=== PATIENT | male | born 1955 | race American Indian/Alaskan Native ===

== ENCOUNTER 2021-01-30 19:09 | Inpatient (IN) | payer MEDICARE, MEDICAID ==
[2021-01-30 21:48] LABS: Basophils % (Auto) 0.2 % (0.0-1.8); Eosinophils % (Auto) 0.3 % (0.0-4.3); Hematocrit 38.9 % (35.5-45.6); Hemoglobin 13.5 gm/dl (11.8-15.2); Lymphocytes # (Auto) 1.5 K/mm3 (1.2-5.4); Mean Corpuscular HGB Conc 35 % (32-34); Mean Corpuscular Volume 99 fl (84-94); Monocytes # (Auto) 0.8 K/mm3 (0.0-0.8); Monocytes % (Auto) 10.4 % (0.0-7.3); Platelet Count 109 K/mm3 (140-440); Red Blood Count 3.95 M/mm3 (3.65-5.03); Red Cell Distribution Width 14.7 % (13.2-15.2)
[2021-01-30 22:08] LABS: Albumin 2.4 g/dL (3.9-5); Calcium 9.3 mg/dL (8.4-10.2)
[2021-01-31] MEDS ORDERED: SODIUM POLYSTYRENE 15 GM/60 ML ORAL LIQD PO ONE (01:15)
[2021-01-31] MEDS ORDERED: SODIUM BICARB 8.4% 50 MEQ/50 ML SYRINGE IV ONE (01:15)
[2021-01-31] MEDS ORDERED: DEXTROSE 50% IN WATER (25GM) 50 ML SYRINGE IV ONE ×2 (01:15→11:23)
[2021-01-31] MEDS ORDERED: CALCIUM GLUCONATE 1,000 MG in SODIUM CHLORIDE 0.9% 100 ML IV ONE ×2 (01:15→10:30)
[2021-01-31] MEDS ORDERED: INSULIN REGULAR, HUMAN 100 UNITS/1 ML IV ONE (01:15)
--- NOTE | 2021-01-31 01:32 | Emergency Department Report ---
HPI - General Chief Complaint: Abdominal Pain Time Seen by Provider: 01/31/21 01:14 - [facility] HPI: Room 21 The patient is a 65-year-old male present with a chief complaint of abdominal swelling and peripheral edema. The patient states she has noticed abdominal swelling and bilateral lower extremity edema for the past 2 to 3 weeks. Patient states she developed shortness of breath over the past week. Patient states he believes he has been urinating more than normal and his urine has been darker than normal for the past 2 days. Patient denies history of fever. Patient states she has had a cough that is nonproductive and when he coughs it causes so reness in his abdomen. Patient denies any previous history of kidney disease. ED Past Medical Hx - Past Medical History Previous Medical History?: No - Surgical History Past Surgical History?: No - Family History Family history: no significant - Social History Smoking Status: Current Every Day Smoker (1/7 pack/day) Substance Use Type: None (Denies illicit drug use), Alcohol ("A couple shots" daily) ED Review of Systems ROS: Stated complaint: LEG SWELLING LT Other details as noted in HPI Constitutional: denies: fever Eyes: denies: eye pain ENT: denies: throat pain Respiratory: cough, shortness of breath Cardiovascular: denies: chest pain Endocrine: no symptoms reported Gastrointestinal: abdominal pain Genitourinary: frequency Musculoskeletal: denies: back pain Neurological: denies: headache Hematological/Lymphatic: other (Bilateral lower extremity edema) Physical Exam - Physical Exam Vital Signs: Vital Signs 01/30/21 21:06 Temperature 97.9 F Pulse Rate 104 H Respiratory 18 Rate Blood Pressure 150/71 O2 Sat by Pulse 98 Oximetry Physical Exam: GENERAL: The patient is well-developed well-nourished male lying on stretcher not appearing to be in acute distress. [] HEENT: Normocephalic. Atraumatic. Extraocular motions are intact. Icteric sc michael NECK: Supple. Trachea midline CHEST/LUNGS: Clear to auscultation. There is no respiratory distress noted. HEART/CARDIOVASCULAR: Regular. There is no tachycardia. There is no gallop rub or murmur. ABDOMEN: Abdomen is ascitic. Normoactive bowel sounds. SKIN: There is no rash. There is 2-3+ right lower extremity pitting edema. Patient has a left BKA but exhibits edema to the left thigh edema. There is no diaphoresis. NEURO: The patient is awake, alert, and oriented. The patient is cooperative. The patient has no focal neurologic deficits. The patient has normal speech. GCS 15 MUSCULOSKELETAL: There is no evidence of acute injury. ED Course Vital Signs 01/30/21 21:06 Temperature 97.9 F Pulse Rate 104 H Respiratory 18 Rate Blood Pressure 150/71 O2 Sat by Pulse 98 Oximetry ED Medical Decision Making - Lab Data Result diagrams: 01/30/21 21:35 01/30/21 21:35 Laboratory Tests 01/30/21 01/30/21 01/31/21 21:35 21:35 00:00 WBC 7.3 RBC 3.95 Hgb 13.5 Hct 38.9 MCV 99 H MCH 34 H MCHC 35 H RDW 14.7 Plt Count 109 L Lymph % (Auto) 20.0 Kinney % (Auto) 10.4 H Eos % (Auto) 0.3 Baso % (Auto) 0.2 Lymph # (Auto) 1.5 Kinney # (Auto) 0.8 Eos # (Auto) 0.0 Baso # (Auto) 0.0 Seg Neutrophils % 69.1 Seg Neutrophils # 5.0 Sodium 132 L Potassium 5.7 H Chloride 98.1 Carbon Dioxide 20 L Anion Gap 20 BUN 29 H Creatinine 2.6 H Estimated GFR 25 BUN/Creatinine Ratio 11 Glucose 69 L Calcium 9.3 Total Bilirubin 10.70 H AST 323 H ALT 90 H Alkaline Phosphatase 236 H Total Creatine Kinase 141 NT-Pro-B Natriuret Pep 616.0 Total Protein 8.7 H Albumin 2.4 L Albumin/Globulin Ratio 0.4 - Radiology Data Radiology results: report reviewed (Chest x-ray, CT abdomen pelvis), image reviewed (Chest x-ray, CT abdomen pelvis) interpreted by me: Chest x-ray-no focal infiltrates, no pneumothorax. No foreign body seen [facility] [address] [place] [address] Cat Scan Report Signed Patient: KOSTA YE MR#: [id number] : 1955 Acct:[id number] Age/Sex: 65 / M ADM Date: 01/30/21 Loc: ED Attending Dr: Ordering Physician: ARI MCCLELLAND MD Date of Service: 01/31/21 Procedure(s): CT abdomen pelvis wo con Accession Number(s): [id number] cc: ARI MCCLELLAND MD CT abdomen pelvis wo con INDICATION / CLINICAL INFORMATION: Abdominal swelling, peripheral edema elevated bili. TECHNIQUE: Axial CT imaging of abdomen and pelvis was obtained without contrast. Coronal and sagittal reformatted imaging obtained and reviewed. All CT scans at this location are performed using CT dose reduction for ALARA by means of automated exposure control. COMPARISON: None available. FINDINGS: CT abdomen without IV contrast was obtained and is grossly abnormal. The liver is sclerotic in appearance and there is suggestion of ill- defined masses within the liver. Spleen is of normal size. Moderate amount of ascites is seen throughout the upper abdomen. The gallbladder is collapsed but does contain several gallstones. Pancreas, kidneys, and adrenal glands are grossly unremarkable. Small hiatal hernia is present. The omentum is congested and somewhat nodular. This could be due to omental congestion given the appearance of the cirrhotic liver and the amount of ascites present. CT pelvis without contrast demonstrates large amount of free fluid throughout the pelvis. No pelvic mass or focal inflammatory changes noted. GI tract is grossly unremarkable. The appendix is not identified. Her graft visualized lung bases demonstrate a small left pleural effusion and a tiny right pleural effusion. No focal parenchymal disease noted in the visualized lung bases. Anasarca is noted throughout the soft tissues of the abdomen and pelvis. Review of skeletal structures demonstrates diffuse spondylytic change throughout the lumbar spine but no acute significant osseous abnormality. IMPRESSION: 1. Cirrhotic appearing liver. There is suggestion of possible multiple masses throughout the liver parenchyma although this is difficult to confidently identify without IV contrast. Moderate/large amount of ascites is noted throughout the abdomen and pelvis. CT with IV contrast or abdominal ultrasound is recommended to further evaluate the liver. 2. Cholelithiasis without CT evidence of acute cholecystitis. Line small left pleural effusion. Trace right pleural effusion. Signer Name: Naomi Barger MD Signed: 01/31/2021 2:20 AM Workstation Name: [id number] Transcribed By: Dictated By: Naomi Barger MD Electronically Authenticated By: Naomi Barger MD Signed Date/Time: 01/31/21219 DD/ 4 TD/TT: Print Cancel [facility] [address] [place] [address] XRay Report Signed Patient: KOSTA YE MR#: [id number] : 1955 Acct:[id number] Age/Sex: 65 / M ADM Date: 01/30/21 Loc: ED Attending Dr: Ordering Physician: ARI MCCLELLAND MD Date of Service: 01/31/21 Procedure(s): XR chest 1V ap Accession Number(s): [id number] cc: ARI MCCLELLAND MD Fluoro Time In Minutes: CHEST 1 VIEW INDICATION / CLINICAL INFORMATION: Shortness of breath. COMPARISON: None available. FINDINGS: SUPPORT DEVICES: None. HEART / MEDIASTINUM: No significant abnormality. LUNGS / PLEURA: Low lung volumes. No acute pulmonary or pleural disease. No interstitial pulmonary edema. Small left pleural effusion was noted on CT abdomen earlier today. No pneumothorax. ADDITIO NAL FINDINGS: No significant additional findings. IMPRESSION: 1. Small left pleural effusion. This was identified on earlier CT abdomen. 2. No additional abnormal finding. Signer Name: Naomi Barger MD Signed: 01/31/2021 2:25 AM Workstation Name: [id number] Transcribed By: JR Dictated By: Naomi Barger MD Electronically Authenticated By: Naomi Barger MD Signed Date/Time: 01/31/21224 DD/ 3 TD/TT: Print Cancel - Differential Diagnosis CHF, acute renal failure, hepatic failure, Critical care attestation.: If time is entered above; I have spent that time in minutes in the direct care of this critically ill patient, excluding procedure time. ED Disposition Clinical Impression: Renal insufficiency, Hyperkalemia, Hypoalbuminemia, Hyperbilirubinemia Disposition: OP ADMIT IP TO THIS HOSP Is pt being admited?: Yes Does the pt Need Aspirin: No Condition: Fair Time of Disposition: 02:35 (Hospitalist notified (Dr Leong))
--- NOTE | 2021-01-31 02:25 | Cat Scan Report ---
CT abdomen pelvis wo con INDICATION / CLINICAL INFORMATION: Abdominal swelling, peripheral edema elevated bili. TECHNIQUE: Axial CT imaging of abdomen and pelvis was obtained without contrast. Coronal and sagittal reformatte d imaging obtained and reviewed. All CT scans at this location are performed using CT dose reduction for ALARA by means of automated exposure control. COMPARISON: None available. FINDINGS: CT abdomen without IV contrast was obtained and is grossly abnormal. The liver is sclerotic in appear ance and there is suggestion of ill-defined masses within the liver. Spleen is of normal size. Modera te amount of ascites is seen throughout the upper abdomen. The gallbladder is collapsed but does cont ain several gallstones. Pancreas, kidneys, and adrenal glands are grossly unremarkable. Small hiatal hernia is present. The omentum is congested and somewhat nodular. This could be due to omental conges tion given the appearance of the cirrhotic liver and the amount of ascites present. CT pelvis without contrast demonstrates large amount of free fluid throughout the pelvis. No pelvic m ass or focal inflammatory changes noted. GI tract is grossly unremarkable. The appendix is not identified. Her graft visualized lung bases dem onstrate a small left pleural effusion and a tiny right pleural effusion. No focal parenchymal diseas e noted in the visualized lung bases. Anasarca is noted throughout the soft tissues of the abdomen and pelvis. Review of skeletal structures demonstrates diffuse spondylytic change throughout the lumbar spine but no acute significant osseous abnormality. IMPRESSION: 1. Cirrhotic appearing liver. There is suggestion of possible multiple masses throughout the liver pa renchyma although this is difficult to confidently identify without IV contrast. Moderate/large amoun t of ascites is noted throughout the abdomen and pelvis. CT with IV contrast or abdominal ultrasound is recommended to further evaluate the liver. 2. Cholelithiasis without CT evidence of acute cholecystitis. Line small left pleural effusion. Trace right pleural effusion. Signer Name: Naomi Barger MD Signed: 01/31/2021 2:20 AM Workstation Name: [id number]
--- NOTE | 2021-01-31 02:29 | XRay Report ---
CHEST 1 VIEW INDICATION / CLINICAL INFORMATION: Shortness of breath. COMPARISON: None available. FINDINGS: SUPPORT DEVICES: None. HEART / MEDIASTINUM: No significant abnormality. LUNGS / PLEURA: Low lung volumes. No acute pulmonary or pleural disease. No interstitial pulmonary ed demetrio. Small left pleural effusion was noted on CT abdomen earlier today. No pneumothorax. ADDITIONAL FINDINGS: No significant additional findings. IMPRESSION: 1. Small left pleural effusion. This was identified on earlier CT abdomen. 2. No additional abnormal finding. Signer Name: Naomi Barger MD Signed: 01/31/2021 2:25 AM Workstation Name: [id number]
[2021-01-31] MEDS ORDERED: MORPHINE 2 MG/1 ML INJ IV PRN (03:30)
[2021-01-31] MEDS ORDERED: MAGNESIUM HYDROXIDE (MOM) ORAL LIQD UDC PO PRN (03:30)
--- NOTE | 2021-01-31 03:45 | History and Physical Report ---
History of Present Illness Date of examination: 01/31/21 Date of admission: 01/31/21 02:37 Chief complaint: Lower Extremity swelling History of present illness: 65-year-old male with no significant past medical history presents to the emergency room today complaining of abdominal pain and lower extremity edema. This has been ongoing for the past 2 to 3 weeks. He denies any fever or chills, no chest pain, no nausea vomiting, no headache or dizziness. He however has had some shortness of breath over the past 1 week. He has had some mild cough which is nonproductive. Patient denies any recent travel, no sick contacts and no contact with anyone with COVID-19. Work-up in the emergency room today reveals elevated creatinine of 2.6, abnormal Sg elevated liver enzymes. Elevated bilirubin. Hyperkalemia of 5.7. He received partial gluconate, insulin and glucose, sodium bicarb and Kayexalate in the emergency room for the hyperkalemia. Chest x-ray reveals small left pleural effusion. CT of the abdomen and pelvis shows a cirrhotic appearing liver there is also suggestion of possible multiple masses throughout the liver parenchyma. Moderate/large amount of ascites is noted throughout the abdomen and pelvis. Cholelithiasis without CT evidence of acute cholecystitis. Patient is being admitted with abdominal pain possibly secondary to cirrhotic liver with accompanying ascites, cholelithiasis and hyperkalemia. Past History Past Medical History: No medical history Past Surgical History: No surgical history Social history: smoking (Current daily smoker), alcohol abuse Family history: no significant family history Medications and Allergies Allergies Allergy/AdvReac Type Severity Reaction Status Date / Time Penicillins Allergy Hives Verified 01/30/21 21:16 Active Meds: Active Medications Acetaminophen (Acetaminophen 325 Mg Tab) 650 mg PO Q4H PRN PRN Reason: Pain MILD(1-3)/Fever >100.5/BUTCHER Magnesium Hydroxide (Magnesium Hydroxide (Mom) Oral Liqd Udc) 30 ml PO Q4H PRN PRN Reason: Constipation Morphine Sulfate (Morphine 2 Mg/1 Ml Inj) 2 mg IV Q4H PRN PRN Reason: Pain, Moderate (4-6) Ondansetron HCl (Ondansetron 4 Mg/2 Ml Inj) 4 mg IV Q8H PRN PRN Reason: Nausea And Vomiting Sodium Chloride (Sodium Chloride 0.9% 10 Ml Flush Syringe) 10 ml IV BID TAQUERIA Sodium Chloride (Sodium Chloride 0.9% 10 Ml Flush Syringe) 10 ml IV PRN PRN PRN Reason: LINE FLUSH Review of Systems Constitutional: no fever, no chills Ears, nose, mouth and throat: no nasal congestion, no sore throat Cardiovascular: no chest pain, no palpitations Respiratory: no cough, no shortness of breath Gastrointestinal: no abdominal pain, no nausea, no vomiting, no diarrhea Genitourinary Male: no dysuria, no hematuria, no nocturia Musculoskeletal: no neck pain, no low back pain Integumentary: no rash, no pruritis Neurological: no headaches, no confusion Psychiatric: no anxiety, no depression Endocrine: no polyphagia, no polydipsia, no polyuria, no nocturia Exam - Constitutional Vitals: Temp Pulse Resp BP Pulse Ox 97.9 F 88 15 136/68 97 01/30/21 21:06 01/31/21 03:10 01/31/21 03:10 01/31/21 03:10 01/31/21 03:10 General appearance: Present: no acute distress, well-nourished - EENT Eyes: Present: PERRL, EOM intact, scleral icterus ENT: hearing intact, clear oral mucosa, dentition normal - Neck Neck: Present: supple, normal ROM - Respiratory Respiratory effort: normal Respiratory: bilateral: CTA - Cardiovascular Rhythm: regular Heart Sounds: Present: S1 & S2. Absent: gallop, systolic murmur, diastolic murmur, rub, click - Extremities Extremities: no ischemia, pulses intact, pulses symmetrical, normal temperature, normal color, Full ROM, abnormal (Left BKA) Extremity abnormal: edema (2+ bilateral lower extremity edema) Peripheral Pulses: within normal limits - Abdominal General gastrointestinal: Present: soft, non-tender, non-distended, normal bowel sounds. Absent: mass - Integumentary Integumentary: Present: clear, warm, dry. Absent: rash - Musculoskeletal Musculoskeletal: strength equal bilaterally - Psychiatric Psychiatric: appropriate mood/affect, intact judgment & insight, memory intact, cooperative - Neurologic Neurologic: CNII-XII intact, no focal deficits, moves all extremities Results - Labs CBC & Chem 7: 01/30/21 21:35 01/30/21 21:35 Labs: Abnormal lab results 01/30/21 01/30/21 Range/Units 21:35 21:35 MCV 99 H (84-94) fl MCH 34 H (28-32) pg MCHC 35 H (32-34) % Plt Count 109 L (140-440) K/mm3 Rankin % (Auto) 10.4 H (0.0-7.3) % Sodium 132 L (137-145) mmol/L Potassium 5.7 H (3.6-5.0) mmol/L Carbon Dioxide 20 L (22-30) mmol/L BUN 29 H (9-20) mg/dL Creatinine 2.6 H (0.8-1.3) mg/dL Glucose 69 L (75-100) mg/dL Total Bilirubin 10.70 H (0.1-1.2) mg/dL AST 323 H (5-40) units/L ALT 90 H (7-56) units/L Alkaline Phosphatase 236 H (35-129) units/L Total Protein 8.7 H (6.3-8.2) g/dL Albumin 2.4 L (3.9-5) g/dL Assessment and Plan - Patient Problems (1) Hyperbilirubinemia Current Visit: Yes Status: Acute Plan to address problem: Possibly related to the cirrhotic liver. We place consult to gastroenterology for evaluation. Will monitor liver enzymes. (2) Hyperkalemia Current Visit: Yes Status: Acute Plan to address problem: Patient has received insulin and glucose, sodium bicarbonate, calcium gluconate and Kayexalate in the ER. Will monitor potassium levels. (3) Renal insufficiency Current Visit: Yes Status: Acute Plan to address problem: Consult placed to nephrology for evaluation and recommendations. We will monitor BUN and creatinine. (4) DVT prophylaxis Current Visit: Yes Status: Acute Plan to address problem: Patient placed on subcutaneous heparin. (5) Full code status Current Visit: Yes Status: Acute Plan to address problem: Patient is full code.
--- NOTE | 2021-01-31 07:36 | Consultation ---
History of Present Illness - Reason for Consult Consult date: 01/31/21 acute renal failure, hyperkalemia - History of Present Illness 65-year-old male with no significant past medical history presents to the emergency room today complaining of abdominal pain and lower extremity edema for the past 2 to 3 weeks. Denies any prior known kidney disease history. Noted to have creatinine 2.6 on arrival with abnormal liver testing. K was 5.7. Also spoke with emergency contact who confirms no prior renal history. No history of HTN, DM per patient. CT of the abdomen and pelvis shows a cirrhotic appearing liver there is also suggestion of possible multiple masses throughout the liver parenchyma. Moderate/large amount of ascites is noted throughout the abdomen and pelvis. Currently notes edema, abdominal swelling, mild dyspnea. No chest pain. Ongoing abdominal pain, nausea, but no vomiting. Past History Past Medical History: No medical history Past Surgical History: No surgical history Social history: smoking (Current daily smoker), alcohol abuse Family history: no significant family history Medications and Allergies Allergies Allergy/AdvReac Type Severity Reaction Status Date / Time Penicillins Allergy Hives Verified 01/30/21 21:16 Active Meds: Active Medications Acetaminophen (Acetaminophen 325 Mg Tab) 650 mg PO Q4H PRN PRN Reason: Pain MILD(1-3)/Fever >100.5/BUTCHER Heparin Sodium (Porcine) (Heparin 5,000 Unit/1 Ml Vial) 5,000 unit SUB-Q Q8HR TAQUERIA Magnesium Hydroxide (Magnesium Hydroxide (Mom) Oral Liqd Udc) 30 ml PO Q4H PRN PRN Reason: Constipation Morphine Sulfate (Morphine 2 Mg/1 Ml Inj) 2 mg IV Q4H PRN PRN Reason: Pain, Moderate (4-6) Ondansetron HCl (Ondansetron 4 Mg/2 Ml Inj) 4 mg IV Q8H PRN PRN Reason: Nausea And Vomiting Sodium Chloride (Sodium Chloride 0.9% 10 Ml Flush Syringe) 10 ml IV BID TAQUERIA Sodium Chloride (Sodium Chloride 0.9% 10 Ml Flush Syringe) 10 ml IV PRN PRN PRN Reason: LINE FLUSH Review of Systems All systems: negative (as per HPI) Exam - Vital Signs Vital signs: Vital Signs Temp Pulse Resp BP Pulse Ox 97.9 F 104 H 18 150/71 98 01/30/21 21:06 01/30/21 21:06 01/30/21 21:06 01/30/21 21:06 01/30/21 21:06 - Physical Exam Narrative exam: General appearance: obese - EENT Eyes: scleral icterus ENT: hearing intact - Neck Neck: supple - Respiratory Respiratory effort: normal - Cardiovascular Rhythm: regular Heart Sounds: Present: systolic murmur - Gastrointestinal General gastrointestinal: Present: distended, note fluid wave - Integumentary Integumentary: Present: warm, dry - Neurologic Neurological: alert and oriented x3, asterixis, lethargic - Psychiatric Psychiatric: lethargic) Results - Lab Results 01/31/21 08:23 01/31/21 16:12 Most recent lab results Calcium 9.3 mg/dL (8.4-10.2) 01/30/21 21:35 Assessment and Plan # LILLIAM: creatinine 2.6->2.8 since admission. No baseline. Likely with hepatore nal physiology vs pre-renal, consider mass effect on kidney function given potential masses. However, concerning given hyperkalemia and acidosis and minimal urine output - checking urine studies - imaging reviewed - serologies sent, HCV + - suspect will need renal replacement therapy given hyperkalemia (did improve to 4.2 from >6), have placed consult to vascular for line placement in anticipation of RN VASCULAR - avoid nephrotoxins - renally dose meds - small fluid challenge given this AM, will continue to challenge cautiously given edema - consider HRS treatment with octreotide, albumin, midodrine; current BP is reasonable however so likely no active benefit # Hyperkalemia: medical management so far, last K at goal # Hyperbilirubinemia/Cirrhosis/Concern for HCC: appreciate GI input, agree with paracentesis. Alcohol cessation # Hypoalbuminemia
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
[2021-01-31 08:54] LABS: Basophils # (Auto) 0.1 K/mm3 (0.0-0.1); Basophils % (Auto) 0.8 % (0.0-1.8); Eosinophils % (Auto) 0.5 % (0.0-4.3); Hematocrit 38.1 % (35.5-45.6); Hemoglobin 13.1 gm/dl (11.8-15.2); Lymphocytes # (Auto) 1.5 K/mm3 (1.2-5.4); Lymphocytes % (Auto) 20.7 % (13.4-35.0); Mean Corpuscular HGB Conc 34 % (32-34); Mean Corpuscular Volume 98 fl (84-94); Monocytes # (Auto) 0.6 K/mm3 (0.0-0.8); Monocytes % (Auto) 8.1 % (0.0-7.3); Platelet Count 200 K/mm3 (140-440); Red Cell Distribution Width 15.4 % (13.2-15.2)
[2021-01-31 09:08] LABS: Albumin 2.5 g/dL (3.9-5); Bilirubin,Direct 6.2 mg/dL (0-0.2); Calcium 9.5 mg/dL (8.4-10.2)
[2021-01-31] MEDS ORDERED: SODIUM BICARB 8.4% 50 MEQ/50 ML SYRINGE IV NR (09:39)
[2021-01-31] MEDS ORDERED: SODIUM POLYSTYRENE 15 GM/60 ML ORAL LIQD PO NR (09:39)
[2021-01-31] MEDS ORDERED: SODIUM CHLORIDE 0.9% 500 ML 500 ML IV ONE (09:51)
[2021-01-31 11:04] LABS: INR 1.88 (0.87-1.13)
[2021-01-31] MEDS ORDERED: D5W/0.9% NACL 1,000 ML IV SCH (12:00)
[2021-01-31] MEDS ORDERED: DEXTROSE 50% IN WATER (25GM) 50 ML VIAL IV SCH (12:00)
[2021-01-31] MEDS: LACTULOSE 20 GM/30 ML ORAL LIQD PO SCH ×2 (14:20→23:05)
[2021-01-31] MEDS: HEPARIN 5,000 UNIT/1 ML VIAL SUB-Q SCH ×2 (14:29→23:07)
[2021-01-31 15:25] LABS: Calcium 9.2 mg/dL (8.4-10.2)
--- NOTE | 2021-01-31 16:06 | Event Note ---
Date: 01/31/21 Patient seen and examined This is the second visit after midnight Persistently hyperkalemic despite of medical management Spoke with industrial boilermaker on plan for hemodialysis Vascular consulted for Vas-Cath placement Continue gentle hydration and follow BMP Avoid nephrotoxins
[2021-01-31] MEDS ORDERED: SODIUM BICARBONATE 100 MEQ in DEXTROSE 5% IN WATER 1,000 ML IV SCH (17:00)
--- NOTE | 2021-01-31 18:00 | Ultrasound Report ---
ULTRASOUND-GUIDED PARACENTESIS INDICATION: Ascites. PROCEDURE: The risks (including but not limited to bleeding, infection, and bowel injury) and benefits were expl ained to the patient and signed, informed consent was obtained. A time out procedure was performed. Ultrasound was used to evaluate the abdomen and locate the largest ascites fluid pocket. Once the sk in was marked, the procedure site was prepped and draped in the usual sterile fashion and lidocaine w as used for local anesthesia. A skin ja was made and a 6-[place] paracentesis catheter was placed. The patient was monitored closely throughout the procedure, and a total of 5500 mL of straw-colored fluid was aspirated. Samples were sent to the lab for further evaluation per the primary clinicians orders. The patient tolerated the procedure well with no complications. IMPRESSION: 1. Successful ultrasound-guided paracentesis. Signer Name: Dakota Augustin MD Signed: 01/31/2021 5:55 PM Workstation Name: [id number]
[2021-01-31 18:47] LABS: Total Cells Counted 100 /mm3
[2021-02-01 05:40] LABS: Hematocrit 33.6 % (35.5-45.6); Hemoglobin 11.7 gm/dl (11.8-15.2); Mean Corpuscular HGB Conc 35 % (32-34); Mean Corpuscular Volume 98 fl (84-94); Red Blood Count 3.44 M/mm3 (3.65-5.03); Red Cell Distribution Width 14.7 % (13.2-15.2)
[2021-02-01 05:44] LABS: Platelet Count 92 K/mm3 (140-440)
[2021-02-01 05:49] LABS: INR 1.96 (0.87-1.13)
[2021-02-01] MEDS: HEPARIN 5,000 UNIT/1 ML VIAL SUB-Q SCH ×3 (05:53→23:04)
[2021-02-01] MEDS: ACETAMINOPHEN 325 MG TAB PO PRN (06:03)
[2021-02-01 06:10] LABS: Calcium 8.6 mg/dL (8.4-10.2)
[2021-02-01 06:14] LABS: Albumin 1.9 g/dL (3.9-5); Bilirubin,Direct 5.2 mg/dL (0-0.2)
[2021-02-01 06:43] LABS: Bacteria,Urine 1+ /HPF (Negative); Bilirubin,Urine MOD (Negative); Blood,Urine SM (Negative); Color,Urine Amber (Yellow); Mucus,Urine FEW /HPF
[2021-02-01 06:53] LABS: Ictotest,Urine Positive (Negative)
[2021-02-01 06:58] LABS: Total Cells Counted 100
[2021-02-01 06:59] LABS: Anisocytosis 1+; Macrocytosis 1+; Platelet Estimate Consistent w Auto
[2021-02-01 09:05] LABS: Creatinine,Urine 413.9 mg/dL (0.1-20.0); Protein/Creatinine Ratio,Urine 0.13
--- NOTE | 2021-02-01 09:16 | Progress Note ---
Assessment and Plan # LILLIAM: creatinine 2.6->2.8->2.9 since admission. No baseline. Likely with hepatorenal physiology vs pre-renal, consider mass effect on kidney function given potential masses. Noting minimal urine output but need better documentation - reviewed urine studies, minimal blood/protein noted - imaging reviewed - serologies sent and pending given urinalysis, HCV + - can hold off on line placement and HD at this time given stable lytes, remains at high risk for LILLIAM progression to require renal replacement therapy - avoid nephrotoxins - renally dose meds - additional small fluid challenge todays - consider HRS treatment with octreotide, albumin, midodrine; current BP is reasonable however so likely no active benefit # Hyperkalemia: medical management so far, last K at goal # Hyperbilirubinemia/Cirrhosis/Concern for HCC: appreciate GI input, s/p paracentesis. Alcohol cessation # Hypoalbuminemia Subjective Date of service: 02/01/21 Interval history: K improved, likely with hemolyzed sample previously. Remains lethargic this AM Objective - Exam Narrative Exam: General appearance: obese - EENT Eyes: scleral icterus ENT: hearing intact - Neck Neck: supple - Respiratory Respiratory effort: normal - Cardiovascular Rhythm: regular Heart Sounds: Present: systolic murmur - Gastrointestinal General gastrointestinal: Present: distended, note fluid wave - Integumentary Integumentary: Present: warm, dry - Neurologic Neurological: alert and oriented x3, asterixis, lethargic - Psychiatric Psychiatric: lethargic) - Vital Signs Vital signs: Vital Signs - 12hr 01/31/21 01/31/21 02/01/21 23:00 23:30 04:02 Temperature 98.3 F 98.4 F Pulse Rate 81 87 93 H Respiratory 18 18 Rate Blood Pressure 123/58 113/30 O2 Sat by Pulse 95 94 Oximetry - Lab 02/01/21 05:04 02/01/21 05:04 Most recent lab results Calcium 8.6 mg/dL (8.4-10.2) 02/01/21 05:04 Urine Creatinine 413.9 mg/dL (0.1-20.0) H 02/01/21 06:08 Urine Total Protein 55 mg/dL (5-11.8) H 02/01/21 06:08 Medications & Allergies - Medications Allergies/Adverse Reactions: Allergies Penicillins Allergy (Verified 01/30/21 21:16) Hives Active Medications: Generic Name Dose Route Start Last Admin Trade Name Freq PRN Reason Stop Dose Admin Acetaminophen 650 mg 01/31/21 03:30 02/01/21 06:03 Acetaminophen 325 Mg Tab PO 650 mg Q4H PRN Administration Pain MILD(1-3)/Fever >100.5/BUTCHER Dextrose 25 ml 01/31/21 13:00 Dextrose 50% In Water (25gm) 50 Ml Syringe IV Q30MIN PRN Hypoglycemia Protocol Heparin Sodium (Porcine) 5,000 unit 01/31/21 14:00 02/01/21 05:53 Heparin 5,000 Unit/1 Ml Vial SUB-Q 5,000 unit Q8HR [place]IA Administration Sodium Bicarbonate 100 meq/ 1,100 mls @ 75 mls/hr 01/31/21 17:00 01/31/21 23:09 Dextrose IV 75 mls/hr DIRECT [place]QU[place]IA Administration Lactulose 20 gm 01/31/21 14:00 01/31/21 23:05 Lactulose 20 Gm/30 Ml Oral Liqd PO Not Given TID [place] Magnesium Hydroxide 30 ml 01/31/21 03:30 Magnesium Hydroxide (Mom) Oral Liqd Udc PO Q4H PRN Constipation Morphine Sulfate 2 mg 01/31/21 03:30 Morphine 2 Mg/1 Ml Inj IV Q4H PRN Pain, Moderate (4-6) Ondansetron HCl 4 mg 01/31/21 03:30 Ondansetron 4 Mg/2 Ml Inj IV Q8H PRN Nausea And Vomiting Sodium Chloride 10 ml 01/31/21 10:00 01/31/21 23:07 Sodium Chloride 0.9% 10 Ml Flush Syringe IV 10 ml BID [place] Administration Sodium Chloride 10 ml 01/31/21 03:30 Sodium Chloride 0.9% 10 Ml Flush Syringe IV PRN PRN LINE FLUSH
[2021-02-01] MEDS ORDERED: ALBUMIN HUMAN 25% (25 GM/100 ML) INJ IV NR (09:18)
[2021-02-01] MEDS: LACTULOSE 20 GM/30 ML ORAL LIQD PO SCH ×2 (09:25→13:28)
--- NOTE | 2021-02-01 09:54 | Gastroenterology Progress Note ---
Assessment and Plan - Patient Problems (1) Abnormal CT of liver Current Visit: Yes Status: Acute Plan to address problem: - Will assess after final read of US today; if inconclusive, will attempt non- contrast MRI of the liver. - If AFP markedly elevated, then no need for MRI. - Given multifocal "masses" this would more likely be metastatic disease from other location than primary HCC, though the history of Hep C increases risk of HCC. (2) Alcoholic cirrhosis of liver with ascites Current Visit: Yes Status: Acute Plan to address problem: - Continue current supportive care. - Agree with Nephro recs; will try short course of albumin since level <2, as this will decrease risk of SBP. - Hold lasix/aldactone for now, and monitor urine OP and abdominal distention. - Poor prognosis discussed with patient. Not a candidate for liver transplant given active EtOH and liver masses. Subjective Date of service: 02/01/21 Principal diagnosis: Cirrhosis Interval history: The patient denies abdominal pain, and states that he is hungry. No bleeding, and remains oriented without tremors. Minimal urine output noted. Objective - Constitutional Vitals: Temp Pulse Resp BP Pulse Ox 98.4 F 93 H 18 113/30 94 02/01/21 04:02 02/01/21 04:02 02/01/21 04:02 02/01/21 04:02 02/01/21 04:02 General appearance: no acute distress - EENT Eyes: scleral icterus - Respiratory Respiratory effort: normal Respiratory: bilateral: CTA - Cardiovascular Rhythm: regular Heart Sounds: Present: S1 & S2 - Gastrointestinal General gastrointestinal: Present: soft, non-tender, distended (Mild ascites) - Labs CBC & Chem 7: 02/01/21 05:04 02/01/21 05:04 Labs: Laboratory Results - last 24 hr 01/31/21 01/31/21 01/31/21 08:23 08:23 10:17 WBC RBC Hgb Hct MCV MCH MCHC RDW Plt Count Add Manual Diff Total Counted Seg Neuts % (Manual) Lymphocytes % (Manual) Reactive Lymphs % (Man) Monocytes % (Manual) Basophils % (Manual) Nucleated RBC % Seg Neutrophils # Man Band Neutrophils # Lymphocytes # (Manual) Abs React Lymphs (Man) Monocytes # (Manual) Eosinophils # (Manual) Basophils # (Manual) Metamyelocytes # Myelocytes # Promyelocytes # Blast Cells # WBC Morphology Hypersegmented Neuts Hyposegmented Neuts Hypogranular Neuts Smudge Cells Toxic Granulation Toxic Vacuolation Dohle Bodies Pelger-Huet Anomaly Tita Rods Platelet Estimate Clumped Platelets Plt Clumps, EDTA Large Platelets Giant Platelets Platelet Satelliting Plt Morphology Comment RBC Morphology Dimorphic RBCs Polychromasia Hypochromasia Poikilocytosis Anisocytosis Microcytosis Macrocytosis Spherocytes Pappenheimer Bodies Sickle Cells Target Cells Tear Drop Cells Ovalocytes Helmet Cells [place] Bodies [place] Rings [place] Cells Bite Cells Crenated Cell Elliptocytes Acanthocytes (Spur) Rouleaux Hemoglobin C Crystals Schistocytes Malaria parasites Jeffrey Bodies Hem Pathologist Commnt PT 22.2 H INR 1.88 H Sodium Potassium Chloride Carbon Dioxide Anion Gap BUN Creatinine Estimated GFR BUN/Creatinine Ratio Glucose POC Glucose Calcium Iron TIBC Total Bilirubin Direct Bilirubin Indirect Bilirubin AST ALT Alkaline Phosphatase Total Protein Albumin Albumin/Globulin Ratio Folate Urine Color Urine Turbidity Urine pH Ur Specific Pitcher Urine Protein Urine Glucose (UA) Urine Ketones Urine Blood Urine Nitrite Urine Bilirubin Urine Ictotest Urine Urobilinogen Ur Leukocyte Esterase Urine WBC (Auto) Urine RBC (Auto) U Epithel Cells (Auto) Urine Bacteria (Auto) Ur Transition Epith Cell Urine Mucus Urine Creatinine Protein/Creatinin Ratio Urine Total Protein Fluid Type Fluid Color Fluid Appearance Fluid WBC Fluid RBC Fluid Seg Neutrophils Fluid Lymphocytes Fluid Reactive Lymphs Fluid Monocytes Fluid Eosinophils Fluid Basophils Hep Bs Antigen Non-reactive Hepatitis C Antibody Reactive A 01/31/21 01/31/21 01/31/21 11:21 11:47 12:13 WBC RBC Hgb Hct MCV MCH MCHC RDW Plt Count Add Manual Diff Total Counted Seg Neuts % (Manual) Lymphocytes % (Manual) Reactive Lymphs % (Man) Monocytes % (Manual) Basophils % (Manual) Nucleated RBC % Seg Neutrophils # Man Band Neutrophils # Lymphocytes # (Manual) Abs React Lymphs (Man) Monocytes # (Manual) Eosinophils # (Manual) Basophils # (Manual) Metamyelocytes # Myelocytes # Promyelocytes # Blast Cells # WBC Morphology Hypersegmented Neuts Hyposegmented Neuts Hypogranular Neuts Smudge Cells Toxic Granulation Toxic Vacuolation Dohle Bodies Pelger-Huet Anomaly [place]ita Rods Platelet Estimate Clumped Platelets Plt Clumps, EDTA Large Platelets Giant Platelets Platelet Satelliting Plt Morphology Comment RBC Morphology Dimorphic RBCs Polychromasia Hypochromasia Poikilocytosis Anisocytosis Microcytosis Macrocytosis Spherocytes Pappenheimer Bodies Sickle Cells Target Cells Tear Drop Cells Ovalocytes Helmet Cells [place] Bodies [place] Rings [place] Cells Bite Cells Crenated Cell Elliptocytes Acanthocytes (Spur) Rouleaux Hemoglobin C Crystals Schistocytes Malaria parasites Jeffrey Bodies Hem Pathologist Commnt PT INR Sodium Potassium Chloride Carbon Dioxide Anion Gap BUN Creatinine Estimated GFR BUN/Creatinine Ratio Glucose POC Glucose 51 L 60 L 97 Calcium Iron TIBC Total Bilirubin Direct Bilirubin Indirect Bilirubin AST ALT Alkaline Phosphatase Total Protein Albumin Albumin/Globulin Ratio Folate Urine Color Urine Turbidity Urine pH Ur Specific Pitcher Urine Protein Urine Glucose (UA) Urine Ketones Urine Blood Urine Nitrite Urine Bilirubin Urine Ictotest Urine Urobilinogen Ur Leukocyte Esterase Urine WBC (Auto) Urine RBC (Auto) U Epithel Cells (Auto) Urine Bacteria (Auto) Ur Transition Epith Cell Urine Mucus Urine Creatinine Protein/Creatinin Ratio Urine Total Protein Fluid Type Fluid Color Fluid Appearance Fluid WBC Fluid RBC Fluid Seg Neutrophils Fluid Lymphocytes Fluid Reactive Lymphs Fluid Monocytes Fluid Eosinophils Fluid Basophils Hep Bs Antigen Hepatitis C Antibody 01/31/21 01/31/21 01/31/21 14:15 14:25 14:33 WBC RBC Hgb Hct MCV MCH MCHC RDW Plt Count Add Manual Diff Total Counted Seg Neuts % (Manual) Lymphocytes % (Manual) Reactive Lymphs % (Man) Monocytes % (Manual) Basophils % (Manual) Nucleated RBC % Seg Neutrophils # Man Band Neutrophils # Lymphocytes # (Manual) Abs React Lymphs (Man) Monocytes # (Manual) Eosinophils # (Manual) Basophils # (Manual) Metamyelocytes # Myelocytes # Promyelocytes # Blast Cells # WBC Morphology Hypersegmented Neuts Hyposegmented Neuts Hypogranular Neuts Smudge Cells Toxic Granulation Toxic Vacuolation Dohle Bodies Pelger-Huet Anomaly [place]ita Rods Platelet Estimate Clumped Platelets Plt Clumps, EDTA Large Platelets Giant Platelets Platelet Satelliting Plt Morphology Comment RBC Morphology Dimorphic RBCs Polychromasia Hypochromasia Poikilocytosis Anisocytosis Microcytosis Macrocytosis Spherocytes Pappenheimer Bodies Sickle Cells Target Cells Tear Drop Cells Ovalocytes Helmet Cells [place] Bodies [place] Rings [place] Cells Bite Cells Crenated Cell Elliptocytes Acanthocytes (Spur) Rouleaux Hemoglobin C Crystals Schistocytes Malaria parasites Jeffrey Bodies Hem Pathologist Commnt PT INR Sodium 129 L Potassium 6.5 H* Chloride 96.0 L Carbon Dioxide 16 L Anion Gap 24 BUN 34 H Creatinine 2.8 H Estimated GFR 27 BUN/Creatinine Ratio 12 Glucose 134 H POC Glucose 123 H Calcium 9.2 Iron TIBC Total Bilirubin Direct Bilirubin Indirect Bilirubin AST ALT Alkaline Phosphatase Total Protein Albumin Albumin/Globulin Ratio Folate Urine Color Urine Turbidity Urine pH Ur Specific [place]cher Urine Protein Urine Glucose (UA) Urine Ketones Urine Blood Urine Nitrite Urine Bilirubin Urine Ictotest Urine Urobilinogen Ur Leukocyte Esterase Urine WBC (Auto) Urine RBC (Auto) U Epithel Cells (Auto) Urine Bacteria (Auto) Ur Transition Epith Cell Urine Mucus Urine Creatinine Protein/Creatinin Ratio Urine Total Protein Fluid Type Ascitic Fluid Color Yellow Fluid Appearance Hazy Fluid WBC 203 Fluid RBC 513 Fluid Seg Neutrophils 2.0 Fluid Lymphocytes 55.0 Fluid Reactive Lymphs 0 Fluid Monocytes 43.0 Fluid Eosinophils 0 Fluid Basophils 0 Hep Bs Antigen Hepatitis C Antibody 01/31/21 01/31/21 02/01/21 15:33 16:12 05:04 WBC 5.6 RBC 3.44 L Hgb 11.7 L Hct 33.6 L MCV 98 H MCH 34 H MCHC 35 H RDW 14.7 Plt Count 92 L Add Manual Diff Complete Total Counted 100 Seg Neuts % (Manual) 75.0 H Lymphocytes % (Manual) 13.0 L Reactive Lymphs % (Man) 1.0 Monocytes % (Manual) 10.0 H Basophils % (Manual) 1.0 Nucleated RBC % Not Reportable Seg Neutrophils # Man 4.2 Band Neutrophils # 0.0 Lymphocytes # (Manual) 0.7 L Abs React Lymphs (Man) 0.1 Monocytes # (Manual) 0.6 Eosinophils # (Manual) 0.0 Basophils # (Manual) 0.1 Metamyelocytes # 0.0 Myelocytes # 0.0 Promyelocytes # 0.0 Blast Cells # 0.0 WBC Morphology Not Reportable Hypersegmented Neuts Not Reportable Hyposegmented Neuts Not Reportable Hypogranular Neuts Not Reportable Smudge Cells Not Reportable Toxic Granulation Not Reportable Toxic Vacuolation Not Reportable Dohle Bodies Not Reportable Pelger-Huet Anomaly Not Reportable Tita Rods Not Reportable Platelet Estimate Consistent w auto Clumped Platelets Not Reportable Plt Clumps, EDTA Not Reportable Large Platelets Not Reportable Giant Platelets Not Reportable Platelet Satelliting Not Reportable Plt Morphology Comment Not Reportable RBC Morphology Not Reportable Dimorphic RBCs Not Reportable Polychromasia Not Reportable Hypochromasia Not Reportable Poikilocytosis Not Reportable Anisocytosis 1+ Microcytosis Not Reportable Macrocytosis 1+ Spherocytes Not Reportable Pappenheimer Bodies Not Reportable Sickle Cells Not Reportable Target Cells Not Reportable Tear Drop Cells Not Reportable Ovalocytes Not Reportable Helmet Cells Not Reportable [place] Bodies Not Reportable [place] Rings Not Reportable Ming Cells Not Reportable Bite Cells Not Reportable Crenated Cell Not Reportable Elliptocytes Not Reportable Acanthocytes (Spur) Not Reportable Rouleaux Not Reportable Hemoglobin C Crystals Not Reportable Schistocytes Not Reportable Malaria parasites Not Reportable Jeffrey Bodies Not Reportable Hem Pathologist Commnt No PT INR Sodium Potassium 4.7 D Chloride Carbon Dioxide Anion Gap BUN Creatinine Estimated GFR BUN/Creatinine Ratio Glucose POC Glucose 131 H Calcium Iron TIBC Total Bilirubin Direct Bilirubin Indirect Bilirubin AST ALT Alkaline Phosphatase Total Protein Albumin Albumin/Globulin Ratio Folate Urine Color Urine Turbidity Urine pH Ur Specific [place]cher Urine Protein Urine Glucose (UA) Urine Ketones Urine Blood Urine Nitrite Urine Bilirubin Urine Ictotest Urine Urobilinogen Ur Leukocyte Esterase Urine WBC (Auto) Urine RBC (Auto) U Epithel Cells (Auto) Urine Bacteria (Auto) Ur Transition Epith Cell Urine Mucus Urine Creatinine Protein/Creatinin Ratio Urine Total Protein Fluid Type Fluid Color Fluid Appearance Fluid WBC Fluid RBC Fluid Seg Neutrophils Fluid Lymphocytes Fluid Reactive Lymphs Fluid Monocytes Fluid Eosinophils Fluid Basophils Hep Bs Antigen Hepatitis C Antibody 02/01/21 02/01/21 02/01/21 05:04 05:04 05:04 WBC RBC Hgb Hct MCV MCH MCHC RDW Plt Count Add Manual Diff Total Counted Seg Neuts % (Manual) Lymphocytes % (Manual) Reactive Lymphs % (Man) Monocytes % (Manual) Basophils % (Manual) Nucleated RBC % Seg Neutrophils # Man Band Neutrophils # Lymphocytes # (Manual) Abs React Lymphs (Man) Monocytes # (Manual) Eosinophils # (Manual) Basophils # (Manual) Metamyelocytes # Myelocytes # Promyelocytes # Blast Cells # WBC Morphology Hypersegmented Neuts Hyposegmented Neuts Hypogranular Neuts Smudge Cells Toxic Granulation Toxic Vacuolation Dohle Bodies Pelger-Huet Anomaly Tita Rods Platelet Estimate Clumped Platelets Plt Clumps, EDTA Large Platelets Giant Platelets Platelet Satelliting Plt Morphology Comment RBC Morphology Dimorphic RBCs Polychromasia Hypochromasia Poikilocytosis Anisocytosis Microcytosis Macrocytosis Spherocytes Pappenheimer Bodies Sickle Cells Target Cells Tear Drop Cells Ovalocytes Helmet Cells [place] Bodies [place] Rings [place] Cells Bite Cells Crenated Cell Elliptocytes Acanthocytes (Spur) Rouleaux Hemoglobin C Crystals Schistocytes Malaria parasites Jeffrey Bodies Hem Pathologist Commnt PT 22.9 H INR 1.96 H Sodium 134 L Potassium 3.5 L D Chloride 100.3 Carbon Dioxide 23 D Anion Gap 14 BUN 34 H Creatinine 2.9 H Estimated GFR 26 BUN/Creatinine Ratio 12 Glucose 117 H POC Glucose Calcium 8.6 Iron 71 TIBC 97 L Total Bilirubin 7.50 H Direct Bilirubin 5.2 H Indirect Bilirubin 2.3 AST 270 H ALT 79 H Alkaline Phosphatase 180 H Total Protein 7.0 D Albumin 1.9 L Albumin/Globulin Ratio 0.4 Folate Urine Color Urine Turbidity Urine pH Ur Specific [place]cher Urine Protein Urine Glucose (UA) Urine Ketones Urine Blood Urine Nitrite Urine Bilirubin Urine Ictotest Urine Urobilinogen Ur Leukocyte Esterase Urine WBC (Auto) Urine RBC (Auto) U Epithel Cells (Auto) Urine Bacteria (Auto) Ur Transition Epith Cell Urine Mucus Urine Creatinine Protein/Creatinin Ratio Urine Total Protein Fluid Type Fluid Color Fluid Appearance Fluid WBC Fluid RBC Fluid Seg Neutrophils Fluid Lymphocytes Fluid Reactive Lymphs Fluid Monocytes Fluid Eosinophils Fluid Basophils Hep Bs Antigen Hepatitis C Antibody 02/01/21 02/01/21 02/01/21 05:04 06:08 06:08 WBC RBC Hgb Hct MCV MCH MCHC RDW Plt Count Add Manual Diff Total Counted Seg Neuts % (Manual) Lymphocytes % (Manual) Reactive Lymphs % (Man) Monocytes % (Manual) Basophils % (Manual) Nucleated RBC % Seg Neutrophils # Man Band Neutrophils # Lymphocytes # (Manual) Abs React Lymphs (Man) Monocytes # (Manual) Eosinophils # (Manual) Basophils # (Manual) Metamyelocytes # Myelocytes # Promyelocytes # Blast Cells # WBC Morphology Hypersegmented Neuts Hyposegmented Neuts Hypogranular Neuts Smudge Cells Toxic Granulation Toxic Vacuolation Dohle Bodies Pelger-Huet Anomaly Tita Rods Platelet Estimate Clumped Platelets Plt Clumps, EDTA Large Platelets Giant Platelets Platelet Satelliting Plt Morphology Comment RBC Morphology Dimorphic RBCs Polychromasia Hypochromasia Poikilocytosis Anisocytosis Microcytosis Macrocytosis Spherocytes Pappenheimer Bodies Sickle Cells Target Cells Tear Drop Cells Ovalocytes Helmet Cells [place] Bodies [place] Rings [place] Cells Bite Cells Crenated Cell Elliptocytes Acanthocytes (Spur) Rouleaux Hemoglobin C Crystals Schistocytes Malaria parasites Jeffrey Bodies Hem Pathologist Commnt PT INR Sodium Potassium Chloride Carbon Dioxide Anion Gap BUN Creatinine Estimated GFR BUN/Creatinine Ratio Glucose POC Glucose Calcium Iron TIBC Total Bilirubin Direct Bilirubin Indirect Bilirubin AST ALT Alkaline Phosphatase Total Protein Albumin Albumin/Globulin Ratio Folate 8.23 Urine Color Debbie Urine Turbidity Slightly-cloudy Urine pH 5.0 Ur Specific Pitcher 1.017 Urine Protein 30 mg/dl Urine Glucose (UA) 50 Urine Ketones Neg Urine Blood Sm Urine Nitrite Neg Urine Bilirubin Mod Urine Ictotest Positive Urine Urobilinogen 4.0 Ur Leukocyte Esterase Neg Urine WBC (Auto) 23.0 H Urine RBC (Auto) 4.0 U Epithel Cells (Auto) 3.0 Urine Bacteria (Auto) 1+ Ur Transition Epith Cell 1 Urine Mucus Few Urine Creatinine 413.9 H Protein/Creatinin Ratio 0.13 Urine Total Protein 55 H Fluid Type Fluid Color Fluid Appearance Fluid WBC Fluid RBC Fluid Seg Neutrophils Fluid Lymphocytes Fluid Reactive Lymphs Fluid Monocytes Fluid Eosinophils Fluid Basophils Hep Bs Antigen Hepatitis C Antibody
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
[2021-02-01] MEDS: MULTIVITAMINS ,THERAPEUTIC TAB PO SCH (13:34)
--- NOTE | 2021-02-01 14:16 | Ultrasound Report ---
LIMITED RUQ ABDOMINAL ULTRASOUND INDICATION / CLINICAL INFORMATION: r/o liver masses and r/o portal vein thrombosis. COMPARISON: CT abdomen pelvis one day prior FINDINGS: PANCREAS: The majority is obscured by bowel gas. Visualized pancreatic neck is unremarkable. ABDOMINAL AORTA: No significant abnormality in the proximal portion; the mid to distal portion are ob scured. IVC: No significant abnormality.. LIVER: The liver measures 14.4 cm in length. Cirrhotic morphology of the liver. The hepatic parenchy ma is diffusely heterogeneous. There are several more nodular areas of increased echogenicity seen wi thin the liver. Normal hepatopedal blood flow in the main portal vein. GALLBLADDER: Cholelithiasis. The gallbladder wall is borderline in thickness, measuring up to 4 mm. BILE DUCTS: No significant abnormality. Common bile duct measures 8 mm. RIGHT KIDNEY: Right lower pole cyst measuring up to 2 cm. FREE FLUID: Small ascites. ADDITIONAL FINDINGS: None. IMPRESSION: 1. Cirrhotic liver. The hepatic parenchyma is diffusely heterogeneous with several more nodular areas of increased echogenicity. It is difficult to say if this represents more focal areas of hepatic taisha atosis or an underlying hepatic lesion, and multi phase CT or MRI of the abdomen is recommended for f urther evaluation. 2. The portal vein is patent. 3. Cholelithiasis without convincing evidence for acute cholecystitis. Signer Name: Ally Klein MD Signed: 02/01/2021 2:11 PM Workstation Name: [id number]
[2021-02-01] MEDS: ALBUMIN HUMAN 25% (25 GM/100 ML) INJ IV SCH (14:45)
--- NOTE | 2021-02-01 15:21 | Progress Note ---
Assessment and Plan 65-year-old male with no significant past medical history presented to the emergency room complaining of abdominal pain and lower extremity edema for the past 2 to 3 weeks. Work-up in the emergency room showed elevated creatinine of 2.6, elevated liver enzymes,Elevated bilirubin. Hyperkalemia of 5.7. He received calcium gluconate, insulin and glucose, sodium bicarb and Kayexalate in the emergency room for the hyperkalemia. Chest x-ray reveals small left pleural effusion. CT of the abdomen and pelvis shows a cirrhotic appearing liver there is also suggestion of possible multiple masses throughout the liver parenchyma. Moderate/large amount of ascites is noted throughout the abdomen and pelvis. Cholelithiasis without CT evidence of acute cholecystitis. Patient wasadmitted with abdominal pain possibly secondary to cirrhotic liver with accompanying ascites, cholelithiasis and hyperkalemia. A/P -- Hyperbilirubinemia with elevated LFT Possibly related to the cirrhotic liver. CT of the abdomen and pelvis shows a cirrhotic appearing liver there is also suggestion of possible multiple masses throughout the liver parenchyma. Cannot rule out hepatic malignancy Consulted GI, ordered for AFP Will monitor liver enzymes. --Alcoholic cirrhosis of liver with ascites Continue current supportive care. s/p paracentesis which drained about 5.5 L of acetic fluid Plan to initiate Albumin, continue lactulose, follow ammonia level -- Hyperkalemia Patient has received insulin and glucose, sodium bicarbonate, calcium gluconate and Kayexalate Potassium level now stable --LILLIAM likely due to ATN with possible underlying CKD Consulted nephrology and continue to monitor BUN and creatinine. Renal function currently stable, avoid nephrotoxins No plan for hemodialysis now --Coagulopathy, likely due to hepatic cirrhosis INR 1.8 Continue to monitor, no sign of active bleeding --Positive hepatitis C, follow LFT, GI following -- DVT prophylaxis, SCD -- Full code status Daily clinical course: 02/01/21: K level improved, no plan to start HD now. cont to follow BMP. Had paracentesis yesterday and drained about 5.5 L of ascitic fluid. Patient also initiated on albumin. Ordered for AFP. Abdominal ultrasound and CT abdomen suggestive of possible underlying hepatic malignancy. Will follow GI recommendation. Abdomen US: 1. Cirrhotic liver. The hepatic parenchyma is diffusely heterogeneous with several more nodular areas of increased echogenicity. It is difficult to say if this represents more focal areas of hepatic steatosis or an underlying hepatic lesion, and multi phase CT or MRI of the abdomen is recommended for further evaluation. 2. The portal vein is patent. 3. Cholelithiasis without convincing evidence for acute cholecystitis. Subjective Date of service: 02/01/21 Principal diagnosis: Cirrhosis Interval history: Patient seen and examined Denies any chest pain or shortness of breath Had paracentesis yesterday Potassium and creatinine level improved Discussed with lockstitch sleeve maker and dialysis now on hold Discussed with patient's at the bedside Objective - Exam Narrative Exam: GENERAL: Obese -[place]ir[place] male lying on bed appeared to be slightly lethargic HEENT: Normocephalic. Atraumatic. No conjunctival congestion or icterus. Patient has moist mucous membranes. NECK: Supple. Trachea midline. CHEST/LUNGS: Clear to auscultated bilaterally, breathing nonlabored. No wheezes crackles or rhonchi. HEART/CARDIOVASCULAR: Regular in rate and rhythm. S1 and S2 positive. ABDOMEN: Abdomen is soft, obese. Patient has normal bowel sounds. SKIN: There is no rash. Warm and dry. NEURO: No focal motor deficit. Follows command. MUSCULOSKELETAL: No joint effusion or tenderness. EXTRIMITY: No edema, no cyanosis or clubbing. PSYCH: Cooperative. - Constitutional Vitals: Vital Signs - 12hr 02/01/21 04:02 Temperature 98.4 F Pulse Rate 93 H Respiratory 18 Rate Blood Pressure 113/30 O2 Sat by Pulse 94 Oximetry - Labs CBC & Chem 7: 02/03/21 04:18 02/03/21 07:30 Labs: Abnormal lab results 01/31/21 01/31/21 01/31/21 Range/Units 14:25 14:33 15:33 RBC (3.65-5.03) M/mm3 Hgb (11.8-15.2) gm/dl Hct (35.5-45.6) % MCV (84-94) fl MCH (28-32) pg MCHC (32-34) % Plt Count (140-440) K/mm3 Seg Neuts % (Manual) (40.0-70.0) % Lymphocytes % (Manual) (13.4-35.0) % Monocytes % (Manual) (0.0-7.3) % Lymphocytes # (Manual) (1.2-5.4) K/mm3 PT (12.2-14.9) Sec. INR (0.87-1.13) Sodium 129 L (137-145) mmol/L Potassium 6.5 H* (3.6-5.0) mmol/L Chloride 96.0 L (98-107) mmol/L Carbon Dioxide 16 L (22-30) mmol/L BUN 34 H (9-20) mg/dL Creatinine 2.8 H (0.8-1.3) mg/dL Glucose 134 H (75-100) mg/dL POC Glucose 123 H 131 H (70-105) mg/dL TIBC (250-450) mcg/dL Total Bilirubin (0.1-1.2) mg/dL Direct Bilirubin (0-0.2) mg/dL AST (5-40) units/L ALT (7-56) units/L Alkaline Phosphatase (35-129) units/L Albumin (3.9-5) g/dL Urine WBC (Auto) (0.0-6.0) /HPF Urine Creatinine (0.1-20.0) mg/dL Urine Total Protein (5-11.8) mg/dL 02/01/21 02/01/21 02/01/21 Range/Units 05:04 05:04 05:04 RBC 3.44 L (3.65-5.03) M/mm3 Hgb 11.7 L (11.8-15.2) gm/dl Hct 33.6 L (35.5-45.6) % MCV 98 H (84-94) fl MCH 34 H (28-32) pg MCHC 35 H (32-34) % Plt Count 92 L (140-440) K/mm3 Seg Neuts % (Manual) 75.0 H (40.0-70.0) % Lymphocytes % (Manual) 13.0 L (13.4-35.0) % Monocytes % (Manual) 10.0 H (0.0-7.3) % Lymphocytes # (Manual) 0.7 L (1.2-5.4) K/mm3 PT 22.9 H (12.2-14.9) Sec. INR 1.96 H (0.87-1.13) Sodium 134 L (137-145) mmol/L Potassium 3.5 L D (3.6-5.0) mmol/L Chloride (98-107) mmol/L Carbon Dioxide (22-30) mmol/L BUN 34 H (9-20) mg/dL Creatinine 2.9 H (0.8-1.3) mg/dL Glucose 117 H (75-100) mg/dL POC Glucose (70-105) mg/dL TIBC 97 L (250-450) mcg/dL Total Bilirubin (0.1-1.2) mg/dL Direct Bilirubin (0-0.2) mg/dL AST (5-40) units/L ALT (7-56) units/L Alkaline Phosphatase (35-129) units/L Albumin (3.9-5) g/dL Urine WBC (Auto) (0.0-6.0) /HPF Urine Creatinine (0.1-20.0) mg/dL Urine Total Protein (5-11.8) mg/dL 02/01/21 02/01/21 02/01/21 Range/Units 05:04 06:08 06:08 RBC (3.65-5.03) M/mm3 Hgb (11.8-15.2) gm/dl Hct (35.5-45.6) % MCV (84-94) fl MCH (28-32) pg MCHC (32-34) % Plt Count (140-440) K/mm3 Seg Neuts % (Manual) (40.0-70.0) % Lymphocytes % (Manual) (13.4-35.0) % Monocytes % (Manual) (0.0-7.3) % Lymphocytes # (Manual) (1.2-5.4) K/mm3 PT (12.2-14.9) Sec. INR (0.87-1.13) Sodium (137-145) mmol/L Potassium (3.6-5.0) mmol/L Chloride (98-107) mmol/L Carbon Dioxide (22-30) mmol/L BUN (9-20) mg/dL Creatinine (0.8-1.3) mg/dL Glucose (75-100) mg/dL POC Glucose (70-105) mg/dL TIBC (250-450) mcg/dL Total Bilirubin 7.50 H (0.1-1.2) mg/dL Direct Bilirubin 5.2 H (0-0.2) mg/dL AST 270 H (5-40) units/L ALT 79 H (7-56) units/L Alkaline Phosphatase 180 H (35-129) units/L Albumin 1.9 L (3.9-5) g/dL Urine WBC (Auto) 23.0 H (0.0-6.0) /HPF Urine Creatinine 413.9 H (0.1-20.0) mg/dL Urine Total Protein 55 H (5-11.8) mg/dL
[2021-02-02] MEDS: ALBUMIN HUMAN 25% (25 GM/100 ML) INJ IV SCH ×4 (00:18→22:17)
[2021-02-02] MEDS: PANTOPRAZOLE 40 MG INJ IV SCH ×3 (02:41→21:58)
[2021-02-02] MEDS: HEPARIN 5,000 UNIT/1 ML VIAL SUB-Q SCH ×4 (06:06→22:24)
[2021-02-02 06:12] LABS: Hematocrit 28.4 % (35.5-45.6); Mean Corpuscular HGB Conc 35 % (32-34); Mean Corpuscular Volume 98 fl (84-94); Red Blood Count 2.91 M/mm3 (3.65-5.03); Red Cell Distribution Width 15.2 % (13.2-15.2)
[2021-02-02 06:18] LABS: Platelet Count 93 K/mm3 (140-440)
[2021-02-02] MEDS: MULTIVITAMINS ,THERAPEUTIC TAB PO SCH (10:06)
[2021-02-02] MEDS: LACTULOSE 20 GM/30 ML ORAL LIQD PO SCH (10:06)
--- NOTE | 2021-02-02 13:06 | Progress Note ---
Assessment and Plan # LILLIAM: creatinine 2.6->2.8->2.9 since admission. No new labs today. No baseline. Likely with hepatorenal physiology vs pre-renal. Noting minimal urine output but need better documentation - reviewed urine studies, minimal blood/protein noted - imaging reviewed - serologies sent and pending given urinalysis, HCV + - can hold off on line placement and HD at this time given stable lytes, remains at high risk for LILLIAM progression to require renal replacement therapy, appreciate vascular assistance - avoid nephrotoxins - renally dose meds - will continue IV albumin bolus if albumin <2 to encourage renal perfusion - consider HRS treatment with octreotide, midodrine; current BP is reasonable however so less likely to have benefit # Hyperkalemia: medical management so far, last K at goal # Hyperbilirubinemia/Cirrhosis/Concern for HCC: appreciate GI input, s/p paracentesis. Alcohol cessation # Hypoalbuminemia Subjective Date of service: 02/02/21 Principal diagnosis: Cirrhosis Interval history: Resting in bed, no acute changes noted Objective - Exam Narrative Exam: General appearance: obese, AKA noted - EENT Eyes: scleral icterus ENT: hearing intact - Neck Neck: supple - Respiratory Respiratory effort: normal - Cardiovascular Rhythm: regular Heart Sounds: Present: systolic murmur - Gastrointestinal General gastrointestinal: Present: distended, note fluid wave - Integumentary Integumentary: Present: warm, dry - Neurologic Neurological: alert and oriented x3, asterixis, lethargic - Psychiatric Psychiatric: lethargic) - Vital Signs Vital signs: Vital Signs - 12hr 02/02/21 02/02/21 02/02/21 04:32 08:02 09:00 Temperature 98.5 F 98.1 F Pulse Rate 101 H 102 H Respiratory 18 18 18 Rate Blood Pressure 118/54 119/52 Blood Pressure [Left] O2 Sat by Pulse 98 97 96 Oximetry 02/02/21 12:23 Temperature 98.2 F Pulse Rate 100 H Respiratory 18 Rate Blood Pressure Blood Pressure 120/60 [Left] O2 Sat by Pulse 98 Oximetry - Lab 02/02/21 05:16 02/01/21 05:04 Most recent lab results Calcium 8.6 mg/dL (8.4-10.2) 02/01/21 05:04 Urine Creatinine 413.9 mg/dL (0.1-20.0) H 02/01/21 06:08 Urine Total Protein 55 mg/dL (5-11.8) H 02/01/21 06:08 Medications & Allergies - Medications Allergies/Adverse Reactions: Allergies Penicillins Allergy (Verified 01/30/21 21:16) Hives Active Medications: Generic Name Dose Route Start Last Admin Trade Name Freq PRN Reason Stop Dose Admin Acetaminophen 650 mg 01/31/21 03:30 02/01/21 06:03 Acetaminophen 325 Mg Tab PO 650 mg Q4H PRN Administration Pain MILD(1-3)/Fever >100.5/BUTCHER Albumin Human 25 gm 02/01/21 14:00 02/02/21 06:07 Albumin Human 25% (25 Gm/100 Ml) Inj IV 02/03/21 06:01 25 gm Q8HR TAQUERIA Administration Dextrose 25 ml 01/31/21 13:00 Dextrose 50% In Water (25gm) 50 Ml Syringe IV Q30MIN PRN Hypoglycemia Protocol Heparin Sodium (Porcine) 5,000 unit 01/31/21 14:00 02/02/21 06:06 Heparin 5,000 Unit/1 Ml Vial SUB-Q 5,000 unit Q8HR TAQUERIA Administration Lactulose 20 gm 02/01/21 10:00 02/02/21 10:06 Lactulose 20 Gm/30 Ml Oral Liqd PO Not Given QDAY TAQUERIA Magnesium Hydroxide 30 ml 01/31/21 03:30 Magnesium Hydroxide (Mom) Oral Liqd Udc PO Q4H PRN Constipation Multivitamins 1 each 02/01/21 10:00 02/02/21 10:06 Multivitamins ,Therapeutic Tab PO 1 each QDAY TAQUERIA Administration Ondansetron HCl 4 mg 01/31/21 03:30 Ondansetron 4 Mg/2 Ml Inj IV Q8H PRN Nausea And Vomiting Pantoprazole Sodium 40 mg 02/02/21 02:00 02/02/21 10:06 Pantoprazole 40 Mg Inj IV 40 mg QDAY TAQUERIA Administration Sodium Chloride 10 ml 01/31/21 10:00 02/02/21 10:06 Sodium Chloride 0.9% 10 Ml Flush Syringe IV 10 ml BID TAQUERIA Administration Sodium Chloride 10 ml 01/31/21 03:30 Sodium Chloride 0.9% 10 Ml Flush Syringe IV PRN PRN LINE FLUSH
[2021-02-02] MEDS: ONDANSETRON 4 MG/2 ML INJ IV PRN (14:28)
[2021-02-02] MEDS: ACETAMINOPHEN 325 MG TAB PO PRN (14:28)
--- NOTE | 2021-02-02 14:53 | Gastroenterology Progress Note ---
Assessment and Plan - Patient Problems (1) Abnormal CT of liver Current Visit: Yes Status: Acute Plan to address problem: - The US is inconclusive, but abnormal (masses seen, but may be regenerative nodules). - If AFP markedly elevated, then no need for MRI. - If the AFP is normal, then will get an MRI without contrast (would prefer with contrast, but renal status at present precludes). - Given multifocal "masses" this would more likely be metastatic disease from other location than primary HCC, though the history of Hep C increases risk of HCC. (2) Alcoholic cirrhosis of liver with ascites Current Visit: Yes Status: Acute Plan to address problem: - Continue current supportive care. - Agree with Nephro recs; will try short course of albumin since level <2, as this will decrease risk of SBP. - Hold lasix/aldactone for now, and monitor urine OP and abdominal distention. - If distention is worse tomorrow, will consider a repeat LVP, but renal status has worsened; will need further albumin. Lasix/aldactone may be better choice depending on the creatinine and sodium. - Poor prognosis discussed with patient. Not a candidate for liver transplant given active EtOH and liver masses. (3) Hematemesis Current Visit: Yes Status: Acute Plan to address problem: - EGD planned for tomorrow (ate today). - Will add Vitamin K, and patient getting serial hct; transfuse for hct <24. - Will check INR, and add FFP if needed. - Since nauseated, will convert to sips of liquids only, and NPO after Mn. - Will add octreotide gtt to his protonix. Subjective Date of service: 02/02/21 Principal diagnosis: Cirrhosis Interval history: The patient had blood in his stools today, and vomited x 1 with blood. He says his appetite is poor, but is keeping liquids down. He has no fevers, but says his abdomen feels swollen again, and tight (despite recent LVP). Objective - Constitutional Vitals: Temp Pulse Resp BP Pulse Ox 98.2 F 100 H 18 120/60 98 02/02/21 12:23 02/02/21 12:23 02/02/21 12:23 02/02/21 12:23 02/02/21 12:23 General appearance: no acute distress - Neck Neck: supple, normal ROM - Respiratory Respiratory effort: normal Respiratory: bilateral: CTA - Cardiovascular Rhythm: regular Heart Sounds: Present: S1 & S2 - Gastrointestinal General gastrointestinal: Present: soft, non-tender, distended (Moderate ascites) - Labs CBC & Chem 7: 02/02/21 05:16 02/01/21 05:04 Labs: Laboratory Results - last 24 hr 02/02/21 05:16 WBC 7.3 RBC 2.91 L Hgb 10.0 L Hct 28.4 L MCV 98 H MCH 34 H MCHC 35 H RDW 15.2 Plt Count 93 L
[2021-02-02] MEDS ORDERED: PHYTONADIONE(ADULT ONLY) 10 MG in SODIUM CHLORIDE 0.9% 50 ML IV ONE (15:48)
[2021-02-02 16:14] LABS: Albumin 2.9 g/dL (3.9-5); Bilirubin,Direct 5.8 mg/dL (0-0.2); Calcium 8.3 mg/dL (8.4-10.2)
--- NOTE | 2021-02-02 16:15 | Progress Note ---
Assessment and Plan 65-year-old male with no significant past medical history presented to the emergency room complaining of abdominal pain and lower extremity edema for the past 2 to 3 weeks. Work-up in the emergency room showed elevated creatinine of 2.6, elevated liver enzymes,Elevated bilirubin. Hyperkalemia of 5.7. He received calcium gluconate, insulin and glucose, sodium bicarb and Kayexalate in the emergency room for the hyperkalemia. Chest x-ray reveals small left pleural effusion. CT of the abdomen and pelvis shows a cirrhotic appearing liver there is also suggestion of possible multiple masses throughout the liver parenchyma. Moderate/large amount of ascites is noted throughout the abdomen and pelvis. Cholelithiasis without CT evidence of acute cholecystitis. Patient wasadmitted with abdominal pain possibly secondary to cirrhotic liver with accompanying ascites, cholelithiasis and hyperkalemia. A/P -- Hyperbilirubinemia with elevated LFT Possibly related to the cirrhotic liver and underlying hepatic malignancy. CT of the abdomen and pelvis shows a cirrhotic appearing liver there is also suggestion of possible multiple masses throughout the liver parenchyma. Cannot rule out hepatic malignancy. Abdomen US: 1. Cirrhotic liver. The hepatic parenchyma is diffusely heterogeneous with several more nodular areas of increased echogenicity. It is difficult to say if this represents more focal areas of hepatic steatosis or an underlying hepatic lesion, and multi phase CT or MRI of the abdomen is recommended for further evaluation. 2. The portal vein is patent. 3. Cholelithiasis without convincing evidence for acute cholecystitis. Consulted GI, ordered for AFP Will monitor liver enzymes. --Alcoholic cirrhosis of liver with ascites Continue current supportive care. s/p paracentesis which drained about 5.5 L of acetic fluid Plan to initiate Albumin, continue lactulose, follow ammonia level -- Hyperkalemia Patient has received insulin and glucose, sodium bicarbonate, calcium gluconate and Kayexalate Potassium level now stable --LILLIAM likely due to ATN with possible underlying CKD Consulted nephrology and continue to monitor BUN and creatinine. Serum creatinine trending up, avoid nephrotoxins Plan to initiate hemodialysis, vascular consulted for placement of dialysis access --Coagulopathy, likely due to hepatic cirrhosis INR 1.96, Continue to monitor Patient noted to have bloody stool today, ordered for vitamin K --GI bleed, acute Likely due to hepatic pathology cannot rule out variceal bleed Patient placed on octreotide, ordered for vitamin K Monitor H&H, if continue to have active bleeding will order for FFP --Positive hepatitis C, follow LFT, GI following -- DVT prophylaxis, SCD -- Full code status Daily clinical course: 02/01/21: K level improved, no plan to start HD now. cont to follow BMP. Had paracentesis yesterday and drained about 5.5 L of ascitic fluid. Patient also initiated on albumin. Ordered for AFP. Abdominal ultrasound and CT abdomen suggestive of possible underlying hepatic malignancy. Will follow GI recommendation. Abdomen US: 1. Cirrhotic liver. The hepatic parenchyma is diffusely heterogeneous with several more nodular areas of increased echogenicity. It is difficult to say if this represents more focal areas of hepatic steatosis or an underlying hepatic lesion, and multi phase CT or MRI of the abdomen is recommended for further evaluation. 2. The portal vein is patent. 3. Cholelithiasis without convincing evidence for acute cholecystitis. 02/02/21: Discussed with patient and patient daughter at the bedside. Patient complains of lethargy, reduced appetite and generalized weakness. Patient did not receive COVID-19 vaccine. We will also order for Covid 19 PCR. Continue to follow LFT which remains elevated. Patient had blood in the stool today. Patient initiated on albumin, octreotide. Plan for endoscopy tomorrow. Subjective Date of service: 02/02/21 Principal diagnosis: Cirrhosis Interval history: Patient seen and examined Patient complains of bloody stool Potassium level stable but creatinine level increased today Discussed with attorney recruiter and patient will be started on dialysis Vascular consulted for PermCath placement Plan for endoscopy tomorrow Discussed with patient and with his daughter at the bedside Objective - Exam Narrative Exam: GENERAL: Obese -[place] male lying on bed appeared to be slightly lethargic HEENT: Normocephalic. Atraumatic. No conjunctival congestion or icterus. Patient has moist mucous membranes. NECK: Supple. Trachea midline. CHEST/LUNGS: Clear to auscultated bilaterally, breathing nonlabored. No wheezes crackles or rhonchi. HEART/CARDIOVASCULAR: Regular in rate and rhythm. S1 and S2 positive. ABDOMEN: Abdomen is soft, obese. Patient has normal bowel sounds. SKIN: There is no rash. Warm and dry. NEURO: No focal motor deficit. Follows command. MUSCULOSKELETAL: No joint effusion or tenderness. EXTRIMITY: No edema, no cyanosis or clubbing. PSYCH: Cooperative. - Constitutional Vitals: Vital Signs - 12hr 02/02/21 02/02/21 02/02/21 04:32 07:00 08:02 Temperature 98.5 F 98.1 F Pulse Rate 101 H 91 H 102 H Respiratory 18 18 Rate Blood Pressure 118/54 119/52 Blood Pressure [Left] O2 Sat by Pulse 98 97 Oximetry 02/02/21 02/02/21 09:00 12:23 Temperature 98.2 F Pulse Rate 100 H Respiratory 18 18 Rate Blood Pressure Blood Pressure 120/60 [Left] O2 Sat by Pulse 96 98 Oximetry - Labs CBC & Chem 7: 02/03/21 04:18 02/03/21 07:30 Labs: Abnormal lab results 02/02/21 Range/Units 05:16 RBC 2.91 L (3.65-5.03) M/mm3 Hgb 10.0 L (11.8-15.2) gm/dl Hct 28.4 L (35.5-45.6) % MCV 98 H (84-94) fl MCH 34 H (28-32) pg MCHC 35 H (32-34) % Plt Count 93 L (140-440) K/mm3
[2021-02-02] MEDS: OCTREOTIDE 500 MCG in SODIUM CHLORIDE 0.9% 100 ML IV SCH (16:25)
[2021-02-02 20:44] LABS: Myeloperoxidase Antibody <1.0 AI (<1.0)
--- NOTE | 2021-02-02 21:40 | Event Note ---
Date: 02/02/21 The patient is n.p.o after midnight for planned EGD. If his renal failure worsens and nephrology request a permacath, will plan to place tomorrow.
[2021-02-03] MEDS: OCTREOTIDE 500 MCG in SODIUM CHLORIDE 0.9% 100 ML IV SCH ×3 (01:46→22:23)
[2021-02-03 04:13] LABS: Albumin 2.8 g/dL (3.8-4.8); Gamma Globulin 3.7 g/dL (0.8-1.7)
[2021-02-03 05:21] LABS: Basophils % (Auto) 0.3 % (0.0-1.8); Eosinophils % (Auto) 0.3 % (0.0-4.3); Hemoglobin 6.5 gm/dl (11.8-15.2); Lymphocytes # (Auto) 1.8 K/mm3 (1.2-5.4); Lymphocytes % (Auto) 19.1 % (13.4-35.0); Mean Corpuscular HGB Conc 35 % (32-34); Mean Corpuscular Volume 100 fl (84-94); Monocytes # (Auto) 1.1 K/mm3 (0.0-0.8); Monocytes % (Auto) 11.4 % (0.0-7.3); Platelet Count 105 K/mm3 (140-440); Red Blood Count 1.87 M/mm3 (3.65-5.03); Red Cell Distribution Width 15.8 % (13.2-15.2)
[2021-02-03 05:36] LABS: INR 2.43 (0.87-1.13)
[2021-02-03 05:40] LABS: Hematocrit 18.7 % (35.5-45.6)
[2021-02-03 05:42] LABS: Hemolysis Index 130
[2021-02-03] MEDS ORDERED: SODIUM CHLORIDE 0.9% 500 ML 500 ML IV ONE ×2 (05:51→17:00)
[2021-02-03 05:56] LABS: BUN/Creatinine Ratio TNR; Blood Urea Nitrogen TNR mg/dL (9-20); Calcium TNR mg/dL (8.4-10.2)
[2021-02-03 05:57] LABS: Alanine Aminotransferase TNR units/L (7-56); Albumin TNR g/dL (3.9-5)
[2021-02-03] MEDS: HEPARIN 5,000 UNIT/1 ML VIAL SUB-Q SCH (06:10)
[2021-02-03] MEDS: ALBUMIN HUMAN 25% (25 GM/100 ML) INJ IV SCH (06:10)
[2021-02-03 08:08] LABS: Albumin 2.8 g/dL (3.9-5); Calcium 8.8 mg/dL (8.4-10.2)
[2021-02-03] MEDS ORDERED: SODIUM POLYSTYRENE 15 GM/60 ML ORAL LIQD PO NR (08:53)
[2021-02-03] MEDS: PANTOPRAZOLE 40 MG INJ IV SCH (09:30)
[2021-02-03] MEDS ORDERED: INSULIN REGULAR, HUMAN 100 UNITS/1 ML IV NR (09:40)
[2021-02-03] MEDS ORDERED: DEXTROSE 50% IN WATER (25GM) 50 ML VIAL IV NR (09:40)
[2021-02-03] MEDS ORDERED: SODIUM BICARB 8.4% 50 MEQ/50 ML SYRINGE IV NR (09:41)
[2021-02-03] MEDS ORDERED: CALCIUM GLUCONATE 2,000 MG in SODIUM CHLORIDE 0.9% 100 ML IV NR (10:00)
[2021-02-03] MEDS ORDERED: SODIUM CHLORIDE 0.9% 500 ML 500 ML IV NR (10:06)
--- NOTE | 2021-02-03 10:08 | Event Note ---
Date: 02/03/21 Worsening ATN with hyperkalemia, asked by Dr. Davis, Report Checker, to place Vascath. Will schedule for placement today.
[2021-02-03] MEDS ORDERED: SODIUM CHLORIDE 0.9% 1000 ML 0 ML ONE (10:14)
[2021-02-03] MEDS: LACTULOSE 20 GM/30 ML ORAL LIQD PO SCH (10:17)
[2021-02-03] MEDS: ONDANSETRON 4 MG/2 ML INJ IV PRN (10:18)
[2021-02-03] MEDS: DEXTROSE 50% IN WATER (25GM) 50 ML SYRINGE IV PRN (10:35)
[2021-02-03] MEDS ORDERED: SODIUM CHLORIDE 0.9% 100 ML IV PRN (11:00)
[2021-02-03] MEDS ORDERED: PHYTONADIONE(ADULT ONLY) 10 MG in SODIUM CHLORIDE 0.9% 50 ML IV ONE (11:00)
[2021-02-03 12:31] LABS: ANA Screen, IFA Negative (Negative)
[2021-02-03 12:49] LABS: Calcium 8.6 mg/dL (8.4-10.2)
[2021-02-03] MEDS: MULTIVITAMINS ,THERAPEUTIC TAB PO SCH (13:17)
[2021-02-03] MEDS ORDERED: SODIUM CHLORIDE 0.9% 500 ML 0 ML ONE (13:55)
[2021-02-03] MEDS ORDERED: SODIUM CHLORIDE 0.9% 250ML 250 ML ONE (14:17)
--- NOTE | 2021-02-03 14:52 | Anesthesia Day of Surgery ---
Anesthesia Day of Surgery - Day of Surgery Patient Examined: Yes Patient H&P Reviewed: Yes Patient is NPO: Yes
--- NOTE | 2021-02-03 14:52 | Anesthesia Consultation ---
Anesthesia Consult and Med Hx Date of service: 02/03/21 - Airway Anesthetic Teeth Evaluation: Good ROM Head & Neck: Adequate Mental/Hyoid Distance: Adequate Mallampati Class: Class III Intubation Access Assessment: Possibly Difficult - Pre-Operative Health Status ASA Pre-Surgery Classification: ASA4, Emergency Proposed Anesthetic Plan: MAC - Pulmonary Hx Smoking: Yes Hx Respiratory Symptoms: No - Cardiovascular System Hx Hypertension: No Hx Heart Attack/AMI: No Hx Percutaneous Transluminal Coronary Angioplasty (PTCA): No Hx Cardia Arrhythmia: No - Central Nervous System CVA: No - Endocrine Hx Renal Disease: Yes (acute renal failure) Hx Cirrhosis: Yes (2/2 EtOH) Hx Liver Disease: Yes (HCV, EtOH cirrhosis, liver masses) Hx Insulin Dependent Diabetes: No Hx Non-Insulin Dependent Diabetes: No Hx Thyroid Disease: No - Hematic Hx Anemia: Yes (blood transfusing on arrival to endoscopy suite) - Other Systems Hx Alcohol Use: Yes (6-12 beers/day) - Additional Comments Anesthesia Medical History Comments: No hx anesthetic complications. Patient in renal failure possibly 2/2 HRS. Plan for vascath placement and likely initiation of HD this afternoon. Hyperkalemic on morning labs with modest improvement after medical management. Will proceed with EGD for GI bleed after discussion with GI MD regarding urgency of planned procedure.
[2021-02-03] MEDS ORDERED: propofoL 200 MG/20 ML VIAL IV ONE ×3 (15:15→16:12)
[2021-02-03] MEDS ORDERED: ONDANSETRON 4 MG/2 ML INJ ONE ×2 (15:15→16:12)
[2021-02-03] MEDS ORDERED: LIDOCAINE MPF (2%) 20 MG/1 ML VIAL 5 ML ONE (15:15)
[2021-02-03] MEDS ORDERED: SODIUM CHLORIDE 0.9% 1000 ML 1,000 ML ONE ×2 (15:57→16:17)
--- NOTE | 2021-02-03 15:59 | Post Operative Note ---
Pre-op diagnosis: GI BLeed Post-op diagnosis: other (Ulcer, Varices) Findings: 1. Normal duodenum 2. 5mm cratered in the antrum - Visible vessel at the base - Attempted clip x 4 (Conmed 16mm, 11mm clips) but mucosal defect would not close 3. Huge amount of blood/clots in stomach, and proimal body/fundus not seen, but does not appear to have varices in the cardia 4. Grade I esophageal varices (3 columns) that had no stigmata of bleeding, and flattened on insufflation Procedure: EGD with clips for bleeding control Anesthesia: MAC Surgeon: HAILEY HERNANDEZ Estimated blood loss: minimal Pathology: none Specimen disposition: other (N/A) Condition: critical Disposition: ICU (Recs: 1. Intubate the patient for airway control given massive blood in stomach/active GI bleed. 2. Interventional Radiology to attempt embolization of gastric ulcer. 3. Transfer to ICU after embolization given comorbids and need for dialysis/octreotide gtt/protonix gtt.)
[2021-02-03] MEDS: LIDOCAINE 1%/EPINEPHRINE 1:100,000 VIAL (20 ML) INFILTRATI ONE ×2 (16:10→17:10)
[2021-02-03] MEDS ORDERED: ROCURONIUM 50 MG/5 ML INJ IV ONE (16:12)
[2021-02-03] MEDS ORDERED: fentaNYL 100 MCG/2 ML INJ ONE (16:12)
[2021-02-03] MEDS ORDERED: GELATIN SPONGE SIZE 50 TP ONE (16:13)
[2021-02-03] MEDS ORDERED: VERAPAMIL 5 MG/2 ML INJ ONE ×2 (16:14)
[2021-02-03] MEDS ORDERED: NITROGLYCERIN SYRINGE 3 ML ONE (16:14)
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
[2021-02-03] MEDS: CLINDAMYCIN 600 MG/50 mL 600 MG/50 ML BAG IV NR ×2 (16:40→16:42)
--- NOTE | 2021-02-03 16:59 | Event Note ---
Date: 02/03/21 Endoscopic procedure was not successful in controlling GI bleed so IR consulted by GI post-procedure. Patient briefly recovered in GI suite until easily arousable to voice and was HD stable w/ SpO2 >90% on room air. Patient transported to cathode builder and intubated via RSI for airway protection prior to IR procedure. See anesthesia record for intubation procedure note. Will keep intubated post-procedure with transfer to ICU.
--- NOTE | 2021-02-03 17:09 | Progress Note ---
Assessment and Plan # LILLIAM: Likely with hepatorenal physiology +/- ATN from active bleed - reviewed urine studies, minimal blood/protein noted - imaging reviewed - serologies sent and pending, HCV + - plan for HD today following vasc cath placement, discussed with vascular. Plan explained to patient at bedside. - avoid nephrotoxins - renally dose meds - continue IV albumin bolus if albumin <2 to encourage renal perfusion - Keep MAP>65 - Transfuse for hgb < 7 # Acute blood loss anemia, s/p endoscopy today, plans for intervention by IR noted. Transfuse for hgb < 7 # Hyperkalemia: plan for HD today for clearnace following access placement. Low k diet when diet permitted. # Hyperbilirubinemia/Cirrhosis/Concern for HCC: GI following, s/p paracentesis. Alcohol cessation # Hypoalbuminemia Subjective Date of service: 02/03/21 Principal diagnosis: Cirrhosis Interval history: Patient notes ongoing bleeding. Objective - Exam Narrative Exam: General: No acute distress HEENT: Oral mucosa moist Neck: Supple, no JVD Chest: Clear to auscultation bilaterally Heart: RRR, S1 and S2, no pericardial rub Abdomen: Soft, nontender, no renal bruit Extremity: No peripheral cyanosis, edema Neurological: Alert, awake, no asterixis Dermatology: No skin rash Psych: No agitation Musculoskeletal: No joint effusion - Vital Signs Vital signs: Vital Signs - 12hr 02/03/21 02/03/21 02/03/21 05:52 07:52 09:00 Temperature 98.0 F Pulse Rate 96 H 95 H Respiratory 18 18 Rate Blood Pressure 110/53 O2 Sat by Pulse 100 96 Oximetry 02/03/21 02/03/21 02/03/21 10:08 12:32 12:46 Temperature 97.6 F Pulse Rate 98 H Respiratory 16 18 Rate Blood Pressure 123/53 132/56 O2 Sat by Pulse 95 90 Oximetry 02/03/21 02/03/21 02/03/21 12:47 13:00 14:45 Temperature 98.2 F 98.1 F Pulse Rate 97 H 100 H 94 H Respiratory 12 10 L Rate Blood Pressure 135/55 134/44 O2 Sat by Pulse 97 97 Oximetry 02/03/21 15:15 Temperature 97.7 F Pulse Rate 98 H Respiratory 19 Rate Blood Pressure 117/51 O2 Sat by Pulse 100 Oximetry - Lab 02/03/21 04:18 02/03/21 12:14 Most recent lab results Calcium 8.6 mg/dL (8.4-10.2) 02/03/21 12:14 Urine Creatinine 413.9 mg/dL (0.1-20.0) H 02/01/21 06:08 Urine Total Protein 55 mg/dL (5-11.8) H 02/01/21 06:08 Medications & Allergies - Medications Allergies/Adverse Reactions: Allergies Penicillins Allergy (Verified 01/30/21 21:16) Hives Active Medications: Generic Name Dose Route Start Last Admin Trade Name Freq PRN Reason Stop Dose Admin Acetaminophen 650 mg 01/31/21 03:30 02/02/21 14:28 Acetaminophen 325 Mg Tab PO 650 mg Q4H PRN Administration Pain MILD(1-3)/Fever >100.5/BUTCHER Dextrose 25 ml 01/31/21 13:00 02/03/21 10:35 Dextrose 50% In Water (25gm) 50 Ml Syringe IV 25 ml Q30MIN PRN Administration Hypoglycemia Protocol Octreotide Acetate 500 mcg/ 101 mls @ 10.1 mls/hr 02/02/21 16:00 02/03/21 12:21 Sodium Chloride IV 02/05/21 15:59 50 mcg/hr TITR TAQUERIA 10.1 mls/hr Administration Protocol 50 MCG/HR Sodium Chloride 500 mls @ 0 mls/hr 02/03/21 10:06 Nacl 0.9% 500 Ml IV 02/03/21 20:00 ONCE NR As Directed Sodium Chloride 100 mls @ 999 mls/hr 02/03/21 11:00 Nacl 0.9% IV MARCIO PRN Hypotension Pantoprazole Sodium 80 mg/ 100 mls @ 10 mls/hr 02/03/21 17:00 Sodium Chloride IV DIRECT TAQUERIA 8 MG/HR Clindamycin HCl 600 mg in 50 mls @ 100 mls/hr 02/03/21 17:00 02/03/21 16:40 Cleocin 600 Mg/50 Ml IV 02/03/21 23:59 50 mls PREOP NR Administration Protocol Lactulose 20 gm 02/01/21 10:00 02/03/21 10:17 Lactulose 20 Gm/30 Ml Oral Liqd PO Not Given QDAY TAQUERIA Multivitamins 1 each 02/01/21 10:00 02/03/21 13:17 Multivitamins ,Therapeutic Tab PO Not Given QDAY TAQUERIA Ondansetron HCl 4 mg 01/31/21 03:30 02/03/21 10:18 Ondansetron 4 Mg/2 Ml Inj IV 4 mg Q8H PRN Administration Nausea And Vomiting Sodium Chloride 10 ml 01/31/21 10:00 02/03/21 09:31 Sodium Chloride 0.9% 10 Ml Flush Syringe IV 10 ml BID TAQUERIA Administration Sodium Chloride 10 ml 01/31/21 03:30 Sodium Chloride 0.9% 10 Ml Flush Syringe IV PRN PRN LINE FLUSH
[2021-02-03] MEDS: HEPARIN 10,000 UNITS/10 ML VIAL ONE ×2 (17:15→17:16)
--- NOTE | 2021-02-03 17:26 | Progress Note ---
Assessment and Plan 65-year-old male with alcoholic cirrhosis with massive upper GI bleed status post endoscopy which failed to control bleeding source with a large antral ulcer and inability to clip ulcer with overlying thrombus in the area. Also noted are esophageal varices, but there is no stigmata of bleeding associated with these. Vascular consulted for angiography and possible embolization. Attempted to contact family, but no family available. Was able to discuss situation with patient and he agreed, but had been recently intubated for endoscopy. He had previously agreed to dialysis. Per GI, plan would be for intubation to prevent aspiration secondary to large amount of thrombus in the stomach as patient is actively having hematemesis with old thrombus. Emergency consent obtained for GI angiography and embolization. Patient provided consent for dialysis as this was obtained prior to intubation for GI procedure. Subjective Date of service: 02/03/21 Principal diagnosis: Cirrhosis Interval history: Cirrhosis with large antral ulcer covered with thrombus, multiple small varices without stigmata of bleeding with massive GI bleed and decrease in hemoglobin with need for renal replacement therapy and GI embolization. Objective - Constitutional Vitals: Vital Signs - 12hr 02/03/21 02/03/21 02/03/21 05:52 07:52 09:00 Temperature 98.0 F Pulse Rate 96 H 95 H Respiratory 18 18 Rate Blood Pressure 110/53 O2 Sat by Pulse 100 96 Oximetry 02/03/21 02/03/21 02/03/21 10:08 12:32 12:46 Temperature 97.6 F Pulse Rate 98 H Respiratory 16 18 Rate Blood Pressure 123/53 132/56 O2 Sat by Pulse 95 90 Oximetry 02/03/21 02/03/21 02/03/21 12:47 13:00 14:45 Temperature 98.2 F 98.1 F Pulse Rate 97 H 100 H 94 H Respiratory 12 10 L Rate Blood Pressure 135/55 134/44 O2 Sat by Pulse 97 97 Oximetry 02/03/21 15:15 Temperature 97.7 F Pulse Rate 98 H Respiratory 19 Rate Blood Pressure 117/51 O2 Sat by Pulse 100 Oximetry General appearance: Present: mild distress - EENT Eyes: EOM intact ENT: hearing intact - Respiratory Respiratory effort: normal Extremities: normal temperature, normal color, abnormal (BKA noted) - Psychiatric Psychiatric: appropriate mood/affect, cooperative - Labs CBC & Chem 7: 02/03/21 04:18 02/03/21 12:14 Labs: Abnormal lab results 01/31/21 01/31/21 01/31/21 Range/Units 08:23 08:23 08:23 RBC (3.65-5.03) M/mm3 Hgb (11.8-15.2) gm/dl Hct (35.5-45.6) % MCV (84-94) fl MCH (28-32) pg MCHC (32-34) % RDW (13.2-15.2) % Plt Count (140-440) K/mm3 [place] % (Auto) (0.0-7.3) % [place] # (Auto) (0.0-0.8) K/mm3 PT (12.2-14.9) Sec. INR (0.87-1.13) Potassium (3.6-5.0) mmol/L Carbon Dioxide (22-30) mmol/L BUN (9-20) mg/dL Creatinine (0.8-1.3) mg/dL Glucose (75-100) mg/dL Total Bilirubin (0.1-1.2) mg/dL AST (5-40) units/L ALT (7-56) units/L Serum Total Protein 9.5 H (6.1-8.1) g/dL Total Protein (6.3-8.2) g/dL Albumin 2.8 L (3.8-4.8) g/dL Beta Globulins 1.5 H (0.2-0.5) g/dL Gamma Globulins 3.7 H (0.8-1.7) g/dL PEP Interpretation see below H Complement C3 73 L (82-185) mg/dL Hepatitis A Ab Total Reactive H (Nonreactive) Crossmatch 02/03/21 02/03/21 02/03/21 Range/Units 04:18 04:18 07:30 RBC 1.87 L (3.65-5.03) M/mm3 Hgb 6.5 L D (11.8-15.2) gm/dl Hct 18.7 L* D (35.5-45.6) % MCV 100 H (84-94) fl MCH 35 H (28-32) pg MCHC 35 H (32-34) % RDW 15.8 H (13.2-15.2) % Plt Count 105 L (140-440) K/mm3 [place] % (Auto) 11.4 H (0.0-7.3) % [place] # (Auto) 1.1 H (0.0-0.8) K/mm3 PT 26.9 H (12.2-14.9) Sec. INR 2.43 H (0.87-1.13) Potassium (3.6-5.0) mmol/L Carbon Dioxide (22-30) mmol/L BUN (9-20) mg/dL Creatinine (0.8-1.3) mg/dL Glucose (75-100) mg/dL Total Bilirubin (0.1-1.2) mg/dL AST (5-40) units/L ALT (7-56) units/L Serum Total Protein (6.1-8.1) g/dL Total Protein (6.3-8.2) g/dL Albumin (3.8-4.8) g/dL Beta Globulins (0.2-0.5) g/dL Gamma Globulins (0.8-1.7) g/dL PEP Interpretation Complement C3 (82-185) mg/dL Hepatitis A Ab Total (Nonreactive) Crossmatch See Detail 02/03/21 02/03/21 Range/Units 07:30 12:14 RBC (3.65-5.03) M/mm3 Hgb (11.8-15.2) gm/dl Hct (35.5-45.6) % MCV (84-94) fl MCH (28-32) pg MCHC (32-34) % RDW (13.2-15.2) % Plt Count (140-440) K/mm3 [place] % (Auto) (0.0-7.3) % [place] # (Auto) (0.0-0.8) K/mm3 PT (12.2-14.9) Sec. INR (0.87-1.13) Potassium 6.2 H* D 5.8 H (3.6-5.0) mmol/L Carbon Dioxide 21 L (22-30) mmol/L BUN 57 H 57 H (9-20) mg/dL Creatinine 5.5 H 5.9 H (0.8-1.3) mg/dL Glucose 101 H 121 H (75-100) mg/dL Total Bilirubin 11.00 H (0.1-1.2) mg/dL AST 674 H (5-40) units/L ALT 210 H (7-56) units/L Serum Total Protein (6.1-8.1) g/dL Total Protein 6.0 L (6.3-8.2) g/dL Albumin 2.8 L (3.8-4.8) g/dL Beta Globulins (0.2-0.5) g/dL Gamma Globulins (0.8-1.7) g/dL PEP Interpretation Complement C3 (82-185) mg/dL Hepatitis A Ab Total (Nonreactive) Crossmatch Medications & Allergies - Medications Allergies/Adverse Reactions: Allergies Penicillins Allergy (Verified 01/30/21 21:16) Hives Active Medications: Generic Name Dose Route Start Last Admin Trade Name Freq PRN Reason Stop Dose Admin Acetaminophen 650 mg 01/31/21 03:30 02/02/21 14:28 Acetaminophen 325 Mg Tab PO 650 mg Q4H PRN Administration Pain MILD(1-3)/Fever >100.5/BUTCHER Dextrose 25 ml 01/31/21 13:00 02/03/21 10:35 Dextrose 50% In Water (25gm) 50 Ml Syringe IV 25 ml Q30MIN PRN Administration Hypoglycemia Protocol Octreotide Acetate 500 mcg/ 101 mls @ 10.1 mls/hr 02/02/21 16:00 02/03/21 12:21 Sodium Chloride IV 02/05/21 15:59 50 mcg/hr TITR TAQUERIA 10.1 mls/hr Administration Protocol 50 MCG/HR Sodium Chloride 500 mls @ 0 mls/hr 02/03/21 10:06 Nacl 0.9% 500 Ml IV 02/03/21 20:00 ONCE NR As Directed Sodium Chloride 100 mls @ 999 mls/hr 02/03/21 11:00 Nacl 0.9% IV MARCIO PRN Hypotension Pantoprazole Sodium 80 mg/ 100 mls @ 10 mls/hr 02/03/21 17:00 Sodium Chloride IV DIRECT TAQUERIA 8 MG/HR Clindamycin HCl 600 mg in 50 mls @ 100 mls/hr 02/03/21 17:00 02/03/21 16:40 Cleocin 600 Mg/50 Ml IV 02/03/21 23:59 50 mls PREOP NR Administration Protocol Lactulose 20 gm 02/01/21 10:00 02/03/21 10:17 Lactulose 20 Gm/30 Ml Oral Liqd PO Not Given QDAY [facility] Multivitamins 1 each 02/01/21 10:00 02/03/21 13:17 Multivitamins ,Therapeutic Tab PO Not Given QDAY [facility] Ondansetron HCl 4 mg 01/31/21 03:30 02/03/21 10:18 Ondansetron 4 Mg/2 Ml Inj IV 4 mg Q8H PRN Administration Nausea And Vomiting Sodium Chloride 10 ml 01/31/21 10:00 02/03/21 09:31 Sodium Chloride 0.9% 10 Ml Flush Syringe IV 10 ml BID TAQUERIA Administration Sodium Chloride 10 ml 01/31/21 03:30 Sodium Chloride 0.9% 10 Ml Flush Syringe IV PRN PRN LINE FLUSH
--- NOTE | 2021-02-03 17:29 | Post Operative Note ---
Date of procedure: 02/03/21 Pre-op diagnosis: Massive GI bleeding, acute renal failure Post-op diagnosis: same Findings: Coil embolization performed with empiric embolization of GDA and clip targeting embolization of the right proximal gastroepiploic artery Procedure: 1. Ultrasound-guided access of the left radial artery. 2. Selection of the celiac artery with angiography. 3. Selection of the common hepatic artery with angiography. 4. Selection of the gastroduodenal artery and right gastroepiploic artery with angiography. 5. Coil embolization of the proximal right gastroepiploic artery with a 3 mm x 12 cm coil, 4 mm x 15 cm coil (x2) 6. Coil embolization of the gastroduodenal artery with a 5 mm x 15 cm coil, and 6 mm x 20 cm coil 7. Repeat angiography of the celiac artery. 8. Selection of the SMA with angiography. 9. Ultrasound-guided access of the left internal jugular vein 10. Fluoroscopic guided placement of a 13 [place] dialysis triple-lumen hemodialysis catheter Anesthesia: MAC Surgeon: XOCHITL CENTENO Estimated blood loss: minimal Condition: stable Disposition: ICU
--- NOTE | 2021-02-03 17:29 | Operative Report ---
Operative Report Operative Report: EXAM: 1. Ultrasound-guided access of the left radial artery. 2. Selection of the celiac artery with angiography. 3. Selection of the common hepatic artery with angiography. 4. Selection of the gastroduodenal artery and right gastroepiploic artery with angiography. 5. Coil embolization of the proximal right gastroepiploic artery with a 3 mm x 12 cm coil, 4 mm x 15 cm coil (x2) 6. Coil embolization of the gastroduodenal artery with a 5 mm x 15 cm coil, and 6 mm x 20 cm coil 7. Repeat angiography of the celiac artery. 8. Selection of the SMA with angiography. 9. Ultrasound-guided access of the left internal jugular vein 10. Fluoroscopic guided placement of a 13 Hebrew dialysis triple-lumen hemo dialysis catheter DATE: 02/03/2021 ELECTRIC REFRIGERATOR SERVICER: XOCHITL CENTENO MD INDICATION: Massive upper GI bleed with failure to control ulcer endoscopically secondary to clips falling off ulceration in a patient with hepatorenal syndrome requiring hemodialysis. MEDICATIONS: Please see nursing report for full details. ANESTHESIA: MAC/Intubated per GI request DEVICES: Interlock coils as described in the exam CONTRAST: Please see Open Claims Representative report for full details PROCEDURE: The risks, benefits, and alternatives for dialysis were discussed with the patient; written informed consent was obtained. Unfortunately, patient had endoscopy after this was obtained, and afterwards was unable to provide consent and no family could be contacted. Emergency consent was obtained for the embolization portion of the procedure with Dr. Barksdale. The patient did agree with the procedure, but due to recent sedation, could not provide consent. Patient was brought to the [facility] Representative urgently in the left wrist and left neck were prepped and draped in a sterile fashion. At this point, anesthesia anesthetized the patient and intubated the patient per planned intubation per GI request. Ultrasound was used to evaluate the left radial artery which was patent. Under direct ultrasound guidance, the left radial artery was accessed with a 21-gauge micropuncture needle. 0.018 inch wire was passed into the radial artery. Needle was exchanged for a 4/5 glide sheath slender. Radial cocktail without heparin was administered. 0.035 inch wire was then passed into the descending thoracic aorta and the abdominal aorta and a Monroe catheter was then advanced over the wire and used to select the celiac artery. Angiography was performed confirming selection, and then the Monroe catheter was used to select the common hepatic artery. Digital subtraction angiography was performed demonstrating a normal branching pattern of the common hepatic artery with numerous clips in the distribution of the right proximal gastroepiploic artery. Given the nature of the ulcer, plan was for empiric embolization of the gastroduodenal artery, and given the clips, I now plan to perform targeted embolization of the right proximal gastroepiploic artery. I then used an STC renegade and 0.014 inch Choice PT floppy wire were passed coaxially through the base catheter to select the gastroduodenal artery and the right proximal gastroepiploic artery. Digital subtraction angiography was performed confirming position in the right gastroepiploic artery. No extravasation or pseudoaneurysm noted. 1 cm beyond the endoscopically placed clips, a 3 mm x 12 cm coil was deployed and this was followed by two 4 mm x 15 cm coils resulting in occlusion of the right proximal gastroepiploic artery. This was then followed by coil embolization of the gastroduodenal artery with a 5 mm x 15 mm coil and 6 mm x 20 mm coil. Digital subtraction angiography was performed demonstrating occlusion of the gastroduodenal artery and right proximal gastroepiploic artery. The right gastric artery was allowed to remain patent as this would provide collateralization to the area. No extravasation or pseudoaneurysm from the right gastric artery. At this point, the catheter was then retracted to the celiac artery base and power injection was performed demonstrating no extravasation or pseudoaneurysm arising from the distal gastric ulcer. The gastroduodenal artery and proximal right gastroepiploic artery were occluded. This was the area overlying the endoscopically placed clips. At this point, the base catheter was used to select the SMA and digital subtraction angiography was performed demonstrating no extravasation or pseudoaneurysm. I consider doing a power injection of this vessel block, but in order to limit contrast use given the acute renal failure, I decided to not perform the power injection. At this point, all wires, and catheters were retracted and removed. Sheath was then removed and TR band was applied. The patient's left internal jugular vein was assessed with ultrasound and determined to be patent prior to procedure. The patient was prepped and draped in a sterile fashion. The puncture site was anesthetized. The left internal jugular vein was patent on ultrasound. Under sonographic guidance, the left internal jugular vein was punctured with a 21-gauge micropuncture needle and a 0.018 inch wire was advanced through the needle. Needle was exchanged for transitional dilator. The inner dilator and wire was removed and a 0.035 inch wire was advanced through the transitional dilator into the inferior vena cava. Over the 0.035 inch wire, serial dilatation was performed. The 13 Hebrew x 20 cm triple-lumen hemodialysis catheter was advanced over the wire and positioned centrally under fluoroscopic guidance. Excellent flow was obtained through the dialysis catheter with 20 mL syringes. The catheter tip is in the right atrium. 2-0 Ethilon suture was used to secure the catheter. The catheter was charged with heparin 1000 units/mL of space. The central lumen was flushed with saline. Biopatch and sterile dressing applied. The patient was transferred from the angiography suite back to the floor in stable condition. FINDINGS: Please see procedure note above. IMPRESSION: 1. Successful coil embolization of the right proximal gastroepiploic artery. 2. Successful coil embolization of the gastroduodenal artery. 3. Successful selection of the right proximal gastroepiploic artery, gastroduodenal artery, common hepatic artery, celiac artery, and SMA. 4. Successful angiography of the celiac artery and SMA 5. Successful ultrasound-guided access of the left radial artery and the left internal jugular vein 6. Successful fluoroscopic guided placement of a triple-lumen left internal jugular vein dialysis catheter.
--- NOTE | 2021-02-03 17:56 | Progress Note ---
Assessment and Plan 65-year-old male with no significant past medical history presented to the emergency room complaining of abdominal pain and lower extremity edema for the past 2 to 3 weeks. Work-up in the emergency room showed elevated creatinine of 2.6, elevated liver enzymes,Elevated bilirubin. Hyperkalemia of 5.7. He received calcium gluconate, insulin and glucose, sodium bicarb and Kayexalate in the emergency room for the hyperkalemia. Chest x-ray reveals small left pleural effusion. CT of the abdomen and pelvis shows a cirrhotic appearing liver there is also suggestion of possible multiple masses throughout the liver parenchyma. Moderate/large amount of ascites is noted throughout the abdomen and pelvis. Cholelithiasis without CT evidence of acute cholecystitis. Patient was admitted with abdominal pain possibly secondary to cirrhotic liver with accompanying ascites, cholelithiasis and hyperkalemia with acute renal failure. A/P --Acute hypoxic respiratory failure Patient intubated for airway protection as noted to have huge amount of blood/clot in the stomach Critical care consulted, transfer patient to ICU Start on scheduled nebulizer breathing treatment, continue to monitor with ventilator and wean off as tolerated -- Hyperbilirubinemia with elevated LFT and hepatic mass Possibly related to the cirrhotic liver and underlying hepatic malignancy. Consulted GI, ordered for AFP: Pending Will monitor liver enzymes. CT of the abdomen and pelvis shows a cirrhotic appearing liver there is also suggestion of possible multiple masses throughout the liver parenchyma. Cannot rule out hepatic malignancy. Abdomen US: 1. Cirrhotic liver. The hepatic parenchyma is diffusely heterogeneous with several more nodular areas of increased echogenicity. It is difficult to say if this represents more focal areas of hepatic steatosis or an underlying hepatic lesion, and multi phase CT or MRI of the abdomen is recommended for further evaluation. 2. The portal vein is patent. 3. Cholelithiasis without convincing evidence for acute cholecystitis. --Alcoholic cirrhosis of liver with ascites Continue current supportive care. s/p paracentesis which drained about 5.5 L of acetic fluid Started on Albumin, continue lactulose, follow ammonia level -- Hyperkalemia Patient has received insulin and glucose, sodium bicarbonate, calcium gluconate and Kayexalate Potassium level still continue to rise, plan to initiate on hemodialysis today --LILLIAM likely due to ATN with possible underlying CKD now most likely progressed to end-stage renal disease Consulted nephrology and continue to monitor BUN and creatinine. Serum creatinine and potassium trending up, avoid nephrotoxins Plan to initiate hemodialysis, vascular consulted for placement of dialysis access --Coagulopathy, likely due to hepatic cirrhosis INR 2.4, Continue to monitor Patient noted to have bloody stool and bloody vomiting today, ordered for vitamin K, FFP Continue to follow --GI bleed, acute Likely due to large gastric ulcer and also presence of esophageal varices Patient placed on octreotide, PPI, ordered for vitamin K Monitor H&H, order for FFP S/p EGD and coil embolization performed with empiric embolization of GDA and clip targeting embolization of the right proximal gastroepiploic artery --Positive hepatitis C, follow LFT, GI following -- DVT prophylaxis, SCD -- Full code status The high probability of a clinically significant, sudden or life threatening deterioration of the system(respiratory, GI, renal, hematology) required my full and direct attention, intervention and personal management. The aggregate critical care time was [45] minutes. This time is in addition to time spent performing reported procedures but includes the following: [x] Data Review and interpretation [x] Patient assessment and monitoring of vital signs [x] Documentation [x] Medication orders and management Daily clinical course: 02/01/21: K level improved, no plan to start HD now. cont to follow BMP. Had paracentesis yesterday and drained about 5.5 L of ascitic fluid. Patient also initiated on albumin. Ordered for AFP. Abdominal ultrasound and CT abdomen suggestive of possible underlying hepatic malignancy. Will follow GI recommendation. Abdomen US: 1. Cirrhotic liver. The hepatic parenchyma is diffusely heterogeneo us with several more nodular areas of increased echogenicity. It is difficult to say if this represents more focal areas of hepatic steatosis or an underlying hepatic lesion, and multi phase CT or MRI of the abdomen is recommended for further evaluation. 2. The portal vein is patent. 3. Cholelithiasis without convincing evidence for acute cholecystitis. 02/02/21: Discussed with patient and patient daughter at the bedside. Patient complains of lethargy, reduced appetite and generalized weakness. Patient did not receive COVID-19 vaccine. We will also order for Covid 19 PCR. Continue to follow LFT which remains elevated. Patient had blood in the stool today. Patient initiated on albumin, octreotide. Plan for endoscopy tomorrow. 02/03/21; serum creatinine and potassium further increased today. Patient noted to have bloody vomitus and bloody bowel movement today. Hemoglobin dropped to 6.5. Ordered for stat packed RBC transfusion, FFP and vitamin K. Patient was taken for EGD which showed following findings. EGD: 1. Normal duodenum 2. 5mm cratered in the antrum - Visible vessel at the base - Attempted clip x 4 (Conmed 16mm, 11mm clips) but mucosal defect would not close 3. Huge amount of blood/clots in stomach, and proimal body/fundus not seen, but does not appear to have varices in the cardia 4. Grade I esophageal varices (3 columns) that had no stigmata of bleeding, and flattened on insufflation Following EGD patient was taken for catheterization for vascular procedure. Triallysis catheter was placed by vascular and s/p Coil embolization performed with empiric embolization of GDA and clip targeting embolization of the right proximal gastroepiploic artery. Patient will also remain intubated for airway protection. Consulted critical care and transfer the patient to ICU. Updated patient's family by phone and at the bedside with all clinical details. 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 Atraumatic. +ve conjunctival icterus. Patient has moist mucous membranes. NECK: Supple. Trachea midline. CHEST/LUNGS: Coarse breath sounds auscultated bilaterally, breathing on vent HEART/CARDIOVASCULAR: Regular in rate and rhythm. S1 and S2 positive. ABDOMEN: Abdomen is soft, obese. Patient has normal bowel sounds. SKIN: There is no rash. Warm and dry. NEURO: Intubated MUSCULOSKELETAL: No joint effusion or tenderness. EXTRIMITY: No edema, no cyanosis or clubbing. PSYCH: Intubated - Constitutional Vitals: Vital Signs - 12hr 02/03/21 02/03/21 02/03/21 05:52 07:52 09:00 Temperature 98.0 F Pulse Rate 96 H 95 H Respiratory 18 18 Rate Blood Pressure 110/53 O2 Sat by Pulse 100 96 Oximetry 02/03/21 02/03/21 02/03/21 10:08 12:32 12:46 Temperature 97.6 F Pulse Rate 98 H Respiratory 16 18 Rate Blood Pressure 123/53 132/56 O2 Sat by Pulse 95 90 Oximetry 02/03/21 02/03/21 02/03/21 12:47 13:00 14:45 Temperature 98.2 F 98.1 F Pulse Rate 97 H 100 H 94 H Respiratory 12 19 Rate Blood Pressure 135/55 134/44 O2 Sat by Pulse 97 97 Oximetry 02/03/21 15:15 Temperature 97.7 F Pulse Rate 98 H Respiratory 19 Rate Blood Pressure 117/51 O2 Sat by Pulse 100 Oximetry - Labs CBC & Chem 7: 02/03/21 04:18 02/03/21 12:14 Labs: Abnormal lab results 01/31/21 01/31/21 01/31/21 Range/Units 08:23 08:23 08:23 RBC (3.65-5.03) M/mm3 Hgb (11.8-15.2) gm/dl Hct (35.5-45.6) % MCV (84-94) fl MCH (28-32) pg MCHC (32-34) % RDW (13.2-15.2) % Plt Count (140-440) K/mm3 [place] % (Auto) (0.0-7.3) % [place] # (Auto) (0.0-0.8) K/mm3 PT (12.2-14.9) Sec. INR (0.87-1.13) Potassium (3.6-5.0) mmol/L Carbon Dioxide (22-30) mmol/L BUN (9-20) mg/dL Creatinine (0.8-1.3) mg/dL Glucose (75-100) mg/dL Total Bilirubin (0.1-1.2) mg/dL AST (5-40) units/L ALT (7-56) units/L Serum Total Protein 9.5 H (6.1-8.1) g/dL Total Protein (6.3-8.2) g/dL Albumin 2.8 L (3.8-4.8) g/dL Beta Globulins 1.5 H (0.2-0.5) g/dL Gamma Globulins 3.7 H (0.8-1.7) g/dL PEP Interpretation see below H Complement C3 73 L (82-185) mg/dL Hepatitis A Ab Total Reactive H (Nonreactive) Crossmatch 02/03/21 02/03/21 02/03/21 Range/Units 04:18 04:18 07:30 RBC 1.87 L (3.65-5.03) M/mm3 Hgb 6.5 L D (11.8-15.2) gm/dl Hct 18.7 L* D (35.5-45.6) % MCV 100 H (84-94) fl MCH 35 H (28-32) pg MCHC 35 H (32-34) % RDW 15.8 H (13.2-15.2) % Plt Count 105 L (140-440) K/mm3 [place] % (Auto) 11.4 H (0.0-7.3) % [place] # (Auto) 1.1 H (0.0-0.8) K/mm3 PT 26.9 H (12.2-14.9) Sec. INR 2.43 H (0.87-1.13) Potassium (3.6-5.0) mmol/L Carbon Dioxide (22-30) mmol/L BUN (9-20) mg/dL Creatinine (0.8-1.3) mg/dL Glucose (75-100) mg/dL Total Bilirubin (0.1-1.2) mg/dL AST (5-40) units/L ALT (7-56) units/L Serum Total Protein (6.1-8.1) g/dL Total Protein (6.3-8.2) g/dL Albumin (3.8-4.8) g/dL Beta Globulins (0.2-0.5) g/dL Gamma Globulins (0.8-1.7) g/dL PEP Interpretation Complement C3 (82-185) mg/dL Hepatitis A Ab Total (Nonreactive) Crossmatch See Detail 02/03/21 02/03/21 Range/Units 07:30 12:14 RBC (3.65-5.03) M/mm3 Hgb (11.8-15.2) gm/dl Hct (35.5-45.6) % MCV (84-94) fl MCH (28-32) pg MCHC (32-34) % RDW (13.2-15.2) % Plt Count (140-440) K/mm3 [place] % (Auto) (0.0-7.3) % [place] # (Auto) (0.0-0.8) K/mm3 PT (12.2-14.9) Sec. INR (0.87-1.13) Potassium 6.2 H* D 5.8 H (3.6-5.0) mmol/L Carbon Dioxide 21 L (22-30) mmol/L BUN 57 H 57 H (9-20) mg/dL Creatinine 5.5 H 5.9 H (0.8-1.3) mg/dL Glucose 101 H 121 H (75-100) mg/dL Total Bilirubin 11.00 H (0.1-1.2) mg/dL AST 674 H (5-40) units/L ALT 210 H (7-56) units/L Serum Total Protein (6.1-8.1) g/dL Total Protein 6.0 L (6.3-8.2) g/dL Albumin 2.8 L (3.8-4.8) g/dL Beta Globulins (0.2-0.5) g/dL Gamma Globulins (0.8-1.7) g/dL PEP Interpretation Complement C3 (82-185) mg/dL Hepatitis A Ab Total (Nonreactive) Crossmatch
[2021-02-03] MEDS ORDERED: SODIUM CHLORIDE 0.9% 1000 ML 1,000 ML IV SCH (18:00)
--- NOTE | 2021-02-03 18:11 | Post Anesthesia Evaluation ---
- Post Anesthesia Evaluation Patient Participated: No (sedated) Airway Patent: Yes (intubated) Stable Respiratory Function: Yes Nausea/Vomiting: No (unable to assess) Temp > 96.8F: Yes Pain Manageable: Yes (unable to assess; analgesic given during procedure as appropriate) Adequeate Hydration: Yes Anesthesia Complications: No Patient on Ventilator: Yes Other Comments: Patient to receive additional blood products per IR MD orders.
[2021-02-03] MEDS ORDERED: PHENYLEPHRINE/NS 1,000 MCG/10 ML SYRINGE (OR USE) IV ONE (18:29)
[2021-02-03] MEDS ORDERED: MINERAL OIL/PETROLATUM, WHITE OPHTH OINT 3.5 GM OU PRN ×2 (18:39→18:45)
[2021-02-03] MEDS ORDERED: LIP THERAPY VASELINE TP PRN ×2 (18:39→18:45)
[2021-02-03] MEDS ORDERED: fentaNYL 100 MCG/2 ML INJ IV PRN (18:42)
--- NOTE | 2021-02-03 19:09 | Operative Report ---
DATE OF SURGERY: 02/03/2021 ENDOSCOPY DOCUMENT PROCEDURE PERFORMED: Esophagogastroduodenoscopy with endoscopic clipping for bleeding control. PREOPERATIVE DIAGNOSIS: Gastrointestinal hemorrhage. POSTOPERATIVE DIAGNOSES: Gastric ulcer and esophageal varices. ENDOSCOPIST: Shen Barksdale MD INSTRUMENT: The Olympus video endoscope. MEDICATIONS: MAC anesthesia by Anesthesia services. COMPLICATIONS: No apparent complications. ESTIMATED BLOOD LOSS: Minimal. SPECIMENS: None. IMPLANTS: Endoscopic clip, ConMed x4, ranging in size from 11 mm to 16 mm, MR conditional. ASSISTANTS: None. CONDITION AT COMPLETION: Critical. TECHNIQUE: The patient was informed of the risks and benefits of the procedure. He signed the informed consent to proceed. He was placed in the left lateral decubitus position. The above sedative medications were given. His vital signs remained stable throughout the procedure, but critical. The endoscope was advanced from the mouth to the second portion of the duodenum under direct visualization. The bowel was then insufflated. The endoscope was withdrawn into the antrum of the stomach. FINDINGS: 1. A 15 mm cratered gastric ulcer was noted in the antrum near the pylorus. A. There was a visible vessel with overlying clot at the base. B. We attempted endoscopic clipping x4 using ConMed 11 mm and 16 mm clips, but the mucosal defect would not close. 2. Huge amount of blood and blood clots in the stomach and the proximal body and fundus were not seen, but he did not appear to have varices in the gastric cardia. 3. Grade I esophageal varices, three columns, in the distal esophagus that had no stigmata of bleeding and flattened on insufflation. RECOMMENDATIONS: 1. Intubate the patient for airway control given the massive amount of blood in the stomach and active gastrointestinal bleeding. 2. Interventional Radiology to attempt embolization of the gastric ulcer. 3. Transfer to the intensive care unit after embolization given his comorbid and need for dialysis as well as octreotide GTT and Protonix GTT. 4. Continue aggressive supportive care. 5. Repeat upper endoscopy in a few days to put bands on the esophageal varices, pending his clinical course. 6. Avoid nasogastric tube at present unless absolutely necessary given esophageal varices. TID: [id number] RECEIPT: [id number] REMY/ANNIE
--- NOTE | 2021-02-03 19:34 | XRay Report ---
CHEST 1 VIEW INDICATION: ETT placement. COMPARISON: 01/31/2021 FINDINGS: SUPPORT DEVICES: New endotracheal tube tip at the level the clavicles and left-sided catheter with ti p at the cavoatrial junction. HEART: Within normal limits. LUNGS/PLEURA: Mild interstitial edema. No pneumothorax. Questionable trace layering effusion on the l eft. ADDITIONAL FINDINGS: None. IMPRESSION: 1. New support devices without complication. 2. Mild interstitial edema. Signer Name: Fredy Mari MD Signed: 02/03/2021 7:29 PM Workstation Name: [id number]
[2021-02-03 19:47] LABS: Hematocrit 20.6 % (35.5-45.6); Hemoglobin 7.1 gm/dl (11.8-15.2)
[2021-02-03] MEDS: PANTOPRAZOLE 80 MG in SODIUM CHLORIDE 0.9% 100 ML IV SCH (20:25)
[2021-02-03] MEDS ORDERED: SENNOSIDES/DOCUSATE SODIUM 8.6/50 MG TAB FEEDTUBE SCH (22:00)
[2021-02-03] MEDS: SENNOSIDES/DOCUSATE SODIUM 8.6/50 MG TAB FEEDTUBE SCH (23:02)
[2021-02-04 00:10] LABS: Hemoglobin 6.6 gm/dl (11.8-15.2)
[2021-02-04 00:40] LABS: Hematocrit 19.3 % (35.5-45.6)
[2021-02-04] MEDS ORDERED: LACTATED RINGERS 1,000 ML IV ONE (04:06)
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
[2021-02-04] MEDS: VASOPRESSIN 20 UNIT in SODIUM CHLORIDE 0.9% 100 ML IV SCH ×2 (05:50→18:49)
[2021-02-04] MEDS: PANTOPRAZOLE 80 MG in SODIUM CHLORIDE 0.9% 100 ML IV SCH ×3 (05:52→20:33)
[2021-02-04 06:34] LABS: Albumin 3.1 g/dL (3.9-5); Calcium 8.3 mg/dL (8.4-10.2)
--- NOTE | 2021-02-04 06:55 | XRay Report ---
CHEST 1 VIEW, 02/04/2021 1:51 AM CLINICAL INFORMATION/INDICATION: Respiratory failure COMPARISON: Chest radiograph, 02/03/2021 at 7:23 PM FINDINGS: SUPPORT DEVICES: Support tubes and lines remain in stable position. HEART: The cardiac silhouette is normal in size. LUNGS/PLEURA: Faint bilateral interstitial opacities are again noted and have not significantly ferro ed. No pneumothorax is identified. ADDITIONAL FINDINGS: No additional acute findings. IMPRESSION: 1. Stable faint interstitial opacities suggesting mild pulmonary edema. Signer Name: Eva Phillips MD Signed: 02/04/2021 6:51 AM Workstation Name: [id number]
[2021-02-04] MEDS: SENNOSIDES/DOCUSATE SODIUM 8.6/50 MG TAB FEEDTUBE SCH ×2 (09:20→21:24)
[2021-02-04] MEDS: LACTULOSE 20 GM/30 ML ORAL LIQD PO SCH (09:20)
[2021-02-04] MEDS: MULTIVITAMINS ,THERAPEUTIC TAB PO SCH (09:20)
[2021-02-04] MEDS: OCTREOTIDE 500 MCG in SODIUM CHLORIDE 0.9% 100 ML IV SCH ×2 (09:52→21:18)
[2021-02-04 10:25] LABS: Basophils % (Auto) 0.1 % (0.0-1.8); Eosinophils % (Auto) 0.1 % (0.0-4.3); Hematocrit 24.5 % (35.5-45.6); Hemoglobin 8.4 gm/dl (11.8-15.2); Lymphocytes # (Auto) 1.1 K/mm3 (1.2-5.4); Lymphocytes % (Auto) 8.1 % (13.4-35.0); Mean Corpuscular HGB Conc 35 % (32-34); Mean Corpuscular Volume 94 fl (84-94); Monocytes # (Auto) 1.8 K/mm3 (0.0-0.8); Monocytes % (Auto) 13.2 % (0.0-7.3); Red Cell Distribution Width 16.8 % (13.2-15.2)
[2021-02-04 10:26] LABS: Platelet Count 57 K/mm3 (140-440)
[2021-02-04] MEDS ORDERED: SODIUM CHLORIDE 0.9% IV ONE (11:00)
[2021-02-04] MEDS ORDERED: DESMOPRESSIN ACETATE IV ONE (11:00)
[2021-02-04] MEDS ORDERED: SODIUM CHLORIDE 0.9% 500 ML 500 ML IV NR (11:10)
--- NOTE | 2021-02-04 11:28 | Gastroenterology Progress Note ---
Assessment and Plan - Patient Problems (1) Abnormal CT of liver Current Visit: Yes Status: Acute Plan to address problem: - The US is inconclusive, but abnormal (masses seen, but may be regenerative nodules). - If AFP markedly elevated, then no need for MRI. - If the AFP is normal, then will get an MRI without contrast (would prefer with contrast, but renal status at present precludes). - Given multifocal "masses" this would more likely be metastatic disease from other location than primary HCC, though the history of Hep C increases risk of HCC. (2) Alcoholic cirrhosis of liver with ascites Current Visit: Yes Status: Acute Plan to address problem: - Continue current supportive care. - Agree with Nephro recs. - Hold lasix/aldactone for now, and monitor urine OP and abdominal distention. Currently on PRN HD. - Poor prognosis discussed with patient. Not a candidate for liver transplant given active EtOH and liver masses. - Will continue PPI and octreotide gtt. Repeat EGD tomorrow if further severe hemorrhage; if stable can extubate. - Needs repeat EGD for banding of varices. (3) Gastric ulcer with hemorrhage Current Visit: Yes Status: Acute Plan to address problem: - Noted at EGD 02/03. Failed endoscopic clip; IR with embolization 02/03. - Still passing stool with blood, but hct improved as are the vital signs. - Continue protonix and octreotide gtt. Subjective Date of service: 02/04/21 Principal diagnosis: Cirrhosis, Ulcer Interval history: The patient has been stable on the vent overnight. He still has blood in the BMs, but his hct is better, and he tolerated HD after the procedure yesterday. He is on PPI and octreotide gtt. His ventilator settings are minimal, and he has stable LFTs. Objective - Constitutional Vitals: Temp Pulse Resp BP Pulse Ox 98.7 F 87 17 127/59 99 02/04/21 08:00 02/04/21 10:30 02/04/21 10:30 02/04/21 10:30 02/04/21 10:30 General appearance: no acute distress - EENT ENT: other (ET tube present) - Neck Neck: supple, normal ROM - Respiratory Respiratory effort: normal Respiratory: bilateral: CTA - Cardiovascular Rhythm: regular Heart Sounds: Present: S1 & S2 - Gastrointestinal General gastrointestinal: Present: soft, non-tender, distended (Moderate ascites) - Labs CBC & Chem 7: 02/04/21 09:55 02/04/21 05:59 Labs: Laboratory Results - last 24 hr 01/31/21 01/31/21 01/31/21 08:23 08:23 08:23 WBC RBC Hgb Hct MCV MCH MCHC RDW Plt Count Lymph % (Auto) Donley % (Auto) Eos % (Auto) Baso % (Auto) Lymph # (Auto) Donley # (Auto) Eos # (Auto) Baso # (Auto) Seg Neutrophils % Seg Neutrophils # ABG pH POC ABG pCO2 POC ABG pO2 POC ABG HCO3 ABG O2 Saturation POC ABG Base Excess ABG Hemoglobin ABG Oxyhemoglobin ABG Methemoglobin ABG Sodium ABG Potassium ABG Chloride ABG Glucose Carboxyhemoglobin FiO2 % Sodium Potassium Chloride Carbon Dioxide Anion Gap BUN Creatinine Estimated GFR BUN/Creatinine Ratio Glucose POC Glucose Calcium Total Bilirubin AST ALT Alkaline Phosphatase Total Protein Albumin Albumin/Globulin Ratio Arterial Blood Glucose Arterial Blood Ionized Calcium SHARON Screen Negative Complement C3 73 L Coronavirus (PCR) Hep Bs Antibody, Quant 5 L Blood Type Antibody Screen Crossmatch 02/02/21 02/03/21 02/03/21 Unknown 07:30 12:14 WBC RBC Hgb Hct MCV MCH MCHC RDW Plt Count Lymph % (Auto) Donley % (Auto) Eos % (Auto) Baso % (Auto) Lymph # (Auto) Donley # (Auto) Eos # (Auto) Baso # (Auto) Seg Neutrophils % Seg Neutrophils # ABG pH POC ABG pCO2 POC ABG pO2 POC ABG HCO3 ABG O2 Saturation POC ABG Base Excess ABG Hemoglobin ABG Oxyhemoglobin ABG Methemoglobin ABG Sodium ABG Potassium ABG Chloride ABG Glucose Carboxyhemoglobin FiO2 % Sodium 137 Potassium 5.8 H Chloride 99.9 Carbon Dioxide 21 L Anion Gap 22 BUN 57 H Creatinine 5.9 H Estimated GFR 12 BUN/Creatinine Ratio 10 Glucose 121 H POC Glucose Calcium 8.6 Total Bilirubin AST ALT Alkaline Phosphatase Total Protein Albumin Albumin/Globulin Ratio Arterial Blood Glucose Arterial Blood Ionized Calcium SHARON Screen Complement C3 Coronavirus (PCR) Negative Hep Bs Antibody, Quant Blood Type B POSITIVE Antibody Screen Negative Crossmatch See Detail 02/03/21 02/03/21 02/03/21 19:05 23:07 23:33 WBC RBC Hgb 7.1 L 6.6 L Hct 20.6 L 19.3 L* MCV MCH MCHC RDW Plt Count Lymph % (Auto) Donley % (Auto) Eos % (Auto) Baso % (Auto) Lymph # (Auto) Donley # (Auto) Eos # (Auto) Baso # (Auto) Seg Neutrophils % Seg Neutrophils # ABG pH POC ABG pCO2 POC ABG pO2 POC ABG HCO3 ABG O2 Saturation POC ABG Base Excess ABG Hemoglobin ABG Oxyhemoglobin ABG Methemoglobin ABG Sodium ABG Potassium ABG Chloride ABG Glucose Carboxyhemoglobin FiO2 % Sodium Potassium Chloride Carbon Dioxide Anion Gap BUN Creatinine Estimated GFR BUN/Creatinine Ratio Glucose POC Glucose 126 H Calcium Total Bilirubin AST ALT Alkaline Phosphatase Total Protein Albumin Albumin/Globulin Ratio Arterial Blood Glucose Arterial Blood Ionized Calcium SHARON Screen Complement C3 Coronavirus (PCR) Hep Bs Antibody, Quant Blood Type Antibody Screen Crossmatch 02/04/21 02/04/21 02/04/21 04:09 05:09 05:59 WBC RBC Hgb Hct MCV MCH MCHC RDW Plt Count Lymph % (Auto) Donley % (Auto) Eos % (Auto) Baso % (Auto) Lymph # (Auto) Donley # (Auto) Eos # (Auto) Baso # (Auto) Seg Neutrophils % Seg Neutrophils # ABG pH 7.412 POC ABG pCO2 26.9 L POC ABG pO2 47.6 L POC ABG HCO3 16.7 ABG O2 Saturation 84.1 POC ABG Base Excess -7.0 ABG Hemoglobin 7.6 L ABG Oxyhemoglobin 82.8 L ABG Methemoglobin 0.3 ABG Sodium 132.0 L ABG Potassium 4.3 ABG Chloride 99.0 ABG Glucose 111 H Carboxyhemoglobin 1.3 FiO2 % 40.0 Sodium 138 Potassium 4.6 D Chloride 96.3 L Carbon Dioxide 23 Anion Gap 23 BUN 31 H Creatinine 3.4 H Estimated GFR 22 BUN/Creatinine Ratio 9 Glucose 108 H POC Glucose 103 Calcium 8.3 L Total Bilirubin 12.30 H AST 781 H ALT 261 H Alkaline Phosphatase 110 Total Protein 5.9 L Albumin 3.1 L Albumin/Globulin Ratio 1.1 Arterial Blood Glucose 111 H Arterial Blood Ionized Calcium 4.0 L SHARON Screen Complement C3 Coronavirus (PCR) Hep Bs Antibody, Quant Blood Type Antibody Screen Crossmatch 02/04/21 09:55 WBC 13.4 H RBC 2.60 L Hgb 8.4 L Hct 24.5 L MCV 94 MCH 33 H MCHC 35 H RDW 16.8 H Plt Count 57 L Lymph % (Auto) 8.1 L Donley % (Auto) 13.2 H Eos % (Auto) 0.1 Baso % (Auto) 0.1 Lymph # (Auto) 1.1 L Donley # (Auto) 1.8 H Eos # (Auto) 0.0 Baso # (Auto) 0.0 Seg Neutrophils % 78.5 H Seg Neutrophils # 10.5 H ABG pH POC ABG pCO2 POC ABG pO2 POC ABG HCO3 ABG O2 Saturation POC ABG Base Excess ABG Hemoglobin ABG Oxyhemoglobin ABG Methemoglobin ABG Sodium ABG Potassium ABG Chloride ABG Glucose Carboxyhemoglobin FiO2 % Sodium Potassium Chloride Carbon Dioxide Anion Gap BUN Creatinine Estimated GFR BUN/Creatinine Ratio Glucose POC Glucose Calcium Total Bilirubin AST ALT Alkaline Phosphatase Total Protein Albumin Albumin/Globulin Ratio Arterial Blood Glucose Arterial Blood Ionized Calcium SHARON Screen Complement C3 Coronavirus (PCR) Hep Bs Antibody, Quant Blood Type Antibody Screen Crossmatch
--- NOTE | 2021-02-04 13:25 | Progress Note ---
Assessment and Plan 65-year-old male with cirrhosis and active GI bleeding from large antral ulceration. Status post endoscopy and IR coil embolization. Also has hepatorenal syndrome and Vas-Cath was recently placed. Hemodynamically stable. Hopefully can wean off pressors soon. Hemoglobin appropriately responded to blood transfusion. Hopefully this will maintain itself and patient require no further blood products. Still has coagulopathy which will be difficult to correct giving underlying cirrhosis. Having some blood which, according to nurse, is brighter than she expects. Hopefully this will decline over the next few days and hopefully this represents older blood. Left hand without issues. Prognosis guarded given multitude of issues. Subjective Date of service: 02/04/21 Principal diagnosis: Cirrhosis, Ulcer Interval history: On Levophed. On propofol. Transfused 3 units of bugged with partial response. Last hemoglobin 8.4. Hemodynamically stable. Having GI bleeding which may represent old blood, although some of it is brighter than expected per nursing. Objective - Constitutional Vitals: Vital Signs - 12hr 02/04/21 02/04/21 02/04/21 01:30 01:40 01:50 Temperature Pulse Rate 96 H 99 H 100 H Pulse Rate [ From Monitor] Respiratory 20 22 20 Rate Blood Pressure 104/48 104/48 114/51 O2 Sat by Pulse 99 99 99 Oximetry 02/04/21 02/04/21 02/04/21 02:00 02:15 02:19 Temperature 97.9 F Pulse Rate 100 H 105 H 105 H Pulse Rate [ From Monitor] Respiratory 24 24 21 Rate Blood Pressure 114/51 108/50 108/50 O2 Sat by Pulse 98 97 96 Oximetry 02/04/21 02/04/21 02/04/21 02:30 02:45 02:49 Temperature 97.9 F Pulse Rate 104 H 104 H 114 H Pulse Rate [ From Monitor] Respiratory 21 18 16 Rate Blood Pressure 108/47 111/39 100/44 O2 Sat by Pulse 97 97 96 Oximetry 02/04/21 02/04/21 02/04/21 03:00 03:10 03:19 Temperature 98 F Pulse Rate 100 H 113 H 113 H Pulse Rate [ From Monitor] Respiratory 19 22 25 H Rate Blood Pressure 100/44 100/44 97/41 O2 Sat by Pulse 96 96 96 Oximetry 02/04/21 02/04/21 02/04/21 03:20 03:24 03:30 Temperature 99.1 F Pulse Rate 112 H 112 H Pulse Rate [ From Monitor] Respiratory 27 H 27 H Rate Blood Pressure 98/37 97/41 O2 Sat by Pulse 95 96 Oximetry 02/04/21 02/04/21 02/04/21 03:40 03:49 03:50 Temperature 98.2 F Pulse Rate 114 H 113 H 115 H Pulse Rate [ From Monitor] Respiratory 28 H 20 21 Rate Blood Pressure 97/41 99/39 99/39 O2 Sat by Pulse 95 95 96 Oximetry 02/04/21 02/04/21 02/04/21 04:00 04:02 04:10 Temperature 98 F Pulse Rate 116 H 113 H 113 H Pulse Rate [ 116 H From Monitor] Respiratory 28 H 27 H 21 Rate Blood Pressure 95/33 108/39 97/41 O2 Sat by Pulse 97 97 96 Oximetry 02/04/21 02/04/21 02/04/21 04:20 04:30 04:34 Temperature Pulse Rate 115 H 113 H 113 H Pulse Rate [ From Monitor] Respiratory 30 H 28 H 27 H Rate Blood Pressure 99/51 108/39 108/39 O2 Sat by Pulse 96 95 97 Oximetry 02/04/21 02/04/21 02/04/21 04:45 05:00 05:04 Temperature 97.5 F L Pulse Rate 113 H 113 H 113 H Pulse Rate [ From Monitor] Respiratory 26 H 27 H 25 H Rate Blood Pressure 96/43 100/42 100/42 O2 Sat by Pulse 98 98 99 Oximetry 02/04/21 02/04/21 02/04/21 05:15 05:30 05:34 Temperature 97.1 F L Pulse Rate 113 H 111 H 112 H Pulse Rate [ From Monitor] Respiratory 27 H 28 H 27 H Rate Blood Pressure 110/40 110/40 114/43 O2 Sat by Pulse 100 100 Oximetry 02/04/21 02/04/21 02/04/21 05:45 05:58 06:00 Temperature Pulse Rate 114 H 113 H 110 H Pulse Rate [ From Monitor] Respiratory 26 H 26 H Rate Blood Pressure 114/43 106/69 123/47 O2 Sat by Pulse 98 100 97 Oximetry 02/04/21 02/04/21 02/04/21 06:04 06:10 06:20 Temperature 97.7 F Pulse Rate 109 H 109 H 108 H Pulse Rate [ From Monitor] Respiratory 26 H 24 24 Rate Blood Pressure 113/54 123/47 113/54 O2 Sat by Pulse 96 97 96 Oximetry 02/04/21 02/04/21 02/04/21 06:30 06:40 06:50 Temperature Pulse Rate 108 H 107 H 105 H Pulse Rate [ From Monitor] Respiratory 23 23 23 Rate Blood Pressure 113/51 123/47 124/53 O2 Sat by Pulse 96 96 95 Oximetry 02/04/21 02/04/21 02/04/21 07:00 07:10 07:20 Temperature Pulse Rate 104 H 103 H 102 H Pulse Rate [ From Monitor] Respiratory 22 22 21 Rate Blood Pressure 119/59 124/53 122/60 O2 Sat by Pulse 97 98 98 Oximetry 02/04/21 02/04/21 02/04/21 07:30 07:40 07:50 Temperature Pulse Rate 104 H 104 H 104 H Pulse Rate [ From Monitor] Respiratory 21 23 22 Rate Blood Pressure 127/55 127/55 122/58 O2 Sat by Pulse 98 99 98 Oximetry 02/04/21 02/04/21 02/04/21 08:00 08:15 08:23 Temperature 98.7 F Pulse Rate 102 H 100 H 98 H Pulse Rate [ From Monitor] Respiratory 19 19 Rate Blood Pressure 111/58 113/55 117/53 O2 Sat by Pulse 99 100 98 Oximetry 02/04/21 02/04/21 02/04/21 08:30 08:45 09:00 Temperature Pulse Rate 99 H 91 H Pulse Rate [ From Monitor] Respiratory 20 18 Rate Blood Pressure 117/53 125/55 129/56 O2 Sat by Pulse 98 99 97 Oximetry 02/04/21 02/04/21 02/04/21 09:15 09:30 09:45 Temperature Pulse Rate 92 H 89 88 Pulse Rate [ From Monitor] Respiratory 21 17 17 Rate Blood Pressure 113/56 119/58 110/54 O2 Sat by Pulse 98 98 98 Oximetry 02/04/21 02/04/21 02/04/21 10:00 10:15 10:30 Temperature Pulse Rate 88 86 87 Pulse Rate [ From Monitor] Respiratory 18 17 17 Rate Blood Pressure 125/56 132/55 127/59 O2 Sat by Pulse 98 99 99 Oximetry 02/04/21 02/04/21 02/04/21 10:45 11:00 11:15 Temperature Pulse Rate 84 86 85 Pulse Rate [ From Monitor] Respiratory 16 17 15 Rate Blood Pressure 129/54 129/54 130/56 O2 Sat by Pulse 99 100 99 Oximetry 02/04/21 02/04/21 02/04/21 11:30 11:45 12:00 Temperature 97.7 F Pulse Rate 87 83 83 Pulse Rate [ 85 From Monitor] Respiratory 16 16 17 Rate Blood Pressure 137/65 131/53 131/53 O2 Sat by Pulse 100 99 99 Oximetry 02/04/21 02/04/21 02/04/21 12:15 12:30 12:43 Temperature Pulse Rate 84 82 86 Pulse Rate [ From Monitor] Respiratory 15 17 Rate Blood Pressure 128/54 126/51 O2 Sat by Pulse 99 99 99 Oximetry 02/04/21 02/04/21 12:45 13:00 Temperature Pulse Rate 85 85 Pulse Rate [ From Monitor] Respiratory 16 17 Rate Blood Pressure 130/54 122/50 O2 Sat by Pulse 98 99 Oximetry General appearance: Present: other (Intubated) - EENT ENT: other (Intubated) - Respiratory Respiratory effort: other (Intubated) Extremities: normal temperature, normal color - Psychiatric Psychiatric: other (Intubated) - Labs CBC & Chem 7: 02/04/21 09:55 02/04/21 05:59 Labs: Abnormal lab results 01/31/21 01/31/21 01/31/21 Range/Units 08:23 08:23 08:23 WBC (4.5-11.0) K/mm3 RBC (3.65-5.03) M/mm3 Hgb (11.8-15.2) gm/dl Hct (35.5-45.6) % MCH (28-32) pg MCHC (32-34) % RDW (13.2-15.2) % Plt Count (140-440) K/mm3 Lymph % (Auto) (13.4-35.0) % [place] % (Auto) (0.0-7.3) % Lymph # (Auto) (1.2-5.4) K/mm3 [place] # (Auto) (0.0-0.8) K/mm3 Seg Neutrophils % (40.0-70.0) % Seg Neutrophils # (1.8-7.7) K/mm3 POC ABG pCO2 (32.0-48.0) mmHg POC ABG pO2 (83-108) mmHg ABG Hemoglobin (12.0-17.5) ABG Oxyhemoglobin (94-98) ABG Sodium (136.0-145.0) mmol/L ABG Glucose (65-95) mg/dL Chloride (98-107) mmol/L BUN (9-20) mg/dL Creatinine (0.8-1.3) mg/dL Glucose (75-100) mg/dL POC Glucose (70-105) mg/dL Calcium (8.4-10.2) mg/dL Total Bilirubin (0.1-1.2) mg/dL AST (5-40) units/L ALT (7-56) units/L Total Protein (6.3-8.2) g/dL Albumin (3.9-5) g/dL Arterial Blood Glucose (65-95) mg/dL Arterial Blood Ionized Calcium (4.6-5.3) mg/dL Complement C3 73 L (82-185) mg/dL Complement C4 5 L (15-53) mg/dL Hep Bs Antibody, Quant 5 L (>=10) mIU/mL Crossmatch 02/03/21 02/03/21 02/03/21 Range/Units 07:30 19:05 23:07 WBC (4.5-11.0) K/mm3 RBC (3.65-5.03) M/mm3 Hgb 7.1 L (11.8-15.2) gm/dl Hct 20.6 L (35.5-45.6) % MCH (28-32) pg MCHC (32-34) % RDW (13.2-15.2) % Plt Count (140-440) K/mm3 Lymph % (Auto) (13.4-35.0) % [place] % (Auto) (0.0-7.3) % Lymph # (Auto) (1.2-5.4) K/mm3 [place] # (Auto) (0.0-0.8) K/mm3 Seg Neutrophils % (40.0-70.0) % Seg Neutrophils # (1.8-7.7) K/mm3 POC ABG pCO2 (32.0-48.0) mmHg POC ABG pO2 (83-108) mmHg ABG Hemoglobin (12.0-17.5) ABG Oxyhemoglobin (94-98) ABG Sodium (136.0-145.0) mmol/L ABG Glucose (65-95) mg/dL Chloride (98-107) mmol/L BUN (9-20) mg/dL Creatinine (0.8-1.3) mg/dL Glucose (75-100) mg/dL POC Glucose 126 H (70-105) mg/dL Calcium (8.4-10.2) mg/dL Total Bilirubin (0.1-1.2) mg/dL AST (5-40) units/L ALT (7-56) units/L Total Protein (6.3-8.2) g/dL Albumin (3.9-5) g/dL Arterial Blood Glucose (65-95) mg/dL Arterial Blood Ionized Calcium (4.6-5.3) mg/dL Complement C3 (82-185) mg/dL Complement C4 (15-53) mg/dL Hep Bs Antibody, Quant (>=10) mIU/mL Crossmatch See Detail 02/03/21 02/04/21 02/04/21 Range/Units 23:33 04:09 05:59 WBC (4.5-11.0) K/mm3 RBC (3.65-5.03) M/mm3 Hgb 6.6 L (11.8-15.2) gm/dl Hct 19.3 L* (35.5-45.6) % MCH (28-32) pg MCHC (32-34) % RDW (13.2-15.2) % Plt Count (140-440) K/mm3 Lymph % (Auto) (13.4-35.0) % [place] % (Auto) (0.0-7.3) % Lymph # (Auto) (1.2-5.4) K/mm3 [place] # (Auto) (0.0-0.8) K/mm3 Seg Neutrophils % (40.0-70.0) % Seg Neutrophils # (1.8-7.7) K/mm3 POC ABG pCO2 26.9 L (32.0-48.0) mmHg POC ABG pO2 47.6 L (83-108) mmHg ABG Hemoglobin 7.6 L (12.0-17.5) ABG Oxyhemoglobin 82.8 L (94-98) ABG Sodium 132.0 L (136.0-145.0) mmol/L ABG Glucose 111 H (65-95) mg/dL Chloride 96.3 L (98-107) mmol/L BUN 31 H (9-20) mg/dL Creatinine 3.4 H (0.8-1.3) mg/dL Glucose 108 H (75-100) mg/dL POC Glucose (70-105) mg/dL Calcium 8.3 L (8.4-10.2) mg/dL Total Bilirubin 12.30 H (0.1-1.2) mg/dL AST 781 H (5-40) units/L ALT 261 H (7-56) units/L Total Protein 5.9 L (6.3-8.2) g/dL Albumin 3.1 L (3.9-5) g/dL Arterial Blood Glucose 111 H (65-95) mg/dL Arterial Blood Ionized Calcium 4.0 L (4.6-5.3) mg/dL Complement C3 (82-185) mg/dL Complement C4 (15-53) mg/dL Hep Bs Antibody, Quant (>=10) mIU/mL Crossmatch 02/04/21 02/04/21 Range/Units 09:55 11:33 WBC 13.4 H (4.5-11.0) K/mm3 RBC 2.60 L (3.65-5.03) M/mm3 Hgb 8.4 L (11.8-15.2) gm/dl Hct 24.5 L (35.5-45.6) % MCH 33 H (28-32) pg MCHC 35 H (32-34) % RDW 16.8 H (13.2-15.2) % Plt Count 57 L (140-440) K/mm3 Lymph % (Auto) 8.1 L (13.4-35.0) % [place] % (Auto) 13.2 H (0.0-7.3) % Lymph # (Auto) 1.1 L (1.2-5.4) K/mm3 [place] # (Auto) 1.8 H (0.0-0.8) K/mm3 Seg Neutrophils % 78.5 H (40.0-70.0) % Seg Neutrophils # 10.5 H (1.8-7.7) K/mm3 POC ABG pCO2 (32.0-48.0) mmHg POC ABG pO2 (83-108) mmHg ABG Hemoglobin (12.0-17.5) ABG Oxyhemoglobin (94-98) ABG Sodium (136.0-145.0) mmol/L ABG Glucose (65-95) mg/dL Chloride (98-107) mmol/L BUN (9-20) mg/dL Creatinine (0.8-1.3) mg/dL Glucose (75-100) mg/dL POC Glucose 112 H (70-105) mg/dL Calcium (8.4-10.2) mg/dL Total Bilirubin (0.1-1.2) mg/dL AST (5-40) units/L ALT (7-56) units/L Total Protein (6.3-8.2) g/dL Albumin (3.9-5) g/dL Arterial Blood Glucose (65-95) mg/dL Arterial Blood Ionized Calcium (4.6-5.3) mg/dL Complement C3 (82-185) mg/dL Complement C4 (15-53) mg/dL Hep Bs Antibody, Quant (>=10) mIU/mL Crossmatch Medications & Allergies - Medications Allergies/Adverse Reactions: Allergies Penicillins Allergy (Verified 01/30/21 21:16) Hives Active Medications: Generic Name Dose Route Start Last Admin Trade Name Freq PRN Reason Stop Dose Admin Acetaminophen 650 mg 01/31/21 03:30 02/02/21 14:28 Acetaminophen 325 Mg Tab PO 650 mg Q4H PRN Administration Pain MILD(1-3)/Fever >100.5/BUTCHER Dextrose 25 ml 01/31/21 13:00 02/03/21 10:35 Dextrose 50% In Water (25gm) 50 Ml Syringe IV 25 ml Q30MIN PRN Administration Hypoglycemia Protocol Fentanyl 50 mcg 02/03/21 18:42 Fentanyl 100 Mcg/2 Ml Inj IV Q2H PRN Pain , Severe (7-10) Hydrophilic Ointment 1 applic 02/03/21 18:45 Lip Therapy Vaseline TP Q2H PRN Dry Lips Octreotide Acetate 500 mcg/ 101 mls @ 10.1 mls/hr 02/02/21 16:00 02/04/21 09:52 Sodium Chloride IV 02/05/21 15:59 50 mcg/hr TITR TAQUERIA 10.1 mls/hr Administration Protocol 50 MCG/HR Sodium Chloride 100 mls @ 999 mls/hr 02/03/21 11:00 Nacl 0.9% IV MARCIO PRN Hypotension Pantoprazole Sodium 80 mg/ 100 mls @ 10 mls/hr 02/03/21 17:00 02/04/21 09:52 Sodium Chloride IV 8 mg/hr DIRECT TAQUERIA 10 mls/hr Administration 8 MG/HR Sodium Chloride 1,000 mls @ 50 mls/hr 02/03/21 18:00 Nacl 0.9% 1000 Ml IV DIRECT TAQUERIA Propofol 1,000 mg in 100 mls @ 2.955 mls/hr 02/03/21 19:00 02/04/21 11:32 Diprivan 10 Mg/Ml IV 20 mcg/kg/min TITR TAQUERIA 11.82 mls/hr Administration Protocol 5 MCG/KG/MIN Vasopressin 20 unit/ Sodium 101 mls @ 9.09 mls/hr 02/04/21 05:00 02/04/21 05:50 Chloride IV 0.03 units/min TITR TAQUERIA 9.09 mls/hr Administration Protocol 0.03 UNITS/MIN Sodium Chloride 500 mls @ 0 mls/hr 02/04/21 11:10 Nacl 0.9% 500 Ml IV 02/04/21 23:59 ONCE NR As Directed Lactulose 20 gm 02/01/21 10:00 02/04/21 09:20 Lactulose 20 Gm/30 Ml Oral Liqd PO Not Given QDAY [facility] Multi-Ingred Cream/Lotion/Oil/Oint 1 applic 02/03/21 18:45 Mineral Oil/Petrolatum, White Ophth Oint 3.5 Gm OU Q4H PRN Dry Eye(s) Multivitamins 1 each 02/01/21 10:00 02/04/21 09:20 Multivitamins ,Therapeutic Tab PO Not Given QDAY [facility] Ondansetron HCl 4 mg 01/31/21 03:30 02/03/21 10:18 Ondansetron 4 Mg/2 Ml Inj IV 4 mg Q8H PRN Administration Nausea And Vomiting Senna/Docusate Sodium 1 tab 02/03/21 22:00 02/04/21 09:20 Sennosides/Docusate Sodium 8.6/50 Mg Tab FEEDTUBE Not Given BID [facility] Sodium Chloride 10 ml 01/31/21 10:00 02/04/21 09:52 Sodium Chloride 0.9% 10 Ml Flush Syringe IV 10 ml BID TAQUERIA Administration Sodium Chloride 10 ml 01/31/21 03:30 Sodium Chloride 0.9% 10 Ml Flush Syringe IV PRN PRN LINE FLUSH
--- NOTE | 2021-02-04 16:27 | Progress Note ---
Assessment and Plan # LILLIAM: Likely with hepatorenal physiology +/- ATN from active bleed - reviewed urine studies, minimal blood/protein noted - imaging reviewed - serologies sent and pending, HCV + - Started HD 02/03, continue MWF. Assess daily for needs of additional sessions - avoid nephrotoxins - renally dose meds - continue IV albumin bolus if albumin <2 to encourage renal perfusion - Keep MAP>65 - Transfuse for hgb < 7 # Acute blood loss anemia, s/p endoscopy and IR embolization. Transfuse for hgb < 7 # Hyperkalemia: controlled with HD. Low k diet when diet permitted. # Hyperbilirubinemia/Cirrhosis/Concern for HCC: GI following, s/p paracentesis. Alcohol cessation # Hypoalbuminemia Subjective Date of service: 02/04/21 Principal diagnosis: Cirrhosis, Ulcer Interval history: Transfer to the ICU. Intubated. Objective - Exam Narrative Exam: General: Sedated. Intubated. HEENT: Oral mucosa moist Neck: Supple, no JVD Chest: Intubated. Mechanical breath sounds. Heart: RRR, S1 and S2, no pericardial rub Abdomen: Soft, nontender, no renal bruit Extremity: No peripheral cyanosis, edema Neurological: Sedated Dermatology: No skin rash Psych: Unable to assess Musculoskeletal: No joint effusion - Vital Signs Vital signs: Vital Signs - 12hr 02/04/21 02/04/21 02/04/21 04:30 04:34 04:45 Temperature Pulse Rate 113 H 113 H 113 H Pulse Rate [ From Monitor] Respiratory 28 H 27 H 26 H Rate Blood Pressure 108/39 108/39 96/43 O2 Sat by Pulse 95 97 98 Oximetry 02/04/21 02/04/21 02/04/21 05:00 05:04 05:15 Temperature 97.5 F L Pulse Rate 113 H 113 H 113 H Pulse Rate [ From Monitor] Respiratory 27 H 25 H 27 H Rate Blood Pressure 100/42 100/42 110/40 O2 Sat by Pulse 98 99 100 Oximetry 02/04/21 02/04/21 02/04/21 05:30 05:34 05:45 Temperature 97.1 F L Pulse Rate 111 H 112 H 114 H Pulse Rate [ From Monitor] Respiratory 28 H 27 H 26 H Rate Blood Pressure 110/40 114/43 114/43 O2 Sat by Pulse 100 98 Oximetry 02/04/21 02/04/21 02/04/21 05:58 06:00 06:04 Temperature 97.7 F Pulse Rate 113 H 110 H 109 H Pulse Rate [ From Monitor] Respiratory 26 H 26 H Rate Blood Pressure 106/69 123/47 113/54 O2 Sat by Pulse 100 97 96 Oximetry 02/04/21 02/04/21 02/04/21 06:10 06:20 06:30 Temperature Pulse Rate 109 H 108 H 108 H Pulse Rate [ From Monitor] Respiratory 24 24 23 Rate Blood Pressure 123/47 113/54 113/51 O2 Sat by Pulse 97 96 96 Oximetry 02/04/21 02/04/21 02/04/21 06:40 06:50 07:00 Temperature Pulse Rate 107 H 105 H 104 H Pulse Rate [ From Monitor] Respiratory 23 23 22 Rate Blood Pressure 123/47 124/53 119/59 O2 Sat by Pulse 96 95 97 Oximetry 02/04/21 02/04/21 02/04/21 07:10 07:20 07:30 Temperature Pulse Rate 103 H 102 H 104 H Pulse Rate [ From Monitor] Respiratory 22 21 21 Rate Blood Pressure 124/53 122/60 127/55 O2 Sat by Pulse 98 98 98 Oximetry 02/04/21 02/04/21 02/04/21 07:40 07:50 08:00 Temperature 98.7 F Pulse Rate 104 H 104 H 102 H Pulse Rate [ From Monitor] Respiratory 23 22 19 Rate Blood Pressure 127/55 122/58 111/58 O2 Sat by Pulse 99 98 99 Oximetry 02/04/21 02/04/21 02/04/21 08:15 08:23 08:30 Temperature Pulse Rate 100 H 98 H 99 H Pulse Rate [ From Monitor] Respiratory 19 20 Rate Blood Pressure 113/55 117/53 117/53 O2 Sat by Pulse 100 98 98 Oximetry 02/04/21 02/04/21 02/04/21 08:45 09:00 09:15 Temperature Pulse Rate 91 H 92 H Pulse Rate [ From Monitor] Respiratory 18 21 Rate Blood Pressure 125/55 129/56 113/56 O2 Sat by Pulse 99 97 98 Oximetry 02/04/21 02/04/21 02/04/21 09:30 09:45 10:00 Temperature Pulse Rate 89 88 88 Pulse Rate [ From Monitor] Respiratory 17 17 18 Rate Blood Pressure 119/58 110/54 125/56 O2 Sat by Pulse 98 98 98 Oximetry 02/04/21 02/04/21 02/04/21 10:15 10:30 10:45 Temperature Pulse Rate 86 87 84 Pulse Rate [ From Monitor] Respiratory 17 17 16 Rate Blood Pressure 132/55 127/59 129/54 O2 Sat by Pulse 99 99 99 Oximetry 02/04/21 02/04/21 02/04/21 11:00 11:15 11:30 Temperature Pulse Rate 86 85 87 Pulse Rate [ From Monitor] Respiratory 17 15 16 Rate Blood Pressure 129/54 130/56 137/65 O2 Sat by Pulse 100 99 100 Oximetry 02/04/21 02/04/21 02/04/21 11:45 12:00 12:15 Temperature 97.7 F Pulse Rate 83 83 84 Pulse Rate [ 85 From Monitor] Respiratory 16 17 15 Rate Blood Pressure 131/53 131/53 128/54 O2 Sat by Pulse 99 99 99 Oximetry 02/04/21 02/04/21 02/04/21 12:30 12:43 12:45 Temperature Pulse Rate 82 86 85 Pulse Rate [ From Monitor] Respiratory 17 16 Rate Blood Pressure 126/51 130/54 O2 Sat by Pulse 99 99 98 Oximetry 02/04/21 02/04/21 02/04/21 13:00 13:15 13:30 Temperature Pulse Rate 85 84 83 Pulse Rate [ From Monitor] Respiratory 17 16 16 Rate Blood Pressure 122/50 127/53 126/52 O2 Sat by Pulse 99 99 99 Oximetry 02/04/21 02/04/21 02/04/21 13:45 14:00 14:15 Temperature Pulse Rate 82 82 82 Pulse Rate [ From Monitor] Respiratory 14 18 16 Rate Blood Pressure 119/51 115/52 132/54 O2 Sat by Pulse 99 99 100 Oximetry 02/04/21 02/04/21 02/04/21 14:30 14:45 15:00 Temperature Pulse Rate 81 83 83 Pulse Rate [ From Monitor] Respiratory 17 17 15 Rate Blood Pressure 123/55 137/53 135/53 O2 Sat by Pulse 100 100 100 Oximetry 02/04/21 02/04/21 02/04/21 15:10 15:20 15:30 Temperature Pulse Rate 82 83 81 Pulse Rate [ From Monitor] Respiratory 18 16 16 Rate Blood Pressure 135/53 133/53 133/50 O2 Sat by Pulse 100 100 100 Oximetry 02/04/21 02/04/21 02/04/21 15:40 15:50 16:00 Temperature Pulse Rate 84 85 86 Pulse Rate [ From Monitor] Respiratory 16 17 18 Rate Blood Pressure 133/50 133/50 140/52 O2 Sat by Pulse 100 100 99 Oximetry 02/04/21 16:16 Temperature Pulse Rate 91 H Pulse Rate [ From Monitor] Respiratory 19 Rate Blood Pressure 140/52 O2 Sat by Pulse 98 Oximetry - Lab 02/04/21 09:55 02/04/21 05:59 Most recent lab results ABG pH 7.410 (7.320-7.450) 02/04/21 08:24 ABG O2 Saturation 98.6 (0-100) 02/04/21 08:24 Calcium 8.3 mg/dL (8.4-10.2) L 02/04/21 05:59 Urine Creatinine 413.9 mg/dL (0.1-20.0) H 02/01/21 06:08 Urine Total Protein 55 mg/dL (5-11.8) H 02/01/21 06:08 Medications & Allergies - Medications Allergies/Adverse Reactions: Allergies Penicillins Allergy (Verified 01/30/21 21:16) Hives Active Medications: Generic Name Dose Route Start Last Admin Trade Name Freq PRN Reason Stop Dose Admin Acetaminophen 650 mg 01/31/21 03:30 02/02/21 14:28 Acetaminophen 325 Mg Tab PO 650 mg Q4H PRN Administration Pain MILD(1-3)/Fever >100.5/BUTCHER Dextrose 25 ml 01/31/21 13:00 02/03/21 10:35 Dextrose 50% In Water (25gm) 50 Ml Syringe IV 25 ml Q30MIN PRN Administration Hypoglycemia Protocol Fentanyl 50 mcg 02/03/21 18:42 Fentanyl 100 Mcg/2 Ml Inj IV Q2H PRN Pain , Severe (7-10) Hydrophilic Ointment 1 applic 02/03/21 18:45 Lip Therapy Vaseline TP Q2H PRN Dry Lips Octreotide Acetate 500 mcg/ 101 mls @ 10.1 mls/hr 02/02/21 16:00 02/04/21 09:52 Sodium Chloride IV 02/05/21 15:59 50 mcg/hr TITR TAQUERIA 10.1 mls/hr Administration Protocol 50 MCG/HR Sodium Chloride 100 mls @ 999 mls/hr 02/03/21 11:00 Nacl 0.9% IV MARCIO PRN Hypotension Pantoprazole Sodium 80 mg/ 100 mls @ 10 mls/hr 02/03/21 17:00 02/04/21 09:52 Sodium Chloride IV 8 mg/hr DIRECT TAQUERIA 10 mls/hr Administration 8 MG/HR Sodium Chloride 1,000 mls @ 50 mls/hr 02/03/21 18:00 Nacl 0.9% 1000 Ml IV DIRECT TAQUERIA Propofol 1,000 mg in 100 mls @ 2.955 mls/hr 02/03/21 19:00 02/04/21 11:32 Diprivan 10 Mg/Ml IV 20 mcg/kg/min TITR TAQUERIA 11.82 mls/hr Administration Protocol 5 MCG/KG/MIN Vasopressin 20 unit/ Sodium 101 mls @ 9.09 mls/hr 02/04/21 05:00 02/04/21 05:50 Chloride IV 0.03 units/min TITR TAQUERIA 9.09 mls/hr Administration Protocol 0.03 UNITS/MIN Sodium Chloride 500 mls @ 0 mls/hr 02/04/21 11:10 Nacl 0.9% 500 Ml IV 02/04/21 23:59 ONCE NR As Directed Lactulose 20 gm 02/01/21 10:00 02/04/21 09:20 Lactulose 20 Gm/30 Ml Oral Liqd PO Not Given QDAY [facility] Multi-Ingred Cream/Lotion/Oil/Oint 1 applic 02/03/21 18:45 Mineral Oil/Petrolatum, White Ophth Oint 3.5 Gm OU Q4H PRN Dry Eye(s) Multivitamins 1 each 02/01/21 10:00 02/04/21 09:20 Multivitamins ,Therapeutic Tab PO Not Given QDAY [facility] Ondansetron HCl 4 mg 01/31/21 03:30 02/03/21 10:18 Ondansetron 4 Mg/2 Ml Inj IV 4 mg Q8H PRN Administration Nausea And Vomiting Senna/Docusate Sodium 1 tab 02/03/21 22:00 02/04/21 09:20 Sennosides/Docusate Sodium 8.6/50 Mg Tab FEEDTUBE Not Given BID TAQUERIA Sodium Chloride 10 ml 01/31/21 10:00 02/04/21 09:52 Sodium Chloride 0.9% 10 Ml Flush Syringe IV 10 ml BID TAQUERIA Administration Sodium Chloride 10 ml 01/31/21 03:30 Sodium Chloride 0.9% 10 Ml Flush Syringe IV PRN PRN LINE FLUSH
[2021-02-04 18:04] LABS: Hematocrit 24.3 % (35.5-45.6); Hemoglobin 8.4 gm/dl (11.8-15.2)
[2021-02-04] MEDS ORDERED: NORepinephrine/NS 4 MG-250 ML 4 MG/250 ML BAG IV ONE (18:32)
--- NOTE | 2021-02-04 18:55 | Progress Note ---
Assessment and Plan Assessment and plan: Patient was admitted with abdominal pain possibly secondary to cirrhotic liver with accompanying ascites, cholelithiasis and hyperkalemia with acute renal failure. Acute kidney injury likely due to ATN with possible underlying CKD now most likely progressed to ESRD Acute blood loss anemia s/p endoscopy and IR Coil embolization Active GI bleeding from large antral ulceration Acute hypoxic respiratory failure Alcoholic cirrhosis of liver with ascites Ascites Coagulopathy Hepatic mass Hyperbilirubinemia with elevated LFTs Hepatitis C Leukocytosis current daily smoker EtOH abuse S/p traumatic left BKA -GI, nephrology, vascular surgery, CCM consulted, appreciate recommendations -Patient intubated on 02/03 for airway protection -S/p paracentesis with removal of 5.5 L of ascitic fluid -S/p EGD and call embolization with empiric embolization of GDA and clip to target embolization of the right proximal gastroepiploic artery -02/03 s/p vitamin K and FFP -01/31 CT abdomen/pelvis without contrast cirrhotic appearing liver, suggestion of possible multiple masses throughout the liver parenchyma although this is difficult to complete identify without contrast, mild large amount of ascites noted throughout the abdomen and pelvis, cholelithiasis without CT evidence of acute cholecystitis, small left pleural effusion, trace right pleural effusion -01/31 ultrasound-guided paracentesis with removal of 5500 amounts of straw- colored fluid -02/01 ultrasound abdomen revealed cirrhotic liver, diffusely heterogeneous hepatic parenchyma with several more nodular areas of increased echogenicity (difficult to say if this represents more focal areas of hepatic steatosis or underlying hepatic lesion, patent portal vein, cholelithiasis without convincing evidence of cholecystitis -Vasopressor support with vasopressin -Albumin as needed, lactulose -Hemodialysis per nephrology -Daily weights -Strict urine output -Avoid nephrotoxic medications -Initiate bleeding precautions -Octreotide drip, Protonix drip -Serial H/H -Fentanyl as needed, propofol for sedation -N.p.o. for now -VAP bundle, wean mechanical ventilation as tolerated -Transfuse for hemoglobin less than 7 -Monitor CBC, BMP, LFTs DVT/GI prophylaxis: SCDs to bilateral lower extremities while in bed, avoid chemical anticoagulation in setting of recent acute blood loss anemia, PPI Disposition: ICU The high probability of a clinically significant, sudden or life threatening deterioration of the system(respiratory, GI, renal, hematology) required my full and direct attention, intervention and personal management. The aggregate critical care time was [35] minutes. This time is in addition to time spent performing reported procedures but includes the following: [x] Data Review and interpretation [x] Patient assessment and monitoring of vital signs [x] Documentation [x] Medication orders and management History Interval history: 65-year-old male with no significant past medical history presented to the emergency room complaining of abdominal pain and lower extremity edema for the p ast 2 to 3 weeks. Work-up in the emergency room showed elevated creatinine of 2.6, elevated liver enzymes,Elevated bilirubin. Hyperkalemia of 5.7. He received calcium gluconate, insulin and glucose, sodium bicarb and Kayexalate in the emergency room for the hyperkalemia. Chest x-ray reveals small left pleural effusion. CT of the abdomen and pelvis shows a cirrhotic appearing liver there is also suggestion of possible multiple masses throughout the liver parenchyma. Moderate/large amount of ascites is noted throughout the abdomen and pelvis. Cholelithiasis without CT evidence of acute cholecystitis. Patient was admitted with abdominal pain possibly secondary to cirrhotic liver with accompanying ascites, cholelithiasis and hyperkalemia with acute renal failure. 02/01/21: K level improved, no plan to start HD now. cont to follow BMP. Had paracentesis yesterday and drained about 5.5 L of ascitic fluid. Patient also initiated on albumin. Ordered for AFP. Abdominal ultrasound and CT abdomen suggestive of possible underlying hepatic malignancy. Will follow GI recommendation. Abdomen US: 1. Cirrhotic liver. The hepatic parenchyma is diffusely heterogeneous with several more nodular areas of increased echogenicity. It is difficult to say if this represents more focal areas of hepatic steatosis or an underlying hepatic lesion, and multi phase CT or MRI of the abdomen is recomme nded for further evaluation. 2. The portal vein is patent. 3. Cholelithiasis without convincing evidence for acute cholecystitis. 02/02/21: Discussed with patient and patient daughter at the bedside. Patient complains of lethargy, reduced appetite and generalized weakness. Patient did not receive COVID-19 vaccine. We will also order for Covid 19 PCR. Continue to follow LFT which remains elevated. Patient had blood in the stool today. Patient initiated on albumin, octreotide. Plan for endoscopy tomorrow. 02/03/21; serum creatinine and potassium further increased today. Patient noted to have bloody vomitus and bloody bowel movement today. Hemoglobin dropped to 6.5. Ordered for stat packed RBC transfusion, FFP and vitamin K. Patient was taken for EGD which showed following findings. 1. Normal duodenum 2. 5mm cratered in the antrum - Visible vessel at the base - Attempted clip x 4 (Conmed 16mm, 11mm clips) but mucosal defect would not close 3. Huge amount of blood/clots in stomach, and proimal body/fundus not seen, but does not appear to have varices in the cardia 4. Grade I esophageal varices (3 columns) that had no stigmata of bleeding, and flattened on insufflation Following EGD patient was taken for catheterization for vascular procedure. Triallysis catheter was placed by vascular and s/p Coil embolization performed with empiric embolization of GDA and clip targeting embolization of the right proximal gastroepiploic artery. Patient will also remain intubated for airway protection. Consulted critical care and transfer the patient to ICU. Updated patient's family by phone and at the bedside with all clinical details. 02/04: Patient had EEG yesterday showed gastric ulcer with hemorrhage and failed endoscopic clipping and was embolized with IR. Patient was transferred to ICU postprocedure where he remains intubated on assist control tidal volume 450, rate of 12, PEEP of 6 and FiO2 of 30 sent. The time of examination patient had 1 unit of his ordered 3 units PRBC left to transfuse. Repeat H/H was 8.4/24.5. Patient is on serial H/H. Patient received hemodialysis today. Octreotide and Protonix drip and is on vasopressin due to hypotension overnight. Per RN patient had bloody however this is conveyed to GI and Given Stable H&H transfuse with 1 additional unit PRBC. Patient received DDAVP today. Hospitalist Physical - Constitutional Vitals: Temp Pulse Resp BP Pulse Ox 97.7 F 110 H 31 H 103/39 94 02/04/21 12:00 02/04/21 18:15 02/04/21 18:15 02/04/21 18:15 02/04/21 18:15 General appearance: Present: other (Intubated, sedated) - EENT Eyes: Present: PERRL ENT: poor dentition - Respiratory Respiratory effort: normal Respiratory: bilateral: CTA, diminished - Cardiovascular Rhythm: regular Heart Sounds: Present: S1 & S2. Absent: systolic murmur, diastolic murmur - Extremities Extremities: no ischemia, pulses intact, pulses symmetrical, normal temperature, normal color - Abdominal General gastrointestinal: soft, non-tender, non-distended, hypoactive bowel sounds - Integumentary Integumentary: Present: warm, dry - Psychiatric Psychiatric: other (sedated) - Neurologic Neurologic: other (sedated) - Allied Health Allied health notes reviewed: nursing, RT, social work Results - Labs CBC & Chem 7: 02/04/21 17:46 02/04/21 05:59 Labs: Laboratory Last Values WBC 13.4 K/mm3 (4.5-11.0) H 02/04/21 09:55 RBC 2.60 M/mm3 (3.65-5.03) L 02/04/21 09:55 Hgb 8.4 gm/dl (11.8-15.2) L 02/04/21 17:46 Hct 24.3 % (35.5-45.6) L 02/04/21 17:46 MCV 94 fl (84-94) 02/04/21 09:55 MCH 33 pg (28-32) H 02/04/21 09:55 MCHC 35 % (32-34) H 02/04/21 09:55 RDW 16.8 % (13.2-15.2) H 02/04/21 09:55 Plt Count 57 K/mm3 (140-440) L 02/04/21 09:55 Lymph % (Auto) 8.1 % (13.4-35.0) L 02/04/21 09:55 [place] % (Auto) 13.2 % (0.0-7.3) H 02/04/21 09:55 Eos % (Auto) 0.1 % (0.0-4.3) 02/04/21 09:55 Baso % (Auto) 0.1 % (0.0-1.8) 02/04/21 09:55 Lymph # (Auto) 1.1 K/mm3 (1.2-5.4) L 02/04/21 09:55 [place] # (Auto) 1.8 K/mm3 (0.0-0.8) H 02/04/21 09:55 Eos # (Auto) 0.0 K/mm3 (0.0-0.4) 02/04/21 09:55 Baso # (Auto) 0.0 K/mm3 (0.0-0.1) 02/04/21 09:55 Add Manual Diff Complete 02/01/21 05:04 Total Counted 100 02/01/21 05:04 Seg Neutrophils % 78.5 % (40.0-70.0) H 02/04/21 09:55 Seg Neuts % (Manual) 75.0 % (40.0-70.0) H 02/01/21 05:04 Lymphocytes % (Manual) 13.0 % (13.4-35.0) L 02/01/21 05:04 Reactive Lymphs % (Man) 1.0 % 02/01/21 05:04 Monocytes % (Manual) 10.0 % (0.0-7.3) H 02/01/21 05:04 Basophils % (Manual) 1.0 % (0.0-1.8) 02/01/21 05:04 Nucleated RBC % Not Reportable 02/01/21 05:04 Seg Neutrophils # 10.5 K/mm3 (1.8-7.7) H 02/04/21 09:55 Seg Neutrophils # Man 4.2 K/mm3 (1.8-7.7) 02/01/21 05:04 Band Neutrophils # 0.0 K/mm3 02/01/21 05:04 Lymphocytes # (Manual) 0.7 K/mm3 (1.2-5.4) L 02/01/21 05:04 Abs React Lymphs (Man) 0.1 K/mm3 02/01/21 05:04 Monocytes # (Manual) 0.6 K/mm3 (0.0-0.8) 02/01/21 05:04 Eosinophils # (Manual) 0.0 K/mm3 (0.0-0.4) 02/01/21 05:04 Basophils # (Manual) 0.1 K/mm3 (0.0-0.1) 02/01/21 05:04 Metamyelocytes # 0.0 K/mm3 02/01/21 05:04 Myelocytes # 0.0 K/mm3 02/01/21 05:04 Promyelocytes # 0.0 K/mm3 02/01/21 05:04 Blast Cells # 0.0 K/mm3 02/01/21 05:04 WBC Morphology Not Reportable 02/01/21 05:04 Hypersegmented Neuts Not Reportable 02/01/21 05:04 Hyposegmented Neuts Not Reportable 02/01/21 05:04 Hypogranular Neuts Not Reportable 02/01/21 05:04 Smudge Cells Not Reportable 02/01/21 05:04 Toxic Granulation Not Reportable 02/01/21 05:04 Toxic Vacuolation Not Reportable 02/01/21 05:04 Dohle Bodies Not Reportable 02/01/21 05:04 Pelger-Huet Anomaly Not Reportable 02/01/21 05:04 Tita Rods Not Reportable 02/01/21 05:04 Platelet Estimate Consistent w auto 02/01/21 05:04 Clumped Platelets Not Reportable 02/01/21 05:04 Plt Clumps, EDTA Not Reportable 02/01/21 05:04 Large Platelets Not Reportable 02/01/21 05:04 Giant Platelets Not Reportable 02/01/21 05:04 Platelet Satelliting Not Reportable 02/01/21 05:04 Plt Morphology Comment Not Reportable 02/01/21 05:04 RBC Morphology Not Reportable 02/01/21 05:04 Dimorphic RBCs Not Reportable 02/01/21 05:04 Polychromasia Not Reportable 02/01/21 05:04 Hypochromasia Not Reportable 02/01/21 05:04 Poikilocytosis Not Reportable 02/01/21 05:04 Anisocytosis 1+ 02/01/21 05:04 Microcytosis Not Reportable 02/01/21 05:04 Macrocytosis 1+ 02/01/21 05:04 Spherocytes Not Reportable 02/01/21 05:04 Pappenheimer Bodies Not Reportable 02/01/21 05:04 Sickle Cells Not Reportable 02/01/21 05:04 Target Cells Not Reportable 02/01/21 05:04 Tear Drop Cells Not Reportable 02/01/21 05:04 Ovalocytes Not Reportable 02/01/21 05:04 Helmet Cells Not Reportable 02/01/21 05:04 [place] Bodies Not Reportable 02/01/21 05:04 [place] Rings Not Reportable 02/01/21 05:04 [place] Cells Not Reportable 02/01/21 05:04 Bite Cells Not Reportable 02/01/21 05:04 Crenated Cell Not Reportable 02/01/21 05:04 Elliptocytes Not Reportable 02/01/21 05:04 Acanthocytes (Spur) Not Reportable 02/01/21 05:04 Rouleaux Not Reportable 02/01/21 05:04 Hemoglobin C Crystals Not Reportable 02/01/21 05:04 Schistocytes Not Reportable 02/01/21 05:04 Malaria parasites Not Reportable 02/01/21 05:04 [place] Bodies Not Reportable 02/01/21 05:04 Hem Pathologist Commnt No 02/01/21 05:04 PT 26.9 Sec. (12.2-14.9) H 02/03/21 04:18 INR 2.43 (0.87-1.13) H 02/03/21 04:18 ABG pH 7.410 (7.320-7.450) 02/04/21 08:24 POC ABG pCO2 30.6 mmHg (32.0-48.0) L 02/04/21 08:24 POC ABG pO2 111.2 mmHg (83-108) H 02/04/21 08:24 POC ABG HCO3 19.0 02/04/21 08:24 ABG O2 Saturation 98.6 (0-100) 02/04/21 08:24 POC ABG Base Excess -5.0 02/04/21 08:24 ABG Hemoglobin 8.4 (12.0-17.5) L 02/04/21 08:24 ABG Oxyhemoglobin 96.9 (94-98) 02/04/21 08:24 ABG Methemoglobin 0.3 (0.0-1.5) 02/04/21 08:24 ABG Sodium 134.1 mmol/L (136.0-145.0) L 02/04/21 08:24 ABG Potassium 4.8 mmol/L (3.40-4.50) H 02/04/21 08:24 ABG Chloride 100.0 mmol/L (98-107) 02/04/21 08:24 ABG Glucose 117 mg/dL (65-95) H 02/04/21 08:24 Carboxyhemoglobin 1.4 (0.5-1.5) 02/04/21 08:24 FiO2 % 30 02/04/21 08:24 Sodium 138 mmol/L (137-145) 02/04/21 05:59 Potassium 4.6 mmol/L (3.6-5.0) D 02/04/21 05:59 Chloride 96.3 mmol/L (98-107) L 02/04/21 05:59 Carbon Dioxide 23 mmol/L (22-30) 02/04/21 05:59 Anion Gap 23 mmol/L 02/04/21 05:59 BUN 31 mg/dL (9-20) H 02/04/21 05:59 Creatinine 3.4 mg/dL (0.8-1.3) H 02/04/21 05:59 Estimated GFR 22 ml/min 02/04/21 05:59 BUN/Creatinine Ratio 9 % 02/04/21 05:59 Glucose 108 mg/dL (75-100) H 02/04/21 05:59 POC Glucose 112 mg/dL (70-105) H 02/04/21 11:33 Calcium 8.3 mg/dL (8.4-10.2) L 02/04/21 05:59 Iron 71 ug/dL (49-181) 02/01/21 05:04 TIBC 97 mcg/dL (250-450) L 02/01/21 05:04 Total Bilirubin 12.30 mg/dL (0.1-1.2) H 02/04/21 05:59 Direct Bilirubin 5.8 mg/dL (0-0.2) H 02/02/21 15:33 Indirect Bilirubin 4.0 mg/dL 02/02/21 15:33 AST 781 units/L (5-40) H 02/04/21 05:59 ALT 261 units/L (7-56) H 02/04/21 05:59 Alkaline Phosphatase 110 units/L (35-129) 02/04/21 05:59 Total Creatine Kinase 141 units/L (55-170) 01/31/21 00:00 NT-Pro-B Natriuret Pep 616.0 pg/mL (0-900) 01/31/21 00:00 Serum Total Protein 9.5 g/dL (6.1-8.1) H 01/31/21 08:23 Total Protein 5.9 g/dL (6.3-8.2) L 02/04/21 05:59 Albumin 3.1 g/dL (3.9-5) L 02/04/21 05:59 Albumin/Globulin Ratio 1.1 % 02/04/21 05:59 Xyddc-9-Ojfjhtjoq 0.3 g/dL (0.2-0.3) 01/31/21 08:23 Vicop-0-Fjergxpdy 0.6 g/dL (0.5-0.9) 01/31/21 08:23 Beta Globulins 1.5 g/dL (0.2-0.5) H 01/31/21 08:23 Gamma Globulins 3.7 g/dL (0.8-1.7) H 01/31/21 08:23 Abnorm Protein Band 1 see below 01/31/21 08:23 PEP Interpretation see below H 01/31/21 08:23 Folate 8.23 ng/mL (7.3-26.0) 02/01/21 05:04 Arterial Blood Glucose 117 mg/dL (65-95) H 02/04/21 08:24 Arterial Blood Ionized Calcium 4.0 mg/dL (4.6-5.3) L 02/04/21 08:24 Urine Color Debbie (Yellow) 02/01/21 06:08 Urine Turbidity Slightly-cloudy (Clear) 02/01/21 06:08 Urine pH 5.0 (5.0-7.0) 02/01/21 06:08 Ur Specific [place] 1.017 (1.003-1.030) 02/01/21 06:08 Urine Protein 30 mg/dl mg/dL (Negative) 02/01/21 06:08 Urine Glucose (UA) 50 mg/dL (Negative) 02/01/21 06:08 Urine Ketones Neg mg/dL (Negative) 02/01/21 06:08 Urine Blood Sm (Negative) 02/01/21 06:08 Urine Nitrite Neg (Negative) 02/01/21 06:08 Urine Bilirubin Mod (Negative) 02/01/21 06:08 Urine Ictotest Positive (Negative) 02/01/21 06:08 Urine Urobilinogen 4.0 mg/dL (<2.0) 02/01/21 06:08 Ur Leukocyte Esterase Neg (Negative) 02/01/21 06:08 Urine WBC (Auto) 23.0 /HPF (0.0-6.0) H 02/01/21 06:08 Urine RBC (Auto) 4.0 /HPF (0.0-6.0) 02/01/21 06:08 U Epithel Cells (Auto) 3.0 /HPF (0-13.0) 02/01/21 06:08 Urine Bacteria (Auto) 1+ /HPF (Negative) 02/01/21 06:08 Ur Transition Epith Cell 1 /HPF 02/01/21 06:08 Urine Mucus Few /HPF 02/01/21 06:08 Urine Creatinine 413.9 mg/dL (0.1-20.0) H 02/01/21 06:08 Protein/Creatinin Ratio 0.13 02/01/21 06:08 Urine Total Protein 55 mg/dL (5-11.8) H 02/01/21 06:08 Fluid Type Ascitic 01/31/21 14:15 Fluid Color Yellow 01/31/21 14:15 Fluid Appearance Hazy 01/31/21 14:15 Fluid WBC 203 /mm3 01/31/21 14:15 Fluid RBC 513 /mm3 01/31/21 14:15 Fluid Seg Neutrophils 2.0 % 01/31/21 14:15 Fluid Lymphocytes 55.0 % 01/31/21 14:15 Fluid Reactive Lymphs 0 % 01/31/21 14:15 Fluid Monocytes 43.0 % 01/31/21 14:15 Fluid Eosinophils 0 % 01/31/21 14:15 Fluid Basophils 0 % 01/31/21 14:15 SHARON Screen Negative (Negative) 01/31/21 08:23 Proteinase 3 (PR3) Ab <1.0 AI (<1.0) 01/31/21 08:23 Myeloperoxidase Ab <1.0 AI (<1.0) 01/31/21 08:23 Complement C3 73 mg/dL (82-185) L 01/31/21 08:23 Complement C4 5 mg/dL (15-53) L 01/31/21 08:23 Coronavirus (PCR) Negative (Negative) 02/02/21 Unknown Hepatitis A Ab Total Reactive (Nonreactive) H 01/31/21 08:23 Hep Bs Antigen Non-reactive (Negative) 01/31/21 08:23 Hep Bs Antibody, Quant 5 mIU/mL (>=10) L 01/31/21 08:23 Hepatitis C Antibody Reactive (NonReactive) A 01/31/21 08:23 HIV 1&2 Antibody Rapid Non react (Non React) 01/31/21 08:23 HIV P24 Antigen Non react (Non React) 01/31/21 08:23 Blood Type B POSITIVE 02/03/21 07:30 Antibody Screen Negative 02/03/21 07:30 Crossmatch See Detail 02/03/21 07:30 Microbiology: Microbiology 01/31/21 14:15 Ascities Fluid Body Fluid Culture - Final Jensen/IV: Voiding Method Indwelling Catheter Active Medications - Current Medications Current Medications: Generic Name Dose Route Start Last Admin Trade Name Freq PRN Reason Stop Dose Admin Acetaminophen 650 mg 01/31/21 03:30 02/02/21 14:28 Acetaminophen 325 Mg Tab PO 650 mg Q4H PRN Administration Pain MILD(1-3)/Fever >100.5/BUTCHER Dextrose 25 ml 01/31/21 13:00 02/03/21 10:35 Dextrose 50% In Water (25gm) 50 Ml Syringe IV 25 ml Q30MIN PRN Administration Hypoglycemia Protocol Fentanyl 50 mcg 02/03/21 18:42 Fentanyl 100 Mcg/2 Ml Inj IV Q2H PRN Pain , Severe (7-10) Hydrophilic Ointment 1 applic 02/03/21 18:45 Lip Therapy Vaseline TP Q2H PRN Dry Lips Octreotide Acetate 500 mcg/ 101 mls @ 10.1 mls/hr 02/02/21 16:00 02/04/21 09:52 Sodium Chloride IV 02/05/21 15:59 50 mcg/hr TITR TAQUERIA 10.1 mls/hr Administration Protocol 50 MCG/HR Sodium Chloride 100 mls @ 999 mls/hr 02/03/21 11:00 Nacl 0.9% IV MARCIO PRN Hypotension Pantoprazole Sodium 80 mg/ 100 mls @ 10 mls/hr 02/03/21 17:00 02/04/21 09:52 Sodium Chloride IV 8 mg/hr DIRECT TAQUERIA 10 mls/hr Administration 8 MG/HR Sodium Chloride 1,000 mls @ 50 mls/hr 02/03/21 18:00 Nacl 0.9% 1000 Ml IV DIRECT TAQUERIA Propofol 1,000 mg in 100 mls @ 2.955 mls/hr 02/03/21 19:00 02/04/21 18:17 Diprivan 10 Mg/Ml IV 20 mcg/kg/min TITR TAQUERIA 11.82 mls/hr Titration Protocol 5 MCG/KG/MIN Vasopressin 20 unit/ Sodium 101 mls @ 9.09 mls/hr 02/04/21 05:00 02/04/21 18:49 Chloride IV 0.03 units/min TITR TAQUERIA 9.09 mls/hr Administration Protocol 0.03 UNITS/MIN Sodium Chloride 500 mls @ 0 mls/hr 02/04/21 11:10 Nacl 0.9% 500 Ml IV 02/04/21 23:59 ONCE NR As Directed Lactulose 20 gm 02/01/21 10:00 02/04/21 09:20 Lactulose 20 Gm/30 Ml Oral Liqd PO Not Given QDAY TAQUERIA Multi-Ingred Cream/Lotion/Oil/Oint 1 applic 02/03/21 18:45 Mineral Oil/Petrolatum, White Ophth Oint 3.5 Gm OU Q4H PRN Dry Eye(s) Multivitamins 1 each 02/01/21 10:00 02/04/21 09:20 Multivitamins ,Therapeutic Tab PO Not Given QDAY TAQUERIA Ondansetron HCl 4 mg 01/31/21 03:30 02/03/21 10:18 Ondansetron 4 Mg/2 Ml Inj IV 4 mg Q8H PRN Administration Nausea And Vomiting Senna/Docusate Sodium 1 tab 02/03/21 22:00 02/04/21 09:20 Sennosides/Docusate Sodium 8.6/50 Mg Tab FEEDTUBE Not Given BID TAQUERIA Sodium Chloride 10 ml 01/31/21 10:00 02/04/21 09:52 Sodium Chloride 0.9% 10 Ml Flush Syringe IV 10 ml BID TAQUERIA Administration Sodium Chloride 10 ml 01/31/21 03:30 Sodium Chloride 0.9% 10 Ml Flush Syringe IV PRN PRN LINE FLUSH Nutrition/Malnutrition Assess - Dietary Evaluation Nutrition/Malnutrition Findings: Nutrition Notes Start: 01/31/21 13:50 Freq: Status: Active Protocol: Document 02/04/21 09:36 VERNA (Rec: 02/04/21 09:46 VERNA [id number]) Nutrition Notes Need for Assessment generated from: MD Order Initial or Follow up Reassessment Current Diagnosis Acute Kidney Injury Other Pertinent Diagnosis alcoholic cirrhosis, hyperbilirubinemia, L BKA, GIB , esophageal varices Current Diet NPO Labs/Tests ALT 781 AST 261 Pertinent Medications Vasopressin Propofol at 11.82 ml/hr Height 5 ft 11 in Weight 98.5 kg [place] Body Weight (kg) 78.18 BMI 30.2 Weight change and time frame Wt change noted Weight Status Overweight Subjective/Other Information MD order to eval intakes. Pt now on vent and receiving HD. MD does not want NGT placed due to esophageal varices. Will await GI input. Per chart , pt with poor intakes. MD reports likely able to wean off vent tommorw and start PO. Burn Absent Trauma Absent GI Symptoms Vomiting Difficulty In Swallowing Current % PO Negligible Minimum of two criteria No physical signs of malnutrition #2 Nutrition Diagnosis Inadequate oral intake Etiology ARF As Evidenced by Signs and Symptoms pt on vent and unable to consume PO #1 Nutrition Diagnosis Altered nutrition-related laboratory values As Evidenced by Signs and Symptoms Bili 12.3 Diagnosis Progress(for reassessment Continues documentation) Is patient on ventilator? Yes Is Patient Ambulatory and/or Out of Bed Yes REE-([facility]-ambulatory/OOB) [ 2316.769 [id number]] Kcal/Kg value to use for calculation 21 Approximate Energy Requirements Using 2068 kcal/Kg Calculation Used for Recommendations Kcal/kg Additional Notes Protein: 105-176g (1.2-2g/kg AdjBW: 88kg) Fluid: 1ml/kcal Nutrition Intervention Change Diet Order: Start TF when medically able Nutrition Support: Nepro 1.8 at 50 ml/hr Flush 200 ml q4h or per MD Kcal 2,160 Protein (gm) 97 Fluid (mL) 872 Goal #1 Start TF when medically able Anticipated Discharge Needs: Unable to determine at this time Follow-Up By: 02/05/21 Additional Comments FU for plan of care or TF consult
[2021-02-05 00:56] LABS: Hematocrit 24.2 % (35.5-45.6); Hemoglobin 8.5 gm/dl (11.8-15.2)
[2021-02-05] MEDS: VASOPRESSIN 20 UNIT in SODIUM CHLORIDE 0.9% 100 ML IV SCH ×2 (03:11→15:48)
[2021-02-05] MEDS: PANTOPRAZOLE 80 MG in SODIUM CHLORIDE 0.9% 100 ML IV SCH ×3 (03:12→22:40)
[2021-02-05 03:29] LABS: Albumin 2.4 g/dL (3.9-5); Calcium 7.7 mg/dL (8.4-10.2)
--- NOTE | 2021-02-05 06:03 | XRay Report ---
CHEST 1 VIEW, 02/05/2021 1:30 AM CLINICAL INFORMATION/INDICATION: Respiratory failure COMPARISON: Chest radiograph, 02/04/2021 at 2:21 AM FINDINGS: SUPPORT DEVICES: Support tubes and lines project in stable position. HEART: There is stable enlargement of the cardiac silhouette. LUNGS/PLEURA: Perihilar interstitial opacities have slightly increased since the previous study. No p neumothorax is identified. ADDITIONAL FINDINGS: No additional acute findings. IMPRESSION: 1. Slight interval increase of perihilar interstitial opacities suggesting increasing pulmonary edema . Signer Name: Eva Phillips MD Signed: 02/05/2021 5:59 AM Workstation Name: [id number]
[2021-02-05] MEDS: OCTREOTIDE 500 MCG in SODIUM CHLORIDE 0.9% 100 ML IV SCH (07:24)
[2021-02-05 07:51] LABS: Hematocrit 23.3 % (35.5-45.6); Hemoglobin 8.1 gm/dl (11.8-15.2)
[2021-02-05] MEDS: SENNOSIDES/DOCUSATE SODIUM 8.6/50 MG TAB FEEDTUBE SCH ×2 (09:06→22:00)
[2021-02-05] MEDS: LACTULOSE 20 GM/30 ML ORAL LIQD PO SCH (09:06)
[2021-02-05] MEDS: MULTIVITAMINS ,THERAPEUTIC TAB PO SCH (09:06)
[2021-02-05 10:38] LABS: Hematocrit 23.1 % (35.5-45.6); Mean Corpuscular HGB Conc 35 % (32-34); Mean Corpuscular Volume 93 fl (84-94); Red Blood Count 2.48 M/mm3 (3.65-5.03)
[2021-02-05 10:39] LABS: Platelet Count 68 K/mm3 (140-440)
--- NOTE | 2021-02-05 11:30 | Progress Note ---
Assessment and Plan 65 y/o male with upper GI bleed, what appears to hepatorenal syndrome and acute respiratory failure secondary to EGD and blood in stomach 02/05/21: HD hopefully today by renal. Wean FiO2 for sats >88%. GI with no further plans to scope. Most likely will extubate tomorrow. 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 1. Needs q6 hour H/H's 2. Continue diprovan for sedation with pRN fent pushes for pain 3. Will order vasopressin drip given hypotension now, most likely just needs volume, ordered a bolus of LR and patient has 2 more units of blood to get 4. Suggested to IMS yesterday DDAVP, not sure why not done, will discuss with pharmacy later today. Patient did get vitamin K and 1 of FFP 5. Would not recommend placement of NG or OG at this time given esophageal varices, will speak with GI about this later today 6. Follow GI recs 7. Pulm li, stable and CXR was clear. If GI has no concerns and no further plans to look in his upper GI tract, would like to extubate later today. No Blood gas done since intubated. RT about to get a gas now and I will review. CCT 31 minutes. Subjective Date of service: 02/05/21 Principal diagnosis: Cirrhosis, Ulcer Interval history: H/H stable. Still passing old blood and some red. Slightly more hypoxic so fiO2 increased. CXR appears consistent with volume overload. Platelets improving Objective Vital Signs - 12hr 02/04/21 02/04/21 02/05/21 23:30 23:45 00:00 Temperature 98.6 F Pulse Rate 117 H 117 H 86 Pulse Rate [ 88 From Monitor] Respiratory 24 23 22 Rate Blood Pressure 137/60 135/54 135/54 O2 Sat by Pulse 97 98 98 Oximetry 02/05/21 02/05/21 02/05/21 00:15 00:30 00:45 Temperature Pulse Rate 86 87 91 H Pulse Rate [ From Monitor] Respiratory 22 22 23 Rate Blood Pressure 131/51 131/51 137/45 O2 Sat by Pulse 98 98 96 Oximetry 02/05/21 02/05/21 02/05/21 00:54 01:00 01:15 Temperature Pulse Rate 87 88 88 Pulse Rate [ From Monitor] Respiratory 23 23 Rate Blood Pressure 137/45 137/45 135/52 O2 Sat by Pulse 98 97 97 Oximetry 02/05/21 02/05/21 02/05/21 01:30 01:45 02:00 Temperature Pulse Rate 88 87 87 Pulse Rate [ From Monitor] Respiratory 26 H 24 23 Rate Blood Pressure 135/52 129/51 129/51 O2 Sat by Pulse 97 98 98 Oximetry 02/05/21 02/05/21 02/05/21 02:15 02:30 02:45 Temperature Pulse Rate 87 87 84 Pulse Rate [ From Monitor] Respiratory 24 24 25 H Rate Blood Pressure 135/54 135/54 132/49 O2 Sat by Pulse 98 96 99 Oximetry 02/05/21 02/05/21 02/05/21 03:00 03:15 03:30 Temperature Pulse Rate 87 86 89 Pulse Rate [ From Monitor] Respiratory 23 25 H 25 H Rate Blood Pressure 128/50 130/48 129/52 O2 Sat by Pulse 96 96 95 Oximetry 02/05/21 02/05/21 02/05/21 03:45 04:00 04:06 Temperature 98.8 F Pulse Rate 87 89 87 Pulse Rate [ 91 H From Monitor] Respiratory 25 H 26 H Rate Blood Pressure 134/50 134/50 130/48 O2 Sat by Pulse 95 95 95 Oximetry 02/05/21 02/05/21 02/05/21 04:15 04:30 04:45 Temperature Pulse Rate 92 H 87 87 Pulse Rate [ From Monitor] Respiratory 27 H 26 H 26 H Rate Blood Pressure 134/51 134/51 138/40 O2 Sat by Pulse 96 95 96 Oximetry 02/05/21 02/05/21 02/05/21 05:00 05:15 05:30 Temperature Pulse Rate 124 H 87 87 Pulse Rate [ From Monitor] Respiratory 26 H 26 H 26 H Rate Blood Pressure 138/40 122/49 122/49 O2 Sat by Pulse 98 97 97 Oximetry 02/05/21 02/05/21 02/05/21 05:46 06:08 06:15 Temperature Pulse Rate 85 90 89 Pulse Rate [ From Monitor] Respiratory 26 H 27 H 26 H Rate Blood Pressure 128/43 128/48 O2 Sat by Pulse 98 96 97 Oximetry 02/05/21 02/05/21 02/05/21 06:30 06:45 07:00 Temperature Pulse Rate 86 89 89 Pulse Rate [ From Monitor] Respiratory 26 H 27 H 27 H Rate Blood Pressure 123/42 128/50 128/50 O2 Sat by Pulse 97 96 96 Oximetry 02/05/21 02/05/21 02/05/21 07:15 07:30 07:45 Temperature Pulse Rate 86 88 124 H Pulse Rate [ From Monitor] Respiratory 26 H 27 H 29 H Rate Blood Pressure 126/44 125/47 110/55 O2 Sat by Pulse 97 96 96 Oximetry 02/05/21 02/05/21 02/05/21 08:00 08:15 08:30 Temperature 98.4 F Pulse Rate 96 H 128 H 128 H Pulse Rate [ 89 From Monitor] Respiratory 29 H 30 H 32 H Rate Blood Pressure 111/48 100/55 101/51 O2 Sat by Pulse 96 96 96 Oximetry 02/05/21 02/05/21 02/05/21 08:45 09:00 09:15 Temperature Pulse Rate 94 H 89 88 Pulse Rate [ From Monitor] Respiratory 30 H 29 H 29 H Rate Blood Pressure 106/39 97/46 102/48 O2 Sat by Pulse 96 96 98 Oximetry 02/05/21 02/05/21 02/05/21 09:30 09:45 10:00 Temperature Pulse Rate 123 H 123 H 123 H Pulse Rate [ From Monitor] Respiratory 27 H 28 H 27 H Rate Blood Pressure 114/53 115/48 118/52 O2 Sat by Pulse 98 98 98 Oximetry Constitutional: appears uncomfortable, other (intubated and sedated, but still moving) Eyes: non-icteric ENT: other (orally intubated) Neck: supple Effort: normal Ascultation: Bilateral: clear CBC and BMP: 02/05/21 09:00 02/05/21 02:40 ABG, PT/INR, D-dimer: ABG ABG pH 7.461 (7.320-7.450) H 02/05/21 03:15 POC ABG pCO2 28.7 mmHg (32.0-48.0) L 02/05/21 03:15 POC ABG pO2 94.4 mmHg (83-108) 02/05/21 03:15 POC ABG HCO3 20.0 02/05/21 03:15 ABG O2 Saturation 97.8 (0-100) 02/05/21 03:15 PT/INR, D-dimer PT 26.9 Sec. (12.2-14.9) H 02/03/21 04:18 INR 2.43 (0.87-1.13) H 02/03/21 04:18 Abnormal lab findings: Abnormal Labs 01/30/21 01/30/21 01/31/21 21:35 21:35 08:23 WBC RBC Hgb Hct MCV 99 H 98 H MCH 34 H 34 H MCHC 35 H RDW 15.4 H Plt Count 109 L Lymph % (Auto) [place] % (Auto) 10.4 H 8.1 H Lymph # (Auto) [place] # (Auto) Seg Neutrophils % Seg Neuts % (Manual) Lymphocytes % (Manual) Monocytes % (Manual) Seg Neutrophils # Lymphocytes # (Manual) PT INR ABG pH POC ABG pCO2 POC ABG pO2 ABG Hemoglobin ABG Oxyhemoglobin ABG Sodium ABG Potassium ABG Glucose Sodium 132 L Potassium 5.7 H Chloride Carbon Dioxide 20 L BUN 29 H Creatinine 2.6 H Glucose 69 L POC Glucose Calcium TIBC Total Bilirubin 10.70 H Direct Bilirubin AST 323 H ALT 90 H Alkaline Phosphatase 236 H Serum Total Protein Total Protein 8.7 H Albumin 2.4 L Beta Globulins Gamma Globulins PEP Interpretation Arterial Blood Glucose Arterial Blood Ionized Calcium Urine WBC (Auto) Urine Creatinine Urine Total Protein Complement C3 Complement C4 Hepatitis A Ab Total Hep Bs Antibody, Quant Hepatitis C Antibody Crossmatch 01/31/21 01/31/21 01/31/21 08:23 08:23 08:23 WBC RBC Hgb Hct MCV MCH MCHC RDW Plt Count Lymph % (Auto) [place] % (Auto) Lymph # (Auto) [place] # (Auto) Seg Neutrophils % Seg Neuts % (Manual) Lymphocytes % (Manual) Monocytes % (Manual) Seg Neutrophils # Lymphocytes # (Manual) PT INR ABG pH POC ABG pCO2 POC ABG pO2 ABG Hemoglobin ABG Oxyhemoglobin ABG Sodium ABG Potassium ABG Glucose Sodium Potassium Chloride Carbon Dioxide BUN Creatinine Glucose POC Glucose Calcium TIBC Total Bilirubin Direct Bilirubin AST ALT Alkaline Phosphatase Serum Total Protein 9.5 H Total Protein Albumin 2.8 L Beta Globulins 1.5 H Gamma Globulins 3.7 H PEP Interpretation see below H Arterial Blood Glucose Arterial Blood Ionized Calcium Urine WBC (Auto) Urine Creatinine Urine Total Protein Complement C3 73 L Complement C4 5 L Hepatitis A Ab Total Hep Bs Antibody, Quant Hepatitis C Antibody Crossmatch 01/31/21 01/31/21 01/31/21 08:23 08:23 08:23 WBC RBC Hgb Hct MCV MCH MCHC RDW Plt Count Lymph % (Auto) [place] % (Auto) Lymph # (Auto) [place] # (Auto) Seg Neutrophils % Seg Neuts % (Manual) Lymphocytes % (Manual) Monocytes % (Manual) Seg Neutrophils # Lymphocytes # (Manual) PT INR ABG pH POC ABG pCO2 POC ABG pO2 ABG Hemoglobin ABG Oxyhemoglobin ABG Sodium ABG Potassium ABG Glucose Sodium 128 L Potassium 6.8 H* Chloride 93.9 L Carbon Dioxide 19 L BUN 32 H Creatinine 2.6 H Glucose 57 L POC Glucose Calcium TIBC Total Bilirubin 11.00 H Direct Bilirubin 6.2 H AST 383 H ALT 97 H Alkaline Phosphatase 228 H Serum Total Protein Total Protein 9.7 H Albumin 2.5 L Beta Globulins Gamma Globulins PEP Interpretation Arterial Blood Glucose Arterial Blood Ionized Calcium Urine WBC (Auto) Urine Creatinine Urine Total Protein Complement C3 Complement C4 Hepatitis A Ab Total Reactive H Hep Bs Antibody, Quant 5 L Hepatitis C Antibody Crossmatch 01/31/21 01/31/21 01/31/21 08:23 10:17 11:21 WBC RBC Hgb Hct MCV MCH MCHC RDW Plt Count Lymph % (Auto) [place] % (Auto) Lymph # (Auto) [place] # (Auto) Seg Neutrophils % Seg Neuts % (Manual) Lymphocytes % (Manual) Monocytes % (Manual) Seg Neutrophils # Lymphocytes # (Manual) PT 22.2 H INR 1.88 H ABG pH POC ABG pCO2 POC ABG pO2 ABG Hemoglobin ABG Oxyhemoglobin ABG Sodium ABG Potassium ABG Glucose Sodium Potassium Chloride Carbon Dioxide BUN Creatinine Glucose POC Glucose 51 L Calcium TIBC Total Bilirubin Direct Bilirubin AST ALT Alkaline Phosphatase Serum Total Protein Total Protein Albumin Beta Globulins Gamma Globulins PEP Interpretation Arterial Blood Glucose Arterial Blood Ionized Calcium Urine WBC (Auto) Urine Creatinine Urine Total Protein Complement C3 Complement C4 Hepatitis A Ab Total Hep Bs Antibody, Quant Hepatitis C Antibody Reactive A Crossmatch 01/31/21 01/31/21 01/31/21 11:47 14:25 14:33 WBC RBC Hgb Hct MCV MCH MCHC RDW Plt Count Lymph % (Auto) [place] % (Auto) Lymph # (Auto) [place] # (Auto) Seg Neutrophils % Seg Neuts % (Manual) Lymphocytes % (Manual) Monocytes % (Manual) Seg Neutrophils # Lymphocytes # (Manual) PT INR ABG pH POC ABG pCO2 POC ABG pO2 ABG Hemoglobin ABG Oxyhemoglobin ABG Sodium ABG Potassium ABG Glucose Sodium 129 L Potassium 6.5 H* Chloride 96.0 L Carbon Dioxide 16 L BUN 34 H Creatinine 2.8 H Glucose 134 H POC Glucose 60 L 123 H Calcium TIBC Total Bilirubin Direct Bilirubin AST ALT Alkaline Phosphatase Serum Total Protein Total Protein Albumin Beta Globulins Gamma Globulins PEP Interpretation Arterial Blood Glucose Arterial Blood Ionized Calcium Urine WBC (Auto) Urine Creatinine Urine Total Protein Complement C3 Complement C4 Hepatitis A Ab Total Hep Bs Antibody, Quant Hepatitis C Antibody Crossmatch 01/31/21 02/01/21 02/01/21 15:33 05:04 05:04 WBC RBC 3.44 L Hgb 11.7 L Hct 33.6 L MCV 98 H MCH 34 H MCHC 35 H RDW Plt Count 92 L Lymph % (Auto) [place] % (Auto) Lymph # (Auto) [place] # (Auto) Seg Neutrophils % Seg Neuts % (Manual) 75.0 H Lymphocytes % (Manual) 13.0 L Monocytes % (Manual) 10.0 H Seg Neutrophils # Lymphocytes # (Manual) 0.7 L PT 22.9 H INR 1.96 H ABG pH POC ABG pCO2 POC ABG pO2 ABG Hemoglobin ABG Oxyhemoglobin ABG Sodium ABG Potassium ABG Glucose Sodium Potassium Chloride Carbon Dioxide BUN Creatinine Glucose POC Glucose 131 H Calcium TIBC Total Bilirubin Direct Bilirubin AST ALT Alkaline Phosphatase Serum Total Protein Total Protein Albumin Beta Globulins Gamma Globulins PEP Interpretation Arterial Blood Glucose Arterial Blood Ionized Calcium Urine WBC (Auto) Urine Creatinine Urine Total Protein Complement C3 Complement C4 Hepatitis A Ab Total Hep Bs Antibody, Quant Hepatitis C Antibody Crossmatch 02/01/21 02/01/21 02/01/21 05:04 05:04 06:08 WBC RBC Hgb Hct MCV MCH MCHC RDW Plt Count Lymph % (Auto) [place] % (Auto) Lymph # (Auto) [place] # (Auto) Seg Neutrophils % Seg Neuts % (Manual) Lymphocytes % (Manual) Monocytes % (Manual) Seg Neutrophils # Lymphocytes # (Manual) PT INR ABG pH POC ABG pCO2 POC ABG pO2 ABG Hemoglobin ABG Oxyhemoglobin ABG Sodium ABG Potassium ABG Glucose Sodium 134 L Potassium 3.5 L D Chloride Carbon Dioxide BUN 34 H Creatinine 2.9 H Glucose 117 H POC Glucose Calcium TIBC 97 L Total Bilirubin 7.50 H Direct Bilirubin 5.2 H AST 270 H ALT 79 H Alkaline Phosphatase 180 H Serum Total Protein Total Protein Albumin 1.9 L Beta Globulins Gamma Globulins PEP Interpretation Arterial Blood Glucose Arterial Blood Ionized Calcium Urine WBC (Auto) 23.0 H Urine Creatinine Urine Total Protein Complement C3 Complement C4 Hepatitis A Ab Total Hep Bs Antibody, Quant Hepatitis C Antibody Crossmatch 02/01/21 02/02/21 02/02/21 06:08 05:16 15:33 WBC RBC 2.91 L Hgb 10.0 L Hct 28.4 L MCV 98 H MCH 34 H MCHC 35 H RDW Plt Count 93 L Lymph % (Auto) [place] % (Auto) Lymph # (Auto) [place] # (Auto) Seg Neutrophils % Seg Neuts % (Manual) Lymphocytes % (Manual) Monocytes % (Manual) Seg Neutrophils # Lymphocytes # (Manual) PT INR ABG pH POC ABG pCO2 POC ABG pO2 ABG Hemoglobin ABG Oxyhemoglobin ABG Sodium ABG Potassium ABG Glucose Sodium 136 L Potassium Chloride Carbon Dioxide BUN 46 H Creatinine 4.7 H D Glucose POC Glucose Calcium 8.3 L TIBC Total Bilirubin 9.80 H Direct Bilirubin 5.8 H AST 259 H ALT 84 H Alkaline Phosphatase Serum Total Protein Total Protein 5.9 L Albumin 2.9 L Beta Globulins Gamma Globulins PEP Interpretation Arterial Blood Glucose Arterial Blood Ionized Calcium Urine WBC (Auto) Urine Creatinine 413.9 H Urine Total Protein 55 H Complement C3 Complement C4 Hepatitis A Ab Total Hep Bs Antibody, Quant Hepatitis C Antibody Crossmatch 02/03/21 02/03/21 02/03/21 04:18 04:18 07:30 WBC RBC 1.87 L Hgb 6.5 L D Hct 18.7 L* D MCV 100 H MCH 35 H MCHC 35 H RDW 15.8 H Plt Count 105 L Lymph % (Auto) [place] % (Auto) 11.4 H Lymph # (Auto) [place] # (Auto) 1.1 H Seg Neutrophils % Seg Neuts % (Manual) Lymphocytes % (Manual) Monocytes % (Manual) Seg Neutrophils # Lymphocytes # (Manual) PT 26.9 H INR 2.43 H ABG pH POC ABG pCO2 POC ABG pO2 ABG Hemoglobin ABG Oxyhemoglobin ABG Sodium ABG Potassium ABG Glucose Sodium Potassium Chloride Carbon Dioxide BUN Creatinine Glucose POC Glucose Calcium TIBC Total Bilirubin Direct Bilirubin AST ALT Alkaline Phosphatase Serum Total Protein Total Protein Albumin Beta Globulins Gamma Globulins PEP Interpretation Arterial Blood Glucose Arterial Blood Ionized Calcium Urine WBC (Auto) Urine Creatinine Urine Total Protein Complement C3 Complement C4 Hepatitis A Ab Total Hep Bs Antibody, Quant Hepatitis C Antibody Crossmatch See Detail 02/03/21 02/03/21 02/03/21 07:30 12:14 19:05 WBC RBC Hgb 7.1 L Hct 20.6 L MCV MCH MCHC RDW Plt Count Lymph % (Auto) [place] % (Auto) Lymph # (Auto) [place] # (Auto) Seg Neutrophils % Seg Neuts % (Manual) Lymphocytes % (Manual) Monocytes % (Manual) Seg Neutrophils # Lymphocytes # (Manual) PT INR ABG pH POC ABG pCO2 POC ABG pO2 ABG Hemoglobin ABG Oxyhemoglobin ABG Sodium ABG Potassium ABG Glucose Sodium Potassium 6.2 H* D 5.8 H Chloride Carbon Dioxide 21 L BUN 57 H 57 H Creatinine 5.5 H 5.9 H Glucose 101 H 121 H POC Glucose Calcium TIBC Total Bilirubin 11.00 H Direct Bilirubin AST 674 H ALT 210 H Alkaline Phosphatase Serum Total Protein Total Protein 6.0 L Albumin 2.8 L Beta Globulins Gamma Globulins PEP Interpretation Arterial Blood Glucose Arterial Blood Ionized Calcium Urine WBC (Auto) Urine Creatinine Urine Total Protein Complement C3 Complement C4 Hepatitis A Ab Total Hep Bs Antibody, Quant Hepatitis C Antibody Crossmatch 02/03/21 02/03/21 02/04/21 23:07 23:33 04:09 WBC RBC Hgb 6.6 L Hct 19.3 L* MCV MCH MCHC RDW Plt Count Lymph % (Auto) [place] % (Auto) Lymph # (Auto) [place] # (Auto) Seg Neutrophils % Seg Neuts % (Manual) Lymphocytes % (Manual) Monocytes % (Manual) Seg Neutrophils # Lymphocytes # (Manual) PT INR ABG pH POC ABG pCO2 26.9 L POC ABG pO2 47.6 L ABG Hemoglobin 7.6 L ABG Oxyhemoglobin 82.8 L ABG Sodium 132.0 L ABG Potassium ABG Glucose 111 H Sodium Potassium Chloride Carbon Dioxide BUN Creatinine Glucose POC Glucose 126 H Calcium TIBC Total Bilirubin Direct Bilirubin AST ALT Alkaline Phosphatase Serum Total Protein Total Protein Albumin Beta Globulins Gamma Globulins PEP Interpretation Arterial Blood Glucose 111 H Arterial Blood Ionized Calcium 4.0 L Urine WBC (Auto) Urine Creatinine Urine Total Protein Complement C3 Complement C4 Hepatitis A Ab Total Hep Bs Antibody, Quant Hepatitis C Antibody Crossmatch 02/04/21 02/04/21 02/04/21 05:59 08:24 09:55 WBC 13.4 H RBC 2.60 L Hgb 8.4 L Hct 24.5 L MCV MCH 33 H MCHC 35 H RDW 16.8 H Plt Count 57 L Lymph % (Auto) 8.1 L [place] % (Auto) 13.2 H Lymph # (Auto) 1.1 L [place] # (Auto) 1.8 H Seg Neutrophils % 78.5 H Seg Neuts % (Manual) Lymphocytes % (Manual) Monocytes % (Manual) Seg Neutrophils # 10.5 H Lymphocytes # (Manual) PT INR ABG pH POC ABG pCO2 30.6 L POC ABG pO2 111.2 H ABG Hemoglobin 8.4 L ABG Oxyhemoglobin ABG Sodium 134.1 L ABG Potassium 4.8 H ABG Glucose 117 H Sodium Potassium Chloride 96.3 L Carbon Dioxide BUN 31 H Creatinine 3.4 H Glucose 108 H POC Glucose Calcium 8.3 L TIBC Total Bilirubin 12.30 H Direct Bilirubin AST 781 H ALT 261 H Alkaline Phosphatase Serum Total Protein Total Protein 5.9 L Albumin 3.1 L Beta Globulins Gamma Globulins PEP Interpretation Arterial Blood Glucose 117 H Arterial Blood Ionized Calcium 4.0 L Urine WBC (Auto) Urine Creatinine Urine Total Protein Complement C3 Complement C4 Hepatitis A Ab Total Hep Bs Antibody, Quant Hepatitis C Antibody Crossmatch 02/04/21 02/04/21 02/05/21 11:33 17:46 00:47 WBC RBC Hgb 8.4 L 8.5 L Hct 24.3 L 24.2 L MCV MCH MCHC RDW Plt Count Lymph % (Auto) [place] % (Auto) Lymph # (Auto) [place] # (Auto) Seg Neutrophils % Seg Neuts % (Manual) Lymphocytes % (Manual) Monocytes % (Manual) Seg Neutrophils # Lymphocytes # (Manual) PT INR ABG pH POC ABG pCO2 POC ABG pO2 ABG Hemoglobin ABG Oxyhemoglobin ABG Sodium ABG Potassium ABG Glucose Sodium Potassium Chloride Carbon Dioxide BUN Creatinine Glucose POC Glucose 112 H Calcium TIBC Total Bilirubin Direct Bilirubin AST ALT Alkaline Phosphatase Serum Total Protein Total Protein Albumin Beta Globulins Gamma Globulins PEP Interpretation Arterial Blood Glucose Arterial Blood Ionized Calcium Urine WBC (Auto) Urine Creatinine Urine Total Protein Complement C3 Complement C4 Hepatitis A Ab Total Hep Bs Antibody, Quant Hepatitis C Antibody Crossmatch 02/05/21 02/05/21 02/05/21 02:40 03:15 07:36 WBC RBC Hgb 8.1 L Hct 23.3 L MCV MCH MCHC RDW Plt Count Lymph % (Auto) [place] % (Auto) Lymph # (Auto) [place] # (Auto) Seg Neutrophils % Seg Neuts % (Manual) Lymphocytes % (Manual) Monocytes % (Manual) Seg Neutrophils # Lymphocytes # (Manual) PT INR ABG pH 7.461 H POC ABG pCO2 28.7 L POC ABG pO2 ABG Hemoglobin 8.1 L ABG Oxyhemoglobin ABG Sodium 131.2 L ABG Potassium 5.0 H ABG Glucose 100 H Sodium 134 L Potassium 5.3 H Chloride 95.4 L Carbon Dioxide BUN 42 H Creatinine 5.2 H D Glucose POC Glucose Calcium 7.7 L TIBC Total Bilirubin 13.60 H Direct Bilirubin AST 1567 H ALT 605 H Alkaline Phosphatase 130 H Serum Total Protein Total Protein 5.4 L Albumin 2.4 L Beta Globulins Gamma Globulins PEP Interpretation Arterial Blood Glucose 100 H Arterial Blood Ionized Calcium 4.0 L Urine WBC (Auto) Urine Creatinine Urine Total Protein Complement C3 Complement C4 Hepatitis A Ab Total Hep Bs Antibody, Quant Hepatitis C Antibody Crossmatch 02/05/21 09:00 WBC 13.2 H RBC 2.48 L Hgb 8.0 L Hct 23.1 L MCV MCH 33 H MCHC 35 H RDW 17.0 H Plt Count 68 L Lymph % (Auto) [place] % (Auto) Lymph # (Auto) [place] # (Auto) Seg Neutrophils % Seg Neuts % (Manual) Lymphocytes % (Manual) Monocytes % (Manual) Seg Neutrophils # Lymphocytes # (Manual) PT INR ABG pH POC ABG pCO2 POC ABG pO2 ABG Hemoglobin ABG Oxyhemoglobin ABG Sodium ABG Potassium ABG Glucose Sodium Potassium Chloride Carbon Dioxide BUN Creatinine Glucose POC Glucose Calcium TIBC Total Bilirubin Direct Bilirubin AST ALT Alkaline Phosphatase Serum Total Protein Total Protein Albumin Beta Globulins Gamma Globulins PEP Interpretation Arterial Blood Glucose Arterial Blood Ionized Calcium Urine WBC (Auto) Urine Creatinine Urine Total Protein Complement C3 Complement C4 Hepatitis A Ab Total Hep Bs Antibody, Quant Hepatitis C Antibody Crossmatch
[2021-02-05 12:02] LABS: Band Neutrophils # (Manual) 0.9 K/mm3; Total Cells Counted 100
[2021-02-05 12:03] LABS: Anisocytosis 1+; Dohle Bodies Few; Platelet Estimate Consistent w Auto; Toxic Granulation 1+; Toxic Vacuolation Few
--- NOTE | 2021-02-05 12:09 | Gastroenterology Progress Note ---
Assessment and Plan - Patient Problems (1) Abnormal CT of liver Current Visit: Yes Status: Acute Plan to address problem: - The US is inconclusive, but abnormal (masses seen, but may be regenerative nodules). - If AFP markedly elevated, then no need for MRI. - If the AFP is normal, then will get an MRI without contrast (would prefer with contrast, but renal status at present precludes). - Given multifocal "masses" this would more likely be metastatic disease from other location than primary HCC, though the history of Hep C increases risk of HCC. (2) Alcoholic cirrhosis of liver with ascites Current Visit: Yes Status: Acute Plan to address problem: - Continue current supportive care. - Agree with Nephro recs. - Hold lasix/aldactone for now, and monitor urine OP and abdominal distention. Currently on PRN HD. - Poor prognosis discussed with patient. Not a candidate for liver transplant given active EtOH and liver masses. - Will continue PPI and octreotide gtt. Repeat EGD tomorrow if further severe hemorrhage; if stable can extubate. - Needs repeat EGD for banding of varices when clinically improved. (3) Gastric ulcer with hemorrhage Current Visit: Yes Status: Acute Plan to address problem: - Noted at EGD 02/03. Failed endoscopic clip; IR with embolization 02/03. - Still passing stool with blood, but hct improved as are the vital signs. - Continue protonix and octreotide gtt. (4) Moderate protein-calorie malnutrition Current Visit: Yes Status: Acute Plan to address problem: - Given varices, will avoid Dobhoff tube at present; anticipate extubation tomorrow if volume status better, and we will initiate PO feeds at that point. Subjective Date of service: 02/05/21 Principal diagnosis: Cirrhosis, Ulcer Interval history: The patient has been stable overnight with minimal BM output. Remains on the vent (for volume overload) and low-dose pressor support. No fevers. Objective - Constitutional Vitals: Temp Pulse Resp BP Pulse Ox 98.4 F 123 H 29 H 113/54 97 02/05/21 08:00 02/05/21 11:45 02/05/21 11:45 02/05/21 11:45 02/05/21 11:45 General appearance: no acute distress - Respiratory Respiratory effort: normal Respiratory: bilateral: CTA (Vent) - Cardiovascular Rhythm: regular Heart Sounds: Present: S1 & S2 - Gastrointestinal General gastrointestinal: Present: soft, non-tender, distended (Mild/Mod ascites) - Labs CBC & Chem 7: 02/05/21 09:00 02/05/21 02:40 Labs: Laboratory Results - last 24 hr 02/03/21 02/04/21 02/04/21 07:30 08:24 17:46 WBC RBC Hgb 8.4 L Hct 24.3 L MCV MCH MCHC RDW Plt Count Add Manual Diff Total Counted Seg Neuts % (Manual) Band Neutrophils % Lymphocytes % (Manual) Monocytes % (Manual) Metamyelocytes % Nucleated RBC % Seg Neutrophils # Man Band Neutrophils # Lymphocytes # (Manual) Abs React Lymphs (Man) Monocytes # (Manual) Eosinophils # (Manual) Basophils # (Manual) Metamyelocytes # Myelocytes # Promyelocytes # Blast Cells # WBC Morphology Hypersegmented Neuts Hyposegmented Neuts Hypogranular Neuts Smudge Cells Toxic Granulation Toxic Vacuolation Dohle Bodies Pelger-Huet Anomaly [place] Rods Platelet Estimate Clumped Platelets Plt Clumps, EDTA Large Platelets Giant Platelets Platelet Satelliting Plt Morphology Comment RBC Morphology Dimorphic RBCs Polychromasia Hypochromasia Poikilocytosis Anisocytosis Microcytosis Macrocytosis Spherocytes Pappenheimer Bodies Sickle Cells Target Cells Tear Drop Cells Ovalocytes Helmet Cells [place] Bodies [place] Rings Ming Cells Bite Cells Crenated Cell Elliptocytes Acanthocytes (Spur) Rouleaux Hemoglobin C Crystals Schistocytes Malaria parasites Jeffrey Bodies Hem Pathologist Commnt ABG pH 7.410 POC ABG pCO2 30.6 L POC ABG pO2 111.2 H POC ABG HCO3 19.0 ABG O2 Saturation 98.6 POC ABG Base Excess -5.0 ABG Hemoglobin 8.4 L ABG Oxyhemoglobin 96.9 ABG Methemoglobin 0.3 ABG Sodium 134.1 L ABG Potassium 4.8 H ABG Chloride 100.0 ABG Glucose 117 H Carboxyhemoglobin 1.4 FiO2 % 30 Sodium Potassium Chloride Carbon Dioxide Anion Gap BUN Creatinine Estimated GFR BUN/Creatinine Ratio Glucose POC Glucose Calcium Total Bilirubin AST ALT Alkaline Phosphatase Total Protein Albumin Albumin/Globulin Ratio Arterial Blood Glucose 117 H Arterial Blood Ionized Calcium 4.0 L Blood Type B POSITIVE Antibody Screen Negative Crossmatch See Detail 02/04/21 02/05/21 02/05/21 23:27 00:47 02:40 WBC RBC Hgb 8.5 L Hct 24.2 L MCV MCH MCHC RDW Plt Count Add Manual Diff Total Counted Seg Neuts % (Manual) Band Neutrophils % Lymphocytes % (Manual) Monocytes % (Manual) Metamyelocytes % Nucleated RBC % Seg Neutrophils # Man Band Neutrophils # Lymphocytes # (Manual) Abs React Lymphs (Man) Monocytes # (Manual) Eosinophils # (Manual) Basophils # (Manual) Metamyelocytes # Myelocytes # Promyelocytes # Blast Cells # WBC Morphology Hypersegmented Neuts Hyposegmented Neuts Hypogranular Neuts Smudge Cells Toxic Granulation Toxic Vacuolation Dohle Bodies Pelger-Huet Anomaly [place] Rods Platelet Estimate Clumped Platelets Plt Clumps, EDTA Large Platelets Giant Platelets Platelet Satelliting Plt Morphology Comment RBC Morphology Dimorphic RBCs Polychromasia Hypochromasia Poikilocytosis Anisocytosis Microcytosis Macrocytosis Spherocytes Pappenheimer Bodies Sickle Cells Target Cells Tear Drop Cells Ovalocytes Helmet Cells [place] Bodies [place] Rings [place] Cells Bite Cells Crenated Cell Elliptocytes Acanthocytes (Spur) Rouleaux Hemoglobin C Crystals Schistocytes Malaria parasites Jeffrey Bodies Hem Pathologist Commnt ABG pH POC ABG pCO2 POC ABG pO2 POC ABG HCO3 ABG O2 Saturation POC ABG Base Excess ABG Hemoglobin ABG Oxyhemoglobin ABG Methemoglobin ABG Sodium ABG Potassium ABG Chloride ABG Glucose Carboxyhemoglobin FiO2 % Sodium 134 L Potassium 5.3 H Chloride 95.4 L Carbon Dioxide 23 Anion Gap 21 BUN 42 H Creatinine 5.2 H D Estimated GFR 13 BUN/Creatinine Ratio 8 Glucose 97 POC Glucose 104 Calcium 7.7 L Total Bilirubin 13.60 H AST 1567 H ALT 605 H Alkaline Phosphatase 130 H Total Protein 5.4 L Albumin 2.4 L Albumin/Globulin Ratio 0.8 Arterial Blood Glucose Arterial Blood Ionized Calcium Blood Type Antibody Screen Crossmatch 02/05/21 02/05/21 02/05/21 03:15 05:23 07:36 WBC RBC Hgb 8.1 L Hct 23.3 L MCV MCH MCHC RDW Plt Count Add Manual Diff Total Counted Seg Neuts % (Manual) Band Neutrophils % Lymphocytes % (Manual) Monocytes % (Manual) Metamyelocytes % Nucleated RBC % Seg Neutrophils # Man Band Neutrophils # Lymphocytes # (Manual) Abs React Lymphs (Man) Monocytes # (Manual) Eosinophils # (Manual) Basophils # (Manual) Metamyelocytes # Myelocytes # Promyelocytes # Blast Cells # WBC Morphology Hypersegmented Neuts Hyposegmented Neuts Hypogranular Neuts Smudge Cells Toxic Granulation Toxic Vacuolation Dohle Bodies Pelger-Huet Anomaly [place] Rods Platelet Estimate Clumped Platelets Plt Clumps, EDTA Large Platelets Giant Platelets Platelet Satelliting Plt Morphology Comment RBC Morphology Dimorphic RBCs Polychromasia Hypochromasia Poikilocytosis Anisocytosis Microcytosis Macrocytosis Spherocytes Pappenheimer Bodies Sickle Cells Target Cells Tear Drop Cells Ovalocytes Helmet Cells [place] Bodies [place] Rings Ming Cells Bite Cells Crenated Cell Elliptocytes Acanthocytes (Spur) Rouleaux Hemoglobin C Crystals Schistocytes Malaria parasites Jeffrey Bodies Hem Pathologist Commnt ABG pH 7.461 H POC ABG pCO2 28.7 L POC ABG pO2 94.4 POC ABG HCO3 20.0 ABG O2 Saturation 97.8 POC ABG Base Excess -3.2 ABG Hemoglobin 8.1 L ABG Oxyhemoglobin 96.4 ABG Methemoglobin 0 ABG Sodium 131.2 L ABG Potassium 5.0 H ABG Chloride 100.0 ABG Glucose 100 H Carboxyhemoglobin 1.4 FiO2 % 45.0 Sodium Potassium Chloride Carbon Dioxide Anion Gap BUN Creatinine Estimated GFR BUN/Creatinine Ratio Glucose POC Glucose 104 Calcium Total Bilirubin AST ALT Alkaline Phosphatase Total Protein Albumin Albumin/Globulin Ratio Arterial Blood Glucose 100 H Arterial Blood Ionized Calcium 4.0 L Blood Type Antibody Screen Crossmatch 02/05/21 02/05/21 09:00 11:47 WBC 13.2 H RBC 2.48 L Hgb 8.0 L Hct 23.1 L MCV 93 MCH 33 H MCHC 35 H RDW 17.0 H Plt Count 68 L Add Manual Diff Complete Total Counted 100 Seg Neuts % (Manual) 80.0 H Band Neutrophils % 7.0 Lymphocytes % (Manual) 6.0 L Monocytes % (Manual) 6.0 Metamyelocytes % 1.0 Nucleated RBC % 1.0 H Seg Neutrophils # Man 10.6 H Band Neutrophils # 0.9 Lymphocytes # (Manual) 0.8 L Abs React Lymphs (Man) 0.0 Monocytes # (Manual) 0.8 Eosinophils # (Manual) 0.0 Basophils # (Manual) 0.0 Metamyelocytes # 0.1 Myelocytes # 0.0 Promyelocytes # 0.0 Blast Cells # 0.0 WBC Morphology Not Reportable Hypersegmented Neuts Not Reportable Hyposegmented Neuts Not Reportable Hypogranular Neuts Not Reportable Smudge Cells Not Reportable Toxic Granulation 1+ Toxic Vacuolation Few Dohle Bodies Few Pelger-Huet Anomaly Not Reportable [place] Rods Not Reportable Platelet Estimate Consistent w auto Clumped Platelets Not Reportable Plt Clumps, EDTA Not Reportable Large Platelets Not Reportable Giant Platelets Not Reportable Platelet Satelliting Not Reportable Plt Morphology Comment Not Reportable RBC Morphology Not Reportable Dimorphic RBCs Not Reportable Polychromasia Not Reportable Hypochromasia Not Reportable Poikilocytosis Not Reportable Anisocytosis 1+ Microcytosis Not Reportable Macrocytosis Not Reportable Spherocytes Not Reportable Pappenheimer Bodies Not Reportable Sickle Cells Not Reportable Target Cells Not Reportable Tear Drop Cells Not Reportable Ovalocytes Not Reportable Helmet Cells Not Reportable [place] Bodies Not Reportable [place] Rings Not Reportable [place] Cells Not Reportable Bite Cells Not Reportable Crenated Cell Not Reportable Elliptocytes Not Reportable Acanthocytes (Spur) Not Reportable Rouleaux Not Reportable Hemoglobin C Crystals Not Reportable Schistocytes Not Reportable Malaria parasites Not Reportable Jeffrey Bodies Not Reportable Hem Pathologist Commnt No ABG pH POC ABG pCO2 POC ABG pO2 POC ABG HCO3 ABG O2 Saturation POC ABG Base Excess ABG Hemoglobin ABG Oxyhemoglobin ABG Methemoglobin ABG Sodium ABG Potassium ABG Chloride ABG Glucose Carboxyhemoglobin FiO2 % Sodium Potassium Chloride Carbon Dioxide Anion Gap BUN Creatinine Estimated GFR BUN/Creatinine Ratio Glucose POC Glucose 71 Calcium Total Bilirubin AST ALT Alkaline Phosphatase Total Protein Albumin Albumin/Globulin Ratio Arterial Blood Glucose Arterial Blood Ionized Calcium Blood Type Antibody Screen Crossmatch
[2021-02-05 16:49] LABS: Hematocrit 23.2 % (35.5-45.6)
[2021-02-05] MEDS: NORepinephrine/NS 4 MG-250 ML 4 MG/250 ML BAG IV SCH ×2 (17:00→21:32)
[2021-02-05] MEDS: DEXTROSE 50% IN WATER (25GM) 50 ML SYRINGE IV PRN ×2 (17:00→20:43)
[2021-02-05] MEDS ORDERED: SODIUM CHLORIDE 0.9% 500 ML 500 ML ONE (17:13)
[2021-02-05] MEDS ORDERED: SODIUM CHLORIDE 0.9% 500 ML 500 ML IV ONE (17:30)
[2021-02-05] MEDS: DEXTROSE 10% IN WATER 1,000 ML IV SCH (17:37)
[2021-02-05] MEDS ORDERED: SODIUM CHLORIDE 0.9% 500 ML 500 ML IV NR ×2 (17:57→19:52)
[2021-02-05] MEDS ORDERED: SODIUM CHLORIDE 0.9% 1000 ML 500 ML IV ONE (18:00)
[2021-02-05] MEDS ORDERED: SODIUM CHLORIDE 0.9% 1000 ML 1,000 ML IV PRN (18:00)
[2021-02-05] MEDS ORDERED: NORepinephrine/NS 4 MG-250 ML 4 MG/250 ML BAG IV ONE (18:02)
--- NOTE | 2021-02-05 18:50 | Progress Note ---
Assessment and Plan # LILLIAM: Likely with hepatorenal physiology +/- ATN from active bleed - reviewed urine studies, minimal blood/protein noted - imaging reviewed - serologies sent and pending, HCV + - Started HD 02/03, tolerated only 1 hr today and was taken off due to hemodynamic instability - hypotension and tachycardia. - Will reassess tomorrow and dialyze if hemodynamically stable - avoid nephrotoxins - renally dose meds - continue IV albumin bolus if albumin <2 to encourage renal perfusion - Keep MAP>65 - Transfuse for hgb < 7 # Acute blood loss anemia, s/p endoscopy and IR embolization. Transfuse for hgb < 7 # Hyperkalemia: controlled with HD. Low k diet when diet permitted. # Hyperbilirubinemia/Cirrhosis/Concern for HCC: GI following, s/p paracentesis. Alcohol cessation # Hypoalbuminemia Subjective Date of service: 02/05/21 Principal diagnosis: Cirrhosis, Ulcer Interval history: Remains intubated. Unable to tolerate HD today, ran only for an hour and was taken off due to hypotension and tachycardia. Objective - Exam Narrative Exam: General: Sedated. Intubated. HEENT: Oral mucosa moist Neck: Supple, no JVD Chest: Intubated. Mechanical breath sounds. Heart: RRR, S1 and S2, no pericardial rub Abdomen: Soft, nontender, no renal bruit Extremity: No peripheral cyanosis, edema Neurological: Sedated Dermatology: No skin rash Psych: Unable to assess Musculoskeletal: No joint effusion - Vital Signs Vital signs: Vital Signs - 12hr 02/05/21 02/05/21 02/05/21 07:00 07:15 07:30 Temperature Pulse Rate 89 86 88 Pulse Rate [ From Monitor] Respiratory 27 H 26 H 27 H Rate Blood Pressure 128/50 126/44 125/47 O2 Sat by Pulse 96 97 96 Oximetry O2 Sat by Pulse Oximetry [ Throughout] 02/05/21 02/05/21 02/05/21 07:45 08:00 08:15 Temperature 98.4 F Pulse Rate 124 H 96 H 128 H Pulse Rate [ 89 From Monitor] Respiratory 29 H 29 H 30 H Rate Blood Pressure 110/55 111/48 100/55 O2 Sat by Pulse 96 96 96 Oximetry O2 Sat by Pulse Oximetry [ Throughout] 02/05/21 02/05/21 02/05/21 08:30 08:45 09:00 Temperature Pulse Rate 128 H 94 H 89 Pulse Rate [ From Monitor] Respiratory 32 H 30 H 29 H Rate Blood Pressure 101/51 106/39 97/46 O2 Sat by Pulse 96 96 96 Oximetry O2 Sat by Pulse Oximetry [ Throughout] 02/05/21 02/05/21 02/05/21 09:15 09:30 09:35 Temperature Pulse Rate 88 123 H 124 H Pulse Rate [ From Monitor] Respiratory 29 H 27 H Rate Blood Pressure 102/48 114/53 109/53 O2 Sat by Pulse 98 98 98 Oximetry O2 Sat by Pulse Oximetry [ Throughout] 02/05/21 02/05/21 02/05/21 09:45 10:00 10:15 Temperature Pulse Rate 123 H 123 H 88 Pulse Rate [ From Monitor] Respiratory 28 H 27 H 28 H Rate Blood Pressure 115/48 118/52 119/46 O2 Sat by Pulse 98 98 98 Oximetry O2 Sat by Pulse Oximetry [ Throughout] 02/05/21 02/05/21 02/05/21 10:30 10:45 11:00 Temperature Pulse Rate 123 H 122 H 122 H Pulse Rate [ From Monitor] Respiratory 28 H 28 H 28 H Rate Blood Pressure 107/50 115/55 110/47 O2 Sat by Pulse 98 97 97 Oximetry O2 Sat by Pulse Oximetry [ Throughout] 02/05/21 02/05/21 02/05/21 11:15 11:30 11:45 Temperature Pulse Rate 122 H 122 H 123 H Pulse Rate [ From Monitor] Respiratory 27 H 28 H 29 H Rate Blood Pressure 122/53 110/50 113/54 O2 Sat by Pulse 97 97 97 Oximetry O2 Sat by Pulse Oximetry [ Throughout] 02/05/21 02/05/21 02/05/21 12:00 12:13 12:15 Temperature 98.6 F Pulse Rate 124 H 123 H Pulse Rate [ 89 From Monitor] Respiratory 28 H 28 H Rate Blood Pressure 109/53 108/54 O2 Sat by Pulse 97 97 Oximetry O2 Sat by Pulse Oximetry [ Throughout] 02/05/21 02/05/21 02/05/21 12:30 12:45 13:00 Temperature Pulse Rate 122 H 123 H 119 H Pulse Rate [ From Monitor] Respiratory 27 H 28 H 27 H Rate Blood Pressure 100/47 102/48 115/52 O2 Sat by Pulse 97 97 97 Oximetry O2 Sat by Pulse Oximetry [ Throughout] 02/05/21 02/05/21 02/05/21 13:15 13:20 13:30 Temperature Pulse Rate 122 H 122 H 123 H Pulse Rate [ From Monitor] Respiratory 27 H 28 H Rate Blood Pressure 110/51 116/49 116/49 O2 Sat by Pulse 97 97 98 Oximetry O2 Sat by Pulse Oximetry [ Throughout] 02/05/21 02/05/21 02/05/21 13:45 13:53 14:00 Temperature 97.6 F Pulse Rate 122 H 119 H 89 Pulse Rate [ From Monitor] Respiratory 28 H 29 H Rate Blood Pressure 98/50 105/48 117/47 O2 Sat by Pulse 97 99 Oximetry O2 Sat by Pulse 96 Oximetry [ Throughout] 02/05/21 02/05/21 02/05/21 14:15 14:16 14:30 Temperature Pulse Rate 127 H 126 H 134 H Pulse Rate [ From Monitor] Respiratory 32 H 31 H Rate Blood Pressure 117/48 117/46 113/51 O2 Sat by Pulse 97 96 Oximetry O2 Sat by Pulse Oximetry [ Throughout] 02/05/21 02/05/21 02/05/21 14:45 15:00 15:15 Temperature 97.8 F Pulse Rate 139 H 140 H 94 H Pulse Rate [ From Monitor] Respiratory 32 H 31 H 28 H Rate Blood Pressure 108/55 115/53 95/45 O2 Sat by Pulse 96 96 96 Oximetry O2 Sat by Pulse 97 Oximetry [ Throughout] 02/05/21 02/05/21 02/05/21 15:30 15:45 16:00 Temperature 98.9 F Pulse Rate 92 H 91 H 92 H Pulse Rate [ 89 From Monitor] Respiratory 28 H 29 H 27 H Rate Blood Pressure 109/44 111/45 109/43 O2 Sat by Pulse 97 98 95 Oximetry O2 Sat by Pulse Oximetry [ Throughout] 02/05/21 02/05/21 02/05/21 16:15 16:30 16:46 Temperature Pulse Rate 129 H 130 H 131 H Pulse Rate [ From Monitor] Respiratory 30 H 32 H 32 H Rate Blood Pressure 103/49 93/52 106/47 O2 Sat by Pulse 96 96 96 Oximetry O2 Sat by Pulse Oximetry [ Throughout] 02/05/21 02/05/21 02/05/21 17:00 17:15 17:30 Temperature Pulse Rate 89 92 H 94 H Pulse Rate [ From Monitor] Respiratory 33 H 31 H 30 H Rate Blood Pressure 86/41 85/36 97/38 O2 Sat by Pulse 98 96 97 Oximetry O2 Sat by Pulse Oximetry [ Throughout] 02/05/21 02/05/21 02/05/21 17:45 17:50 18:00 Temperature Pulse Rate 97 H 126 H 99 H Pulse Rate [ From Monitor] Respiratory 30 H 30 H Rate Blood Pressure 103/37 106/44 96/40 O2 Sat by Pulse 97 100 96 Oximetry O2 Sat by Pulse Oximetry [ Throughout] 02/05/21 18:15 Temperature Pulse Rate 126 H Pulse Rate [ From Monitor] Respiratory 29 H Rate Blood Pressure 106/44 O2 Sat by Pulse 99 Oximetry O2 Sat by Pulse Oximetry [ Throughout] - Lab 02/05/21 16:15 02/05/21 02:40 Most recent lab results ABG pH 7.461 (7.320-7.450) H 02/05/21 03:15 ABG O2 Saturation 96.3 (0-100) 02/05/21 17:56 Calcium 7.7 mg/dL (8.4-10.2) L 02/05/21 02:40 Urine Creatinine 413.9 mg/dL (0.1-20.0) H 02/01/21 06:08 Urine Total Protein 55 mg/dL (5-11.8) H 02/01/21 06:08 Medications & Allergies - Medications Allergies/Adverse Reactions: Allergies Penicillins Allergy (Verified 01/30/21 21:16) Hives Active Medications: Generic Name Dose Route Start Last Admin Trade Name Freq PRN Reason Stop Dose Admin Acetaminophen 650 mg 01/31/21 03:30 02/02/21 14:28 Acetaminophen 325 Mg Tab PO 650 mg Q4H PRN Administration Pain MILD(1-3)/Fever >100.5/BUTCHER Dextrose 25 ml 01/31/21 13:00 02/05/21 17:00 Dextrose 50% In Water (25gm) 50 Ml Syringe IV 25 ml Q30MIN PRN Administration Hypoglycemia Protocol Fentanyl 50 mcg 02/03/21 18:42 Fentanyl 100 Mcg/2 Ml Inj IV Q2H PRN Pain , Severe (7-10) Hydrophilic Ointment 1 applic 02/03/21 18:45 Lip Therapy Vaseline TP Q2H PRN Dry Lips Sodium Chloride 100 mls @ 999 mls/hr 02/03/21 11:00 Nacl 0.9% IV MARCIO PRN Hypotension Pantoprazole Sodium 80 mg/ 100 mls @ 10 mls/hr 02/03/21 17:00 02/05/21 13:30 Sodium Chloride IV 8 mg/hr DIRECT TAQUERIA 10 mls/hr Administration 8 MG/HR Propofol 1,000 mg in 100 mls @ 2.955 mls/hr 02/03/21 19:00 02/05/21 10:18 Diprivan 10 Mg/Ml IV 10 mcg/kg/min TITR TAQUERIA 5.91 mls/hr Administration Protocol 5 MCG/KG/MIN Vasopressin 20 unit/ Sodium 101 mls @ 9.09 mls/hr 02/04/21 05:00 02/05/21 15:48 Chloride IV 0.03 units/min TITR TAQUERIA 9.09 mls/hr Administration Protocol 0.03 UNITS/MIN Dextrose 1,000 mls @ 10 mls/hr 02/05/21 18:00 02/05/21 17:37 D10w IV 10 mls/hr DIRECT TAQUERIA Administration Sodium Chloride 1,000 mls @ 10 mls/hr 02/05/21 18:00 02/05/21 17:35 Nacl 0.9% 1000 Ml IV 10 mls/hr ONCE PRN Administration sylvia Norepinephrine 4 mg in 250 mls @ 7.5 mls/hr 02/05/21 18:00 02/05/21 18:00 Levophed Drip 4 Mg/Ns 250 Ml IV 02/06/21 18:00 10 mcg/min TITR TAQUERIA 37.5 mls/hr Titration Protocol 2 MCG/MIN Sodium Chloride 500 mls @ 0 mls/hr 02/05/21 17:57 Nacl 0.9% 500 Ml IV 02/06/21 06:00 ONCE NR As Directed Lactulose 20 gm 02/01/21 10:00 02/05/21 09:06 Lactulose 20 Gm/30 Ml Oral Liqd PO Not Given QDAY TAQUERIA Multi-Ingred Cream/Lotion/Oil/Oint 1 applic 02/03/21 18:45 Mineral Oil/Petrolatum, White Ophth Oint 3.5 Gm OU Q4H PRN Dry Eye(s) Multivitamins 1 each 02/01/21 10:00 02/05/21 09:06 Multivitamins ,Therapeutic Tab PO Not Given QDAY TAQUERIA Ondansetron HCl 4 mg 01/31/21 03:30 02/03/21 10:18 Ondansetron 4 Mg/2 Ml Inj IV 4 mg Q8H PRN Administration Nausea And Vomiting Senna/Docusate Sodium 1 tab 02/03/21 22:00 02/05/21 09:06 Sennosides/Docusate Sodium 8.6/50 Mg Tab FEEDTUBE Not Given BID TAQUERIA Sodium Chloride 10 ml 01/31/21 10:00 02/05/21 10:02 Sodium Chloride 0.9% 10 Ml Flush Syringe IV 10 ml BID TAQUERIA Administration Sodium Chloride 10 ml 01/31/21 03:30 Sodium Chloride 0.9% 10 Ml Flush Syringe IV PRN PRN LINE FLUSH
[2021-02-05 18:55] LABS: Hematocrit 20.4 % (35.5-45.6); Hemoglobin 6.9 gm/dl (11.8-15.2)
--- NOTE | 2021-02-05 19:49 | Procedure Note ---
Date of procedure: 02/05/21 Post-op diagnosis: same Procedure: Right radial sylvia inserted using sterile technique. Ulnar pulse palpable. Bruno test completed. Area prepped with chlorhexidine and the site was infiltrated with 1ml 1% lidocaine. Arterial line was placed using ultrasound; catheter advanced without difficulty. Line was sutured, biopatch placed and tegaderm dressing applied. Arm board placed. Arterial waveform observed on bedside monitor. Line flushed and zeroed. RN at bedside. Pt tolerated procedure well. (time spent placing line not included in daily critical care time) Anesthesia: local Surgeon: ANU GALLARDO Smelter Liner: LA NENA REA Estimated blood loss: minimal Disposition: ICU
--- NOTE | 2021-02-05 20:05 | Progress Note ---
<PAULINAANU ZanderEphraim - Last Filed: 02/05/21 20:03> Assessment and Plan Assessment and plan: Patient was admitted with abdominal pain possibly secondary to cirrhotic liver with accompanying ascites, cholelithiasis and hyperkalemia with acute renal failure. Acute kidney injury likely due to ATN with possible underlying CKD now most likely progressed to ESRD Acute blood loss anemia s/p endoscopy and IR Coil embolization Active GI bleeding from large antral ulceration Acute hypoxic respiratory failure Alcoholic cirrhosis of liver with ascites Ascites Coagulopathy Hepatic mass Hyperbilirubinemia with elevated LFTs Hepatitis C Leukocytosis current daily smoker EtOH abuse S/p traumatic left BKA -GI, nephrology, vascular surgery, CCM consulted, appreciate recommendations -Patient intubated on 02/03 for airway protection -S/p paracentesis with removal of 5.5 L of ascitic fluid -S/p EGD and call embolization with empiric embolization of GDA and clip to target embolization of the right proximal gastroepiploic artery -02/03 s/p vitamin K and FFP -01/31 CT abdomen/pelvis without contrast cirrhotic appearing liver, suggestion of possible multiple masses throughout the liver parenchyma although this is difficult to complete identify without contrast, mild large amount of ascites noted throughout the abdomen and pelvis, cholelithiasis without CT evidence of acute cholecystitis, small left pleural effusion, trace right pleural effusion -01/31 ultrasound-guided paracentesis with removal of 5500 amounts of straw-col ored fluid -02/01 ultrasound abdomen revealed cirrhotic liver, diffusely heterogeneous hepatic parenchyma with several more nodular areas of increased echogenicity (difficult to say if this represents more focal areas of hepatic steatosis or underlying hepatic lesion, patent portal vein, cholelithiasis without convincing evidence of cholecystitis -Vasopressor support with vasopressin and Levophed -Albumin as needed, lactulose -Hemodialysis per nephrology -Daily weights -Strict urine output -Avoid nephrotoxic medications -Initiate bleeding precautions -Octreotide drip, Protonix drip -Serial H/H -Fentanyl as needed, propofol for sedation -N.p.o. for now -VAP bundle, wean mechanical ventilation as tolerated -Transfuse for hemoglobin less than 7 -Monitor CBC, BMP, LFTs DVT/GI prophylaxis: SCDs to bilateral lower extremities while in bed, avoid chemical anticoagulation in setting of recent acute blood loss anemia, PPI Disposition: ICU The high probability of a clinically significant, sudden or life threatening deterioration of the system(respiratory, GI, renal, hematology) required my full and direct attention, intervention and personal management. The aggregate critical care time was [35] minutes. This time is in addition to time spent performing reported procedures but includes the following: [x] Data Review and interpretation [x] Patient assessment and monitoring of vital signs [x] Documentation [x] Medication orders and management History Interval history: 65-year-old male with no significant past medical history presented to the emergency room complaining of abdominal pain and lower extremity edema for the past 2 to 3 weeks. Work-up in the emergency room showed elevated creatinine of 2.6, elevated liver enzymes,Elevated bilirubin. Hyperkalemia of 5.7. He received calcium gluconate, insulin and glucose, sodium bicarb and Kayexalate in the emergency room for the hyperkalemia. Chest x-ray reveals small left pleural effusion. CT of the abdomen and pelvis shows a cirrhotic appearing liver there is also suggestion of possible multiple masses throughout the liver parenchyma. Moderate/large amount of ascites is noted throughout the abdomen and pelvis. Cholelithiasis without CT evidence of acute cholecystitis. Patient was admitted with abdominal pain possibly secondary to cirrhotic liver with accompanying ascites, cholelithiasis and hyperkalemia with acute renal failure. 02/01/21: K level improved, no plan to start HD now. cont to follow BMP. Had paracentesis yesterday and drained about 5.5 L of ascitic fluid. Patient also initiated on albumin. Ordered for AFP. Abdominal ultrasound and CT abdomen suggestive of possible underlying hepatic malignancy. Will follow GI recommendation. Abdomen US: 1. Cirrhotic liver. The hepatic parenchyma is diffusely heterogeneous with several more nodular areas of increased echogenicity. It is difficult to say if this represents more focal areas of hepatic steatosis or an underlying hepatic lesion, and multi phase CT or MRI of the abdomen is recommended for further evaluation. 2. The portal vein is patent. 3. Cholelithiasis without convincing evidence for acute cholecystitis. 02/02/21: Discussed with patient and patient daughter at the bedside. Patient complains of lethargy, reduced appetite and generalized weakness. Patient did not receive COVID-19 vaccine. We will also order for Covid 19 PCR. Continue to follow LFT which remains elevated. Patient had blood in the stool today. Patient initiated on albumin, octreotide. Plan for endoscopy tomorrow. 02/03/21; serum creatinine and potassium further increased today. Patient noted to have bloody vomitus and bloody bowel movement today. Hemoglobin dropped to 6.5. Ordered for stat packed RBC transfusion, FFP and vitamin K. Patient was taken for EGD which showed following findings. 1. Normal duodenum 2. 5mm cratered in the antrum - Visible vessel at the base - Attempted clip x 4 (Conmed 16mm, 11mm clips) but mucosal defect would not close 3. Huge amount of blood/clots in stomach, and proimal body/fundus not seen, but does not appear to have varices in the cardia 4. Grade I esophageal varices (3 columns) that had no stigmata of bleeding, and flattened on insufflation Following EGD patient was taken for catheterization for vascular procedure. Triallysis catheter was placed by vascular and s/p Coil embolization performed with empiric embolization of GDA and clip targeting embolization of the right proximal gastroepiploic artery. Patient will also remain intubated for airway protection. Consulted critical care and transfer the patient to ICU. Updated patient's family by phone and at the bedside with all clinical details. 02/04: Patient had EEG yesterday showed gastric ulcer with hemorrhage and failed endoscopic clipping and was embolized with IR. Patient was transferred to ICU postprocedure where he remains intubated on assist control tidal volume 450, rate of 12, PEEP of 6 and FiO2 of 30 sent. The time of examination patient had 1 unit of his ordered 3 units PRBC left to transfuse. Repeat H/H was 8.4/24.5. Patient is on serial H/H. Patient received hemodialysis today. Octreotide and Protonix drip and is on vasopressin due to hypotension overnight. Per RN patient had bloody however this is conveyed to GI and Given Stable H&H transfuse with 1 additional unit PRBC. Patient received DDAVP today. 02/05: Patient received hemodialysis today, GI has no further plans to scope. We will continue to obtain serial H/H. At the time my examination patient was on assist control tidal volume 450, rate of 12, PEEP of 6 and 45% FiO2. Patient was slightly hyperkalemic today but he did received hemodialysis. Patient was on vasopressin support and sedated with propofol. This after noon patient was noted to be hypoglycemic and was started on D10 at 10. Patient received D50 IVP per hypoglycemia protocol. Patient was also noted to be hypotensive and Levop hed was started. 1 unit PRBC was also ordered. An ABG obtained in the evening showed hemoglobin of less than 6. One additional unit of PRBC was ordered. Hospitalist Physical - Constitutional Vitals: Temp Pulse Resp BP Pulse Ox 98.9 F 123 H 28 H 101/41 100 02/05/21 16:00 02/05/21 19:00 02/05/21 19:00 02/05/21 19:00 02/05/21 19:00 General appearance: Present: other (Intubated, sedated) - EENT Eyes: Present: PERRL ENT: poor dentition - Neck Neck: Present: normal ROM - Respiratory Respiratory effort: normal Respiratory: bilateral: diminished - Cardiovascular Rhythm: regular Heart Sounds: Present: S1 & S2. Absent: systolic murmur, diastolic murmur - Extremities Extremities: no ischemia, pulses intact, pulses symmetrical, normal temperature, normal color Peripheral Pulses: within normal limits - Abdominal General gastrointestinal: soft, non-tender, non-distended, hypoactive bowel sounds - Integumentary Integumentary: Present: warm, dry - Psychiatric Psychiatric: other (Sedated) - Neurologic Neurologic: other ( sedated) Results - Labs CBC & Chem 7: 02/05/21 Unknown 02/05/21 02:40 Labs: Laboratory Last Values WBC 13.2 K/mm3 (4.5-11.0) H 02/05/21 09:00 RBC 2.48 M/mm3 (3.65-5.03) L 02/05/21 09:00 Hgb 6.9 gm/dl (11.8-15.2) L 02/05/21 Unknown Hct 20.4 % (35.5-45.6) L 02/05/21 Unknown MCV 93 fl (84-94) 02/05/21 09:00 MCH 33 pg (28-32) H 02/05/21 09:00 MCHC 35 % (32-34) H 02/05/21 09:00 RDW 17.0 % (13.2-15.2) H 02/05/21 09:00 Plt Count 68 K/mm3 (140-440) L 02/05/21 09:00 Lymph % (Auto) 8.1 % (13.4-35.0) L 02/04/21 09:55 [place] % (Auto) 13.2 % (0.0-7.3) H 02/04/21 09:55 Eos % (Auto) 0.1 % (0.0-4.3) 02/04/21 09:55 Baso % (Auto) 0.1 % (0.0-1.8) 02/04/21 09:55 Lymph # (Auto) 1.1 K/mm3 (1.2-5.4) L 02/04/21 09:55 [place] # (Auto) 1.8 K/mm3 (0.0-0.8) H 02/04/21 09:55 Eos # (Auto) 0.0 K/mm3 (0.0-0.4) 02/04/21 09:55 Baso # (Auto) 0.0 K/mm3 (0.0-0.1) 02/04/21 09:55 Add Manual Diff Complete 02/05/21 09:00 Total Counted 100 02/05/21 09:00 Seg Neutrophils % 78.5 % (40.0-70.0) H 02/04/21 09:55 Seg Neuts % (Manual) 80.0 % (40.0-70.0) H 02/05/21 09:00 Band Neutrophils % 7.0 % 02/05/21 09:00 Lymphocytes % (Manual) 6.0 % (13.4-35.0) L 02/05/21 09:00 Reactive Lymphs % (Man) 1.0 % 02/01/21 05:04 Monocytes % (Manual) 6.0 % (0.0-7.3) 02/05/21 09:00 Basophils % (Manual) 1.0 % (0.0-1.8) 02/01/21 05:04 Metamyelocytes % 1.0 % 02/05/21 09:00 Nucleated RBC % 1.0 % (0.0-0.9) H 02/05/21 09:00 Seg Neutrophils # 10.5 K/mm3 (1.8-7.7) H 02/04/21 09:55 Seg Neutrophils # Man 10.6 K/mm3 (1.8-7.7) H 02/05/21 09:00 Band Neutrophils # 0.9 K/mm3 02/05/21 09:00 Lymphocytes # (Manual) 0.8 K/mm3 (1.2-5.4) L 02/05/21 09:00 Abs React Lymphs (Man) 0.0 K/mm3 02/05/21 09:00 Monocytes # (Manual) 0.8 K/mm3 (0.0-0.8) 02/05/21 09:00 Eosinophils # (Manual) 0.0 K/mm3 (0.0-0.4) 02/05/21 09:00 Basophils # (Manual) 0.0 K/mm3 (0.0-0.1) 02/05/21 09:00 Metamyelocytes # 0.1 K/mm3 02/05/21 09:00 Myelocytes # 0.0 K/mm3 02/05/21 09:00 Promyelocytes # 0.0 K/mm3 02/05/21 09:00 Blast Cells # 0.0 K/mm3 02/05/21 09:00 WBC Morphology Not Reportable 02/05/21 09:00 Hypersegmented Neuts Not Reportable 02/05/21 09:00 Hyposegmented Neuts Not Reportable 02/05/21 09:00 Hypogranular Neuts Not Reportable 02/05/21 09:00 Smudge Cells Not Reportable 02/05/21 09:00 Toxic Granulation 1+ 02/05/21 09:00 Toxic Vacuolation Few 02/05/21 09:00 Dohle Bodies Few 02/05/21 09:00 Pelger-Huet Anomaly Not Reportable 02/05/21 09:00 Tita Rods Not Reportable 02/05/21 09:00 Platelet Estimate Consistent w auto 02/05/21 09:00 Clumped Platelets Not Reportable 02/05/21 09:00 Plt Clumps, EDTA Not Reportable 02/05/21 09:00 Large Platelets Not Reportable 02/05/21 09:00 Giant Platelets Not Reportable 02/05/21 09:00 Platelet Satelliting Not Reportable 02/05/21 09:00 Plt Morphology Comment Not Reportable 02/05/21 09:00 RBC Morphology Not Reportable 02/05/21 09:00 Dimorphic RBCs Not Reportable 02/05/21 09:00 Polychromasia Not Reportable 02/05/21 09:00 Hypochromasia Not Reportable 02/05/21 09:00 Poikilocytosis Not Reportable 02/05/21 09:00 Anisocytosis 1+ 02/05/21 09:00 Microcytosis Not Reportable 02/05/21 09:00 Macrocytosis Not Reportable 02/05/21 09:00 Spherocytes Not Reportable 02/05/21 09:00 Pappenheimer Bodies Not Reportable 02/05/21 09:00 Sickle Cells Not Reportable 02/05/21 09:00 Target Cells Not Reportable 02/05/21 09:00 Tear Drop Cells Not Reportable 02/05/21 09:00 Ovalocytes Not Reportable 02/05/21 09:00 Helmet Cells Not Reportable 02/05/21 09:00 [place] Bodies Not Reportable 02/05/21 09:00 [place] Rings Not Reportable 02/05/21 09:00 Ming Cells Not Reportable 02/05/21 09:00 Bite Cells Not Reportable 02/05/21 09:00 Crenated Cell Not Reportable 02/05/21 09:00 Elliptocytes Not Reportable 02/05/21 09:00 Acanthocytes (Spur) Not Reportable 02/05/21 09:00 Rouleaux Not Reportable 02/05/21 09:00 Hemoglobin C Crystals Not Reportable 02/05/21 09:00 Schistocytes Not Reportable 02/05/21 09:00 Malaria parasites Not Reportable 02/05/21 09:00 Jeffrey Bodies Not Reportable 02/05/21 09:00 Hem Pathologist Commnt No 02/05/21 09:00 PT 26.9 Sec. (12.2-14.9) H 02/03/21 04:18 INR 2.43 (0.87-1.13) H 02/03/21 04:18 ABG pH 7.401 (7.320-7.450) 02/05/21 17:56 POC ABG pCO2 27.3 mmHg (32.0-48.0) L 02/05/21 17:56 POC ABG pO2 91.8 mmHg (83-108) 02/05/21 17:56 POC ABG HCO3 15.8 02/05/21 17:56 ABG O2 Saturation 96.3 (0-100) 02/05/21 17:56 POC ABG Base Excess Not Reportable 02/05/21 17:56 ABG Hemoglobin 6.9 (12.0-17.5) L 02/05/21 17:56 ABG Oxyhemoglobin 94.9 (94-98) 02/05/21 17:56 ABG Methemoglobin 0.1 (0.0-1.5) 02/05/21 17:56 ABG Sodium 132.4 mmol/L (136.0-145.0) L 02/05/21 17:56 ABG Potassium 4.4 mmol/L (3.40-4.50) 02/05/21 17:56 ABG Chloride 102.0 mmol/L (98-107) 02/05/21 17:56 ABG Glucose 77 mg/dL (65-95) 02/05/21 17:56 Carboxyhemoglobin 1.4 (0.5-1.5) 02/05/21 17:56 FiO2 % 45.0 02/05/21 17:56 Sodium 134 mmol/L (137-145) L 02/05/21 02:40 Potassium 5.3 mmol/L (3.6-5.0) H 02/05/21 02:40 Chloride 95.4 mmol/L (98-107) L 02/05/21 02:40 Carbon Dioxide 23 mmol/L (22-30) 02/05/21 02:40 Anion Gap 21 mmol/L 02/05/21 02:40 BUN 42 mg/dL (9-20) H 02/05/21 02:40 Creatinine 5.2 mg/dL (0.8-1.3) H D 02/05/21 02:40 Estimated GFR 13 ml/min 02/05/21 02:40 BUN/Creatinine Ratio 8 % 02/05/21 02:40 Glucose 97 mg/dL (75-100) 02/05/21 02:40 POC Glucose 58 mg/dL (70-105) L 02/05/21 16:54 Calcium 7.7 mg/dL (8.4-10.2) L 02/05/21 02:40 Iron 71 ug/dL (49-181) 02/01/21 05:04 TIBC 97 mcg/dL (250-450) L 02/01/21 05:04 Total Bilirubin 13.60 mg/dL (0.1-1.2) H 02/05/21 02:40 Direct Bilirubin 5.8 mg/dL (0-0.2) H 02/02/21 15:33 Indirect Bilirubin 4.0 mg/dL 02/02/21 15:33 AST 1567 units/L (5-40) H 02/05/21 02:40 ALT 605 units/L (7-56) H 02/05/21 02:40 Alkaline Phosphatase 130 units/L (35-129) H 02/05/21 02:40 Total Creatine Kinase 141 units/L (55-170) 01/31/21 00:00 NT-Pro-B Natriuret Pep 616.0 pg/mL (0-900) 01/31/21 00:00 Serum Total Protein 9.5 g/dL (6.1-8.1) H 01/31/21 08:23 Total Protein 5.4 g/dL (6.3-8.2) L 02/05/21 02:40 Albumin 2.4 g/dL (3.9-5) L 02/05/21 02:40 Albumin/Globulin Ratio 0.8 % 02/05/21 02:40 Rfxjw-1-Mfmbunpbl 0.3 g/dL (0.2-0.3) 01/31/21 08:23 Lnhrx-8-Eihwezdze 0.6 g/dL (0.5-0.9) 01/31/21 08:23 Beta Globulins 1.5 g/dL (0.2-0.5) H 01/31/21 08:23 Gamma Globulins 3.7 g/dL (0.8-1.7) H 01/31/21 08:23 Abnorm Protein Band 1 see below 01/31/21 08:23 PEP Interpretation see below H 01/31/21 08:23 Folate 8.23 ng/mL (7.3-26.0) 02/01/21 05:04 Arterial Blood Glucose 77 mg/dL (65-95) 02/05/21 17:56 Arterial Blood Ionized Calcium 3.8 mg/dL (4.6-5.3) L 02/05/21 17:56 Urine Color Debbie (Yellow) 02/01/21 06:08 Urine Turbidity Slightly-cloudy (Clear) 02/01/21 06:08 Urine pH 5.0 (5.0-7.0) 02/01/21 06:08 Ur Specific [place] 1.017 (1.003-1.030) 02/01/21 06:08 Urine Protein 30 mg/dl mg/dL (Negative) 02/01/21 06:08 Urine Glucose (UA) 50 mg/dL (Negative) 02/01/21 06:08 Urine Ketones Neg mg/dL (Negative) 02/01/21 06:08 Urine Blood Sm (Negative) 02/01/21 06:08 Urine Nitrite Neg (Negative) 02/01/21 06:08 Urine Bilirubin Mod (Negative) 02/01/21 06:08 Urine Ictotest Positive (Negative) 02/01/21 06:08 Urine Urobilinogen 4.0 mg/dL (<2.0) 02/01/21 06:08 Ur Leukocyte Esterase Neg (Negative) 02/01/21 06:08 Urine WBC (Auto) 23.0 /HPF (0.0-6.0) H 02/01/21 06:08 Urine RBC (Auto) 4.0 /HPF (0.0-6.0) 02/01/21 06:08 U Epithel Cells (Auto) 3.0 /HPF (0-13.0) 02/01/21 06:08 Urine Bacteria (Auto) 1+ /HPF (Negative) 02/01/21 06:08 Ur Transition Epith Cell 1 /HPF 02/01/21 06:08 Urine Mucus Few /HPF 02/01/21 06:08 Urine Creatinine 413.9 mg/dL (0.1-20.0) H 02/01/21 06:08 Protein/Creatinin Ratio 0.13 02/01/21 06:08 Urine Total Protein 55 mg/dL (5-11.8) H 02/01/21 06:08 Fluid Type Ascitic 01/31/21 14:15 Fluid Color Yellow 01/31/21 14:15 Fluid Appearance Hazy 01/31/21 14:15 Fluid WBC 203 /mm3 01/31/21 14:15 Fluid RBC 513 /mm3 01/31/21 14:15 Fluid Seg Neutrophils 2.0 % 01/31/21 14:15 Fluid Lymphocytes 55.0 % 01/31/21 14:15 Fluid Reactive Lymphs 0 % 01/31/21 14:15 Fluid Monocytes 43.0 % 01/31/21 14:15 Fluid Eosinophils 0 % 01/31/21 14:15 Fluid Basophils 0 % 01/31/21 14:15 SHARON Screen Negative (Negative) 01/31/21 08:23 Proteinase 3 (PR3) Ab <1.0 AI (<1.0) 01/31/21 08: Myeloperoxidase Ab <1.0 AI (<1.0) 01/31/21 08:23 Complement C3 73 mg/dL (82-185) L 01/31/21 08:23 Complement C4 5 mg/dL (15-53) L 01/31/21 08:23 Coronavirus (PCR) Negative (Negative) 02/02/21 Unknown Hepatitis A Ab Total Reactive (Nonreactive) H 01/31/21 08:23 Hep Bs Antigen Non-reactive (Negative) 01/31/21 08:23 Hep Bs Antibody, Quant 5 mIU/mL (>=10) L 01/31/21 08:23 Hepatitis C Antibody Reactive (NonReactive) A 01/31/21 08:23 HIV 1&2 Antibody Rapid Non react (Non React) 01/31/21 08:23 HIV P24 Antigen Non react (Non React) 01/31/21 08:23 Blood Type B POSITIVE 02/03/21 07:30 Antibody Screen Negative 02/03/21 07:30 Crossmatch See Detail 02/03/21 07:30 Microbiology: Microbiology 01/31/21 14:15 Ascities Fluid Body Fluid Culture - Final Jensen/IV: Voiding Method Condom Catheter Active Medications - Current Medications Current Medications: Generic Name Dose Route Start Last Admin Trade Name Freq PRN Reason Stop Dose Admin Acetaminophen 650 mg 01/31/21 03:30 02/02/21 14:28 Acetaminophen 325 Mg Tab PO 650 mg Q4H PRN Administration Pain MILD(1-3)/Fever >100.5/BUTCHER Dextrose 25 ml 01/31/21 13:00 02/05/21 17:00 Dextrose 50% In Water (25gm) 50 Ml Syringe IV 25 ml Q30MIN PRN Administration Hypoglycemia Protocol Fentanyl 50 mcg 02/03/21 18:42 Fentanyl 100 Mcg/2 Ml Inj IV Q2H PRN Pain , Severe (7-10) Hydrophilic Ointment 1 applic 02/03/21 18:45 Lip Therapy Vaseline TP Q2H PRN Dry Lips Sodium Chloride 100 mls @ 999 mls/hr 02/03/21 11:00 Nacl 0.9% IV MARCIO PRN Hypotension Pantoprazole Sodium 80 mg/ 100 mls @ 10 mls/hr 02/03/21 17:00 02/05/21 13:30 Sodium Chloride IV 8 mg/hr DIRECT TAQUERIA 10 mls/hr Administration 8 MG/HR Propofol 1,000 mg in 100 mls @ 2.955 mls/hr 02/03/21 19:00 02/05/21 10:18 Diprivan 10 Mg/Ml IV 10 mcg/kg/min TITR TAQUERIA 5.91 mls/hr Administration Protocol 5 MCG/KG/MIN Vasopressin 20 unit/ Sodium 101 mls @ 9.09 mls/hr 02/04/21 05:00 02/05/21 15:48 Chloride IV 0.03 units/min TITR TAQUERIA 9.09 mls/hr Administration Protocol 0.03 UNITS/MIN Dextrose 1,000 mls @ 10 mls/hr 02/05/21 18:00 02/05/21 17:37 D10w IV 10 mls/hr DIRECT TAQUERIA Administration Sodium Chloride 1,000 mls @ 10 mls/hr 02/05/21 18:00 02/05/21 17:35 Nacl 0.9% 1000 Ml IV 10 mls/hr ONCE PRN Administration sylvia Norepinephrine 4 mg in 250 mls @ 7.5 mls/hr 02/05/21 18:00 02/05/21 18:48 Levophed Drip 4 Mg/Ns 250 Ml IV 02/06/21 18:00 16 mcg/min TITR TAQUERIA 60 mls/hr Titration Protocol 2 MCG/MIN Sodium Chloride 500 mls @ 0 mls/hr 02/05/21 17:57 Nacl 0.9% 500 Ml IV 02/06/21 06:00 ONCE NR As Directed Sodium Chloride 500 mls @ 0 mls/hr 02/05/21 19:52 Nacl 0.9% 500 Ml IV 02/06/21 23:59 ONCE NR As Directed Lactulose 20 gm 02/01/21 10:00 02/05/21 09:06 Lactulose 20 Gm/30 Ml Oral Liqd PO Not Given QDAY TAQUERIA Multi-Ingred Cream/Lotion/Oil/Oint 1 applic 02/03/21 18:45 Mineral Oil/Petrolatum, White Ophth Oint 3.5 Gm OU Q4H PRN Dry Eye(s) Multivitamins 1 each 02/01/21 10:00 02/05/21 09:06 Multivitamins ,Therapeutic Tab PO Not Given QDAY TAQUERIA Ondansetron HCl 4 mg 01/31/21 03:30 02/03/21 10:18 Ondansetron 4 Mg/2 Ml Inj IV 4 mg Q8H PRN Administration Nausea And Vomiting Senna/Docusate Sodium 1 tab 02/03/21 22:00 02/05/21 09:06 Sennosides/Docusate Sodium 8.6/50 Mg Tab FEEDTUBE Not Given BID TAQUERIA Sodium Chloride 10 ml 01/31/21 10:00 02/05/21 10:02 Sodium Chloride 0.9% 10 Ml Flush Syringe IV 10 ml BID TAQUERIA Administration Sodium Chloride 10 ml 01/31/21 03:30 Sodium Chloride 0.9% 10 Ml Flush Syringe IV PRN PRN LINE FLUSH Nutrition/Malnutrition Assess - Dietary Evaluation Nutrition/Malnutrition Findings: Nutrition Notes Start: 01/31/21 13:50 Freq: Status: Active Protocol: Document 02/04/21 09:36 (Rec: 02/04/21 09:46 [email or web address]) Nutrition Notes Need for Assessment generated from: MD Order Initial or Follow up Reassessment Current Diagnosis Acute Kidney Injury Other Pertinent Diagnosis alcoholic cirrhosis, hyperbilirubinemia, L BKA, GIB , esophageal varices Current Diet NPO Labs/Tests ALT 781 AST 261 Pertinent Medications Vasopressin Propofol at 11.82 ml/hr Height 5 ft 11 in Weight 98.5 kg [place] Body Weight (kg) 78.18 BMI 30.2 Weight change and time frame Wt change noted Weight Status Overweight Subjective/Other Information MD order to eval intakes. Pt now on vent and receiving HD. MD does not want NGT placed due to esophageal varices. Will await GI input. Per chart , pt with poor intakes. MD reports likely able to wean off vent tommorw and start PO. Burn Absent Trauma Absent GI Symptoms Vomiting Difficulty In Swallowing Current % PO Negligible Minimum of two criteria No physical signs of malnutrition #2 Nutrition Diagnosis Inadequate oral intake Etiology ARF As Evidenced by Signs and Symptoms pt on vent and unable to consume PO #1 Nutrition Diagnosis Altered nutrition-related laboratory values As Evidenced by Signs and Symptoms Bili 12.3 Diagnosis Progress(for reassessment Continues documentation) Is patient on ventilator? Yes Is Patient Ambulatory and/or Out of Bed Yes [facility] [ 2316.769 [id number]] Kcal/Kg value to use for calculation 21 Approximate Energy Requirements Using 2068 kcal/Kg Calculation Used for Recommendations Kcal/kg Additional Notes Protein: 105-176g (1.2-2g/kg AdjBW: 88kg) Fluid: 1ml/kcal Nutrition Intervention Change Diet Order: Start TF when medically able Nutrition Support: Nepro 1.8 at 50 ml/hr Flush 200 ml q4h or per MD Kcal 2,160 Protein (gm) 97 Fluid (mL) 872 Goal #1 Start TF when medically able Anticipated Discharge Needs: Unable to determine at this time Follow-Up By: 02/06/21 Additional Comments FU for plan of care or TF consult <LILY CASTANO - Last Filed: 02/06/21 16:35> Assessment and Plan Assessment and plan: Agree with assessment and plan as outlined by nurse practitioner as above. Patient blood pressures low, placed on norepinephrine. Patient received 1 unit of blood, serial CBCs planned. Continue to transfuse if hemoglobin falls below 7.0. Patient has very poor prognosis. Hospitalist Physical - Constitutional Vitals: Temp Pulse Resp BP Pulse Ox 97.9 F 117 H 37 H 103/46 96 02/06/21 16:00 02/06/21 15:31 02/06/21 15:30 02/06/21 15:31 02/06/21 15:31 Results - Labs CBC & Chem 7: 02/06/21 14:32 02/06/21 10:00 Labs: Laboratory Last Values WBC 16.4 K/mm3 (4.5-11.0) H 02/06/21 14:32 RBC 2.12 M/mm3 (3.65-5.03) L 02/06/21 14:32 Hgb 6.8 gm/dl (11.8-15.2) L 02/06/21 14:32 Hct 21.0 % (35.5-45.6) L D 02/06/21 14:32 MCV 99 fl (84-94) H 02/06/21 14:32 MCH 32 pg (28-32) 02/06/21 14:32 MCHC 32 % (32-34) 02/06/21 14:32 RDW 19.2 % (13.2-15.2) H 02/06/21 14:32 Plt Count 61 K/mm3 (140-440) L 02/06/21 14:32 Lymph % (Auto) 8.1 % (13.4-35.0) L 02/04/21 09:55 [place] % (Auto) 13.2 % (0.0-7.3) H 02/04/21 09:55 Eos % (Auto) 0.1 % (0.0-4.3) 02/04/21 09:55 Baso % (Auto) 0.1 % (0.0-1.8) 02/04/21 09:55 Lymph # (Auto) 1.1 K/mm3 (1.2-5.4) L 02/04/21 09:55 [place] # (Auto) 1.8 K/mm3 (0.0-0.8) H 02/04/21 09:55 Eos # (Auto) 0.0 K/mm3 (0.0-0.4) 02/04/21 09:55 Baso # (Auto) 0.0 K/mm3 (0.0-0.1) 02/04/21 09:55 Add Manual Diff Complete 02/05/21 09:00 Total Counted 100 02/05/21 09:00 Seg Neutrophils % 78.5 % (40.0-70.0) H 02/04/21 09:55 Seg Neuts % (Manual) 80.0 % (40.0-70.0) H 02/05/21 09:00 Band Neutrophils % 7.0 % 02/05/21 09:00 Lymphocytes % (Manual) 6.0 % (13.4-35.0) L 02/05/21 09:00 Reactive Lymphs % (Man) 1.0 % 02/01/21 05:04 Monocytes % (Manual) 6.0 % (0.0-7.3) 02/05/21 09:00 Basophils % (Manual) 1.0 % (0.0-1.8) 02/01/21 05:04 Metamyelocytes % 1.0 % 02/05/21 09:00 Nucleated RBC % 1.0 % (0.0-0.9) H 02/05/21 09:00 Seg Neutrophils # 10.5 K/mm3 (1.8-7.7) H 02/04/21 09:55 Seg Neutrophils # Man 10.6 K/mm3 (1.8-7.7) H 02/05/21 09:00 Band Neutrophils # 0.9 K/mm3 02/05/21 09:00 Lymphocytes # (Manual) 0.8 K/mm3 (1.2-5.4) L 02/05/21 09:00 Abs React Lymphs (Man) 0.0 K/mm3 02/05/21 09:00 Monocytes # (Manual) 0.8 K/mm3 (0.0-0.8) 02/05/21 09:00 Eosinophils # (Manual) 0.0 K/mm3 (0.0-0.4) 02/05/21 09:00 Basophils # (Manual) 0.0 K/mm3 (0.0-0.1) 02/05/21 09:00 Metamyelocytes # 0.1 K/mm3 02/05/21 09:00 Myelocytes # 0.0 K/mm3 02/05/21 09:00 Promyelocytes # 0.0 K/mm3 02/05/21 09:00 Blast Cells # 0.0 K/mm3 02/05/21 09:00 WBC Morphology Not Reportable 02/05/21 09:00 Hypersegmented Neuts Not Reportable 02/05/21 09:00 Hyposegmented Neuts Not Reportable 02/05/21 09:00 Hypogranular Neuts Not Reportable 02/05/21 09:00 Smudge Cells Not Reportable 02/05/21 09:00 Toxic Granulation 1+ 02/05/21 09:00 Toxic Vacuolation Few 02/05/21 09:00 Dohle Bodies Few 02/05/21 09:00 Pelger-Huet Anomaly Not Reportable 02/05/21 09:00 Tita Rods Not Reportable 02/05/21 09:00 Platelet Estimate Consistent w auto 02/05/21 09:00 Clumped Platelets Not Reportable 02/05/21 09:00 Plt Clumps, EDTA Not Reportable 02/05/21 09:00 Large Platelets Not Reportable 02/05/21 09:00 Giant Platelets Not Reportable 02/05/21 09:00 Platelet Satelliting Not Reportable 02/05/21 09:00 Plt Morphology Comment Not Reportable 02/05/21 09:00 RBC Morphology Not Reportable 02/05/21 09:00 Dimorphic RBCs Not Reportable 02/05/21 09:00 Polychromasia Not Reportable 02/05/21 09:00 Hypochromasia Not Reportable 02/05/21 09:00 Poikilocytosis Not Reportable 02/05/21 09:00 Anisocytosis 1+ 02/05/21 09:00 Microcytosis Not Reportable 02/05/21 09:00 Macrocytosis Not Reportable 02/05/21 09:00 Spherocytes Not Reportable 02/05/21 09:00 Pappenheimer Bodies Not Reportable 02/05/21 09:00 Sickle Cells Not Reportable 02/05/21 09:00 Target Cells Not Reportable 02/05/21 09:00 Tear Drop Cells Not Reportable 02/05/21 09:00 Ovalocytes Not Reportable 02/05/21 09:00 Helmet Cells Not Reportable 02/05/21 09:00 [place] Bodies Not Reportable 02/05/21 09:00 [place] Rings Not Reportable 02/05/21 09:00 Ming Cells Not Reportable 02/05/21 09:00 Bite Cells Not Reportable 02/05/21 09:00 Crenated Cell Not Reportable 02/05/21 09:00 Elliptocytes Not Reportable 02/05/21 09:00 Acanthocytes (Spur) Not Reportable 02/05/21 09:00 Rouleaux Not Reportable 02/05/21 09:00 Hemoglobin C Crystals Not Reportable 02/05/21 09:00 Schistocytes Not Reportable 02/05/21 09:00 Malaria parasites Not Reportable 02/05/21 09:00 Jeffrey Bodies Not Reportable 02/05/21 09:00 Hem Pathologist Commnt No 02/05/21 09:00 PT 47.2 Sec. (12.2-14.9) H 02/06/21 10:00 INR 5.18 (0.87-1.13) H* 02/06/21 10:00 APTT 77.8 Sec. (24.2-36.6) H* 02/06/21 10:00 Fibrinogen 129 mg/dl (211-480) L* 02/06/21 10:00 ABG pH 7.241 (7.320-7.450) L 02/06/21 16:19 POC ABG pCO2 30.6 mmHg (32.0-48.0) L 02/06/21 16:19 POC ABG pO2 85.5 mmHg (83-108) 02/06/21 16: POC ABG HCO3 12.8 02/06/21 16:19 ABG O2 Saturation 93.3 (0-100) 02/06/21 16:19 POC ABG Base Excess -13.3 02/06/21 16:19 ABG Hemoglobin 6.3 (12.0-17.5) L 02/06/21 16:19 ABG Oxyhemoglobin 92.0 (94-98) L 02/06/21 16:19 ABG Methemoglobin 0.3 (0.0-1.5) 02/06/21 16:19 ABG Sodium 134.1 mmol/L (136.0-145.0) L 02/06/21 16:19 ABG Potassium 5.3 mmol/L (3.40-4.50) H 02/06/21 16:19 ABG Chloride 101.0 mmol/L (98-107) 02/06/21 16:19 ABG Glucose 94 mg/dL (65-95) 02/06/21 16:19 Carboxyhemoglobin 1.1 (0.5-1.5) 02/06/21 16:19 FiO2 % 100.0 02/06/21 16:19 Sodium 136 mmol/L (137-145) L 02/06/21 10:00 Potassium 5.6 mmol/L (3.6-5.0) H 02/06/21 10:00 Chloride 95.7 mmol/L (98-107) L 02/06/21 10:00 Carbon Dioxide 10 mmol/L (22-30) L 02/06/21 10:00 Anion Gap 36 mmol/L 02/06/21 10:00 BUN 43 mg/dL (9-20) H 02/06/21 10:00 Creatinine 6.6 mg/dL (0.8-1.3) H 02/06/21 10:00 Estimated GFR 10 ml/min 02/06/21 10:00 BUN/Creatinine Ratio 7 % 02/06/21 10:00 Glucose 78 mg/dL (75-100) 02/06/21 10:00 POC Glucose 80 mg/dL (70-105) 02/06/21 15:33 Lactic Acid 17.50 mmol/L (0.7-2.0) H* 02/06/21 11:00 Calcium 7.8 mg/dL (8.4-10.2) L 02/06/21 10:00 Iron 71 ug/dL (49-181) 02/01/21 05:04 TIBC 97 mcg/dL (250-450) L 02/01/21 05:04 Total Bilirubin 9.70 mg/dL (0.1-1.2) H 02/06/21 10:00 Direct Bilirubin 5.8 mg/dL (0-0.2) H 02/02/21 15:33 Indirect Bilirubin 4.0 mg/dL 02/02/21 15:33 AST 1837 units/L (5-40) H 02/06/21 10:00 ALT 812 units/L (7-56) H 02/06/21 10:00 Alkaline Phosphatase 158 units/L (35-129) H 02/06/21 10:00 Ammonia 289.0 umol/L (25-60) H 02/06/21 10:00 Total Creatine Kinase 141 units/L (55-170) 01/31/21 00:00 NT-Pro-B Natriuret Pep 616.0 pg/mL (0-900) 01/31/21 00:00 Serum Total Protein 9.5 g/dL (6.1-8.1) H 01/31/21 08:23 Total Protein 5.3 g/dL (6.3-8.2) L 02/06/21 10:00 Albumin 2.1 g/dL (3.9-5) L 02/06/21 10:00 Albumin/Globulin Ratio 0.7 % 02/06/21 10:00 Fburs-4-Zynwperca 0.3 g/dL (0.2-0.3) 01/31/21 08:23 Akjvs-4-Jbbxmqbmx 0.6 g/dL (0.5-0.9) 01/31/21 08:23 Beta Globulins 1.5 g/dL (0.2-0.5) H 01/31/21 08:23 Gamma Globulins 3.7 g/dL (0.8-1.7) H 01/31/21 08:23 Abnorm Protein Band 1 see below 01/31/21 08:23 PEP Interpretation see below H 01/31/21 08:23 Triglycerides 105 mg/dL (2-149) 02/06/21 05:52 Folate 8.23 ng/mL (7.3-26.0) 02/01/21 05:04 Arterial Blood Glucose 94 mg/dL (65-95) 02/06/21 16:19 Arterial Blood Ionized Calcium 4.1 mg/dL (4.6-5.3) L 02/06/21 16:19 Urine Color Debbie (Yellow) 02/01/21 06:08 Urine Turbidity Slightly-cloudy (Clear) 02/01/21 06:08 Urine pH 5.0 (5.0-7.0) 02/01/21 06:08 Ur Specific [place] 1.017 (1.003-1.030) 02/01/21 06:08 Urine Protein 30 mg/dl mg/dL (Negative) 02/01/21 06:08 Urine Glucose (UA) 50 mg/dL (Negative) 02/01/21 06:08 Urine Ketones Neg mg/dL (Negative) 02/01/21 06:08 Urine Blood Sm (Negative) 02/01/21 06:08 Urine Nitrite Neg (Negative) 02/01/21 06:08 Urine Bilirubin Mod (Negative) 02/01/21 06:08 Urine Ictotest Positive (Negative) 02/01/21 06:08 Urine Urobilinogen 4.0 mg/dL (<2.0) 02/01/21 06:08 Ur Leukocyte Esterase Neg (Negative) 02/01/21 06:08 Urine WBC (Auto) 23.0 /HPF (0.0-6.0) H 02/01/21 06:08 Urine RBC (Auto) 4.0 /HPF (0.0-6.0) 02/01/21 06:08 U Epithel Cells (Auto) 3.0 /HPF (0-13.0) 02/01/21 06:08 Urine Bacteria (Auto) 1+ /HPF (Negative) 02/01/21 06:08 Ur Transition Epith Cell 1 /HPF 02/01/21 06:08 Urine Mucus Few /HPF 02/01/21 06:08 Urine Creatinine 413.9 mg/dL (0.1-20.0) H 02/01/21 06:08 Protein/Creatinin Ratio 0.13 02/01/21 06:08 Urine Total Protein 55 mg/dL (5-11.8) H 02/01/21 06:08 Fluid Type Ascitic 01/31/21 14:15 Fluid Color Yellow 01/31/21 14:15 Fluid Appearance Hazy 01/31/21 14:15 Fluid WBC 203 /mm3 01/31/21 14:15 Fluid RBC 513 /mm3 01/31/21 14:15 Fluid Seg Neutrophils 2.0 % 01/31/21 14:15 Fluid Lymphocytes 55.0 % 01/31/21 14:15 Fluid Reactive Lymphs 0 % 01/31/21 14:15 Fluid Monocytes 43.0 % 01/31/21 14:15 Fluid Eosinophils 0 % 01/31/21 14:15 Fluid Basophils 0 % 01/31/21 14:15 SHARON Screen Negative (Negative) 01/31/21 08:23 Proteinase 3 (PR3) Ab <1.0 AI (<1.0) 01/31/21 08:23 Myeloperoxidase Ab <1.0 AI (<1.0) 01/31/21 08:23 Complement C3 73 mg/dL (82-185) L 01/31/21 08:23 Complement C4 5 mg/dL (15-53) L 01/31/21 08:23 Coronavirus (PCR) Negative (Negative) 02/02/21 Unknown Hepatitis A Ab Total Reactive (Nonreactive) H 01/31/21 08:23 Hep Bs Antigen Non-reactive (Negative) 01/31/21 08:23 Hep Bs Antibody, Quant 5 mIU/mL (>=10) L 01/31/21 08:23 Hepatitis C Antibody Reactive (NonReactive) A 01/31/21 08:23 HIV 1&2 Antibody Rapid Non react (Non React) 01/31/21 08:23 HIV P24 Antigen Non react (Non React) 01/31/21 08:23 Blood Type B POSITIVE 02/06/21 14:33 Antibody Screen Negative 02/03/21 07:30 Crossmatch See Detail 02/06/21 14:33 Jensen/IV: Voiding Method Toilet Active Medications - Current Medications Current Medications: Generic Name Dose Route Start Last Admin Trade Name Freq PRN Reason Stop Dose Admin Dextrose 25 ml 01/31/21 13:00 02/06/21 08:43 Dextrose 50% In Water (25gm) 50 Ml Syringe IV 25 ml Q30MIN PRN Administration Hypoglycemia Protocol Fentanyl 50 mcg 02/03/21 18:42 Fentanyl 100 Mcg/2 Ml Inj IV Q2H PRN Pain , Severe (7-10) Hydrophilic Ointment 1 applic 02/03/21 18:45 Lip Therapy Vaseline TP Q2H PRN Dry Lips Sodium Chloride 100 mls @ 999 mls/hr 02/03/21 11:00 Nacl 0.9% IV MARCIO PRN Hypotension Pantoprazole Sodium 80 mg/ 100 mls @ 10 mls/hr 02/03/21 17:00 02/06/21 11:14 Sodium Chloride IV 8 mg/hr DIRECT TAQUERIA 10 mls/hr Administration 8 MG/HR Propofol 1,000 mg in 100 mls @ 2.955 mls/hr 02/03/21 19:00 02/06/21 08:00 Diprivan 10 Mg/Ml IV 10 mcg/kg/min TITR TAQUERIA 5.91 mls/hr Titration Protocol 5 MCG/KG/MIN Vasopressin 20 unit/ Sodium 101 mls @ 9.09 mls/hr 02/04/21 05:00 02/06/21 13:52 Chloride IV 0.03 units/min TITR TAQUERIA 9.09 mls/hr Administration Protocol 0.03 UNITS/MIN Dextrose 1,000 mls @ 50 mls/hr 02/05/21 18:00 02/05/21 17:37 D10w IV 10 mls/hr DIRECT TAQUERIA Administration Sodium Chloride 1,000 mls @ 10 mls/hr 02/05/21 18:00 02/05/21 17:35 Nacl 0.9% 1000 Ml IV 10 mls/hr ONCE PRN Administration sylvia Norepinephrine 4 mg in 250 mls @ 7.5 mls/hr 02/05/21 18:00 02/06/21 11:45 Levophed Drip 4 Mg/Ns 250 Ml IV 02/06/21 18:00 Infused TITR TAQUERIA Titration Protocol 2 MCG/MIN Sodium Chloride 500 mls @ 0 mls/hr 02/05/21 19:52 Nacl 0.9% 500 Ml IV 02/06/21 23:59 ONCE NR As Directed Metronidazole 500 mg in 100 mls @ 100 mls/hr 02/06/21 12:00 02/06/21 12:01 Flagyl 500 Mg/100 Ml IV 100 mls/hr Q8H TAQUERIA Administration Protocol Sodium Bicarbonate 150 meq/ 1,150 mls @ 150 mls/hr 02/06/21 11:30 02/06/21 12:00 Dextrose IV 150 mls/hr DIRECT TAQUERIA Administration Sodium Chloride 500 mls @ 0 mls/hr 02/06/21 11:43 Nacl 0.9% 500 Ml IV 02/06/21 23:59 ONCE NR As Directed Sodium Chloride 500 mls @ 0 mls/hr 02/06/21 11:51 Nacl 0.9% 500 Ml IV 02/06/21 23:59 ONCE NR As Directed Cefepime HCl 1 gm in 100 mls @ 200 mls/hr 02/06/21 12:00 02/06/21 12:18 Cefepime/Ns 1 Gm/100 Ml IV 200 mls/hr Q24H TAQUERIA Administration Sodium Chloride 500 mls @ 0 mls/hr 02/06/21 12:01 Nacl 0.9% 500 Ml IV 02/06/21 23:59 ONCE NR As Directed Phenylephrine HCl 100 mg/ 100 mls @ 3 mls/hr 02/06/21 14:30 02/06/21 14:49 Sodium Chloride IV 50 mcg/min TITR TAQUERIA 3 mls/hr Administration Protocol 50 MCG/MIN Epinephrine 16 mg/ Sodium 250 mls @ 1.875 mls/hr 02/06/21 15:00 Chloride IV TITR TAQUERIA Protocol 2 MCG/MIN NORepinephrine/NS 8 MG-250 ML 8 mg in 250 mls @ 3.75 mls/hr 02/06/21 15:00 02/06/21 14:56 Norepinephrine/Ns 8 Mg-250 Ml (Double Conc) IV 30 mcg/min TITRATE TAQUEIRA 56.25 mls/hr Administration Protocol 2 MCG/MIN Lactulose 20 gm 02/01/21 10:00 02/06/21 10:11 Lactulose 20 Gm/30 Ml Oral Liqd PO Not Given QDAY TAQUERIA Multi-Ingred Cream/Lotion/Oil/Oint 1 applic 02/03/21 18:45 Mineral Oil/Petrolatum, White Ophth Oint 3.5 Gm OU Q4H PRN Dry Eye(s) Multivitamins 1 each 02/01/21 10:00 02/06/21 10:11 Multivitamins ,Therapeutic Tab PO Not Given QDAY TAQUERIA Ondansetron HCl 4 mg 01/31/21 03:30 02/03/21 10:18 Ondansetron 4 Mg/2 Ml Inj IV 4 mg Q8H PRN Administration Nausea And Vomiting Senna/Docusate Sodium 1 tab 02/03/21 22:00 02/06/21 10:11 Sennosides/Docusate Sodium 8.6/50 Mg Tab FEEDTUBE Not Given BID TAQUERIA Sodium Bicarbonate 100 meq 02/06/21 16:00 02/06/21 16:15 Sodium Bicarb 8.4% 50 Meq/50 Ml Syringe IV 02/06/21 18:00 100 meq ONCE TAQUERIA Administration Sodium Chloride 10 ml 01/31/21 10:00 02/06/21 10:15 Sodium Chloride 0.9% 10 Ml Flush Syringe IV 10 ml BID TAQUERIA Administration Sodium Chloride 10 ml 01/31/21 03:30 Sodium Chloride 0.9% 10 Ml Flush Syringe IV PRN PRN LINE FLUSH Nutrition/Malnutrition Assess - Dietary Evaluation Nutrition/Malnutrition Findings: Nutrition Notes Start: 01/31/21 13:50 Freq: Status: Active Protocol: Document 02/06/21 14:34 ROBI (Rec: 02/06/21 14:42 ROBI [id number]) Nutrition Notes Initial or Follow up Reassessment Current Diagnosis Acute Kidney Injury, Respiratory Failure Other Pertinent Diagnosis Liver failure, hepatic mass, ( L) BKA, esophageal varices Current Diet NPO Labs/Tests Na 136 K 5.6 Ammonia 289 CO2 - 10 BUN 45 Cr 6.6 Pertinent Medications Human albumin x 1 dose, D10 at 50ml/hr, Levophed gtt, Vasopressin gtt, Na bicarb gtt Height 5 ft 11 in Weight 124.3 kg [place] Body Weight (kg) 78.18 BMI 38.2 Weight change and time frame Wt increase likely sec to edema Subjective/Other Information Pt intubated on 02/03 and received HD on 02/04 and 02/05. Pt may be extubated today. Burn Absent Trauma Absent #2 Nutrition Diagnosis Inadequate oral intake As Evidenced by Signs and Symptoms pt remains NPO Diagnosis Progress(for reassessment Continues documentation) #1 Nutrition Diagnosis Altered nutrition-related laboratory values Diagnosis Progress(for reassessment Continues documentation) Is patient on ventilator? Yes Is Patient Ambulatory and/or Out of Bed No REE-([place]-confined to bed) 2453.088 Kcal/Kg value to use for calculation 17 Approximate Energy Requirements Using 2113 kcal/Kg Calculation Used for Recommendations Kcal/kg Additional Notes Pro needs 0.8-1.2g/kg (based on wt from 01/31): 69-103g/day Fluid needs per MD Nutrition Intervention Change Diet Order: Advance diet when medically feasible Goal #1 Either advance diet or start TF to meet nutrient needs Follow-Up By: 02/08/21 Additional Comments F/U: POC, vent status, Day 7 NPO)
[2021-02-06] MEDS: NORepinephrine/NS 4 MG-250 ML 4 MG/250 ML BAG IV SCH ×3 (00:29→09:00)
[2021-02-06] MEDS: VASOPRESSIN 20 UNIT in SODIUM CHLORIDE 0.9% 100 ML IV SCH ×3 (03:19→21:08)
[2021-02-06 06:38] LABS: Hematocrit 29.4 % (35.5-45.6); Hemoglobin 9.5 gm/dl (11.8-15.2)
--- NOTE | 2021-02-06 06:52 | XRay Report ---
CHEST 1 VIEW, 02/06/2021 4:00 AM CLINICAL INFORMATION/INDICATION: Respiratory failure COMPARISON: Chest radiograph, 02/05/2021 at 2:25 AM FINDINGS: SUPPORT DEVICES: Support tubes and lines remain in stable position. HEART: The cardiac silhouette is normal in size. LUNGS/PLEURA: Perihilar interstitial markings are again noted and appear similar to the previous stud y. No pneumothorax is visualized. ADDITIONAL FINDINGS: No additional acute findings. IMPRESSION: 1. Stable prominent interstitial markings suggesting vascular congestion. Signer Name: Eva Phillips MD Signed: 02/06/2021 6:48 AM Workstation Name: [id number]
[2021-02-06 08:02] LABS: Hematocrit 27.2 % (35.5-45.6); Hemoglobin 9.1 gm/dl (11.8-15.2)
[2021-02-06] MEDS: DEXTROSE 50% IN WATER (25GM) 50 ML SYRINGE IV PRN ×2 (08:43→23:51)
[2021-02-06 08:54] LABS: Hemoglobin 9.2 gm/dl (11.8-15.2); Mean Corpuscular HGB Conc 34 % (32-34); Mean Corpuscular Volume 94 fl (84-94); Red Blood Count 2.87 M/mm3 (3.65-5.03); Red Cell Distribution Width 18.1 % (13.2-15.2)
[2021-02-06 09:12] LABS: Platelet Count 70 K/mm3 (140-440)
[2021-02-06 09:25] LABS: Albumin 2.2 g/dL (3.9-5); Blood Urea Nitrogen 44 mg/dL (9-20); Calcium 7.6 mg/dL (8.4-10.2); Hemolysis Index 57
[2021-02-06 10:08] LABS: BUN/Creatinine Ratio 7
[2021-02-06] MEDS: SENNOSIDES/DOCUSATE SODIUM 8.6/50 MG TAB FEEDTUBE SCH ×2 (10:11→22:00)
[2021-02-06] MEDS: LACTULOSE 20 GM/30 ML ORAL LIQD PO SCH (10:11)
[2021-02-06] MEDS: MULTIVITAMINS ,THERAPEUTIC TAB PO SCH (10:11)
[2021-02-06] MEDS ORDERED: HYDROCORTISONE SOD SUCC 100 MG/2 ML VIAL IV NR (10:40)
[2021-02-06] MEDS ORDERED: SODIUM BICARBONATE 150 MEQ in DEXTROSE 5% IN WATER 1,000 ML IV SCH (11:00)
[2021-02-06] MEDS ORDERED: SODIUM BICARBONATE 150 MEQ in WATER FOR INJECTION (PF) 1,000 ML IV SCH (11:00)
[2021-02-06] MEDS ORDERED: CEFEPIME/NS 2 GM/100 ML 2 GM/100 ML BAG IV SCH (11:00)
--- NOTE | 2021-02-06 11:05 | Progress Note ---
<LA NENA REA A - Last Filed: 02/06/21 14:14> Assessment and Plan Assessment and plan: HPI 65-year-old male with no significant past medical history presented to the emergency room 01/30/2021 complaining of abdominal pain and lower extremity edema for the past 2 to 3 weeks. Work-up in the emergency room showed revealed LILLIAM and acute liver dysfunction. Chest x-ray reveals small left pleural effusion. CT of the abdomen and pelvis shows a cirrhotic appearing liver there is also suggestion of possible multiple masses throughout the liver parenchyma. Moderate/large amount of ascites is noted throughout the abdomen and pelvis. Cholelithiasis without CT evidence of acute cholecystitis. Patient was admitted with abdominal pain possibly secondary to cirrhotic liver with accompanying ascites, cholelithiasis and hyperkalemia with acute renal failure. 01/31 Paracentesis for 5.5 L of ascitic fluid. Abdominal ultrasound and CT abdomen suggestive of possible underlying hepatic malignancy. GI following Abdomen US: 1. Cirrhotic liver. The hepatic parenchyma is diffusely heterogeneous with several more nodular areas of increased echogenicity. It is difficult to say if this represents more focal areas of hepatic steatosis or an underlying hepatic lesion, and multi phase CT or MRI of the abdomen is r ecommended for further evaluation. 2. The portal vein is patent. 3. Cholelithiasis without convincing evidence for acute cholecystitis. 02/03/21 Worsening kidney function. Pt vomiting bloody and having melanas stools. Hemoglobin dropped to 6.5. RBC, vitamin K and FFP given. EGD 1. Normal duodenum 2. 5mm cratered in the antrum - Visible vessel at the base - Attempted clip x 4 (Conmed 16mm, 11mm clips) but mucosal defect would not close 3. Huge amount of blood/clots in stomach, and proimal body/fundus not seen, but does not appear to have varices in the cardia 4. Grade I esophageal varices (3 columns) that had no stigmata of bleeding, and flattened on insufflation Following EGD patient was takento IR. Triallysis catheter was placed by vascular and s/p Coil embolization performed with empiric embolization of GDA and clip targeting embolization of the right proximal gastroepiploic artery. Patient will also remain intubated for airway protection. Consulted critical care and transfer the patient to ICU. 02/04: HD. Ongoing transfusions and DDAVP. 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 They understands he is in critical condition with numerous organs failing. 02/03 OVERNIGHT EVENTS Remains sedated on propofol; any attempts to wean sedation pt becomes tachypnic, tachycardic and hypoxia. On vaso and NE for MAP goal of 70 Remains ventilated NPO Protonix drip- GI following Not tolerating HD- nephrology following 2 U RBC overnight with Hgb 6.9---9 Leukocytosis Transaminitis with hypoglycemia SYSTEMS REVIEW NEURO- AMS/encephalopathy, acute pain sedated on propofol low dose fentanyl for pain PERRL no purposeful response to noxious stimuli attempts to turn down sedation for daily SAT result in tachypnea, tachycardia and hypoxia will continue to attempt daily SAT encephalopathy - trend ammonia --289 today lactulose is to clear the ammonia; consider rifax./vit C family has been updated on plan of care this AM NOK daughter - pt has 4 children CV- hemorrhagic shock ST on vaso and NE albumin 500 ml ordered this AM MAP goal 70 for renal perfusion sp traumatic left BKA Resp- acute resp failure; current smoker 02/03 intubated 02/03 APVCMV [id number] trending ABG daily and PRN daily chest xray - noted this AM GI- liver failure; hep A/C; esophageal varies; GIB; current daily ETOH hep pos A and C transaminitis with coagulopathy and hyperammonia daily and PRN LFT/ ammonia and coags avoid liver toxic- tylenol d/c today 01/31 ascities sp para 02/02 last PO intake pt has no NGT 02/03 embolization of right prox gastoepiloic artery GI following for GIB/esophageal varies 1400 GI at bedside diffuse bleeding nothing to band or clip remains on protonix drip octriatide dc 02/05 per GI no NGT dark stool this AM - AKF; hyperK; volume overload; hypoCa no holland not making urine per RN bladder scan QS ordered nephrology following 02/03 HD not tolerated--will reeval today grossly volume overload- approx 5L since 02/01; with hypoK would benefit from CRRT acidotic- bicarb drip at 150 ml/h ordered daily weight strict hourly I/O avoid nephrotoxins and renal dose meds- pharmacy following Heme- coagulapathic with GIB; hemorrhagic shock trending LFT and coags correct as needed Vit K, DDAVP, RBC, Plt, FFP, cryo ordered this AM will need repeat coags to assess response to meds Serial H/H every 4 hours VTE SCD/ coagulopathic ID- leukocytosis lactic acidosis sputum and blood cultures ordered today vanc x 1; cefuro and flagyl ordered today narrow when appropriate based on cultures pharmacy to dose for liver/renal disease trend temp and WBC curve daily afebrile uptrending WBC to 18 when coags are stable consider diagnostic para Endo- hypoglycemia D10 increased to 50 ml per hour- needs glucose source given liver failure Q1h blood glucose LINES LIJ vascath R radial sylvia LA PIV R fem TLC placed today The high probability of a clinically significant, sudden or life threatening deterioration of the system(respiratory, GI, renal, hematology) required my full and direct attention, intervention and personal management. The aggregate critical care time was [120] minutes. This time is in addition to time spent performing reported procedures but includes the following: [x] Data Review and interpretation [x] Patient assessment and monitoring of vital signs [x] Documentation [x] Medication orders and management Time spent does not include procedures Disposition Plan: To be determined; at this time remains critically ill Total Time Spent with Patient (Minutes): 120 History Interval history: 02/03 overnight events Remains sedated on propofol; any attempts to wean sedation pt becomes tachypnic, tachycardic and hypoxia. On vaso and NE for MAP goal of 70 Remains ventilated NPO Protonix drip- GI following Not tolerating HD- nephrology following 2 U RBC overnight with Hgb 6.9---9 Leukocytosis Transaminitis with hypoglycemia Hospitalist Physical - Constitutional Vitals: Temp Pulse Resp BP Pulse Ox 98.0 F 128 H 33 H 139/56 93 02/06/21 03:48 02/06/21 09:15 02/06/21 09:15 02/06/21 09:15 02/06/21 09:15 General appearance: Present: other (Intubated, sedated) - EENT Eyes: Present: PERRL, scleral icterus - Neck Neck: Present: supple - Respiratory Respiratory effort: normal, other (ventilated) Respiratory: bilateral: diminished - Cardiovascular Heart rate: 120 Rhythm: regular Heart Sounds: Present: S1 & S2 - Extremities Extremity abnormal: edema (generalized edema ), other Peripheral Pulses: abnormal - Abdominal General gastrointestinal: distended, hypoactive bowel sounds, hepatomegaly, other (ascites; obese) - Integumentary Integumentary: Present: jaundice, pale - Psychiatric Psychiatric: other (sedated) - Allied Health Allied health notes reviewed: nursing, RT, social work Results - Labs CBC & Chem 7: 02/06/21 07:40 02/06/21 10:00 Labs: Laboratory Last Values WBC 18.2 K/mm3 (4.5-11.0) H 02/06/21 07:40 RBC 2.87 M/mm3 (3.65-5.03) L 02/06/21 07:40 Hgb 9.1 gm/dl (11.8-15.2) L 02/06/21 07:40 Hgb 9.2 gm/dl (11.8-15.2) L 02/06/21 07:40 Hct 27.0 % (35.5-45.6) L 02/06/21 07:40 Hct 27.2 % (35.5-45.6) L 02/06/21 07:40 MCV 94 fl (84-94) 02/06/21 07:40 MCH 32 pg (28-32) 02/06/21 07:40 MCHC 34 % (32-34) 02/06/21 07:40 RDW 18.1 % (13.2-15.2) H 02/06/21 07:40 Plt Count 70 K/mm3 (140-440) L 02/06/21 07:40 Lymph % (Auto) 8.1 % (13.4-35.0) L 02/04/21 09:55 [place] % (Auto) 13.2 % (0.0-7.3) H 02/04/21 09:55 Eos % (Auto) 0.1 % (0.0-4.3) 02/04/21 09:55 Baso % (Auto) 0.1 % (0.0-1.8) 02/04/21 09:55 Lymph # (Auto) 1.1 K/mm3 (1.2-5.4) L 02/04/21 09:55 [place] # (Auto) 1.8 K/mm3 (0.0-0.8) H 02/04/21 09:55 Eos # (Auto) 0.0 K/mm3 (0.0-0.4) 02/04/21 09:55 Baso # (Auto) 0.0 K/mm3 (0.0-0.1) 02/04/21 09:55 Add Manual Diff Complete 02/05/21 09:00 Total Counted 100 02/05/21 09:00 Seg Neutrophils % 78.5 % (40.0-70.0) H 02/04/21 09:55 Seg Neuts % (Manual) 80.0 % (40.0-70.0) H 02/05/21 09:00 Band Neutrophils % 7.0 % 02/05/21 09:00 Lymphocytes % (Manual) 6.0 % (13.4-35.0) L 02/05/21 09:00 Reactive Lymphs % (Man) 1.0 % 02/01/21 05:04 Monocytes % (Manual) 6.0 % (0.0-7.3) 02/05/21 09:00 Basophils % (Manual) 1.0 % (0.0-1.8) 02/01/21 05:04 Metamyelocytes % 1.0 % 02/05/21 09:00 Nucleated RBC % 1.0 % (0.0-0.9) H 02/05/21 09:00 Seg Neutrophils # 10.5 K/mm3 (1.8-7.7) H 02/04/21 09:55 Seg Neutrophils # Man 10.6 K/mm3 (1.8-7.7) H 02/05/21 09:00 Band Neutrophils # 0.9 K/mm3 02/05/21 09:00 Lymphocytes # (Manual) 0.8 K/mm3 (1.2-5.4) L 02/05/21 09:00 Abs React Lymphs (Man) 0.0 K/mm3 02/05/21 09:00 Monocytes # (Manual) 0.8 K/mm3 (0.0-0.8) 02/05/21 09:00 Eosinophils # (Manual) 0.0 K/mm3 (0.0-0.4) 02/05/21 09:00 Basophils # (Manual) 0.0 K/mm3 (0.0-0.1) 02/05/21 09:00 Metamyelocytes # 0.1 K/mm3 02/05/21 09:00 Myelocytes # 0.0 K/mm3 02/05/21 09:00 Promyelocytes # 0.0 K/mm3 02/05/21 09:00 Blast Cells # 0.0 K/mm3 02/05/21 09:00 WBC Morphology Not Reportable 02/05/21 09:00 Hypersegmented Neuts Not Reportable 02/05/21 09:00 Hyposegmented Neuts Not Reportable 02/05/21 09:00 Hypogranular Neuts Not Reportable 02/05/21 09:00 Smudge Cells Not Reportable 02/05/21 09:00 Toxic Granulation 1+ 02/05/21 09:00 Toxic Vacuolation Few 02/05/21 09:00 Dohle Bodies Few 02/05/21 09:00 Pelger-Huet Anomaly Not Reportable 02/05/21 09:00 Tita Rods Not Reportable 02/05/21 09:00 Platelet Estimate Consistent w auto 02/05/21 09:00 Clumped Platelets Not Reportable 02/05/21 09:00 Plt Clumps, EDTA Not Reportable 02/05/21 09:00 Large Platelets Not Reportable 02/05/21 09:00 Giant Platelets Not Reportable 02/05/21 09:00 Platelet Satelliting Not Reportable 02/05/21 09:00 Plt Morphology Comment Not Reportable 02/05/21 09:00 RBC Morphology Not Reportable 02/05/21 09:00 Dimorphic RBCs Not Reportable 02/05/21 09:00 Polychromasia Not Reportable 02/05/21 09:00 Hypochromasia Not Reportable 02/05/21 09:00 Poikilocytosis Not Reportable 02/05/21 09:00 Anisocytosis 1+ 02/05/21 09:00 Microcytosis Not Reportable 02/05/21 09:00 Macrocytosis Not Reportable 02/05/21 09:00 Spherocytes Not Reportable 02/05/21 09:00 Pappenheimer Bodies Not Reportable 02/05/21 09:00 Sickle Cells Not Reportable 02/05/21 09:00 Target Cells Not Reportable 02/05/21 09:00 Tear Drop Cells Not Reportable 02/05/21 09:00 Ovalocytes Not Reportable 02/05/21 09:00 Helmet Cells Not Reportable 02/05/21 09:00 [place] Bodies Not Reportable 02/05/21 09:00 [place] Rings Not Reportable 02/05/21 09:00 [place] Cells Not Reportable 02/05/21 09:00 Bite Cells Not Reportable 02/05/21 09:00 Crenated Cell Not Reportable 02/05/21 09:00 Elliptocytes Not Reportable 02/05/21 09:00 Acanthocytes (Spur) Not Reportable 02/05/21 09:00 Rouleaux Not Reportable 02/05/21 09:00 Hemoglobin C Crystals Not Reportable 02/05/21 09:00 Schistocytes Not Reportable 02/05/21 09:00 Malaria parasites Not Reportable 02/05/21 09:00 Jeffrey Bodies Not Reportable 02/05/21 09:00 Hem Pathologist Commnt No 02/05/21 09:00 PT 26.9 Sec. (12.2-14.9) H 02/03/21 04:18 INR 2.43 (0.87-1.13) H 02/03/21 04:18 ABG pH 7.258 (7.320-7.450) L 02/06/21 08:05 POC ABG pCO2 18.9 mmHg (32.0-48.0) L 02/06/21 08:05 POC ABG pO2 80.7 mmHg (83-108) L 02/06/21 08:05 POC ABG HCO3 8.2 02/06/21 08:05 ABG O2 Saturation 93.8 (0-100) 02/06/21 08:05 POC ABG Base Excess -17.0 02/06/21 08:05 ABG Hemoglobin 8.79 (12.0-17.5) L 02/06/21 08:05 ABG Oxyhemoglobin 91.8 (94-98) L 02/06/21 08:05 ABG Methemoglobin 0.7 (0.0-1.5) 02/06/21 08:05 ABG Sodium Not Reportable 02/06/21 08:05 ABG Potassium Not Reportable 02/06/21 08:05 ABG Chloride Not Reportable 02/06/21 08:05 ABG Glucose Not Reportable 02/06/21 08:05 Carboxyhemoglobin 1.4 (0.5-1.5) 02/06/21 08:05 FiO2 % 0.45 02/06/21 08:05 Sodium 137 mmol/L (137-145) 02/06/21 05:52 Potassium 5.6 mmol/L (3.6-5.0) H 02/06/21 05:52 Chloride 96.5 mmol/L (98-107) L 02/06/21 05:52 Carbon Dioxide 11 mmol/L (22-30) L D 02/06/21 05:52 Anion Gap 35 mmol/L 02/06/21 05:52 BUN 44 mg/dL (9-20) H 02/06/21 05:52 Creatinine 6.1 mg/dL (0.8-1.3) H 02/06/21 05:52 Estimated GFR 11 ml/min 02/06/21 05:52 BUN/Creatinine Ratio 7 % 02/06/21 05:52 Glucose 73 mg/dL (75-100) L 02/06/21 05:52 POC Glucose 109 mg/dL (70-105) H 02/06/21 09:19 Calcium 7.6 mg/dL (8.4-10.2) L 02/06/21 05:52 Iron 71 ug/dL (49-181) 02/01/21 05:04 TIBC 97 mcg/dL (250-450) L 02/01/21 05:04 Total Bilirubin 10.60 mg/dL (0.1-1.2) H 02/06/21 05:52 Direct Bilirubin 5.8 mg/dL (0-0.2) H 02/02/21 15:33 Indirect Bilirubin 4.0 mg/dL 02/02/21 15:33 AST 1567 units/L (5-40) H 02/05/21 02:40 ALT 605 units/L (7-56) H 02/05/21 02:40 Alkaline Phosphatase 149 units/L (35-129) H 02/06/21 05:52 Total Creatine Kinase 141 units/L (55-170) 01/31/21 00:00 NT-Pro-B Natriuret Pep 616.0 pg/mL (0-900) 01/31/21 00:00 Serum Total Protein 9.5 g/dL (6.1-8.1) H 01/31/21 08:23 Total Protein 5.4 g/dL (6.3-8.2) L 02/06/21 05:52 Albumin 2.2 g/dL (3.9-5) L 02/06/21 05:52 Albumin/Globulin Ratio 0.7 % 02/06/21 05:52 Nkech-2-Ggcmkvcxx 0.3 g/dL (0.2-0.3) 01/31/21 08:23 Qlxky-6-Pnlswzqag 0.6 g/dL (0.5-0.9) 01/31/21 08:23 Beta Globulins 1.5 g/dL (0.2-0.5) H 01/31/21 08:23 Gamma Globulins 3.7 g/dL (0.8-1.7) H 01/31/21 08:23 Abnorm Protein Band 1 see below 01/31/21 08:23 PEP Interpretation see below H 01/31/21 08:23 Triglycerides 105 mg/dL (2-149) 02/06/21 05:52 Folate 8.23 ng/mL (7.3-26.0) 02/01/21 05:04 Arterial Blood Glucose Not Reportable 02/06/21 08:05 Arterial Blood Ionized Calcium 3.8 mg/dL (4.6-5.3) L 02/05/21 17:56 Urine Color Debbie (Yellow) 02/01/21 06:08 Urine Turbidity Slightly-cloudy (Clear) 02/01/21 06:08 Urine pH 5.0 (5.0-7.0) 02/01/21 06:08 Ur Specific [place] 1.017 (1.003-1.030) 02/01/21 06:08 Urine Protein 30 mg/dl mg/dL (Negative) 02/01/21 06:08 Urine Glucose (UA) 50 mg/dL (Negative) 02/01/21 06:08 Urine Ketones Neg mg/dL (Negative) 02/01/21 06:08 Urine Blood Sm (Negative) 02/01/21 06:08 Urine Nitrite Neg (Negative) 02/01/21 06:08 Urine Bilirubin Mod (Negative) 02/01/21 06:08 Urine Ictotest Positive (Negative) 02/01/21 06:08 Urine Urobilinogen 4.0 mg/dL (<2.0) 02/01/21 06:08 Ur Leukocyte Esterase Neg (Negative) 02/01/21 06:08 Urine WBC (Auto) 23.0 /HPF (0.0-6.0) H 02/01/21 06:08 Urine RBC (Auto) 4.0 /HPF (0.0-6.0) 02/01/21 06:08 U Epithel Cells (Auto) 3.0 /HPF (0-13.0) 02/01/21 06:08 Urine Bacteria (Auto) 1+ /HPF (Negative) 02/01/21 06:08 Ur Transition Epith Cell 1 /HPF 02/01/21 06:08 Urine Mucus Few /HPF 02/01/21 06:08 Urine Creatinine 413.9 mg/dL (0.1-20.0) H 02/01/21 06:08 Protein/Creatinin Ratio 0.13 02/01/21 06:08 Urine Total Protein 55 mg/dL (5-11.8) H 02/01/21 06:08 Fluid Type Ascitic 01/31/21 14:15 Fluid Color Yellow 01/31/21 14:15 Fluid Appearance Hazy 01/31/21 14:15 Fluid WBC 203 /mm3 01/31/21 14:15 Fluid RBC 513 /mm3 01/31/21 14:15 Fluid Seg Neutrophils 2.0 % 01/31/21 14:15 Fluid Lymphocytes 55.0 % 01/31/21 14:15 Fluid Reactive Lymphs 0 % 01/31/21 14:15 Fluid Monocytes 43.0 % 01/31/21 14:15 Fluid Eosinophils 0 % 01/31/21 14:15 Fluid Basophils 0 % 01/31/21 14:15 SHARON Screen Negative (Negative) 01/31/21 08:23 Proteinase 3 (PR3) Ab <1.0 AI (<1.0) 01/31/21 08:23 Myeloperoxidase Ab <1.0 AI (<1.0) 01/31/21 08:23 Complement C3 73 mg/dL (82-185) L 01/31/21 08:23 Complement C4 5 mg/dL (15-53) L 01/31/21 08:23 Coronavirus (PCR) Negative (Negative) 02/02/21 Unknown Hepatitis A Ab Total Reactive (Nonreactive) H 01/31/21 08:23 Hep Bs Antigen Non-reactive (Negative) 01/31/21 08:23 Hep Bs Antibody, Quant 5 mIU/mL (>=10) L 01/31/21 08:23 Hepatitis C Antibody Reactive (NonReactive) A 01/31/21 08:23 HIV 1&2 Antibody Rapid Non react (Non React) 01/31/21 08:23 HIV P24 Antigen Non react (Non React) 01/31/21 08:23 Blood Type B POSITIVE 02/03/21 07:30 Antibody Screen Negative 02/03/21 07:30 Crossmatch See Detail 02/03/21 07:30 Microbiology: Microbiology 01/31/21 14:15 Ascities Fluid Body Fluid Culture - Final - Imaging and Cardiology Chest x-ray: other (see report; NAP) CT scan - abdomen: other (see report) CT scan - pelvis: other (see report) US - abdomen: other (see report) - Diagnostic Impressions Diagnostic Impressions: CURRENT PROBLEM LIST Encephalopathic with hyperammonia Acute hypoxic respiratory failure GIB with hemorrhagic shock 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; Hep A/C; esophageal varicies and GI bleeding; hepatic mass Acute kidney failure with lactic acidosis, hyperK and volume overload; not tolerating HD Hemorrhagic shock- Acute blood loss anemia -esophageal varies; large antral ulceration Leukocytosis [place]/IV: Voiding Method Condom Catheter NO HOLLAND BLADDER SCAN QS Active Medications - Current Medications Current Medications: Generic Name Dose Route Start Last Admin Trade Name Freq PRN Reason Stop Dose Admin Acetaminophen 650 mg 01/31/21 03:30 02/02/21 14:28 Acetaminophen 325 Mg Tab PO 650 mg Q4H PRN Administration Pain MILD(1-3)/Fever >100.5/BUTCHER Albumin Human 25 gm 02/06/21 10:55 Albumin Human 5% (25 Gm/500 Ml) Inj IV 02/06/21 10:56 ONCE ONE Dextrose 25 ml 01/31/21 13:00 02/06/21 08:43 Dextrose 50% In Water (25gm) 50 Ml Syringe IV 25 ml Q30MIN PRN Administration Hypoglycemia Protocol Fentanyl 50 mcg 02/03/21 18:42 Fentanyl 100 Mcg/2 Ml Inj IV Q2H PRN Pain , Severe (7-10) Hydrocortisone Sodium Succinate 125 mg 02/06/21 10:40 Hydrocortisone Sod Succ 100 Mg/2 Ml Vial IV 02/06/21 10:41 ONCE ONE Hydrophilic Ointment 1 applic 02/03/21 18:45 Lip Therapy Vaseline TP Q2H PRN Dry Lips Sodium Chloride 100 mls @ 999 mls/hr 02/03/21 11:00 Nacl 0.9% IV MARCIO PRN Hypotension Pantoprazole Sodium 80 mg/ 100 mls @ 10 mls/hr 02/03/21 17:00 02/05/21 22:40 Sodium Chloride IV 8 mg/hr DIRECT TAQUERIA 10 mls/hr Administration 8 MG/HR Propofol 1,000 mg in 100 mls @ 2.955 mls/hr 02/03/21 19:00 02/06/21 08:00 Diprivan 10 Mg/Ml IV 10 mcg/kg/min TITR TAQUERIA 5.91 mls/hr Titration Protocol 5 MCG/KG/MIN Vasopressin 20 unit/ Sodium 101 mls @ 9.09 mls/hr 02/04/21 05:00 02/06/21 03:19 Chloride IV 0.03 units/min TITR TAQUERIA 9.09 mls/hr Administration Protocol 0.03 UNITS/MIN Dextrose 1,000 mls @ 10 mls/hr 02/05/21 18:00 02/05/21 17:37 D10w IV 10 mls/hr DIRECT TAQUERIA Administration Sodium Chloride 1,000 mls @ 10 mls/hr 02/05/21 18:00 02/05/21 17:35 Nacl 0.9% 1000 Ml IV 10 mls/hr ONCE PRN Administration sylvia Norepinephrine 4 mg in 250 mls @ 7.5 mls/hr 02/05/21 18:00 02/06/21 04:20 Levophed Drip 4 Mg/Ns 250 Ml IV 02/06/21 18:00 16 mcg/min TITR TAQUERIA 60 mls/hr Administration Protocol 2 MCG/MIN Sodium Chloride 500 mls @ 0 mls/hr 02/05/21 19:52 Nacl 0.9% 500 Ml IV 02/06/21 23:59 ONCE NR As Directed Sodium Bicarbonate 150 meq/ 1,150 mls @ 150 mls/hr 02/06/21 11:00 Sterile Water IV 02/10/21 18:39 DIRECT TAQUERIA Cefepime HCl 2 gm in 100 mls @ 200 mls/hr 02/06/21 11:00 Cefepime/Ns 2 Gm/100 Ml IV Q8H [facility] Protocol Metronidazole 500 mg in 100 mls @ 100 mls/hr 02/06/21 11:00 Flagyl 500 Mg/100 Ml IV Q8H [facility] Protocol Lactulose 20 gm 02/01/21 10:00 02/05/21 09:06 Lactulose 20 Gm/30 Ml Oral Liqd PO Not Given QDAY [facility] Multi-Ingred Cream/Lotion/Oil/Oint 1 applic 02/03/21 18:45 Mineral Oil/Petrolatum, White Ophth Oint 3.5 Gm OU Q4H PRN Dry Eye(s) Multivitamins 1 each 02/01/21 10:00 02/05/21 09:06 Multivitamins ,Therapeutic Tab PO Not Given QDAY [facility] Ondansetron HCl 4 mg 01/31/21 03:30 02/03/21 10:18 Ondansetron 4 Mg/2 Ml Inj IV 4 mg Q8H PRN Administration Nausea And Vomiting Senna/Docusate Sodium 1 tab 02/03/21 22:00 02/05/21 22:00 Sennosides/Docusate Sodium 8.6/50 Mg Tab FEEDTUBE Not Given BID TAQUERIA Sodium Chloride 10 ml 01/31/21 10:00 02/05/21 22:00 Sodium Chloride 0.9% 10 Ml Flush Syringe IV 10 ml BID TAQUERIA Administration Sodium Chloride 10 ml 01/31/21 03:30 Sodium Chloride 0.9% 10 Ml Flush Syringe IV PRN PRN LINE FLUSH Nutrition/Malnutrition Assess - Dietary Evaluation Nutrition/Malnutrition Findings: Nutrition Notes Start: 01/31/21 13:50 Freq: Status: Active Protocol: Document 02/04/21 09:36 VERNA (Rec: 02/04/21 09:46 VERNA [id number]) Nutrition Notes Need for Assessment generated from: MD Order Initial or Follow up Reassessment Current Diagnosis Acute Kidney Injury Other Pertinent Diagnosis alcoholic cirrhosis, hyperbilirubinemia, L BKA, GIB , esophageal varices Current Diet NPO Labs/Tests ALT 781 AST 261 Pertinent Medications Vasopressin Propofol at 11.82 ml/hr Height 5 ft 11 in Weight 98.5 kg [place] Body Weight (kg) 78.18 BMI 30.2 Weight change and time frame Wt change noted Weight Status Overweight Subjective/Other Information MD order to eval intakes. Pt now on vent and receiving HD. MD does not want NGT placed due to esophageal varices. Will await GI input. Per chart , pt with poor intakes. MD reports likely able to wean off vent tommorw and start PO. Burn Absent Trauma Absent GI Symptoms Vomiting Difficulty In Swallowing Current % PO Negligible Minimum of two criteria No physical signs of malnutrition #2 Nutrition Diagnosis Inadequate oral intake Etiology ARF As Evidenced by Signs and Symptoms pt on vent and unable to consume PO #1 Nutrition Diagnosis Altered nutrition-related laboratory values As Evidenced by Signs and Symptoms Bili 12.3 Diagnosis Progress(for reassessment Continues documentation) Is patient on ventilator? Yes Is Patient Ambulatory and/or Out of Bed Yes REE-([facility]-ambulatory/OOB) [ 2316.769 [id number]] Kcal/Kg value to use for calculation 21 Approximate Energy Requirements Using 2068 kcal/Kg Calculation Used for Recommendations Kcal/kg Additional Notes Protein: 105-176g (1.2-2g/kg AdjBW: 88kg) Fluid: 1ml/kcal Nutrition Intervention Change Diet Order: Start TF when medically able Nutrition Support: Nepro 1.8 at 50 ml/hr Flush 200 ml q4h or per MD Kcal 2,160 Protein (gm) 97 Fluid (mL) 872 Goal #1 Start TF when medically able Anticipated Discharge Needs: Unable to determine at this time Follow-Up By: 02/06/21 Additional Comments FU for plan of care or TF consult - Malnutrition Assessment Minimum of two criteria: Yes (NPO) - Attestation Statement I have reviewed and agreed w/ Malnutrition eval & tx plan: Yes (NPO) <LILY CASTANO - Last Filed: 02/06/21 16:32> Assessment and Plan Assessment and plan: Agree with assessment and plan as outlined by nurse practitioner. Patient seen and examined, very poor prognosis at this time. Patient was transfused last night due to drop in hemoglobin. Patient is acidotic. Platelets are low. Patient was given vitamin K, desmopressin, PRBCs, FFP. Bicarb drip started due to acidosis, patient with hypotension, currently on pressors. Albumin given. Family was updated, family meeting with critical care and GI. It was clearly outlined that the patient has a very poor prognosis at this time, however patient family states they want full code. EGD was completed today, generalized friable tissue with oozing blood most likely the source of bleeding. Called the family and updated them as to the patient's condition at this time. Informed them we are giving blood products which will hopefully decrease the bleeding,, but made it very clear that patient continues to have a poor prognosis. They verbalized understanding of plan, patient remains full code. Hospitalist Physical - Constitutional Vitals: Temp Pulse Resp BP Pulse Ox 97.9 F 117 H 37 H 103/46 96 02/06/21 16:00 02/06/21 15:31 02/06/21 15:30 02/06/21 15:31 02/06/21 15:31 Results - Labs CBC & Chem 7: 02/06/21 14:32 02/06/21 10:00 Labs: Laboratory Last Values WBC 16.4 K/mm3 (4.5-11.0) H 02/06/21 14:32 RBC 2.12 M/mm3 (3.65-5.03) L 02/06/21 14:32 Hgb 6.8 gm/dl (11.8-15.2) L 02/06/21 14:32 Hct 21.0 % (35.5-45.6) L D 02/06/21 14:32 MCV 99 fl (84-94) H 02/06/21 14:32 MCH 32 pg (28-32) 02/06/21 14:32 MCHC 32 % (32-34) 02/06/21 14:32 RDW 19.2 % (13.2-15.2) H 02/06/21 14:32 Plt Count 61 K/mm3 (140-440) L 02/06/21 14:32 Lymph % (Auto) 8.1 % (13.4-35.0) L 02/04/21 09:55 [place] % (Auto) 13.2 % (0.0-7.3) H 02/04/21 09:55 Eos % (Auto) 0.1 % (0.0-4.3) 02/04/21 09:55 Baso % (Auto) 0.1 % (0.0-1.8) 02/04/21 09:55 Lymph # (Auto) 1.1 K/mm3 (1.2-5.4) L 02/04/21 09:55 [place]ancock # (Auto) 1.8 K/mm3 (0.0-0.8) H 02/04/21 09:55 Eos # (Auto) 0.0 K/mm3 (0.0-0.4) 02/04/21 09:55 Baso # (Auto) 0.0 K/mm3 (0.0-0.1) 02/04/21 09:55 Add Manual Diff Complete 02/05/21 09:00 Total Counted 100 02/05/21 09:00 Seg Neutrophils % 78.5 % (40.0-70.0) H 02/04/21 09:55 Seg Neuts % (Manual) 80.0 % (40.0-70.0) H 02/05/21 09:00 Band Neutrophils % 7.0 % 02/05/21 09:00 Lymphocytes % (Manual) 6.0 % (13.4-35.0) L 02/05/21 09:00 Reactive Lymphs % (Man) 1.0 % 02/01/21 05:04 Monocytes % (Manual) 6.0 % (0.0-7.3) 02/05/21 09:00 Basophils % (Manual) 1.0 % (0.0-1.8) 02/01/21 05:04 Metamyelocytes % 1.0 % 02/05/21 09:00 Nucleated RBC % 1.0 % (0.0-0.9) H 02/05/21 09:00 Seg Neutrophils # 10.5 K/mm3 (1.8-7.7) H 02/04/21 09:55 Seg Neutrophils # Man 10.6 K/mm3 (1.8-7.7) H 02/05/21 09:00 Band Neutrophils # 0.9 K/mm3 02/05/21 09:00 Lymphocytes # (Manual) 0.8 K/mm3 (1.2-5.4) L 02/05/21 09:00 Abs React Lymphs (Man) 0.0 K/mm3 02/05/21 09:00 Monocytes # (Manual) 0.8 K/mm3 (0.0-0.8) 02/05/21 09:00 Eosinophils # (Manual) 0.0 K/mm3 (0.0-0.4) 02/05/21 09:00 Basophils # (Manual) 0.0 K/mm3 (0.0-0.1) 02/05/21 09:00 Metamyelocytes # 0.1 K/mm3 02/05/21 09:00 Myelocytes # 0.0 K/mm3 02/05/21 09:00 Promyelocytes # 0.0 K/mm3 02/05/21 09:00 Blast Cells # 0.0 K/mm3 02/05/21 09:00 WBC Morphology Not Reportable 02/05/21 09:00 Hypersegmented Neuts Not Reportable 02/05/21 09:00 Hyposegmented Neuts Not Reportable 02/05/21 09:00 Hypogranular Neuts Not Reportable 02/05/21 09:00 Smudge Cells Not Reportable 02/05/21 09:00 Toxic Granulation 1+ 02/05/21 09:00 Toxic Vacuolation Few 02/05/21 09:00 Dohle Bodies Few 02/05/21 09:00 Pelger-Huet Anomaly Not Reportable 02/05/21 09:00 Tita Rods Not Reportable 02/05/21 09:00 Platelet Estimate Consistent w auto 02/05/21 09:00 Clumped Platelets Not Reportable 02/05/21 09:00 Plt Clumps, EDTA Not Reportable 02/05/21 09:00 Large Platelets Not Reportable 02/05/21 09:00 Giant Platelets Not Reportable 02/05/21 09:00 Platelet Satelliting Not Reportable 02/05/21 09:00 Plt Morphology Comment Not Reportable 02/05/21 09:00 RBC Morphology Not Reportable 02/05/21 09:00 Dimorphic RBCs Not Reportable 02/05/21 09:00 Polychromasia Not Reportable 02/05/21 09:00 Hypochromasia Not Reportable 02/05/21 09:00 Poikilocytosis Not Reportable 02/05/21 09:00 Anisocytosis 1+ 02/05/21 09:00 Microcytosis Not Reportable 02/05/21 09:00 Macrocytosis Not Reportable 02/05/21 09:00 Spherocytes Not Reportable 02/05/21 09:00 Pappenheimer Bodies Not Reportable 02/05/21 09:00 Sickle Cells Not Reportable 02/05/21 09:00 Target Cells Not Reportable 02/05/21 09:00 Tear Drop Cells Not Reportable 02/05/21 09:00 Ovalocytes Not Reportable 02/05/21 09:00 Helmet Cells Not Reportable 02/05/21 09:00 [place] Bodies Not Reportable 02/05/21 09:00 [place] Rings Not Reportable 02/05/21 09:00 [place] Cells Not Reportable 02/05/21 09:00 Bite Cells Not Reportable 02/05/21 09:00 Crenated Cell Not Reportable 02/05/21 09:00 Elliptocytes Not Reportable 02/05/21 09:00 Acanthocytes (Spur) Not Reportable 02/05/21 09:00 Rouleaux Not Reportable 02/05/21 09:00 Hemoglobin C Crystals Not Reportable 02/05/21 09:00 Schistocytes Not Reportable 02/05/21 09:00 Malaria parasites Not Reportable 02/05/21 09:00 Jeffrey Bodies Not Reportable 02/05/21 09:00 Hem Pathologist Commnt No 02/05/21 09:00 PT 47.2 Sec. (12.2-14.9) H 02/06/21 10:00 INR 5.18 (0.87-1.13) H* 02/06/21 10:00 APTT 77.8 Sec. (24.2-36.6) H* 02/06/21 10:00 Fibrinogen 129 mg/dl (211-480) L* 02/06/21 10:00 ABG pH 7.241 (7.320-7.450) L 02/06/21 16:19 POC ABG pCO2 30.6 mmHg (32.0-48.0) L 02/06/21 16:19 POC ABG pO2 85.5 mmHg (83-108) 02/06/21 16:19 POC ABG HCO3 12.8 02/06/21 16:19 ABG O2 Saturation 93.3 (0-100) 02/06/21 16:19 POC ABG Base Excess -13.3 02/06/21 16:19 ABG Hemoglobin 6.3 (12.0-17.5) L 02/06/21 16:19 ABG Oxyhemoglobin 92.0 (94-98) L 02/06/21 16:19 ABG Methemoglobin 0.3 (0.0-1.5) 02/06/21 16:19 ABG Sodium 134.1 mmol/L (136.0-145.0) L 02/06/21 16:19 ABG Potassium 5.3 mmol/L (3.40-4.50) H 02/06/21 16:19 ABG Chloride 101.0 mmol/L (98-107) 02/06/21 16:19 ABG Glucose 94 mg/dL (65-95) 02/06/21 16:19 Carboxyhemoglobin 1.1 (0.5-1.5) 02/06/21 16:19 FiO2 % 100.0 02/06/21 16:19 Sodium 136 mmol/L (137-145) L 02/06/21 10:00 Potassium 5.6 mmol/L (3.6-5.0) H 02/06/21 10:00 Chloride 95.7 mmol/L (98-107) L 02/06/21 10:00 Carbon Dioxide 10 mmol/L (22-30) L 02/06/21 10:00 Anion Gap 36 mmol/L 02/06/21 10:00 BUN 43 mg/dL (9-20) H 02/06/21 10:00 Creatinine 6.6 mg/dL (0.8-1.3) H 02/06/21 10:00 Estimated GFR 10 ml/min 02/06/21 10:00 BUN/Creatinine Ratio 7 % 02/06/21 10:00 Glucose 78 mg/dL (75-100) 02/06/21 10:00 POC Glucose 80 mg/dL (70-105) 02/06/21 15:33 Lactic Acid 17.50 mmol/L (0.7-2.0) H* 02/06/21 11:00 Calcium 7.8 mg/dL (8.4-10.2) L 02/06/21 10:00 Iron 71 ug/dL (49-181) 02/01/21 05:04 TIBC 97 mcg/dL (250-450) L 02/01/21 05:04 Total Bilirubin 9.70 mg/dL (0.1-1.2) H 02/06/21 10:00 Direct Bilirubin 5.8 mg/dL (0-0.2) H 02/02/21 15:33 Indirect Bilirubin 4.0 mg/dL 02/02/21 15:33 AST 1837 units/L (5-40) H 02/06/21 10:00 ALT 812 units/L (7-56) H 02/06/21 10:00 Alkaline Phosphatase 158 units/L (35-129) H 02/06/21 10:00 Ammonia 289.0 umol/L (25-60) H 02/06/21 10:00 Total Creatine Kinase 141 units/L (55-170) 01/31/21 00:00 NT-Pro-B Natriuret Pep 616.0 pg/mL (0-900) 01/31/21 00:00 Serum Total Protein 9.5 g/dL (6.1-8.1) H 01/31/21 08:23 Total Protein 5.3 g/dL (6.3-8.2) L 02/06/21 10:00 Albumin 2.1 g/dL (3.9-5) L 02/06/21 10:00 Albumin/Globulin Ratio 0.7 % 02/06/21 10:00 [place]-3-Blukxlffj 0.3 g/dL (0.2-0.3) 01/31/21 08:23 Pfyxa-7-Pkqcnmcki 0.6 g/dL (0.5-0.9) 01/31/21 08:23 Beta Globulins 1.5 g/dL (0.2-0.5) H 01/31/21 08:23 Gamma Globulins 3.7 g/dL (0.8-1.7) H 01/31/21 08:23 Abnorm Protein Band 1 see below 01/31/21 08:23 PEP Interpretation see below H 01/31/21 08:23 Triglycerides 105 mg/dL (2-149) 02/06/21 05:52 Folate 8.23 ng/mL (7.3-26.0) 02/01/21 05:04 Arterial Blood Glucose 94 mg/dL (65-95) 02/06/21 16:19 Arterial Blood Ionized Calcium 4.1 mg/dL (4.6-5.3) L 02/06/21 16:19 Urine Color Debbie (Yellow) 02/01/21 06:08 Urine Turbidity Slightly-cloudy (Clear) 02/01/21 06:08 Urine pH 5.0 (5.0-7.0) 02/01/21 06:08 Ur Specific [place] 1.017 (1.003-1.030) 02/01/21 06:08 Urine Protein 30 mg/dl mg/dL (Negative) 02/01/21 06:08 Urine Glucose (UA) 50 mg/dL (Negative) 02/01/21 06:08 Urine Ketones Neg mg/dL (Negative) 02/01/21 06:08 Urine Blood Sm (Negative) 02/01/21 06:08 Urine Nitrite Neg (Negative) 02/01/21 06:08 Urine Bilirubin Mod (Negative) 02/01/21 06:08 Urine Ictotest Positive (Negative) 02/01/21 06:08 Urine Urobilinogen 4.0 mg/dL (<2.0) 02/01/21 06:08 Ur Leukocyte Esterase Neg (Negative) 02/01/21 06:08 Urine WBC (Auto) 23.0 /HPF (0.0-6.0) H 02/01/21 06:08 Urine RBC (Auto) 4.0 /HPF (0.0-6.0) 02/01/21 06:08 U Epithel Cells (Auto) 3.0 /HPF (0-13.0) 02/01/21 06:08 Urine Bacteria (Auto) 1+ /HPF (Negative) 02/01/21 06:08 Ur Transition Epith Cell 1 /HPF 02/01/21 06:08 Urine Mucus Few /HPF 02/01/21 06:08 Urine Creatinine 413.9 mg/dL (0.1-20.0) H 02/01/21 06:08 Protein/Creatinin Ratio 0.13 02/01/21 06:08 Urine Total Protein 55 mg/dL (5-11.8) H 02/01/21 06:08 Fluid Type Ascitic 01/31/21 14:15 Fluid Color Yellow 01/31/21 14:15 Fluid Appearance Hazy 01/31/21 14:15 Fluid WBC 203 /mm3 01/31/21 14:15 Fluid RBC 513 /mm3 01/31/21 14:15 Fluid Seg Neutrophils 2.0 % 01/31/21 14:15 Fluid Lymphocytes 55.0 % 01/31/21 14:15 Fluid Reactive Lymphs 0 % 01/31/21 14:15 Fluid Monocytes 43.0 % 01/31/21 14:15 Fluid Eosinophils 0 % 01/31/21 14:15 Fluid Basophils 0 % 01/31/21 14:15 SHARON Screen Negative (Negative) 01/31/21 08:23 Proteinase 3 (PR3) Ab <1.0 AI (<1.0) 01/31/21 08:23 Myeloperoxidase Ab <1.0 AI (<1.0) 01/31/21 08:23 Complement C3 73 mg/dL (82-185) L 01/31/21 08:23 Complement C4 5 mg/dL (15-53) L 01/31/21 08:23 Coronavirus (PCR) Negative (Negative) 02/02/21 Unknown Hepatitis A Ab Total Reactive (Nonreactive) H 01/31/21 08:23 Hep Bs Antigen Non-reactive (Negative) 01/31/21 08:23 Hep Bs Antibody, Quant 5 mIU/mL (>=10) L 01/31/21 08:23 Hepatitis C Antibody Reactive (NonReactive) A 01/31/21 08:23 HIV 1&2 Antibody Rapid Non react (Non React) 01/31/21 08:23 HIV P24 Antigen Non react (Non React) 01/31/21 08:23 Blood Type B POSITIVE 02/06/21 14:33 Antibody Screen Negative 02/03/21 07:30 Crossmatch See Detail 02/06/21 14:33 [place]/IV: Voiding Method Toilet Active Medications - Current Medications Current Medications: Generic Name Dose Route Start Last Admin Trade Name Freq PRN Reason Stop Dose Admin Dextrose 25 ml 01/31/21 13:00 02/06/21 08:43 Dextrose 50% In Water (25gm) 50 Ml Syringe IV 25 ml Q30MIN PRN Administration Hypoglycemia Protocol Fentanyl 50 mcg 02/03/21 18:42 Fentanyl 100 Mcg/2 Ml Inj IV Q2H PRN Pain , Severe (7-10) Hydrophilic Ointment 1 applic 02/03/21 18:45 Lip Therapy Vaseline TP Q2H PRN Dry Lips Sodium Chloride 100 mls @ 999 mls/hr 02/03/21 11:00 Nacl 0.9% IV MARCIO PRN Hypotension Pantoprazole Sodium 80 mg/ 100 mls @ 10 mls/hr 02/03/21 17:00 02/06/21 11:14 Sodium Chloride IV 8 mg/hr DIRECT TAQUERIA 10 mls/hr Administration 8 MG/HR Propofol 1,000 mg in 100 mls @ 2.955 mls/hr 02/03/21 19:00 02/06/21 08:00 Diprivan 10 Mg/Ml IV 10 mcg/kg/min TITR TAQUERIA 5.91 mls/hr Titration Protocol 5 MCG/KG/MIN Vasopressin 20 unit/ Sodium 101 mls @ 9.09 mls/hr 02/04/21 05:00 02/06/21 13 :52 Chloride IV 0.03 units/min TITR TAQUERIA 9.09 mls/hr Administration Protocol 0.03 UNITS/MIN Dextrose 1,000 mls @ 50 mls/hr 02/05/21 18:00 02/05/21 17:37 D10w IV 10 mls/hr DIRECT TAQUERIA Administration Sodium Chloride 1,000 mls @ 10 mls/hr 02/05/21 18:00 02/05/21 17:35 Nacl 0.9% 1000 Ml IV 10 mls/hr ONCE PRN Administration sylvia Norepinephrine 4 mg in 250 mls @ 7.5 mls/hr 02/05/21 18:00 02/06/21 11:45 Levophed Drip 4 Mg/Ns 250 Ml IV 02/06/21 18:00 Infused TITR TAQUERIA Titration Protocol 2 MCG/MIN Sodium Chloride 500 mls @ 0 mls/hr 02/05/21 19:52 Nacl 0.9% 500 Ml IV 02/06/21 23:59 ONCE NR As Directed Metronidazole 500 mg in 100 mls @ 100 mls/hr 02/06/21 12:00 02/06/21 12:01 Flagyl 500 Mg/100 Ml IV 100 mls/hr Q8H TAQUERIA Administration Protocol Sodium Bicarbonate 150 meq/ 1,150 mls @ 150 mls/hr 02/06/21 11:30 02/06/21 12:00 Dextrose IV 150 mls/hr DIRECT TAQUERIA Administration Sodium Chloride 500 mls @ 0 mls/hr 02/06/21 11:43 Nacl 0.9% 500 Ml IV 02/06/21 23:59 ONCE NR As Directed Sodium Chloride 500 mls @ 0 mls/hr 02/06/21 11:51 Nacl 0.9% 500 Ml IV 02/06/21 23:59 ONCE NR As Directed Cefepime HCl 1 gm in 100 mls @ 200 mls/hr 02/06/21 12:00 02/06/21 12:18 Cefepime/Ns 1 Gm/100 Ml IV 200 mls/hr Q24H TAQUERIA Administration Sodium Chloride 500 mls @ 0 mls/hr 02/06/21 12:01 Nacl 0.9% 500 Ml IV 02/06/21 23:59 ONCE NR As Directed Phenylephrine HCl 100 mg/ 100 mls @ 3 mls/hr 02/06/21 14:30 02/06/21 14:49 Sodium Chloride IV 50 mcg/min TITR TAQUERIA 3 mls/hr Administration Protocol 50 MCG/MIN Epinephrine 16 mg/ Sodium 250 mls @ 1.875 mls/hr 02/06/21 15:00 Chloride IV TITR TAQUERIA Protocol 2 MCG/MIN NORepinephrine/NS 8 MG-250 ML 8 mg in 250 mls @ 3.75 mls/hr 02/06/21 15:00 02/06/21 14:56 Norepinephrine/Ns 8 Mg-250 Ml (Double Conc) IV 30 mcg/min TITRATE TAQUERIA 56.25 mls/hr Administration Protocol 2 MCG/MIN Lactulose 20 gm 02/01/21 10:00 02/06/21 10:11 Lactulose 20 Gm/30 Ml Oral Liqd PO Not Given QDAY [facility] Multi-Ingred Cream/Lotion/Oil/Oint 1 applic 02/03/21 18:45 Mineral Oil/Petrolatum, White Ophth Oint 3.5 Gm OU Q4H PRN Dry Eye(s) Multivitamins 1 each 02/01/21 10:00 02/06/21 10:11 Multivitamins ,Therapeutic Tab PO Not Given QDAY [facility] Ondansetron HCl 4 mg 01/31/21 03:30 02/03/21 10:18 Ondansetron 4 Mg/2 Ml Inj IV 4 mg Q8H PRN Administration Nausea And Vomiting Senna/Docusate Sodium 1 tab 02/03/21 22:00 02/06/21 10:11 Sennosides/Docusate Sodium 8.6/50 Mg Tab FEEDTUBE Not Given BID [facility] Sodium Bicarbonate 100 meq 02/06/21 16:00 02/06/21 16:15 Sodium Bicarb 8.4% 50 Meq/50 Ml Syringe IV 02/06/21 18:00 100 meq ONCE TAQUERIA Administration Sodium Chloride 10 ml 01/31/21 10:00 02/06/21 10:15 Sodium Chloride 0.9% 10 Ml Flush Syringe IV 10 ml BID TAQUERIA Administration Sodium Chloride 10 ml 01/31/21 03:30 Sodium Chloride 0.9% 10 Ml Flush Syringe IV PRN PRN LINE FLUSH Nutrition/Malnutrition Assess - Dietary Evaluation Nutrition/Malnutrition Findings: Nutrition Notes Start: 01/31/21 13:50 Freq: Status: Active Protocol: Document 02/06/21 14:34 ROBI (Rec: 02/06/21 14:42 PRCHAO [id number]) Nutrition Notes Initial or Follow up Reassessment Current Diagnosis Acute Kidney Injury, Respiratory Failure Other Pertinent Diagnosis Liver failure, hepatic mass, ( L) BKA, esophageal varices Current Diet NPO Labs/Tests Na 136 K 5.6 Ammonia 289 CO2 - 10 BUN 45 Cr 6.6 Pertinent Medications Human albumin x 1 dose, D10 at 50ml/hr, Levophed gtt, Vasopressin gtt, Na bicarb gtt Height 5 ft 11 in Weight 124.3 kg [place] Body Weight (kg) 78.18 BMI 38.2 Weight change and time frame Wt increase likely sec to edema Subjective/Other Information Pt intubated on 02/03 and received HD on 02/04 and 02/05. Pt may be extubated today. Burn Absent Trauma Absent #2 Nutrition Diagnosis Inadequate oral intake As Evidenced by Signs and Symptoms pt remains NPO Diagnosis Progress(for reassessment Continues documentation) #1 Nutrition Diagnosis Altered nutrition-related laboratory values Diagnosis Progress(for reassessment Continues documentation) Is patient on ventilator? Yes Is Patient Ambulatory and/or Out of Bed No REE-([facility]-confined to bed) 2453.088 Kcal/Kg value to use for calculation 17 Approximate Energy Requirements Using 2113 kcal/Kg Calculation Used for Recommendations Kcal/kg Additional Notes Pro needs 0.8-1.2g/kg (based on wt from 01/31): 69-103g/day Fluid needs per MD Nutrition Intervention Change Diet Order: Advance diet when medically feasible Goal #1 Either advance diet or start TF to meet nutrient needs Follow-Up By: 02/08/21 Additional Comments F/U: POC, vent status, Day 7 NPO)
[2021-02-06] MEDS: PANTOPRAZOLE 80 MG in SODIUM CHLORIDE 0.9% 100 ML IV SCH ×2 (11:14→19:31)
[2021-02-06 11:22] LABS: Albumin 2.1 g/dL (3.9-5); Calcium 7.8 mg/dL (8.4-10.2)
[2021-02-06 11:37] LABS: Partial Thromboplastin Time 77.8 Sec. (24.2-36.6)
[2021-02-06 11:41] LABS: INR 5.18 (0.87-1.13)
[2021-02-06] MEDS ORDERED: SODIUM CHLORIDE 0.9% 500 ML 500 ML IV NR ×3 (11:43→12:01)
[2021-02-06] MEDS ORDERED: VANCOMYCIN/NS 1 GM/250 ML 1 GM/250 ML BAG IV ONE (11:46)
[2021-02-06] MEDS: SODIUM BICARBONATE 150 MEQ in DEXTROSE 5% IN WATER 1,000 ML IV SCH ×2 (12:00→19:56)
[2021-02-06] MEDS ORDERED: ALBUMIN HUMAN 5% (25 GM/500 ML) INJ IV NR (12:00)
[2021-02-06] MEDS ORDERED: CEFEPIME/NS 1 GM/100 ML 1 GM/100 ML BAG IV SCH (12:00)
[2021-02-06] MEDS: metroNIDAZOLE/NS 500 MG/100 ML 500 MG/100 ML BAG IV SCH ×2 (12:01→19:31)
[2021-02-06] MEDS ORDERED: PHYTONADIONE(ADULT ONLY) 10 MG in SODIUM CHLORIDE 0.9% 50 ML IV STA (12:15)
[2021-02-06] MEDS ORDERED: DESMOPRESSIN ACETATE 20 MCG in SODIUM CHLORIDE 0.9% 50 ML IV STA (12:15)
[2021-02-06] MEDS ORDERED: VANCOMYCIN 2,000 MG in SODIUM CHLORIDE 0.9% 500 ML 500 ML IV ONE (13:00)
--- NOTE | 2021-02-06 13:00 | Procedure Note ---
Pre-op diagnosis: Acute respiratory failure, acute renal failure, liver failure Post-op diagnosis: same Procedure: right radial sylvia inserted using sterile technique. Ulnar pulse palpable. Bruno test completed. Area prepped with chlorhexidine and the site was infiltrated with 1ml 1% lidocaine. Arterial line was placed using ultrasound; catheter advanced without difficulty. Line was sutured, biopatch placed and tegaderm dressing applied. Arm board placed. Arterial waveform observed on bedside monitor. Line flushed and zeroed. RN at bedside. Pt tolerated procedure well. (time spent placing line not included in daily critical care time) Anesthesia: local Estimated blood loss: minimal Condition: critical Disposition: ICU
[2021-02-06 13:23] LABS: Alanine Aminotransferase TNR units/L (7-56)
[2021-02-06] MEDS ORDERED: CALCIUM CHLORIDE 1,000 MG/10 ML SYRINGE IV STA (13:39)
--- NOTE | 2021-02-06 13:56 | Event Note ---
Date: 02/06/21 Long discussion with two daughters and two sons. Explained the extent of the disease state and multisystem organ failure that the patient is currently in. Explained that he is not a candidate for liver transplant. Explained that despite all of our current efforts there is a very high chance that he will have cardiac arrest in the next 8-24 hours and despite all resuscitative measures that the patient would pass. GI and IMS who were in the meeting both agree with this assessment. All siblings allowed to speak and ask questions and to the best of my knowledge we answered all of those to the best of my/our abilities. The family has asked us to continue his full code status. Nursing and other staff have been informed. Extremely poor poor prognosis.
--- NOTE | 2021-02-06 14:04 | Progress Note ---
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 Will attempt to correct coagulopathy, volume resuscitate and correct acidemia. 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 Unfortunately, not a candidate for liver transplant and too unstable to transfer for CRRT and will likely not change his overall prognosis. Family today, please see my event note. GI planning repeat scope today. Poor prognosis. 02/05/21: HD hopefully today by renal. Wean FiO2 for sats >88%. GI with no further plans to scope. Most likely will extubate tomorrow. 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 1. Needs q6 hour H/H's 2. Continue diprovan for sedation with pRN fent pushes for pain 3. Will order vasopressin drip given hypotension now, most likely just needs volume, ordered a bolus of LR and patient has 2 more units of blood to get 4. Suggested to IMS yesterday DDAVP, not sure why not done, will discuss with pharmacy later today. Patient did get vitamin K and 1 of FFP 5. Would not recommend placement of NG or OG at this time given esophageal varices, will speak with GI about this later today 6. Follow GI recs 7. Pulm li, stable and CXR was clear. If GI has no concerns and no further plans to look in his upper GI tract, would like to extubate later today. No Blood gas done since intubated. RT about to get a gas now and I will review. CCT 31 minutes. Subjective Date of service: 02/06/21 Principal diagnosis: Cirrhosis, Ulcer Interval history: Clinically has worsened in the last 24 hours. Now on vasopressor therapy. Was not able to tolerate all of HD on yesterday secondary to tachycardia. Now as of this afternoon up to 100% FiO2. Coagulopathic with INR of now 5. Required two more units of blood on yesterday. Objective Vital Signs - 12hr 02/06/21 02/06/21 02/06/21 02:00 02:15 02:30 Temperature Pulse Rate 107 H 107 H 108 H Pulse Rate [ From Monitor] Respiratory 26 H 27 H 27 H Rate Blood Pressure 115/52 128/50 121/55 O2 Sat by Pulse 97 96 97 Oximetry 02/06/21 02/06/21 02/06/21 02:45 03:00 03:15 Temperature Pulse Rate 108 H 107 H 107 H Pulse Rate [ From Monitor] Respiratory 27 H 27 H 26 H Rate Blood Pressure 130/49 125/55 117/52 O2 Sat by Pulse 96 96 96 Oximetry 02/06/21 02/06/21 02/06/21 03:30 03:45 03:48 Temperature 98.0 F Pulse Rate 108 H 108 H Pulse Rate [ From Monitor] Respiratory 27 H 27 H Rate Blood Pressure 118/44 127/52 O2 Sat by Pulse 95 96 Oximetry 02/06/21 02/06/21 02/06/21 03:58 04:00 04:15 Temperature Pulse Rate 108 H 107 H 107 H Pulse Rate [ 107 H From Monitor] Respiratory 27 H 27 H Rate Blood Pressure 99/42 117/45 133/52 O2 Sat by Pulse 96 95 96 Oximetry 02/06/21 02/06/21 02/06/21 04:30 04:45 05:00 Temperature Pulse Rate 109 H 107 H 107 H Pulse Rate [ From Monitor] Respiratory 27 H 28 H 28 H Rate Blood Pressure 123/62 123/54 116/53 O2 Sat by Pulse 98 95 95 Oximetry 02/06/21 02/06/21 02/06/21 05:15 05:30 05:45 Temperature Pulse Rate 107 H 107 H 107 H Pulse Rate [ From Monitor] Respiratory 27 H 26 H 28 H Rate Blood Pressure 131/47 116/55 133/40 O2 Sat by Pulse 96 95 96 Oximetry 02/06/21 02/06/21 02/06/21 06:00 06:15 06:30 Temperature Pulse Rate 108 H 106 H 107 H Pulse Rate [ From Monitor] Respiratory 28 H 26 H 31 H Rate Blood Pressure 114/55 108/54 123/58 O2 Sat by Pulse 96 96 96 Oximetry 02/06/21 02/06/21 02/06/21 06:45 07:00 07:15 Temperature Pulse Rate 122 H 120 H 122 H Pulse Rate [ From Monitor] Respiratory 30 H 32 H 35 H Rate Blood Pressure 130/52 122/52 109/55 O2 Sat by Pulse 95 96 96 Oximetry 02/06/21 02/06/21 02/06/21 07:30 07:35 07:45 Temperature Pulse Rate 123 H 123 H 124 H Pulse Rate [ From Monitor] Respiratory 33 H 35 H Rate Blood Pressure 133/59 99/39 134/42 O2 Sat by Pulse 95 97 95 Oximetry 02/06/21 02/06/21 02/06/21 08:00 08:15 08:30 Temperature Pulse Rate 126 H 128 H 130 H Pulse Rate [ 124 H From Monitor] Respiratory 34 H 34 H 34 H Rate Blood Pressure 139/65 145/55 145/55 O2 Sat by Pulse 94 94 93 Oximetry 02/06/21 02/06/21 02/06/21 08:46 09:00 09:15 Temperature Pulse Rate 125 H 126 H 128 H Pulse Rate [ From Monitor] Respiratory 32 H 33 H 33 H Rate Blood Pressure 117/47 122/41 139/56 O2 Sat by Pulse 96 93 93 Oximetry 02/06/21 02/06/21 02/06/21 09:30 09:46 10:00 Temperature Pulse Rate 129 H 129 H 128 H Pulse Rate [ From Monitor] Respiratory 34 H 34 H 34 H Rate Blood Pressure 133/53 123/46 120/50 O2 Sat by Pulse 91 92 92 Oximetry 02/06/21 02/06/21 02/06/21 10:15 10:30 10:45 Temperature Pulse Rate 129 H 127 H 125 H Pulse Rate [ From Monitor] Respiratory 32 H 33 H 34 H Rate Blood Pressure 120/50 98/51 110/47 O2 Sat by Pulse 91 91 90 Oximetry 02/06/21 02/06/21 02/06/21 11:00 11:28 11:29 Temperature 98.0 F Pulse Rate 125 H 124 H Pulse Rate [ From Monitor] Respiratory 34 H 35 H Rate Blood Pressure 110/47 O2 Sat by Pulse 91 90 Oximetry 02/06/21 02/06/21 02/06/21 11:30 11:40 11:45 Temperature Pulse Rate 123 H 122 H 123 H Pulse Rate [ From Monitor] Respiratory 34 H 33 H Rate Blood Pressure 116/42 70/42 118/46 O2 Sat by Pulse 91 91 97 Oximetry 02/06/21 02/06/21 02/06/21 12:00 12:15 12:30 Temperature Pulse Rate 121 H 121 H 121 H Pulse Rate [ 125 H From Monitor] Respiratory 34 H 35 H 13 Rate Blood Pressure 117/52 121/43 133/37 O2 Sat by Pulse 97 98 99 Oximetry 02/06/21 02/06/21 02/06/21 12:46 13:00 13:15 Temperature Pulse Rate 121 H 120 H 122 H Pulse Rate [ From Monitor] Respiratory 26 H 26 H 36 H Rate Blood Pressure 131/37 134/41 124/44 O2 Sat by Pulse 100 99 100 Oximetry Constitutional: appears uncomfortable, other (intubated and sedated, but still moving) Eyes: non-icteric ENT: other (orally intubated) Neck: supple Effort: normal Ascultation: Bilateral: clear CBC and BMP: 02/06/21 07:40 02/06/21 10:00 ABG, PT/INR, D-dimer: ABG ABG pH 7.258 (7.320-7.450) L 02/06/21 08:05 POC ABG pCO2 18.9 mmHg (32.0-48.0) L 02/06/21 08:05 POC ABG pO2 80.7 mmHg (83-108) L 02/06/21 08:05 POC ABG HCO3 8.2 02/06/21 08:05 ABG O2 Saturation 93.8 (0-100) 02/06/21 08:05 PT/INR, D-dimer PT 47.2 Sec. (12.2-14.9) H 02/06/21 10:00 INR 5.18 (0.87-1.13) H* 02/06/21 10:00 Abnormal lab findings: Abnormal Labs 01/30/21 01/30/21 01/31/21 21:35 21:35 08:23 WBC RBC Hgb Hct MCV 99 H 98 H MCH 34 H 34 H MCHC 35 H RDW 15.4 H Plt Count 109 L Lymph % (Auto) [place] % (Auto) 10.4 H 8.1 H Lymph # (Auto) [place] # (Auto) Seg Neutrophils % Seg Neuts % (Manual) Lymphocytes % (Manual) Monocytes % (Manual) Nucleated RBC % Seg Neutrophils # Seg Neutrophils # Man Lymphocytes # (Manual) PT INR APTT Fibrinogen ABG pH POC ABG pCO2 POC ABG pO2 ABG Hemoglobin ABG Oxyhemoglobin ABG Sodium ABG Potassium ABG Glucose Sodium 132 L Potassium 5.7 H Chloride Carbon Dioxide 20 L BUN 29 H Creatinine 2.6 H Glucose 69 L POC Glucose Lactic Acid Calcium TIBC Total Bilirubin 10.70 H Direct Bilirubin AST 323 H ALT 90 H Alkaline Phosphatase 236 H Ammonia Serum Total Protein Total Protein 8.7 H Albumin 2.4 L Beta Globulins Gamma Globulins PEP Interpretation Arterial Blood Glucose Arterial Blood Ionized Calcium Urine WBC (Auto) Urine Creatinine Urine Total Protein Complement C3 Complement C4 Hepatitis A Ab Total Hep Bs Antibody, Quant Hepatitis C Antibody Crossmatch 01/31/21 01/31/21 01/31/21 08:23 08:23 08:23 WBC RBC Hgb Hct MCV MCH MCHC RDW Plt Count Lymph % (Auto) [place] % (Auto) Lymph # (Auto) [place] # (Auto) Seg Neutrophils % Seg Neuts % (Manual) Lymphocytes % (Manual) Monocytes % (Manual) Nucleated RBC % Seg Neutrophils # Seg Neutrophils # Man Lymphocytes # (Manual) PT INR APTT Fibrinogen ABG pH POC ABG pCO2 POC ABG pO2 ABG Hemoglobin ABG Oxyhemoglobin ABG Sodium ABG Potassium ABG Glucose Sodium Potassium Chloride Carbon Dioxide BUN Creatinine Glucose POC Glucose Lactic Acid Calcium TIBC Total Bilirubin Direct Bilirubin AST ALT Alkaline Phosphatase Ammonia Serum Total Protein 9.5 H Total Protein Albumin 2.8 L Beta Globulins 1.5 H Gamma Globulins 3.7 H PEP Interpretation see below H Arterial Blood Glucose Arterial Blood Ionized Calcium Urine WBC (Auto) Urine Creatinine Urine Total Protein Complement C3 73 L Complement C4 5 L Hepatitis A Ab Total Hep Bs Antibody, Quant Hepatitis C Antibody Crossmatch 01/31/21 01/31/21 01/31/21 08:23 08:23 08:23 WBC RBC Hgb Hct MCV MCH MCHC RDW Plt Count Lymph % (Auto) [place] % (Auto) Lymph # (Auto) [place] # (Auto) Seg Neutrophils % Seg Neuts % (Manual) Lymphocytes % (Manual) Monocytes % (Manual) Nucleated RBC % Seg Neutrophils # Seg Neutrophils # Man Lymphocytes # (Manual) PT INR APTT Fibrinogen ABG pH POC ABG pCO2 POC ABG pO2 ABG Hemoglobin ABG Oxyhemoglobin ABG Sodium ABG Potassium ABG Glucose Sodium 128 L Potassium 6.8 H* Chloride 93.9 L Carbon Dioxide 19 L BUN 32 H Creatinine 2.6 H Glucose 57 L POC Glucose Lactic Acid Calcium TIBC Total Bilirubin 11.00 H Direct Bilirubin 6.2 H AST 383 H ALT 97 H Alkaline Phosphatase 228 H Ammonia Serum Total Protein Total Protein 9.7 H Albumin 2.5 L Beta Globulins Gamma Globulins PEP Interpretation Arterial Blood Glucose Arterial Blood Ionized Calcium Urine WBC (Auto) Urine Creatinine Urine Total Protein Complement C3 Complement C4 Hepatitis A Ab Total Reactive H Hep Bs Antibody, Quant 5 L Hepatitis C Antibody Crossmatch 01/31/21 01/31/21 01/31/21 08:23 10:17 11:21 WBC RBC Hgb Hct MCV MCH MCHC RDW Plt Count Lymph % (Auto) [place] % (Auto) Lymph # (Auto) [place] # (Auto) Seg Neutrophils % Seg Neuts % (Manual) Lymphocytes % (Manual) Monocytes % (Manual) Nucleated RBC % Seg Neutrophils # Seg Neutrophils # Man Lymphocytes # (Manual) PT 22.2 H INR 1.88 H APTT Fibrinogen ABG pH POC ABG pCO2 POC ABG pO2 ABG Hemoglobin ABG Oxyhemoglobin ABG Sodium ABG Potassium ABG Glucose Sodium Potassium Chloride Carbon Dioxide BUN Creatinine Glucose POC Glucose 51 L Lactic Acid Calcium TIBC Total Bilirubin Direct Bilirubin AST ALT Alkaline Phosphatase Ammonia Serum Total Protein Total Protein Albumin Beta Globulins Gamma Globulins PEP Interpretation Arterial Blood Glucose Arterial Blood Ionized Calcium Urine WBC (Auto) Urine Creatinine Urine Total Protein Complement C3 Complement C4 Hepatitis A Ab Total Hep Bs Antibody, Quant Hepatitis C Antibody Reactive A Crossmatch 01/31/21 01/31/21 01/31/21 11:47 14:25 14:33 WBC RBC Hgb Hct MCV MCH MCHC RDW Plt Count Lymph % (Auto) [place] % (Auto) Lymph # (Auto) [place] # (Auto) Seg Neutrophils % Seg Neuts % (Manual) Lymphocytes % (Manual) Monocytes % (Manual) Nucleated RBC % Seg Neutrophils # Seg Neutrophils # Man Lymphocytes # (Manual) PT INR APTT Fibrinogen ABG pH POC ABG pCO2 POC ABG pO2 ABG Hemoglobin ABG Oxyhemoglobin ABG Sodium ABG Potassium ABG Glucose Sodium 129 L Potassium 6.5 H* Chloride 96.0 L Carbon Dioxide 16 L BUN 34 H Creatinine 2.8 H Glucose 134 H POC Glucose 60 L 123 H Lactic Acid Calcium TIBC Total Bilirubin Direct Bilirubin AST ALT Alkaline Phosphatase Ammonia Serum Total Protein Total Protein Albumin Beta Globulins Gamma Globulins PEP Interpretation Arterial Blood Glucose Arterial Blood Ionized Calcium Urine WBC (Auto) Urine Creatinine Urine Total Protein Complement C3 Complement C4 Hepatitis A Ab Total Hep Bs Antibody, Quant Hepatitis C Antibody Crossmatch 01/31/21 02/01/21 02/01/21 15:33 05:04 05:04 WBC RBC 3.44 L Hgb 11.7 L Hct 33.6 L MCV 98 H MCH 34 H MCHC 35 H RDW Plt Count 92 L Lymph % (Auto) [place] % (Auto) Lymph # (Auto) [place] # (Auto) Seg Neutrophils % Seg Neuts % (Manual) 75.0 H Lymphocytes % (Manual) 13.0 L Monocytes % (Manual) 10.0 H Nucleated RBC % Seg Neutrophils # Seg Neutrophils # Man Lymphocytes # (Manual) 0.7 L PT 22.9 H INR 1.96 H APTT Fibrinogen ABG pH POC ABG pCO2 POC ABG pO2 ABG Hemoglobin ABG Oxyhemoglobin ABG Sodium ABG Potassium ABG Glucose Sodium Potassium Chloride Carbon Dioxide BUN Creatinine Glucose POC Glucose 131 H Lactic Acid Calcium TIBC Total Bilirubin Direct Bilirubin AST ALT Alkaline Phosphatase Ammonia Serum Total Protein Total Protein Albumin Beta Globulins Gamma Globulins PEP Interpretation Arterial Blood Glucose Arterial Blood Ionized Calcium Urine WBC (Auto) Urine Creatinine Urine Total Protein Complement C3 Complement C4 Hepatitis A Ab Total Hep Bs Antibody, Quant Hepatitis C Antibody Crossmatch 02/01/21 02/01/21 02/01/21 05:04 05:04 06:08 WBC RBC Hgb Hct MCV MCH MCHC RDW Plt Count Lymph % (Auto) [place] % (Auto) Lymph # (Auto) [place] # (Auto) Seg Neutrophils % Seg Neuts % (Manual) Lymphocytes % (Manual) Monocytes % (Manual) Nucleated RBC % Seg Neutrophils # Seg Neutrophils # Man Lymphocytes # (Manual) PT INR APTT Fibrinogen ABG pH POC ABG pCO2 POC ABG pO2 ABG Hemoglobin ABG Oxyhemoglobin ABG Sodium ABG Potassium ABG Glucose Sodium 134 L Potassium 3.5 L D Chloride Carbon Dioxide BUN 34 H Creatinine 2.9 H Glucose 117 H POC Glucose Lactic Acid Calcium TIBC 97 L Total Bilirubin 7.50 H Direct Bilirubin 5.2 H AST 270 H ALT 79 H Alkaline Phosphatase 180 H Ammonia Serum Total Protein Total Protein Albumin 1.9 L Beta Globulins Gamma Globulins PEP Interpretation Arterial Blood Glucose Arterial Blood Ionized Calcium Urine WBC (Auto) 23.0 H Urine Creatinine Urine Total Protein Complement C3 Complement C4 Hepatitis A Ab Total Hep Bs Antibody, Quant Hepatitis C Antibody Crossmatch 02/01/21 02/02/21 02/02/21 06:08 05:16 15:33 WBC RBC 2.91 L Hgb 10.0 L Hct 28.4 L MCV 98 H MCH 34 H MCHC 35 H RDW Plt Count 93 L Lymph % (Auto) [place] % (Auto) Lymph # (Auto) [place] # (Auto) Seg Neutrophils % Seg Neuts % (Manual) Lymphocytes % (Manual) Monocytes % (Manual) Nucleated RBC % Seg Neutrophils # Seg Neutrophils # Man Lymphocytes # (Manual) PT INR APTT Fibrinogen ABG pH POC ABG pCO2 POC ABG pO2 ABG Hemoglobin ABG Oxyhemoglobin ABG Sodium ABG Potassium ABG Glucose Sodium 136 L Potassium Chloride Carbon Dioxide BUN 46 H Creatinine 4.7 H D Glucose POC Glucose Lactic Acid Calcium 8.3 L TIBC Total Bilirubin 9.80 H Direct Bilirubin 5.8 H AST 259 H ALT 84 H Alkaline Phosphatase Ammonia Serum Total Protein Total Protein 5.9 L Albumin 2.9 L Beta Globulins Gamma Globulins PEP Interpretation Arterial Blood Glucose Arterial Blood Ionized Calcium Urine WBC (Auto) Urine Creatinine 413.9 H Urine Total Protein 55 H Complement C3 Complement C4 Hepatitis A Ab Total Hep Bs Antibody, Quant Hepatitis C Antibody Crossmatch 02/03/21 02/03/21 02/03/21 04:18 04:18 07:30 WBC RBC 1.87 L Hgb 6.5 L D Hct 18.7 L* D MCV 100 H MCH 35 H MCHC 35 H RDW 15.8 H Plt Count 105 L Lymph % (Auto) [place] % (Auto) 11.4 H Lymph # (Auto) [place] # (Auto) 1.1 H Seg Neutrophils % Seg Neuts % (Manual) Lymphocytes % (Manual) Monocytes % (Manual) Nucleated RBC % Seg Neutrophils # Seg Neutrophils # Man Lymphocytes # (Manual) PT 26.9 H INR 2.43 H APTT Fibrinogen ABG pH POC ABG pCO2 POC ABG pO2 ABG Hemoglobin ABG Oxyhemoglobin ABG Sodium ABG Potassium ABG Glucose Sodium Potassium Chloride Carbon Dioxide BUN Creatinine Glucose POC Glucose Lactic Acid Calcium TIBC Total Bilirubin Direct Bilirubin AST ALT Alkaline Phosphatase Ammonia Serum Total Protein Total Protein Albumin Beta Globulins Gamma Globulins PEP Interpretation Arterial Blood Glucose Arterial Blood Ionized Calcium Urine WBC (Auto) Urine Creatinine Urine Total Protein Complement C3 Complement C4 Hepatitis A Ab Total Hep Bs Antibody, Quant Hepatitis C Antibody Crossmatch See Detail 02/03/21 02/03/21 02/03/21 07:30 12:14 19:05 WBC RBC Hgb 7.1 L Hct 20.6 L MCV MCH MCHC RDW Plt Count Lymph % (Auto) [place] % (Auto) Lymph # (Auto) [place] # (Auto) Seg Neutrophils % Seg Neuts % (Manual) Lymphocytes % (Manual) Monocytes % (Manual) Nucleated RBC % Seg Neutrophils # Seg Neutrophils # Man Lymphocytes # (Manual) PT INR APTT Fibrinogen ABG pH POC ABG pCO2 POC ABG pO2 ABG Hemoglobin ABG Oxyhemoglobin ABG Sodium ABG Potassium ABG Glucose Sodium Potassium 6.2 H* D 5.8 H Chloride Carbon Dioxide 21 L BUN 57 H 57 H Creatinine 5.5 H 5.9 H Glucose 101 H 121 H POC Glucose Lactic Acid Calcium TIBC Total Bilirubin 11.00 H Direct Bilirubin AST 674 H ALT 210 H Alkaline Phosphatase Ammonia Serum Total Protein Total Protein 6.0 L Albumin 2.8 L Beta Globulins Gamma Globulins PEP Interpretation Arterial Blood Glucose Arterial Blood Ionized Calcium Urine WBC (Auto) Urine Creatinine Urine Total Protein Complement C3 Complement C4 Hepatitis A Ab Total Hep Bs Antibody, Quant Hepatitis C Antibody Crossmatch 02/03/21 02/03/21 02/04/21 23:07 23:33 04:09 WBC RBC Hgb 6.6 L Hct 19.3 L* MCV MCH MCHC RDW Plt Count Lymph % (Auto) [place] % (Auto) Lymph # (Auto) [place] # (Auto) Seg Neutrophils % Seg Neuts % (Manual) Lymphocytes % (Manual) Monocytes % (Manual) Nucleated RBC % Seg Neutrophils # Seg Neutrophils # Man Lymphocytes # (Manual) PT INR APTT Fibrinogen ABG pH POC ABG pCO2 26.9 L POC ABG pO2 47.6 L ABG Hemoglobin 7.6 L ABG Oxyhemoglobin 82.8 L ABG Sodium 132.0 L ABG Potassium ABG Glucose 111 H Sodium Potassium Chloride Carbon Dioxide BUN Creatinine Glucose POC Glucose 126 H Lactic Acid Calcium TIBC Total Bilirubin Direct Bilirubin AST ALT Alkaline Phosphatase Ammonia Serum Total Protein Total Protein Albumin Beta Globulins Gamma Globulins PEP Interpretation Arterial Blood Glucose 111 H Arterial Blood Ionized Calcium 4.0 L Urine WBC (Auto) Urine Creatinine Urine Total Protein Complement C3 Complement C4 Hepatitis A Ab Total Hep Bs Antibody, Quant Hepatitis C Antibody Crossmatch 02/04/21 02/04/21 02/04/21 05:59 08:24 09:55 WBC 13.4 H RBC 2.60 L Hgb 8.4 L Hct 24.5 L MCV MCH 33 H MCHC 35 H RDW 16.8 H Plt Count 57 L Lymph % (Auto) 8.1 L [place] % (Auto) 13.2 H Lymph # (Auto) 1.1 L [place] # (Auto) 1.8 H Seg Neutrophils % 78.5 H Seg Neuts % (Manual) Lymphocytes % (Manual) Monocytes % (Manual) Nucleated RBC % Seg Neutrophils # 10.5 H Seg Neutrophils # Man Lymphocytes # (Manual) PT INR APTT Fibrinogen ABG pH POC ABG pCO2 30.6 L POC ABG pO2 111.2 H ABG Hemoglobin 8.4 L ABG Oxyhemoglobin ABG Sodium 134.1 L ABG Potassium 4.8 H ABG Glucose 117 H Sodium Potassium Chloride 96.3 L Carbon Dioxide BUN 31 H Creatinine 3.4 H Glucose 108 H POC Glucose Lactic Acid Calcium 8.3 L TIBC Total Bilirubin 12.30 H Direct Bilirubin AST 781 H ALT 261 H Alkaline Phosphatase Ammonia Serum Total Protein Total Protein 5.9 L Albumin 3.1 L Beta Globulins Gamma Globulins PEP Interpretation Arterial Blood Glucose 117 H Arterial Blood Ionized Calcium 4.0 L Urine WBC (Auto) Urine Creatinine Urine Total Protein Complement C3 Complement C4 Hepatitis A Ab Total Hep Bs Antibody, Quant Hepatitis C Antibody Crossmatch 02/04/21 02/04/21 02/05/21 11:33 17:46 00:47 WBC RBC Hgb 8.4 L 8.5 L Hct 24.3 L 24.2 L MCV MCH MCHC RDW Plt Count Lymph % (Auto) [place] % (Auto) Lymph # (Auto) [place] # (Auto) Seg Neutrophils % Seg Neuts % (Manual) Lymphocytes % (Manual) Monocytes % (Manual) Nucleated RBC % Seg Neutrophils # Seg Neutrophils # Man Lymphocytes # (Manual) PT INR APTT Fibrinogen ABG pH POC ABG pCO2 POC ABG pO2 ABG Hemoglobin ABG Oxyhemoglobin ABG Sodium ABG Potassium ABG Glucose Sodium Potassium Chloride Carbon Dioxide BUN Creatinine Glucose POC Glucose 112 H Lactic Acid Calcium TIBC Total Bilirubin Direct Bilirubin AST ALT Alkaline Phosphatase Ammonia Serum Total Protein Total Protein Albumin Beta Globulins Gamma Globulins PEP Interpretation Arterial Blood Glucose Arterial Blood Ionized Calcium Urine WBC (Auto) Urine Creatinine Urine Total Protein Complement C3 Complement C4 Hepatitis A Ab Total Hep Bs Antibody, Quant Hepatitis C Antibody Crossmatch 02/05/21 02/05/21 02/05/21 02:40 03:15 07:36 WBC RBC Hgb 8.1 L Hct 23.3 L MCV MCH MCHC RDW Plt Count Lymph % (Auto) [place] % (Auto) Lymph # (Auto) [place] # (Auto) Seg Neutrophils % Seg Neuts % (Manual) Lymphocytes % (Manual) Monocytes % (Manual) Nucleated RBC % Seg Neutrophils # Seg Neutrophils # Man Lymphocytes # (Manual) PT INR APTT Fibrinogen ABG pH 7.461 H POC ABG pCO2 28.7 L POC ABG pO2 ABG Hemoglobin 8.1 L ABG Oxyhemoglobin ABG Sodium 131.2 L ABG Potassium 5.0 H ABG Glucose 100 H Sodium 134 L Potassium 5.3 H Chloride 95.4 L Carbon Dioxide BUN 42 H Creatinine 5.2 H D Glucose POC Glucose Lactic Acid Calcium 7.7 L TIBC Total Bilirubin 13.60 H Direct Bilirubin AST 1567 H ALT 605 H Alkaline Phosphatase 130 H Ammonia Serum Total Protein Total Protein 5.4 L Albumin 2.4 L Beta Globulins Gamma Globulins PEP Interpretation Arterial Blood Glucose 100 H Arterial Blood Ionized Calcium 4.0 L Urine WBC (Auto) Urine Creatinine Urine Total Protein Complement C3 Complement C4 Hepatitis A Ab Total Hep Bs Antibody, Quant Hepatitis C Antibody Crossmatch 02/05/21 02/05/21 02/05/21 09:00 16:15 16:54 WBC 13.2 H RBC 2.48 L Hgb 8.0 L 8.0 L Hct 23.1 L 23.2 L MCV MCH 33 H MCHC 35 H RDW 17.0 H Plt Count 68 L Lymph % (Auto) [place] % (Auto) Lymph # (Auto) [place] # (Auto) Seg Neutrophils % Seg Neuts % (Manual) 80.0 H Lymphocytes % (Manual) 6.0 L Monocytes % (Manual) Nucleated RBC % 1.0 H Seg Neutrophils # Seg Neutrophils # Man 10.6 H Lymphocytes # (Manual) 0.8 L PT INR APTT Fibrinogen ABG pH POC ABG pCO2 POC ABG pO2 ABG Hemoglobin ABG Oxyhemoglobin ABG Sodium ABG Potassium ABG Glucose Sodium Potassium Chloride Carbon Dioxide BUN Creatinine Glucose POC Glucose 58 L Lactic Acid Calcium TIBC Total Bilirubin Direct Bilirubin AST ALT Alkaline Phosphatase Ammonia Serum Total Protein Total Protein Albumin Beta Globulins Gamma Globulins PEP Interpretation Arterial Blood Glucose Arterial Blood Ionized Calcium Urine WBC (Auto) Urine Creatinine Urine Total Protein Complement C3 Complement C4 Hepatitis A Ab Total Hep Bs Antibody, Quant Hepatitis C Antibody Crossmatch 02/05/21 02/05/21 02/05/21 17:56 20:05 Unknown WBC RBC Hgb 6.9 L Hct 20.4 L MCV MCH MCHC RDW Plt Count Lymph % (Auto) [place] % (Auto) Lymph # (Auto) [place] # (Auto) Seg Neutrophils % Seg Neuts % (Manual) Lymphocytes % (Manual) Monocytes % (Manual) Nucleated RBC % Seg Neutrophils # Seg Neutrophils # Man Lymphocytes # (Manual) PT INR APTT Fibrinogen ABG pH POC ABG pCO2 27.3 L POC ABG pO2 ABG Hemoglobin 6.9 L ABG Oxyhemoglobin ABG Sodium 132.4 L ABG Potassium ABG Glucose Sodium Potassium Chloride Carbon Dioxide BUN Creatinine Glucose POC Glucose 67 L Lactic Acid Calcium TIBC Total Bilirubin Direct Bilirubin AST ALT Alkaline Phosphatase Ammonia Serum Total Protein Total Protein Albumin Beta Globulins Gamma Globulins PEP Interpretation Arterial Blood Glucose Arterial Blood Ionized Calcium 3.8 L Urine WBC (Auto) Urine Creatinine Urine Total Protein Complement C3 Complement C4 Hepatitis A Ab Total Hep Bs Antibody, Quant Hepatitis C Antibody Crossmatch 02/06/21 02/06/21 02/06/21 05:52 05:52 07:40 WBC RBC Hgb 9.5 L 9.1 L Hct 29.4 L D 27.2 L MCV MCH MCHC RDW Plt Count Lymph % (Auto) [place] % (Auto) Lymph # (Auto) [place] # (Auto) Seg Neutrophils % Seg Neuts % (Manual) Lymphocytes % (Manual) Monocytes % (Manual) Nucleated RBC % Seg Neutrophils # Seg Neutrophils # Man Lymphocytes # (Manual) PT INR APTT Fibrinogen ABG pH POC ABG pCO2 POC ABG pO2 ABG Hemoglobin ABG Oxyhemoglobin ABG Sodium ABG Potassium ABG Glucose Sodium Potassium 5.6 H Chloride 96.5 L Carbon Dioxide 11 L D BUN 44 H Creatinine 6.1 H Glucose 73 L POC Glucose Lactic Acid Calcium 7.6 L TIBC Total Bilirubin 10.60 H Direct Bilirubin AST ALT Alkaline Phosphatase 149 H Ammonia Serum Total Protein Total Protein 5.4 L Albumin 2.2 L Beta Globulins Gamma Globulins PEP Interpretation Arterial Blood Glucose Arterial Blood Ionized Calcium Urine WBC (Auto) Urine Creatinine Urine Total Protein Complement C3 Complement C4 Hepatitis A Ab Total Hep Bs Antibody, Quant Hepatitis C Antibody Crossmatch 02/06/21 02/06/21 02/06/21 07:40 08:05 08:39 WBC 18.2 H RBC 2.87 L Hgb 9.2 L Hct 27.0 L MCV MCH MCHC RDW 18.1 H Plt Count 70 L Lymph % (Auto) [place] % (Auto) Lymph # (Auto) [place] # (Auto) Seg Neutrophils % Seg Neuts % (Manual) Lymphocytes % (Manual) Monocytes % (Manual) Nucleated RBC % Seg Neutrophils # Seg Neutrophils # Man Lymphocytes # (Manual) PT INR APTT Fibrinogen ABG pH 7.258 L POC ABG pCO2 18.9 L POC ABG pO2 80.7 L ABG Hemoglobin 8.79 L ABG Oxyhemoglobin 91.8 L ABG Sodium ABG Potassium ABG Glucose Sodium Potassium Chloride Carbon Dioxide BUN Creatinine Glucose POC Glucose 51 L Lactic Acid Calcium TIBC Total Bilirubin Direct Bilirubin AST ALT Alkaline Phosphatase Ammonia Serum Total Protein Total Protein Albumin Beta Globulins Gamma Globulins PEP Interpretation Arterial Blood Glucose Arterial Blood Ionized Calcium Urine WBC (Auto) Urine Creatinine Urine Total Protein Complement C3 Complement C4 Hepatitis A Ab Total Hep Bs Antibody, Quant Hepatitis C Antibody Crossmatch 02/06/21 02/06/21 02/06/21 09:19 10:00 10:00 WBC RBC Hgb Hct MCV MCH MCHC RDW Plt Count Lymph % (Auto) [place] % (Auto) Lymph # (Auto) [place] # (Auto) Seg Neutrophils % Seg Neuts % (Manual) Lymphocytes % (Manual) Monocytes % (Manual) Nucleated RBC % Seg Neutrophils # Seg Neutrophils # Man Lymphocytes # (Manual) PT 47.2 H INR 5.18 H* APTT 77.8 H* Fibrinogen 129 L* ABG pH POC ABG pCO2 POC ABG pO2 ABG Hemoglobin ABG Oxyhemoglobin ABG Sodium ABG Potassium ABG Glucose Sodium Potassium Chloride Carbon Dioxide BUN Creatinine Glucose POC Glucose 109 H Lactic Acid Calcium TIBC Total Bilirubin Direct Bilirubin AST ALT Alkaline Phosphatase Ammonia 289.0 H Serum Total Protein Total Protein Albumin Beta Globulins Gamma Globulins PEP Interpretation Arterial Blood Glucose Arterial Blood Ionized Calcium Urine WBC (Auto) Urine Creatinine Urine Total Protein Complement C3 Complement C4 Hepatitis A Ab Total Hep Bs Antibody, Quant Hepatitis C Antibody Crossmatch 02/06/21 02/06/21 10:00 11:00 WBC RBC Hgb Hct MCV MCH MCHC RDW Plt Count Lymph % (Auto) [place] % (Auto) Lymph # (Auto) [place] # (Auto) Seg Neutrophils % Seg Neuts % (Manual) Lymphocytes % (Manual) Monocytes % (Manual) Nucleated RBC % Seg Neutrophils # Seg Neutrophils # Man Lymphocytes # (Manual) PT INR APTT Fibrinogen ABG pH POC ABG pCO2 POC ABG pO2 ABG Hemoglobin ABG Oxyhemoglobin ABG Sodium ABG Potassium ABG Glucose Sodium 136 L Potassium 5.6 H Chloride 95.7 L Carbon Dioxide 10 L BUN 43 H Creatinine 6.6 H Glucose POC Glucose Lactic Acid 17.50 H* Calcium 7.8 L TIBC Total Bilirubin 9.70 H Direct Bilirubin AST 1837 H ALT 812 H Alkaline Phosphatase 158 H Ammonia Serum Total Protein Total Protein 5.3 L Albumin 2.1 L Beta Globulins Gamma Globulins PEP Interpretation Arterial Blood Glucose Arterial Blood Ionized Calcium Urine WBC (Auto) Urine Creatinine Urine Total Protein Complement C3 Complement C4 Hepatitis A Ab Total Hep Bs Antibody, Quant Hepatitis C Antibody Crossmatch
--- NOTE | 2021-02-06 14:24 | Post Operative Note ---
Pre-op diagnosis: GI Bleed Post-op diagnosis: other (Friable tissue, active bleed) Findings: 1. Endoscope advanced to distal stomach. Visualization obscured of stomach due to massive GI bleed with friable/oozing tissue. 2. Esophagus incompletely visualized due to refluxed blood. Varices noted on prior exam have decompressed (probably from bleeding) and not amenable to band. Procedure: EGD Anesthesia: other (Patient sedated on vent in unit; no meds given for procedure) Surgeon: HAILEY HERNANDEZ Estimated blood loss: other (None due to procedure, but patient has experienced massive upper GI bleeding) Pathology: none Specimen disposition: other (N/A) Condition: critical Disposition: ICU (Recs: 1. Continue supportive care with blood products/meds/pressors/dialysis. 2. 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 3. Prognosis very poor.)
[2021-02-06] MEDS: PHENYLEPHRINE 100 MG in SODIUM CHLORIDE 0.9% 90 ML IV SCH ×3 (14:49→23:45)
[2021-02-06] MEDS: NORepinephrine/NS 8 MG-250 ML 8 MG/250 ML INFUS..BTL IV SCH ×3 (14:56→23:14)
[2021-02-06] MEDS ORDERED: CALCIUM CHLORIDE 1,000 MG/10 ML SYRINGE IV ONE (15:00)
[2021-02-06] MEDS ORDERED: EPINEPHrine 1 MG/1 ML 16 MG in SODIUM CHLORIDE 0.9% 250ML 234 ML IV SCH (15:00)
[2021-02-06 15:15] LABS: Hemoglobin 6.8 gm/dl (11.8-15.2); Mean Corpuscular HGB Conc 32 % (32-34); Mean Corpuscular Volume 99 fl (84-94); Red Blood Count 2.12 M/mm3 (3.65-5.03); Red Cell Distribution Width 19.2 % (13.2-15.2)
[2021-02-06 15:17] LABS: Platelet Count 61 K/mm3 (140-440)
--- NOTE | 2021-02-06 15:42 | Progress Note ---
Assessment and Plan # LILLIAM: Likely with hepatorenal physiology +/- ATN from active bleed - reviewed urine studies, minimal blood/protein noted - imaging reviewed - serologies sent and pending, HCV + - Started HD 02/03, tolerated only 1 hr yesterday and was taken off due to hemodynamic instability - hypotension and tachycardia. - Unable to dialyze this morning due to hemodynamic instability with increasing vasopressor requirements. Will dialyze if hemodynamically stabilizes with MAP>65. - Case was discussed in detail with patient's daughter Obed Mcqueen who is next of Kin. Situation was explained from renal standpoint. Daughter was notified that at this time patient is not stable for dialysis but if he hemodynamically improved we will attempt gentle dialysis. It was explained that he is at high risk for further deterioration if dialysis was attempted in the setting of high vasopressor requirements. Daughter expressed that they would like everything done despite the risks. Advised HD nurse to notify physician if MAPs improve to > 65. Advised dialysis nurse to update patient's daughter if MAPs improved and patient was started on HD. - Ordered bicarb push - Start sodium bicarb drip - avoid nephrotoxins - renally dose meds - continue IV albumin bolus if albumin <2 to encourage renal perfusion - Keep MAP>65 - Transfuse for hgb < 7 # Acute blood loss anemia, s/p endoscopy and IR embolization. repeat endoscopy t jarred noted. Check hgb Q4h. Transfuse for hgb < 7 # Hyperkalemia: HD once/if hemodynamically stabilizes. # Hyperbilirubinemia/Cirrhosis/Concern for HCC: GI following, s/p paracentesis. Alcohol cessation # Hypoalbuminemia Subjective Date of service: 02/06/21 Principal diagnosis: Cirrhosis, Ulcer Interval history: Remains intubated. Unable to tolerate HD yesterday, increasing vasopressor requirements. Objective - Exam Narrative Exam: General: Sedated. Intubated. HEENT: Oral mucosa moist Neck: Supple, no JVD Chest: Intubated. Mechanical breath sounds. Heart: RRR, S1 and S2, no pericardial rub Abdomen: Soft, nontender, no renal bruit Extremity: No peripheral cyanosis, edema Neurological: Sedated Dermatology: No skin rash Psych: Unable to assess Musculoskeletal: No joint effusion - Vital Signs Vital signs: Vital Signs - 12hr 02/06/21 02/06/21 02/06/21 03:45 03:48 03:58 Temperature 98.0 F Pulse Rate 108 H 108 H Pulse Rate [ From Monitor] Respiratory 27 H Rate Blood Pressure 127/52 99/42 O2 Sat by Pulse 96 96 Oximetry 02/06/21 02/06/21 02/06/21 04:00 04:15 04:30 Temperature Pulse Rate 107 H 107 H 109 H Pulse Rate [ 107 H From Monitor] Respiratory 27 H 27 H 27 H Rate Blood Pressure 117/45 133/52 123/62 O2 Sat by Pulse 95 96 98 Oximetry 02/06/21 02/06/21 02/06/21 04:45 05:00 05:15 Temperature Pulse Rate 107 H 107 H 107 H Pulse Rate [ From Monitor] Respiratory 28 H 28 H 27 H Rate Blood Pressure 123/54 116/53 131/47 O2 Sat by Pulse 95 95 96 Oximetry 02/06/21 02/06/21 02/06/21 05:30 05:45 06:00 Temperature Pulse Rate 107 H 107 H 108 H Pulse Rate [ From Monitor] Respiratory 26 H 28 H 28 H Rate Blood Pressure 116/55 133/40 114/55 O2 Sat by Pulse 95 96 96 Oximetry 02/06/21 02/06/21 02/06/21 06:15 06:30 06:45 Temperature Pulse Rate 106 H 107 H 122 H Pulse Rate [ From Monitor] Respiratory 26 H 31 H 30 H Rate Blood Pressure 108/54 123/58 130/52 O2 Sat by Pulse 96 96 95 Oximetry 02/06/21 02/06/21 02/06/21 07:00 07:15 07:30 Temperature Pulse Rate 120 H 122 H 123 H Pulse Rate [ From Monitor] Respiratory 32 H 35 H 33 H Rate Blood Pressure 122/52 109/55 133/59 O2 Sat by Pulse 96 96 95 Oximetry 02/06/21 02/06/21 02/06/21 07:35 07:45 08:00 Temperature Pulse Rate 123 H 124 H 126 H Pulse Rate [ 124 H From Monitor] Respiratory 35 H 34 H Rate Blood Pressure 99/39 134/42 139/65 O2 Sat by Pulse 97 95 94 Oximetry 02/06/21 02/06/21 02/06/21 08:15 08:30 08:46 Temperature Pulse Rate 128 H 130 H 125 H Pulse Rate [ From Monitor] Respiratory 34 H 34 H 32 H Rate Blood Pressure 145/55 145/55 117/47 O2 Sat by Pulse 94 93 96 Oximetry 02/06/21 02/06/21 02/06/21 09:00 09:15 09:30 Temperature Pulse Rate 126 H 128 H 129 H Pulse Rate [ From Monitor] Respiratory 33 H 33 H 34 H Rate Blood Pressure 122/41 139/56 133/53 O2 Sat by Pulse 93 93 91 Oximetry 02/06/21 02/06/21 02/06/21 09:46 10:00 10:15 Temperature Pulse Rate 129 H 128 H 129 H Pulse Rate [ From Monitor] Respiratory 34 H 34 H 32 H Rate Blood Pressure 123/46 120/50 120/50 O2 Sat by Pulse 92 92 91 Oximetry 02/06/21 02/06/21 02/06/21 10:30 10:45 11:00 Temperature Pulse Rate 127 H 125 H 125 H Pulse Rate [ From Monitor] Respiratory 33 H 34 H 34 H Rate Blood Pressure 98/51 110/47 110/47 O2 Sat by Pulse 91 90 91 Oximetry 02/06/21 02/06/21 02/06/21 11:28 11:29 11:30 Temperature 98.0 F Pulse Rate 124 H 123 H Pulse Rate [ From Monitor] Respiratory 35 H 34 H Rate Blood Pressure 116/42 O2 Sat by Pulse 90 91 Oximetry 02/06/21 02/06/21 02/06/21 11:40 11:45 12:00 Temperature Pulse Rate 122 H 123 H 121 H Pulse Rate [ 125 H From Monitor] Respiratory 33 H 34 H Rate Blood Pressure 70/42 118/46 117/52 O2 Sat by Pulse 91 97 97 Oximetry 02/06/21 02/06/21 02/06/21 12:15 12:30 12:34 Temperature 98.0 F Pulse Rate 121 H 121 H 117 H Pulse Rate [ From Monitor] Respiratory 35 H 13 36 H Rate Blood Pressure 121/43 133/37 133/37 O2 Sat by Pulse 98 99 96 Oximetry 02/06/21 02/06/21 02/06/21 12:46 13:00 13:15 Temperature Pulse Rate 121 H 120 H 122 H Pulse Rate [ From Monitor] Respiratory 26 H 26 H 36 H Rate Blood Pressure 131/37 134/41 124/44 O2 Sat by Pulse 100 99 100 Oximetry 02/06/21 15:31 Temperature Pulse Rate 117 H Pulse Rate [ From Monitor] Respiratory Rate Blood Pressure 103/46 O2 Sat by Pulse 96 Oximetry - Lab 02/06/21 14:32 02/06/21 10:00 Most recent lab results ABG pH 7.258 (7.320-7.450) L 02/06/21 08:05 ABG O2 Saturation 93.8 (0-100) 02/06/21 08:05 Calcium 7.8 mg/dL (8.4-10.2) L 02/06/21 10:00 Urine Creatinine 413.9 mg/dL (0.1-20.0) H 02/01/21 06:08 Urine Total Protein 55 mg/dL (5-11.8) H 02/01/21 06:08 Medications & Allergies - Medications Allergies/Adverse Reactions: Allergies Penicillins Allergy (Verified 01/30/21 21:16) Hives Active Medications: Generic Name Dose Route Start Last Admin Trade Name Freq PRN Reason Stop Dose Admin Albumin Human 25 gm 02/06/21 12:00 02/06/21 11:26 Albumin Human 5% (25 Gm/500 Ml) Inj IV 02/06/21 16:00 25 gm ONCE NR Administration Dextrose 25 ml 01/31/21 13:00 02/06/21 08:43 Dextrose 50% In Water (25gm) 50 Ml Syringe IV 25 ml Q30MIN PRN Administration Hypoglycemia Protocol Fentanyl 50 mcg 02/03/21 18:42 Fentanyl 100 Mcg/2 Ml Inj IV Q2H PRN Pain , Severe (7-10) Hydrophilic Ointment 1 applic 02/03/21 18:45 Lip Therapy Vaseline TP Q2H PRN Dry Lips Sodium Chloride 100 mls @ 999 mls/hr 02/03/21 11:00 Nacl 0.9% IV MARCIO PRN Hypotension Pantoprazole Sodium 80 mg/ 100 mls @ 10 mls/hr 02/03/21 17:00 02/06/21 11:14 Sodium Chloride IV 8 mg/hr DIRECT TAQUERIA 10 mls/hr Administration 8 MG/HR Propofol 1,000 mg in 100 mls @ 2.955 mls/hr 02/03/21 19:00 02/06/21 08:00 Diprivan 10 Mg/Ml IV 10 mcg/kg/min TITR TAQUER[place] 5.91 mls/hr Titration Protocol 5 MCG/KG/MIN Vasopressin 20 unit/ Sodium 101 mls @ 9.09 mls/hr 02/04/21 05:00 02/06/21 13:52 Chloride IV 0.03 units/min TITR [place] 9.09 mls/hr Administration Protocol 0.03 UNITS/MIN Dextrose 1,000 mls @ 50 mls/hr 02/05/21 18:00 02/05/21 17:37 D10w IV 10 mls/hr DIRECT TAQUERIA Administration Sodium Chloride 1,000 mls @ 10 mls/hr 02/05/21 18:00 02/05/21 17:35 Nacl 0.9% 1000 Ml IV 10 mls/hr ONCE PRN Administration sylvia Norepinephrine 4 mg in 250 mls @ 7.5 mls/hr 02/05/21 18:00 02/06/21 04:20 Levophed Drip 4 Mg/Ns 250 Ml IV 02/06/21 18:00 16 mcg/min TITR TAQUER[place] 60 mls/hr Administration Protocol 2 MCG/MIN Sodium Chloride 500 mls @ 0 mls/hr 02/05/21 19:52 Nacl 0.9% 500 Ml IV 02/06/21 23:59 ONCE NR As Directed Metronidazole 500 mg in 100 mls @ 100 mls/hr 02/06/21 12:00 02/06/21 12:01 Flagyl 500 Mg/100 Ml IV 100 mls/hr Q8H TAQUERIA Administration Protocol Sodium Bicarbonate 150 meq/ 1,150 mls @ 150 mls/hr 02/06/21 11:30 02/06/21 12:00 Dextrose IV 150 mls/hr DIRECT TAQUERIA Administration Sodium Chloride 500 mls @ 0 mls/hr 02/06/21 11:43 Nacl 0.9% 500 Ml IV 02/06/21 23:59 ONCE NR As Directed Sodium Chloride 500 mls @ 0 mls/hr 02/06/21 11:51 Nacl 0.9% 500 Ml IV 02/06/21 23:59 ONCE NR As Directed Cefepime HCl 1 gm in 100 mls @ 200 mls/hr 02/06/21 12:00 02/06/21 12:18 Cefepime/Ns 1 Gm/100 Ml IV 200 mls/hr Q24H TAQUERIA Administration Sodium Chloride 500 mls @ 0 mls/hr 02/06/21 12:01 Nacl 0.9% 500 Ml IV 02/06/21 23:59 ONCE NR As Directed Phenylephrine HCl 100 mg/ 100 mls @ 3 mls/hr 02/06/21 14:30 02/06/21 14:49 Sodium Chloride IV 50 mcg/min TITR TAQU[place] 3 mls/hr Administration Protocol 50 MCG/MIN Epinephrine 16 mg/ Sodium 250 mls @ 1.875 mls/hr 02/06/21 15:00 Chloride IV TITR TAQUERIA Protocol 2 MCG/MIN NORepinephrine/NS 8 MG-250 ML 8 mg in 250 mls @ 3.75 mls/hr 02/06/21 15:00 02/06/21 14:56 Norepinephrine/Ns 8 Mg-250 Ml (Double Conc) IV 30 mcg/min TITRATE [place]QU[place] 56.25 mls/hr Administration Protocol 2 MCG/MIN Lactulose 20 gm 02/01/21 10:00 02/06/21 10:11 Lactulose 20 Gm/30 Ml Oral Liqd PO Not Given QDAY [facility] Multi-Ingred Cream/Lotion/Oil/Oint 1 applic 02/03/21 18:45 Mineral Oil/Petrolatum, White Ophth Oint 3.5 Gm OU Q4H PRN Dry Eye(s) Multivitamins 1 each 02/01/21 10:00 02/06/21 10:11 Multivitamins ,Therapeutic Tab PO Not Given QDAY [facility] Ondansetron HCl 4 mg 01/31/21 03:30 02/03/21 10:18 Ondansetron 4 Mg/2 Ml Inj IV 4 mg Q8H PRN Administration Nausea And Vomiting Senna/Docusate Sodium 1 tab 02/03/21 22:00 02/06/21 10:11 Sennosides/Docusate Sodium 8.6/50 Mg Tab FEEDTUBE Not Given BID TAQUERIA Sodium Chloride 10 ml 01/31/21 10:00 02/06/21 10:15 Sodium Chloride 0.9% 10 Ml Flush Syringe IV 10 ml BID TAQUERIA Administration Sodium Chloride 10 ml 01/31/21 03:30 Sodium Chloride 0.9% 10 Ml Flush Syringe IV PRN PRN LINE FLUSH
[2021-02-06] MEDS ORDERED: SODIUM BICARB 8.4% 50 MEQ/50 ML SYRINGE IV SCH (16:00)
[2021-02-06 17:17] LABS: INR 5.02 (0.87-1.13)
[2021-02-06 17:18] LABS: Partial Thromboplastin Time 77.1 Sec. (24.2-36.6)
[2021-02-06 17:29] LABS: Band Neutrophils # (Manual) 1.5 K/mm3; Myelocytes # (Manual) 1.3 K/mm3; Total Cells Counted 100
[2021-02-06 17:30] LABS: Anisocytosis 1+; Poikilocytosis 1+
[2021-02-06 17:31] LABS: Ovalocytes Few; Platelet Estimate Consistent w Auto
--- NOTE | 2021-02-06 17:33 | Operative Report ---
DATE OF SURGERY: 02/06/2021 ENDOSCOPY REPORT PROCEDURE PERFORMED: Esophagogastroduodenoscopy. PREOPERATIVE DIAGNOSES: Gastrointestinal bleeding and liver disease. POSTOPERATIVE DIAGNOSIS: Massive upper gastrointestinal bleed, unable to visualize stomach; no actively bleeding varices noted in the esophagus. ENDOSCOPIST: Shen Barksdale MD INSTRUMENT: The Olympus video endoscope. MEDICATIONS: No additional medications were given during the procedure; the patient was intubated and sedated in the Intensive Care Unit per protocol. COMPLICATIONS: No apparent complications. ESTIMATED BLOOD LOSS: None due to the procedure, but the patient is undergoing a massive upper GI bleed. SPECIMENS: None. IMPLANTS: None. ASSISTANTS: None. CONDITION AT COMPLETION: Critical. TECHNIQUE: The patient's daughter signed the informed consent to proceed as the patient is sedated on a ventilator. After consent was obtained, he was placed in the supine position. The patient was maintained on the ventilator with no change in vital status during the procedure. The endoscope was advanced from the mouth to the distal stomach under direct visualization. At that point, the bowel was insufflated. We could not visualize the pylorus to cannulate the duodenum, but this had been seen on a previous upper endoscopy this week and no lesions have been noted there. We then insufflated the stomach and the endoscope was slowly withdrawn. FINDINGS: 1. In the stomach, there was a massive amount of blood clots and active blood with a very friable, oozing tissue diffusely; no discrete mucosal lesion could be identified. 2. The esophagus was incompletely visualized due to refluxed blood. Varices noted on his previous exam have decompressed, presumably from active bleeding, and are not amenable to banding. 3. The pylorus and duodenum were not cannulated. RECOMMENDATIONS: 1. Continue supportive care with blood products, medications, pressors, and dialysis. 2. Given the patient's developing acidosis and worsening liver enzymes, I feel that he is in fulminant liver failure and it is irreversible at this point. Prognosis remains very poor. TID: [id number] RECEIPT: [id number] REMY/XI
[2021-02-06 17:41] LABS: Albumin 2.2 g/dL (3.9-5); Calcium 8.3 mg/dL (8.4-10.2)
--- NOTE | 2021-02-06 18:13 | Event Note ---
I called the patient's daughter Yessica Gupta at [phone] and Deandre Nelson at [phone]. Neither initailly answered the phone and I left a voicemail with Deandre asking for a call back at [phone]. I called Yessica again and she answered. She attempted to three way Deandre but was unable. I informed her of her fathers passing and informed her that the nurse wi ll be calling for more information regarding home. I offered my condolences and she did not have any further questions.
--- NOTE | 2021-02-06 18:30 | Event Note ---
I called both daughters, Deandre Gupta and Obed Gupta , to inform them that their father DID NOT pass away and profusely apologized for my grave mistake. Both were informed that Mr. Gupta is still receiving all care at this time.
[2021-02-06 23:29] LABS: INR 5.97 (0.87-1.13)
[2021-02-06 23:30] LABS: Partial Thromboplastin Time 93.1 Sec. (24.2-36.6)
[2021-02-06] MEDS ORDERED: PHYTONADIONE(ADULT ONLY) 10 MG in SODIUM CHLORIDE 0.9% 50 ML IV ONE (23:37)
[2021-02-07 00:26] LABS: Hematocrit 20.9 % (35.5-45.6); Hemoglobin 6.7 gm/dl (11.8-15.2)
[2021-02-07] MEDS: DEXTROSE 50% IN WATER (25GM) 50 ML SYRINGE IV PRN (00:28)
[2021-02-07] MEDS ORDERED: SODIUM CHLORIDE 0.9% 500 ML 500 ML IV ONE (01:00)
[2021-02-07] MEDS: SODIUM BICARBONATE 150 MEQ in DEXTROSE 5% IN WATER 1,000 ML IV SCH ×2 (03:33→15:21)
[2021-02-07] MEDS: DEXTROSE 10% IN WATER 1,000 ML IV SCH (03:33)
[2021-02-07] MEDS: NORepinephrine/NS 8 MG-250 ML 8 MG/250 ML INFUS..BTL IV SCH ×2 (03:40→07:48)
[2021-02-07] MEDS: PHENYLEPHRINE 100 MG in SODIUM CHLORIDE 0.9% 90 ML IV SCH ×3 (03:42→15:21)
[2021-02-07] MEDS ORDERED: SODIUM CHLORIDE 0.9% 1000 ML 1,000 ML IV ONE ×2 (03:51→05:36)
[2021-02-07] MEDS: metroNIDAZOLE/NS 500 MG/100 ML 500 MG/100 ML BAG IV SCH (04:08)
[2021-02-07 05:08] LABS: Hematocrit 20.1 % (35.5-45.6); Hemoglobin 6.5 gm/dl (11.8-15.2)
[2021-02-07] MEDS: PANTOPRAZOLE 80 MG in SODIUM CHLORIDE 0.9% 100 ML IV SCH (05:55)
[2021-02-07] MEDS: VASOPRESSIN 20 UNIT in SODIUM CHLORIDE 0.9% 100 ML IV SCH (07:49)
[2021-02-07 08:23] LABS: Total Protein,Body Fluid < 3.0 (15.0-45.0); Triglycerides,Body Fluid 53
--- NOTE | 2021-02-07 09:18 | Event Note ---
Date: 02/07/21 Patient's chart reviewed, labs reviewed, talk with the patient's nurse at the bedside. Patient is acidotic since yesterday, pending ABG. Nurse states patient's maps were below 60, gave a liter of fluid, patient hemoglobin was low, most likely continued slow GI bleed. Patient was given fluids, patient is on pressors, patient could not tolerate hemodialysis yesterday, continues to be in renal failure, LFTs elevated and uptrending rapidly, hepatic failure noted. Patient is fluid overloaded. I spoke with the family, specifically Jameel Gupta. Explained her the situation pertaining to her father's condition. As explained yesterday, patient continues to be in multiorgan failure. Explained to her that coding the patient with chest compressions would not change attendant at this time it would not resolve the issue of liver failure and kidney failure. Explained that the patient would most likely cold multiple times and we would exert trauma to the body by chest compressions and electrical shocks if required. She verbalized understanding of this. She states that she does not want her father to suffer and Ms. Gupta has agreed to make the patient DNR. DNR order has been placed. I spoke with the charge nurse, family will come in to visit the patient.
[2021-02-07] MEDS ORDERED: LORazepam 2 MG/ML VIAL IV ONE (10:34)
[2021-02-07] MEDS: LACTULOSE 20 GM/30 ML ORAL LIQD PO SCH (11:29)
[2021-02-07] MEDS: SENNOSIDES/DOCUSATE SODIUM 8.6/50 MG TAB FEEDTUBE SCH (11:30)
[2021-02-07] MEDS: MULTIVITAMINS ,THERAPEUTIC TAB PO SCH (11:48)
[2021-02-07 12:19] VITALS: BP 84/35
--- NOTE | 2021-02-07 16:41 | Death Summary ---
Summary - Providers Date of service: 02/07/21 Consults: 01/31/21 02:33 Consult to Physician [CONS] Urgent Comment: Consulting Provider: BRANDO MOMIN Physician Instructions: Reason For Exam: Hyperkalemia, acute kidney injury 01/31/21 04:10 Consult to Physician [CONS] Routine Comment: Consulting Provider: HAILEY HERNANDEZ Physician Instructions: Reason For Exam: Abnormal liver enzymes 01/31/21 10:02 Consult to Interventional Radiology [CONS] Routine Consulting Provider: XOCHITL ALLISON Reason For Exam: permacath for HD Place consult to:: Notified:: y Phone number called:: [phone] Was contact made?: Yes If yes, spoke with:: Hanna Time called:: 11:45 01/31/21 17:11 Physical Therapy Evaluation and Treat [CONS] Routine Comment: Reason For Exam: PT for gait evaluation. 02/03/21 18:35 Consult to Physician [CONS] Routine Comment: Consulting Provider: NEO PRITCHARD Physician Instructions: Reason For Exam: ccm/acute respiratory failure 02/03/21 18:45 Consult to Dietitian/Nutrition [CONS] Routine Physician Instructions: Reason For Exam: Reason for Consult: Evaluate nutritional intake Attending: LILY CASTANO MD - summary Date of admission: 01/31/21 02:37 Date of : 02/07/21 Significant findings: Final diagnoses Acute kidney injury Acute tubular necrosis Acute blood loss anemia s/p endoscopy and IR Coil embolization Hemorrhagic peptic ulcer Acute hypoxic respiratory failure Alcoholic cirrhosis Acute peritoneal ascites Coagulopathy Hepatic mass Hyperbilirubinemia with elevated LFTs Hepatitis C Leukocytosis Nicotine dependence EtOH abuse S/p traumatic left BKA PEA cardiac arrest Hemorrhagic shock Hypotensive shock 65-year-old male with no significant past medical history presented to the emergency room 01/30/2021 complaining of abdominal pain and lower extremity edema for the past 2 to 3 weeks. Work-up in the emergency room showed revealed LILLIAM and acute liver dysfunction. Chest x-ray reveals small left pleural effusion. CT of the abdomen and pelvis shows a cirrhotic appearing liver there is also suggestion of possible multiple masses throughout the liver parenchyma. Moderate/large amount of ascites is noted throughout the abdomen and pelvis. Cholelithiasis without CT evidence of acute cholecystitis. Patient was admitted with abdominal pain possibly secondary to cirrhotic liver with accompanying ascites, cholelithiasis and hyperkalemia with acute renal failure. During his admission, patient had a paracentesis and 5.5 L of fluid was removed. CT of the abdomen did show underlying hepatic malignancy and GI was following. Patient was diagnosed with cirrhosis of the liver which clinically correlated to the patient's alcohol history. Patient had worsening kidney function, nephrology was consulted and patient underwent hemodialysis. Patient was having hematemesis and melenic stools, hemoglobin was low, patient underwent EGD by GI and it was found that there was a large amount of blood in his gastric fundus. They attempted to clip the ulceration but failed, patient was taken to IR and had coil embolization. Patient was placed on vitamin K, FFP, and desmopressin. During this time, patient went into hypotensive shock and was placed on pressors. Patient received multiple transfusions of blood. Patient then went into hemorrhagic shock due to continued bleeding and coagulopathic he. Liver enzymes were elevated, renal function continued to decrease even with dialysis. Lactic acidosis ensued, patient became acidotic. Patient was placed on IV antibiotics and blood cultures were drawn. Family was brought in to assess the patient and the poor prognosis. They stated they wanted full code, however after 24 hours, the situation became dire for the patient and stated that they would like the patient to be DNR. Patient was DNR, patient was kept on pressors and fluids were given. I will repeat patient went into cardiac arrest, PEA. I used a Doppler to assess for moral and carotid pulses, both unremarkable. I called the family and informed them that the patient at 15:50. Nursing staff will speak with family to make arrangements for the body be transferred to the appropriate home. Physical exam General: Patient obese, fluid overloaded Cardiovascular: Unremarkable pulses in left groin, left carotid, auscultation of the heart without any S1 or S2 Lungs: Crackles heard throughout, patient on vent Neurology: Pupils nonreactive, no corneal reflex, no painful stimuli response Disposition: , patient pronounced at 15:50
--- NOTE | 2021-02-07 19:00 | Progress Note ---
Assessment and Plan # LILLIAM: Likely with hepatorenal physiology +/- ATN from active bleed - reviewed urine studies, minimal blood/protein noted - imaging reviewed - serologies sent, HCV + - Started HD 02/03, tolerated only 1 hr yesterday and day before yesterday and was taken off due to hemodynamic instability. - Unable to dialyze today due to hemodynamic instability. MAP < 40 while maxed out on 4 vasopressors. - S/p bicarb push - Continue sodium bicarb drip - avoid nephrotoxins - renally dose meds - continue IV albumin bolus if albumin <2 to encourage renal perfusion - Keep MAP>65 - Transfuse for hgb < 7 # Acute blood loss anemia, s/p endoscopy and IR embolization. repeat endoscopy yesterday noted. Check hgb Q4h. Transfuse for hgb < 7 # Hyperkalemia: HD once/if hemodynamically stabilizes. # Hyperbilirubinemia/Cirrhosis/Concern for HCC: GI following, s/p paracentesis. Alcohol cessation # Hypoalbuminemia #Poor prognosis Subjective Date of service: 02/07/21 Principal diagnosis: Cirrhosis, Ulcer Interval history: Remains intubated. Unable to tolerate HD yesterday for more than an hour. On 4 vasopressors. Objective - Exam Narrative Exam: General: Sedated. Intubated. HEENT: Oral mucosa moist Neck: Supple, no JVD Chest: Intubated. Mechanical breath sounds. Heart: RRR, S1 and S2, no pericardial rub Abdomen: Soft, nontender, no renal bruit Extremity: No peripheral cyanosis, edema Neurological: Sedated Dermatology: No skin rash Psych: Unable to assess Musculoskeletal: No joint effusion - Vital Signs Vital signs: Vital Signs - 12hr 02/07/21 02/07/21 02/07/21 07:00 07:16 07:30 Temperature 97.4 F L Pulse Rate 108 H 108 H 109 H Pulse Rate [ From Monitor] Respiratory 36 H 36 H 35 H Rate Blood Pressure 112/64 112/64 112/64 O2 Sat by Pulse 93 82 L 91 Oximetry 02/07/21 02/07/21 02/07/21 07:46 08:00 08:16 Temperature Pulse Rate 107 H 102 H 106 H Pulse Rate [ 105 H From Monitor] Respiratory 35 H 37 H 29 H Rate Blood Pressure 112/64 102/68 102/68 O2 Sat by Pulse 86 87 Oximetry 02/07/21 02/07/21 02/07/21 08:30 08:46 09:00 Temperature Pulse Rate 105 H 105 H 105 H Pulse Rate [ From Monitor] Respiratory 27 H 34 H 35 H Rate Blood Pressure 102/68 102/68 102/68 O2 Sat by Pulse 87 86 87 Oximetry 02/07/21 02/07/21 02/07/21 09:16 09:30 09:46 Temperature Pulse Rate 105 H 104 H 103 H Pulse Rate [ From Monitor] Respiratory 28 H 37 H 27 H Rate Blood Pressure 102/68 102/68 102/68 O2 Sat by Pulse 79 L 81 L 77 L Oximetry 02/07/21 02/07/21 02/07/21 10:00 10:16 10:30 Temperature Pulse Rate 102 H 99 H 97 H Pulse Rate [ From Monitor] Respiratory 31 H 19 34 H Rate Blood Pressure 99/58 99/58 99/58 O2 Sat by Pulse 77 L 74 L 71 L Oximetry 02/07/21 02/07/21 02/07/21 10:46 10:51 11:00 Temperature 96.5 F L Pulse Rate 82 78 Pulse Rate [ From Monitor] Respiratory 30 H 33 H Rate Blood Pressure 99/58 99/58 O2 Sat by Pulse 64 L 70 L Oximetry 02/07/21 02/07/21 02/07/21 11:16 11:29 11:30 Temperature Pulse Rate 70 76 67 Pulse Rate [ From Monitor] Respiratory 29 H 37 H Rate Blood Pressure 99/58 52/32 99/58 O2 Sat by Pulse 64 L 67 L 70 L Oximetry 02/07/21 02/07/21 02/07/21 11:46 12:00 12:16 Temperature Pulse Rate 61 61 64 Pulse Rate [ 105 H From Monitor] Respiratory 26 H 25 H 34 H Rate Blood Pressure 99/58 99/58 84/35 O2 Sat by Pulse 67 L 67 L 48 L Oximetry - Lab 02/07/21 05:00 02/06/21 16:00 Most recent lab results ABG pH 7.190 (7.320-7.450) L 02/06/21 20:05 ABG O2 Saturation 88.9 (0-100) 02/06/21 20:05 Calcium 8.3 mg/dL (8.4-10.2) L 02/06/21 16:00 Urine Creatinine 413.9 mg/dL (0.1-20.0) H 02/01/21 06:08 Urine Total Protein 55 mg/dL (5-11.8) H 02/01/21 06:08 Medications & Allergies - Medications Allergies/Adverse Reactions: Allergies Penicillins Allergy (Verified 01/30/21 21:16) Hives Active Medications: Generic Name Dose Route Start Last Admin Trade Name Freq PRN Reason Stop Dose Admin Dextrose 25 ml 02/06/21 23:38 02/07/21 00:28 Dextrose 50% In Water (25gm) 50 Ml Syringe IV 25 ml Q30MIN PRN Administration Hypoglycemia Protocol Fentanyl 50 mcg 02/03/21 18:42 02/07/21 10:37 Fentanyl 100 Mcg/2 Ml Inj IV 50 mcg Q2H PRN Administration Pain , Severe (7-10) Hydrophilic Ointment 1 applic 02/03/21 18:45 Lip Therapy Vaseline TP Q2H PRN Dry Lips Sodium Chloride 100 mls @ 999 mls/hr 02/03/21 11:00 Nacl 0.9% IV MARCIO PRN Hypotension Pantoprazole Sodium 80 mg/ 100 mls @ 10 mls/hr 02/03/21 17:00 02/07/21 05:55 Sodium Chloride IV 8 mg/hr DIRECT TAQUERIA 10 mls/hr Administration 8 MG/HR Propofol 1,000 mg in 100 mls @ 2.955 mls/hr 02/03/21 19:00 02/06/21 08:00 Diprivan 10 Mg/Ml IV 10 mcg/kg/min TITR TAQUERIA 5.91 mls/hr Titration Protocol 5 MCG/KG/MIN Vasopressin 20 unit/ Sodium 101 mls @ 9.09 mls/hr 02/04/21 05:00 02/07/21 07:49 Chloride IV 0.03 units/min TITR TAQUERIA 9.09 mls/hr Administration Protocol 0.03 UNITS/MIN Dextrose 1,000 mls @ 50 mls/hr 02/05/21 18:00 02/07/21 03:33 D10w IV 50 mls/hr DIRECT TAQUERIA Administration Sodium Chloride 1,000 mls @ 10 mls/hr 02/05/21 18:00 02/05/21 17:35 Nacl 0.9% 1000 Ml IV 10 mls/hr ONCE PRN Administration sylvia Metronidazole 500 mg in 100 mls @ 100 mls/hr 02/06/21 12:00 02/07/21 04:08 Flagyl 500 Mg/100 Ml IV 100 mls/hr Q8H TAQUERIA Administration Protocol Sodium Bicarbonate 150 meq/ 1,150 mls @ 150 mls/hr 02/06/21 11:30 02/07/21 1 5:21 Dextrose IV 150 mls/hr DIRECT TAQUERIA Administration Cefepime HCl 1 gm in 100 mls @ 200 mls/hr 02/06/21 12:00 02/06/21 12:18 Cefepime/Ns 1 Gm/100 Ml IV 200 mls/hr Q24H TAQUERIA Administration Phenylephrine HCl 100 mg/ 100 mls @ 3 mls/hr 02/06/21 14:30 02/07/21 15:21 Sodium Chloride IV 400 mcg/min TITR TAQUERIA 24 mls/hr Administration Protocol 50 MCG/MIN Epinephrine 16 mg/ Sodium 250 mls @ 1.875 mls/hr 02/06/21 15:00 02/06/21 21:15 Chloride IV 10 mcg/min TITR TAQUERIA 9.375 mls/hr Titration Protocol 2 MCG/MIN NORepinephrine/NS 8 MG-250 ML 8 mg in 250 mls @ 3.75 mls/hr 02/06/21 15:00 02/07/21 07:48 Norepinephrine/Ns 8 Mg-250 Ml (Double Conc) IV 30 mcg/min TITRATE TAQUERIA 56.25 mls/hr Administration Protocol 2 MCG/MIN Lactulose 20 gm 02/01/21 10:00 02/07/21 11:29 Lactulose 20 Gm/30 Ml Oral Liqd PO Not Given QDAY [facility] Multi-Ingred Cream/Lotion/Oil/Oint 1 applic 02/03/21 18:45 Mineral Oil/Petrolatum, White Ophth Oint 3.5 Gm OU Q4H PRN Dry Eye(s) Multivitamins 1 each 02/01/21 10:00 02/07/21 11:48 Multivitamins ,Therapeutic Tab PO Not Given QDAY [facility] Ondansetron HCl 4 mg 01/31/21 03:30 02/03/21 10:18 Ondansetron 4 Mg/2 Ml Inj IV 4 mg Q8H PRN Administration Nausea And Vomiting Senna/Docusate Sodium 1 tab 02/03/21 22:00 02/07/21 11:30 Sennosides/Docusate Sodium 8.6/50 Mg Tab FEEDTUBE Not Given BID TAQUERIA Sodium Chloride 10 ml 01/31/21 10:00 02/07/21 11:45 Sodium Chloride 0.9% 10 Ml Flush Syringe IV Not Given BID TAQUERIA Sodium Chloride 10 ml 01/31/21 03:30 Sodium Chloride 0.9% 10 Ml Flush Syringe IV PRN PRN LINE FLUSH
== END 2021-02-07 16:00 | DRG 423 ==
LOC: ED 19:09 → 4A 01-31 02:37 → CC1 02-03 16:48
PROVIDERS: ADMIT Internal Medicine Geriatric Medicine; ATTEND Family Medicine
PROC: 0W9G3ZZ Drainage of Peritoneal Cavity, Percutaneous Approach (ICD-10-PCS; 2021-01-31)
PROC: 5A1D70Z Performance of Urinary Filtration, Intermittent, Less than 6 Hours Per Day (ICD-10-PCS; 2021-02-03)
PROC: 5A1945Z Respiratory Ventilation, 24-96 Consecutive Hours (ICD-10-PCS; 2021-02-03)
PROC: 0BH17EZ Insertion of Endotracheal Airway into Trachea, Via Natural or Artificial Opening (ICD-10-PCS; 2021-02-03)
PROC: 30233K1 Transfusion of Nonautologous Frozen Plasma into Peripheral Vein, Percutaneous Approach (ICD-10-PCS; 2021-02-03)
PROC: 30233N1 Transfusion of Nonautologous Red Blood Cells into Peripheral Vein, Percutaneous Approach (ICD-10-PCS; 2021-02-03)
PROC: 30233R1 Transfusion of Nonautologous Platelets into Peripheral Vein, Percutaneous Approach (ICD-10-PCS; 2021-02-03)
PROC: 04L33DZ Occlusion of Hepatic Artery with Intraluminal Device, Percutaneous Approach (ICD-10-PCS; 2021-02-03)
PROC: 0W3P8ZZ Control Bleeding in Gastrointestinal Tract, Via Natural or Artificial Opening Endoscopic (ICD-10-PCS; 2021-02-03)
PROC: B4121ZZ Fluoroscopy of Hepatic Artery using Low Osmolar Contrast (ICD-10-PCS; 2021-02-03)
PROC: B41J1ZZ Fluoroscopy of Other Lower Arteries using Low Osmolar Contrast (ICD-10-PCS; 2021-02-03)
PROC: B4141ZZ Fluoroscopy of Superior Mesenteric Artery using Low Osmolar Contrast (ICD-10-PCS; 2021-02-03)
PROC: 02HV33Z Insertion of Infusion Device into Superior Vena Cava, Percutaneous Approach (ICD-10-PCS; 2021-02-03)
PROC: B548ZZA Ultrasonography of Superior Vena Cava, Guidance (ICD-10-PCS; 2021-02-03)
PROC: 4A033R1 Measurement of Arterial Saturation, Peripheral, Percutaneous Approach (ICD-10-PCS; principal; 2021-02-04)
PROC: 5A1D70Z Performance of Urinary Filtration, Intermittent, Less than 6 Hours Per Day (ICD-10-PCS; 2021-02-05)
PROC: 03HY32Z Insertion of Monitoring Device into Upper Artery, Percutaneous Approach (ICD-10-PCS; 2021-02-05)
PROC: 5A1D70Z Performance of Urinary Filtration, Intermittent, Less than 6 Hours Per Day (ICD-10-PCS; 2021-02-06)
PROC: 30233M1 Transfusion of Nonautologous Plasma Cryoprecipitate into Peripheral Vein, Percutaneous Approach (ICD-10-PCS; 2021-02-06)
PROC: 03HY32Z Insertion of Monitoring Device into Upper Artery, Percutaneous Approach (ICD-10-PCS; 2021-02-06)
PROC: 0DJ08ZZ Inspection of Upper Intestinal Tract, Via Natural or Artificial Opening Endoscopic (ICD-10-PCS; 2021-02-06)
DX: K70.31 Alcoholic cirrhosis of liver with ascites (principal); N17.0 Acute kidney failure with tubular necrosis; K29.01 Acute gastritis with bleeding; J96.01 Acute respiratory failure with hypoxia; K27.4 Chronic or unspecified peptic ulcer, site unspecified, with hemorrhage; D68.9 Coagulation defect, unspecified; D62 Acute posthemorrhagic anemia; I85.10 Secondary esophageal varices without bleeding; Z66 Do not resuscitate; E80.6 Other disorders of bilirubin metabolism; E87.5 Hyperkalemia; F10.20 Alcohol dependence, uncomplicated; Y90.9 Presence of alcohol in blood, level not specified; B96.89 Other specified bacterial agents as the cause of diseases classified elsewhere; B19.20 Unspecified viral hepatitis C without hepatic coma; E88.09 Other disorders of plasma-protein metabolism, not elsewhere classified; Z88.0 Allergy status to penicillin; F17.200 Nicotine dependence, unspecified, uncomplicated; Z89.512 Acquired absence of left leg below knee; I46.9 Cardiac arrest, cause unspecified; R57.8 Other shock; R16.0 Hepatomegaly, not elsewhere classified
CPT/HCPCS: 36248; 36415; 36430; 36556; 36600; 37244; 49083; 71045; 74176; 75726; 76705; 80048; 80053; 80076; 81001; 82040; 82106; 82140; 82550; 82570; 82747; 82805; 82962; 83550; 83880; 84132; 84156; 84160; 84165; 84478; 85007; 85014; 85018; 85025; 85027; 85049; 85384; 85610; 85730; 86021; 86038; 86160; 86706; 86709; 86803; 86850; 86900; 86901; 86920; 86965; 87040; 87070; 87076; 87086; 87116; 87186; 87205; 87517; 87806; 88112; 88305; 89051; 94002; 94003; 96365; G0378; A4649; C1752; C1769; C1887; C1894; C9113; J0171; J0610; J0692; J1644; J1815; J2354; J2370; J2405; J2597; J2704; J3010; J3370; J3430; J7030; J7040; J7042; J7050; J7070; J7120; P9012; P9016; P9017; P9035; P9045; P9047; Q9967; U0003